=== PATIENT | male | born 1945 | race Caucasian/White ===

== ENCOUNTER → 2019-02-04 09:03 | Outpatient (CLI) | payer MEDICARE, OTHER, SELFPAY ==
[2019-02-04 11:27] LABS: Alanine Aminotransferase 15 IU/L (21-72); Albumin 4.5 g/dL (3.5-5.0); Albumin Globulin Ratio 1.8 (1.0-2.8); Alkaline Phosphatase 71 U/L (38-126); Aspartate Aminotransferase 21 IU/L (17-59); BUN Creatinine Ratio 21.1 (6-22); Bilirubin Total 0.5 mg/dL (0.2-1.3); Blood Urea Nitrogen 19 mg/dL (9-20); Calcium 9.4 mg/dL (8.4-10.2); Carbon Dioxide 32 mmol/L (22-32); Chloride 100 mmol/L (98-107); Cholesterol 129 mg/dL (140-199); Estimated Glomerular Filt Rate > 60.0 mL/min (>60); Globulin 2.5 g/dL (1.7-4.1); Glucose 116 mg/dL (80-110); HDL Cholesterol 42 mg/dL (40-60); HEMOLYSIS 16 (0-50); LDL Cholesterol Calculated 64 mg/dL (<100); Potassium 4.4 mmol/L (3.4-5.1); Sodium 143 mmol/L (137-145); Triglycerides 113 mg/dL (35-150)
[2019-02-04 11:35] LABS: Hemoglobin A1C% w Est Avg Glu 6.6 % (4.0-6.0)
== END ==
PROVIDERS: PCP Internal Medicine; Visit Provider Internal Medicine
DX: E11.9 Type 2 diabetes mellitus without complications (principal); E78.5 Hyperlipidemia, unspecified; G35 Multiple sclerosis; I10 Essential (primary) hypertension; I25.10 Atherosclerotic heart disease of native coronary artery without angina pectoris
CPT/HCPCS: 36415; 80053; 80061; 83036

== ENCOUNTER → 2019-09-02 09:09 | Outpatient (CLI) | payer MEDICARE, OTHER, SELFPAY ==
[2019-09-02 10:39] LABS: Hemoglobin A1C% w Est Avg Glu 6.3 % (4.0-6.0)
[2019-09-02 11:07] LABS: Creatinine Urine Random 200.5 mg/dL
[2019-09-02 11:09] LABS: Blood Urea Nitrogen 18 mg/dL (9-20); Calcium 9.6 mg/dL (8.4-10.2); Carbon Dioxide 30 mmol/L (22-32); Chloride 102 mmol/L (98-107); Estimated Glomerular Filt Rate > 60.0 mL/min (>60); Glucose 116 mg/dL (80-110); HEMOLYSIS < 15 (0-50); Potassium 4.4 mmol/L (3.4-5.1); Sodium 142 mmol/L (137-145)
[2019-09-02 11:13] LABS: Microalbumi Creatinin Ratio Ur 33.4 ug/mg CR (<30); Microalbumin Urine Random 6.7 mg/dL (0-1.6)
[2019-09-02 11:39] LABS: Prostate Specific Antigen Scrn 2.25 ng/mL (0.1-4.0)
== END ==
PROVIDERS: PCP Internal Medicine; Visit Provider Internal Medicine
DX: E11.9 Type 2 diabetes mellitus without complications (principal); E78.5 Hyperlipidemia, unspecified; I10 Essential (primary) hypertension; I25.10 Atherosclerotic heart disease of native coronary artery without angina pectoris; Z12.5 Encounter for screening for malignant neoplasm of prostate
CPT/HCPCS: 36415; 80048; 82043; 82570; 83036; G0103

== ENCOUNTER → 2020-03-03 09:07 | Outpatient (CLI) | payer MEDICARE, OTHER, SELFPAY ==
[2020-03-03 11:02] LABS: Hemoglobin A1C% w Est Avg Glu 6.6 % (4.0-6.0)
[2020-03-03 11:05] LABS: Alanine Aminotransferase 12 IU/L (<50); Albumin 4.5 g/dL (3.5-5.0); Albumin Globulin Ratio 1.7 (1.0-2.8); Alkaline Phosphatase 78 U/L (38-126); Aspartate Aminotransferase 24 IU/L (17-59); BUN Creatinine Ratio 19.1 (6-22); Bilirubin Total 0.5 mg/dL (0.2-1.3); Blood Urea Nitrogen 17 mg/dL (9-20); Calcium 9.5 mg/dL (8.4-10.2); Carbon Dioxide 29 mmol/L (22-32); Chloride 103 mmol/L (98-107); Cholesterol 125 mg/dL (140-199); Estimated Glomerular Filt Rate > 60.0 mL/min (>60); Globulin 2.6 g/dL (1.7-4.1); Glucose 119 mg/dL (80-110); HDL Cholesterol 43 mg/dL (40-60); HEMOLYSIS < 15 (0-50); LDL Cholesterol Calculated 63 mg/dL (<100); Potassium 4.3 mmol/L (3.4-5.1); Sodium 141 mmol/L (137-145); Total Protein 7.1 g/dL (6.3-8.2); Triglycerides 93 mg/dL (35-150)
== END ==
PROVIDERS: PCP Internal Medicine; Referring Provider Internal Medicine; Visit Provider Internal Medicine
DX: E11.9 Type 2 diabetes mellitus without complications (principal); E78.5 Hyperlipidemia, unspecified; G62.9 Polyneuropathy, unspecified; I25.10 Atherosclerotic heart disease of native coronary artery without angina pectoris
CPT/HCPCS: 36415; 80053; 80061; 83036

== ENCOUNTER → 2020-03-22 09:31 | Outpatient (CLI) | payer MEDICARE, OTHER, SELFPAY ==
[2020-03-22 10:01] LABS: Bacteria Urine None Seen
[2020-03-22 12:08] LABS: Appearance Urine UA CLEAR; Bilirubin Urine UA NEGATIVE (NEGATIVE); Color Urine UA YELLOW; Glucose Urine UA NEGATIVE (Negative); Ketones Urine UA TRACE (NEGATIVE); Leukocyte Esterase Urine UA TRACE (NEGATIVE); Nitrite Urine UA NEGATIVE (Negative); Occult Blood Urine UA 2+ (Negative); Protein Urine UA NEGATIVE (Negative); Urobilinogen Urine UA 0.2 E.U./dL (0.2); pH Urine UA 5.5 (4.5-8.0)
[2020-03-22 12:17] LABS: Hemoglobin A1C% w Est Avg Glu 6.5 % (4.0-6.0)
[2020-03-22 12:18] LABS: Culture Indicated Urine Cult Not Indicated; RBC Urine 1-5/HPF (0-5/HPF); Squamous Epithelial Cell Urine 1-5 /HPF (0-5/HPF); WBC Urine 0-1/HPF (0-5/HPF)
[2020-03-22 12:44] LABS: BUN Creatinine Ratio 19.1 (6-22); Blood Urea Nitrogen 17 mg/dL (9-20); Calcium 9.9 mg/dL (8.4-10.2); Carbon Dioxide 28 mmol/L (22-32); Chloride 101 mmol/L (98-107); Estimated Glomerular Filt Rate > 60.0 mL/min (>60); Glucose 109 mg/dL (80-110); HEMOLYSIS < 15 (0-50); Potassium 4.5 mmol/L (3.4-5.1); Sodium 140 mmol/L (137-145)
== END ==
PROVIDERS: PCP Internal Medicine; Referring Provider Internal Medicine; Visit Provider Internal Medicine
DX: E11.9 Type 2 diabetes mellitus without complications (principal); R35.0 Frequency of micturition
CPT/HCPCS: 36415; 80048; 81001; 83036

== ENCOUNTER → 2020-05-25 09:05 | Outpatient (CLI) | payer MEDICARE, OTHER, SELFPAY ==
[2020-05-25 12:43] LABS: Prostate Specific Antigen 2.26 ng/mL (0.10-4.00)
== END ==
PROVIDERS: PCP Internal Medicine; Referring Provider Specialist; Visit Provider Specialist
DX: N39.41 Urge incontinence (principal); N40.1 Benign prostatic hyperplasia with lower urinary tract symptoms
CPT/HCPCS: 36415; 84153

== ENCOUNTER → 2020-09-28 09:39 | Outpatient (CLI) | payer MEDICARE, OTHER, SELFPAY ==
[2020-09-28 11:13] LABS: Hemoglobin A1C% w Est Avg Glu 6.3 % (4.0-6.0)
[2020-09-28 11:14] LABS: Alanine Aminotransferase 12 IU/L (<50); Albumin 4.4 g/dL (3.5-5.0); Albumin Globulin Ratio 1.8 (1.0-2.8); Alkaline Phosphatase 80 U/L (38-126); Aspartate Aminotransferase 20 IU/L (17-59); BUN Creatinine Ratio 20.9 (6-22); Bilirubin Total 0.5 mg/dL (0.2-1.3); Blood Urea Nitrogen 18 mg/dL (9-20); Calcium 9.2 mg/dL (8.4-10.2); Carbon Dioxide 30 mmol/L (22-32); Chloride 103 mmol/L (98-107); Cholesterol 124 mg/dL (140-199); Estimated Glomerular Filt Rate > 60.0 mL/min (>60); Globulin 2.5 g/dL (1.7-4.1); Glucose 109 mg/dL (80-110); HDL Cholesterol 49 mg/dL (40-60); HEMOLYSIS < 15 (0-50); LDL Cholesterol Calculated 56 mg/dL (<100); Sodium 141 mmol/L (137-145); Total Protein 6.9 g/dL (6.3-8.2); Triglycerides 95 mg/dL (35-150)
[2020-09-28 12:00] LABS: Vitamin B12 > 1000 pg/mL (239-931)
== END ==
PROVIDERS: PCP Internal Medicine; Referring Provider Internal Medicine; Visit Provider Internal Medicine
DX: E11.21 Type 2 diabetes mellitus with diabetic nephropathy (principal); E78.5 Hyperlipidemia, unspecified; E53.8 Deficiency of other specified B group vitamins; G62.9 Polyneuropathy, unspecified; I10 Essential (primary) hypertension; I25.10 Atherosclerotic heart disease of native coronary artery without angina pectoris
CPT/HCPCS: 36415; 80053; 80061; 82607; 83036

== ENCOUNTER → 2021-01-18 09:05 | Outpatient (CLI) | payer MEDICARE, OTHER, SELFPAY ==
[2021-01-18 11:10] LABS: Hemoglobin A1C% w Est Avg Glu 6.1 % (4.0-6.0)
[2021-01-18 11:54] LABS: HEMOLYSIS < 15 (0-50)
[2021-01-18 11:55] LABS: Alanine Aminotransferase 16 IU/L (<50); Albumin 4.3 g/dL (3.5-5.0); Alkaline Phosphatase 66 U/L (38-126); Aspartate Aminotransferase 25 IU/L (17-59); BUN Creatinine Ratio 23.5 (6-22); Bilirubin Total 0.5 mg/dL (0.2-1.3); Blood Urea Nitrogen 20 mg/dL (9-20); Calcium 9.8 mg/dL (8.4-10.2); Carbon Dioxide 28 mmol/L (22-32); Chloride 102 mmol/L (98-107); Cholesterol 124 mg/dL (140-199); Estimated Glomerular Filt Rate > 60.0 mL/min (>60); Globulin 2.2 g/dL (1.7-4.1); Glucose 93 mg/dL (80-110); HDL Cholesterol 51 mg/dL (40-60); LDL Cholesterol Calculated 57 mg/dL (<100); Sodium 141 mmol/L (137-145); Total Protein 6.5 g/dL (6.3-8.2); Triglycerides 79 mg/dL (35-150)
[2021-01-18 12:27] LABS: Potassium 4.5 mmol/L (3.4-5.1)
== END ==
PROVIDERS: PCP Internal Medicine; Referring Provider Internal Medicine; Visit Provider Internal Medicine
DX: E11.9 Type 2 diabetes mellitus without complications (principal); E78.5 Hyperlipidemia, unspecified; I10 Essential (primary) hypertension
CPT/HCPCS: 36415; 80053; 80061; 83036

== ENCOUNTER 2021-02-06 03:27 | Emergency (ER) | payer MEDICARE, OTHER, SELFPAY ==
[2021-02-06 03:37] VITALS: BP 136/76; PULSE 58; RESP 15; TEMP 36.1; O2SAT 98; BMI 20.5
--- NOTE | 2021-02-06 04:07 | ED.FALL ---
HPI - Fall General Chief Complaint: Fall Stated Complaint: Has MS, fell and hit head Time Seen by Provider: 02/06/21 03:54 Source: patient and family Mode of arrival: Ambulatory History of Present Illness HPI Narrative: Patient is a 75-year-old male with history of MS on Plavix who rolled out of bed cutting his left ear on the his bedside table corner. No loss of consciousness no other injury. No nausea vomiting or weakness. MD complaint: fall Onset (ago): unknown Fall from: out of bed Fall witnessed: yes, by family Place fall occurred: home Loss of consciousness: none Related Data Home Medications Medication Instructions Recorded Confirmed aspirin 325 mg PO QDAY #0 04/28/16 01/25/21 Previous Rx's Medication Instructions Recorded clopidogrel 75 mg tablet 75 mg PO QDAY #90 tab 03/08/20 sertraline 100 mg tablet 100 mg PO DAILY #90 tab 05/06/20 lisinopril 5 mg tablet 5 mg PO DAILY #90 tab 09/08/20 metformin 500 mg tablet 500 mg PO BIDCC #180 tab 09/08/20 atorvastatin 10 mg tablet 5 mg PO EVERY OTHER DAY #45 tab 12/03/20 gabapentin 300 mg capsule 300 mg PO BID #120 cap 12/23/20 Allergies Allergy/AdvReac Type Severity Reaction Status Date / Time adhesive [ADHESIVE] AdvReac Mild RASH Verified 01/25/21 11:31 Review of Systems Review of Systems Narrative: GENERAL: Denies chills, fatigue, malaise, fever, sweats, travel HEENT: Denies sinus pain, ear pain, sore throat, difficulty swallowing, neck pain RESPIRATORY: Denies dyspnea, cough, wheezing, hemoptysis, sputum. CARDIOVASCULAR: Denies chest pain, palpitations, orthopnea, edema GASTROINTESTINAL: Denies nausea, vomiting, abdominal pain, diarrhea, constipation, melena. : Denies dysuria, frequency, incontinence, hematuria, urinary retention, flank pain. MUSCULOSKELETAL: Denies weakness, joint pain, or bony pain SKIN: Laceration left ear NEUROLOGIC: Denies weakness, dizziness, headache, numbness, change in speech, confusion PSYCHIATRIC: No concerning psychosocial issues. 12 point review of systems is negative except for those stated above and HPI Patient History Medical History Alcohol abuse Balance problems (07/06/16) Benign prostatic hyperplasia (BPH) with urinary urge incontinence BPH w urinary obs/LUTS Cataracts, bilateral (2010) Coronary artery disease involving [place] coronary artery of [place] heart without angina pectoris (04/28/16) Depression (2011) Diabetes Essential hypertension (04/28/16) Foot pain (2005) Hammertoes of both feet Hyperlipemia (Unknown) Kidney stones (2010) Knee pain (2005) Multiple sclerosis (~2014) Parkinson's disease (2014) Peripheral neuropathy (2005) Peripheral vascular disease (09/27/17) Recurrent falls (07/06/16) Sciatica (2005) Type 2 diabetes mellitus without complication, without long-term current use of insulin (04/28/16) Type 2 diabetes with nephropathy Urge incontinence Venous insufficiency Surgical History History of coronary artery stent placement Hx of knee surgery (Unknown) Hx of lithotripsy (11/2015) S/P coronary artery stent placement (Unknown) S/P knee surgery S/P tonsillectomy and adenoidectomy Family History Father Diabetes mellitus Mother No problems noted. Brother Diabetes mellitus Social History Smoking Status: Never smoker alcohol intake: former Smoking Status: Never smoker Substance Use Type: does not use Exam Initial Vital Signs Initial Vital Signs: Vital Signs Temperature 97 F L 02/06/21 03:37 Pulse Rate 58 L 02/06/21 03:37 Respiratory Rate 15 02/06/21 03:37 Blood Pressure 136/76 02/06/21 03:37 Pulse Oximetry 98 02/06/21 03:37 GENERAL: Alert well-appearing 75-year-old male and in no acute distress. HEENT: Head atraumatic,EOMI, pupils reactive, face symmetric, moist mucous membranes NECK: No vertebral tenderness or step-off full flexion extension and rotation EARS:laceration see diagram tympanic membrane intact blood in can now but no injury to can now noted CARDIOVASCULAR: Regular rate and rhythm without murmurs, rubs or gallops. RESPIRATORY: Breath sounds equal bilaterally, no wheezes rales or rhonchi. ABDOMEN: Soft, nontender. Normoactive bowel sounds all 4 quadrants. No guarding or rebound. BACK: No vertebral tenderness no step-off EXTREMITIES: Normal range of motion, no clubbing or edema. Neurovascularly intact NEUROLOGICAL: Alert and oriented x4.Normal gait and speech. [employer] strength equal bilaterally SKIN: 8 cm laceration in left ear see diagram HENMT Ear Left: 1. 4 cm laceration no cartilage involvement Procedures Laceration Repair Laceration 1: Site: other (Year) Side (If applicable): left Size (cm): 4 Description: linear Depth: simple, single layer Local Anesthetic: lidocaine 1% Amount of anesthesia used (mL): 15 Pre-repair: irrigated extensively and deep structures intact Skin layer closed with: nylon Size (cm): 6-0 Number of sutures: 8 Technique: simple, interrupted Nerve Block Nerve Block 1: Time out performed: Yes Local Anesthetic: lidocaine 1% Amount of anesthesia used (mL): 15 Side: left Nerve Blocks: other (Auricular block) Procedure Successful: Yes Patient Tolerated Procedure: Well Complications: none Course Orders Ordered: Discontinued Medications Lidocaine HCl (Lidocaine 2% Inj Mdv) 1 ml SUBCUT NOW ONE Stop: 02/06/21 04:17 Last Admin: 02/06/21 04:28 Dose: 1 ml Documented by: SOLITARIO Tranexamic Acid (Tranexamic Acid 1,000 Mg Vial) 1,000 mg TOP NOW ONE Stop: 02/06/21 05:19 Last Admin: 02/06/21 05:26 Dose: 1,000 mg Documented by: LESA Vital Signs Vital signs: Vital Signs - 8 hr 02/06/21 03:37 02/06/21 05:40 Temperature 97 F L Pulse Rate 58 L 63 Respiratory Rate 15 18 Blood Pressure 136/76 158/78 H Pulse Oximetry 98 100 MDM - Fall MDM Narrative Medical decision making narrative: Patient had some oozing still despite suture repair. TXA cotton ball and pressure were applied. Discharge Plan Departure Patient Disposition: Home Clinical Impression: Laceration of antihelix of left ear Qualifiers: Encounter type: initial encounter Qualified Code(s): S01.312A - Laceration without foreign body of left ear, initial encounter Instructions: DI for Laceration Repair Activity Restrictions/Additional Instructions: 1. Have your suture removed in 5-7 days, you may go to walk-in clinic, return to the ER or call your primary care physician. 2. No soaking in water including dishes, bathtubs, Lakes, swimming pools etc 3. Signs of infection include, but not limited to, increased redness, increased swelling, increased pain, fever and purulent drainage, if the symptoms should arise, you may need an antibiotic and you should have a reevaluation either by your primary care provider or by the emergency department. Prescriptions: No Action aspirin 325 MG tablet 325 mg PO QDAY Qty: 0 RF: 0 clopidogrel 75 mg tablet 75 mg PO QDAY Qty: 90 RF: 3 sertraline 100 mg tablet 100 mg PO DAILY Qty: 90 RF: 3 metformin [Glucophage] 500 mg tablet 500 mg PO BIDCC Qty: 180 RF: 3 lisinopril 5 mg tablet 5 mg PO DAILY Qty: 90 RF: 3 atorvastatin [Lipitor] 10 mg tablet 5 mg PO EVERY OTHER DAY Qty: 45 RF: 1 gabapentin 300 mg capsule 300 mg PO BID Qty: 120 RF: 0 Referrals: Mitch Maldonado MD [Primary Care Provider] -
[2021-02-06] MEDS: LIDOCAINE 2% INJ MDV 1 ML SUBCUT (04:28)
[2021-02-06] MEDS: TRANEXAMIC ACID 1,000 MG VIAL 1000 MG TOP (05:26)
[2021-02-06 05:40] VITALS: BP 158/78; PULSE 63; RESP 18; O2SAT 100
== END 2021-02-06 05:40 | disposition home or self-care (01) ==
PROVIDERS: Emergency Provider Emergency Medicine; PCP Internal Medicine
DX: S01.312A Laceration without foreign body of left ear, initial encounter (principal); W06.XXXA Fall from bed, initial encounter
CPT/HCPCS: 12013; 99282; 99283

== ENCOUNTER 2021-02-23 12:02 | Emergency (ER) | payer MEDICARE, OTHER, SELFPAY ==
[2021-02-23] VITALS (8 sets, daily range): BP systolic 114–138; BP diastolic 61–74; PULSE 53–67; RESP 12–24; TEMP 36.3; O2SAT 98–100; BMI 22.4
[2021-02-23 12:36] LABS: INR 1.1 (0.9-1.3)
[2021-02-23 12:38] LABS: Add Manual Diff / Slide Review NO; Basophils Absolute Auto 0 /uL (0-100); Basophils Percent Auto 0.4 % (0-2); Eosinophils Absolute Auto 700 /uL (0-450); Eosinophils Percent Auto 7.9 % (2-4); Hematocrit 43.1 % (41-53); Hemoglobin 14.2 g/dL (13.5-17.5); Lymphocytes Absolute Auto 1200 /uL (1100-4500); Lymphocytes Percent Auto 13.1 % (25-40); Mean Corpuscular HGB Conc 32.9 % (30-36); Mean Corpuscular Hemoglobin 32.7 PG (26-34); Mean Corpuscular Volume 99.2 fL (80-100); Monocytes Absolute Auto 700 /uL (0-900); Monocytes Percent Auto 7.5 % (3-14); Neutrophils Absolute Auto 6600 /uL (1500-7000); Neutrophils Percent Auto 71.1 % (50-75); Platelet Count 215 X10^3/uL (150-400); Red Blood Cell Count 4.35 X10^6/uL (4.5-5.9); Red Cell Distribution Width 13.2 % (11.6-14.8); White Blood Cell Count 9.3 X10^3/uL (4.5-11.0)
[2021-02-23 12:41] LABS: Alanine Aminotransferase 17 IU/L (<50); Albumin 4.2 g/dL (3.5-5.0); Albumin Globulin Ratio 1.8 (1.0-2.8); Alkaline Phosphatase 76 U/L (38-126); Aspartate Aminotransferase 29 IU/L (17-59); BUN Creatinine Ratio 22.6 (6-22); Bilirubin Total 0.6 mg/dL (0.2-1.3); Blood Urea Nitrogen 19 mg/dL (9-20); Calcium 9.3 mg/dL (8.4-10.2); Carbon Dioxide 27 mmol/L (22-32); Chloride 102 mmol/L (98-107); Estimated Glomerular Filt Rate > 60.0 mL/min (>60); Globulin 2.3 g/dL (1.7-4.1); Glucose 97 mg/dL (80-110); HEMOLYSIS 30 (0-50); Potassium 4.4 mmol/L (3.4-5.1); Sodium 138 mmol/L (137-145); Total Protein 6.5 g/dL (6.3-8.2)
--- NOTE | 2021-02-23 13:15 | ED.SKABFB ---
HPI - Skin/Abscess/Foreign Bdy General Chief complaint: Skin/Abscess/Foreign Body Stated complaint: lower right leg swollen, leaking fluids, rashes Time Seen by Provider: 02/23/21 13:15 Source: patient and family Mode of arrival: Ambulatory Limitations: no limitations History of Present Illness HPI narrative: This is a 75-year-old male comes emergency department with complaint of swelling of his right lower extremity, erythema and rash that has begun to week but. Patient states he has had rashes intermittently on his lower extremities particular that leg. They have not found a source. They are putting lotion on the area over the past week and then they noted it started to become increasing lead with redness spreading from the rash up the leg and up into his thigh. This is an several patches. They also noticed this been some fluid draining from the rash area. Patient has had increasing pain when he ambulates. He has got chronic swelling in his lower extremity but has had worsening particularly in foot. He has not appreciated worsening swelling in his left lower extremity. Patient denies any fevers or chills. He denies any chest pain or shortness of breath, no nausea or vomiting. No other new GI or urinary symptoms. He does have a history significant for MS, he takes Plavix, aspirin daily as well as atorvastatin, lisinopril and metformin has a history of 4 cardiac stents and does take gabapentin daily. Patient denies any other immune suppressive medications. He denies any allergies to antibiotics. He follows with Dr. Maldonado for his primary care and is accompanied by his . Related Data Home Medications Medication Instructions Recorded Confirmed aspirin 325 mg PO QDAY #0 04/28/16 02/14/21 Previous Rx's Medication Instructions Recorded clopidogrel 75 mg tablet 75 mg PO QDAY #90 tab 03/08/20 sertraline 100 mg tablet 100 mg PO DAILY #90 tab 05/06/20 lisinopril 5 mg tablet 5 mg PO DAILY #90 tab 09/08/20 metformin 500 mg tablet 500 mg PO BIDCC #180 tab 09/08/20 atorvastatin 10 mg tablet 5 mg PO EVERY OTHER DAY #45 tab 12/03/20 gabapentin 300 mg capsule 300 mg PO BID #120 cap 12/23/20 clindamycin HCl 300 mg PO Q6H #40 cap 02/23/21 Allergies Allergy/AdvReac Type Severity Reaction Status Date / Time adhesive [ADHESIVE] AdvReac Mild RASH Verified 02/23/21 12:12 Review of Systems Review of Systems ROS Unobtainable: All systems reviewed & are unremarkable except as noted in HPI and below Patient History Medical History Alcohol abuse Balance problems (07/06/16) Benign prostatic hyperplasia (BPH) with urinary urge incontinence BPH w urinary obs/LUTS Cataracts, bilateral (2010) Coronary artery disease involving [place] coronary artery of [place] heart without angina pectoris (04/28/16) Depression (2011) Diabetes Essential hypertension (04/28/16) Foot pain (2005) Hammertoes of both feet Hyperlipemia (Unknown) Kidney stones (2010) Knee pain (2005) Multiple sclerosis (~2014) Parkinson's disease (2014) Peripheral neuropathy (2005) Peripheral vascular disease (09/27/17) Recurrent falls (07/06/16) Sciatica (2005) Type 2 diabetes mellitus without complication, without long-term current use of insulin (04/28/16) Type 2 diabetes with nephropathy Urge incontinence Venous insufficiency Surgical History History of coronary artery stent placement Hx of knee surgery (Unknown) Hx of lithotripsy (11/2015) S/P coronary artery stent placement (Unknown) S/P knee surgery S/P tonsillectomy and adenoidectomy Family History Father Diabetes mellitus Mother No problems noted. Brother Diabetes mellitus Social History Smoking Status: Never smoker alcohol intake: former Smoking Status: Never smoker alcohol intake frequency: other Substance Use Type: does not use Exam Narrative Exam Narrative: GENERAL: Alert and oriented x three, well-nourished male in mild distress. HEENT: Head normocephalic, atraumatic, EOMI, pupils reactive, face symmetric, moist mucous membranes NECK: Supple, full range of motion CARDIOVASCULAR: Regular rate and rhythm without murmurs, rubs or gallops. RESPIRATORY: Breath sounds equal bilaterally, no wheezes rales or rhonchi. ABDOMEN: Soft, nontender. Normoactive bowel sounds all 4 quadrants. No guarding or rebound, rigidity, no mass : No CVA tenderness EXTREMITIES: Patient's right lower extremity is swollen compared to the left. He has several erythema medic irregular patches that are weeping serosanguineous fluid the largest is 3.5 cm in circumference. Patient also has some mild erythema with small papules tracking up the anterior chance although this does not have the significantly erythematous changes comparison to the patches. Patient also has secondary area on his right lower thigh posteriorly that is about 3 cm also irregular Um patches 3 total with some serosanguineous drainage and very mild surrounding erythema about a cm. There is no obvious fluid collection or fluctuance. There is some mild warmth. Patient does have swelling of the right pedal area significantly compared to the left. He has cap refill about 3-4 seconds which she states is normal. Normal range of motion, no clubbing. Neurovascularly intact NEUROLOGICAL: Cranial nerves II through XII grossly intact. Moving all extremities SKIN: Warm, dry, no petechiae, no rashes or lesions noted elsewhere on the body. Initial Vital Signs Initial Vital Signs: Vital Signs Pulse Rate 64 02/23/21 12:09 Blood Pressure 122/71 02/23/21 12:09 Pulse Oximetry 98 02/23/21 12:09 Course Orders Ordered: ED Orders 02/23/21 12:25 Complete Blood Count AUTO DIFF Stat Comprehensive Metabolic Panel Stat Procalcitonin Stat Prothrombin Time INR Stat 02/23/21 13:50 US periph venous low extrem rt Stat 02/23/21 14:19 Wound Culture and Gram Stain Stat Discontinued Medications Clindamycin Phosphate (Cleocin) 600 mg in 50 mls @ 50 mls/hr IV NOW ONE Stop: 02/23/21 14:50 Last Infusion: 02/23/21 15:08 Dose: 0 mls/hr Documented by: Admin: 02/23/21 14:08 Dose: 50 mls/hr Documented by: ASTER Vital Signs Vital signs: Vital Signs - 8 hr 02/23/21 12:09 02/23/21 12:12 02/23/21 12:30 Temperature 97.3 F L Pulse Rate 64 67 57 L Respiratory Rate 16 12 Blood Pressure 122/71 122/71 114/61 Pulse Oximetry 98 98 98 02/23/21 13:00 02/23/21 13:30 02/23/21 14:00 Temperature Pulse Rate 53 L 54 L 55 L Respiratory Rate 13 24 14 Blood Pressure 138/71 136/71 Pulse Oximetry 98 02/23/21 14:30 02/23/21 15:00 Temperature Pulse Rate 55 L 54 L Respiratory Rate 15 19 Blood Pressure 125/66 130/74 Pulse Oximetry 100 99 MDM - Skin/Abscess/Foreign Bdy Lab Data Attestation: I reviewed the patient's lab results. Result diagrams: 02/23/21 12:25 02/23/21 12:25 Labs: Lab Results 02/23/21 02/23/21 02/23/21 Range/Units 12:25 12:25 12:25 WBC 9.3 (4.5-11.0) X10^3/uL RBC 4.35 L (4.5-5.9) X10^6/uL Hgb 14.2 (13.5-17.5) g/dL Hct 43.1 (41-53) % MCV 99.2 (80-100) fL MCH 32.7 (26-34) PG MCHC 32.9 (30-36) % RDW 13.2 (11.6-14.8) % Plt Count 215 (150-400) X10^3/uL Neut % (Auto) 71.1 (50-75) % Lymph % (Auto) 13.1 L (25-40) % [place] % (Auto) 7.5 (3-14) % Eos % (Auto) 7.9 H (2-4) % Baso % (Auto) 0.4 (0-2) % Neut # (Auto) 6600 (8690-4785) /uL Lymph # (Auto) 1200 (2078-4349) /uL [place] # (Auto) 700 (0-900) /uL Eos # (Auto) 700 H (0-450) /uL Baso # (Auto) 0 (0-100) /uL PT 12.0 (10.1-12.7) SECONDS INR 1.1 (0.9-1.3) Sodium 138 (137-145) mmol/L Potassium 4.4 (3.4-5.1) mmol/L Chloride 102 (98-107) mmol/L Carbon Dioxide 27 (22-32) mmol/L BUN 19 (9-20) mg/dL Creatinine 0.84 (0.66-1.25) mg/dL Estimated GFR > 60.0 (>60) mL/min BUN/Creatinine Ratio 22.6 H (6-22) Glucose 97 (80-110) mg/dL Calcium 9.3 (8.4-10.2) mg/dL Total Bilirubin 0.6 (0.2-1.3) mg/dL AST 29 (17-59) IU/L ALT 17 (<50) IU/L Alkaline Phosphatase 76 (38-126) U/L Total Protein 6.5 (6.3-8.2) g/dL Albumin 4.2 (3.5-5.0) g/dL Globulin 2.3 (1.7-4.1) g/dL Albumin/Globulin Ratio 1.8 (1.0-2.8) Procalcitonin (<0.5) ng/mL 02/23/21 Range/Units 12:25 WBC (4.5-11.0) X10^3/uL RBC (4.5-5.9) X10^6/uL Hgb (13.5-17.5) g/dL Hct (41-53) % MCV (80-100) fL MCH (26-34) PG MCHC (30-36) % RDW (11.6-14.8) % Plt Count (150-400) X10^3/uL Neut % (Auto) (50-75) % Lymph % (Auto) (25-40) % [place] % (Auto) (3-14) % Eos % (Auto) (2-4) % Baso % (Auto) (0-2) % Neut # (Auto) (5692-8756) /uL Lymph # (Auto) (7470-3577) /uL [place] # (Auto) (0-900) /uL Eos # (Auto) (0-450) /uL Baso # (Auto) (0-100) /uL PT (10.1-12.7) SECONDS INR (0.9-1.3) Sodium (137-145) mmol/L Potassium (3.4-5.1) mmol/L Chloride (98-107) mmol/L Carbon Dioxide (22-32) mmol/L BUN (9-20) mg/dL Creatinine (0.66-1.25) mg/dL Estimated GFR (>60) mL/min BUN/Creatinine Ratio (6-22) Glucose (80-110) mg/dL Calcium (8.4-10.2) mg/dL Total Bilirubin (0.2-1.3) mg/dL AST (17-59) IU/L ALT (<50) IU/L Alkaline Phosphatase (38-126) U/L Total Protein (6.3-8.2) g/dL Albumin (3.5-5.0) g/dL Globulin (1.7-4.1) g/dL Albumin/Globulin Ratio (1.0-2.8) Procalcitonin 0.05 (<0.5) ng/mL Imaging Data US - DVT: Radiologist's Impression: [address] [id number] ReportSigned Patient: German Collazo JMR#: [id number]: 6Acct:[id number]/Sex: 75 / MDate of Service: 02/23/21Loc: EDAccession Number: [id number] Procedure: US periph venous low extrem rt Ordering Provider: Brenda Casarez D.O. PROCEDURE: US PERIPH VENOUS LOW EXTREM RT INDICATIONS: Swelling, redness, skin breakdown leg TECHNIQUE: Real-time imaging, as well as color and pulse Doppler interrogation, were performed of the lower extremity deep veins from the inguinal ligament to the popliteal fossa. COMPARISON: None. FINDINGS: The common femoral, femoral and popliteal veins are normally compressible, and free of intraluminal thrombus. Color and pulse Doppler demonstrate normal phasic intraluminal flow. There is normal augmentation response to distal compression maneuver. IMPRESSION: No DVT. Dictated by: Joni Lafleur M.D. on 02/23/2021 at 14:35 Approved by: Joni Lafleur M.D. on 02/23/2021 at 14:35 [facility] Narrative Medical decision making narrative: This is a 75 old male who comes in with complaint of rash that has developed stressing with a sweeping and increasing redness extending up his leg. I suspect patient has rash is not typically infectious but has developed an overlying bacterial infection. Patient has been afebrile, his labs showed elevation is eosinophils and we discussed that long-term he would probably benefit for some further dermatologic evaluation. Patient's procalcitonin is in normal range and he does not meet any other septic criteria. He has patches of rash with surrounding erythema no purulent drainage. Culture was sent the patient was started on oral medication after single dose of IV antibiotics. Patient discussed strict return precautions. DVT ultrasound was ordered as he has had swelling of that singular lower extremity particularly in the foot and does have some mobility issues Discharge Plan Departure Patient Disposition: Home Clinical Impression: Cellulitis of right lower extremity Instructions: DI for Cellulitis -- Adult Activity Restrictions/Additional Instructions: Follow up with your physician this week for recheck. Call for an appointment today or in the morning. I would discuss for the long-term with your recurrent rashes on her lower extremities may be worthwhile to have a biopsy or follow-up with Dermatology if Dr. Maldonado feels this is appropriate. Take antibiotics until completely gone. Prescription to [facility] Change bandages to the areas with weeping drainage 2-3 times daily or if they become completely soaked through. Please return if you are having fevers greater 100.4 F, increasing redness, swelling, purulent drainage, rapidly worsening swelling of your extremity, new chest pain, shortness of breath, persistent vomiting or feeling significantly worse or other new or concerning symptoms. Prescriptions: New clindamycin HCl 300 mg capsule 300 mg PO Q6H Qty: 40 RF: 0 No Action aspirin 325 MG tablet 325 mg PO QDAY Qty: 0 RF: 0 clopidogrel 75 mg tablet 75 mg PO QDAY Qty: 90 RF: 3 sertraline 100 mg tablet 100 mg PO DAILY Qty: 90 RF: 3 metformin [Glucophage] 500 mg tablet 500 mg PO BIDCC Qty: 180 RF: 3 lisinopril 5 mg tablet 5 mg PO DAILY Qty: 90 RF: 3 atorvastatin [Lipitor] 10 mg tablet 5 mg PO EVERY OTHER DAY Qty: 45 RF: 1 gabapentin 300 mg capsule 300 mg PO BID Qty: 120 RF: 0 Referrals: Mtich Maldonado MD [Primary Care Provider] -
--- NOTE | 2021-02-23 13:50 | DI.US.S_ITS ---
PROCEDURE: US PERIPH VENOUS LOW EXTREM RT INDICATIONS: Swelling, redness, skin breakdown leg TECHNIQUE: Real-time imaging, as well as color and pulse Doppler interrogation, were performed of the lower extremity deep veins from the inguinal ligament to the popliteal fossa. COMPARISON: None. FINDINGS: The common femoral, femoral and popliteal veins are normally compressible, and free of intraluminal thrombus. Color and pulse Doppler demonstrate normal phasic intraluminal flow. There is normal augmentation response to distal compression maneuver. IMPRESSION: No DVT. Dictated by: Joni Lafleur M.D. on 02/23/2021 at 14:35 Approved by: Joni Lafleur M.D. on 02/23/2021 at 14:35
[2021-02-23] MEDS: CLINDAMYCIN 600 MG/50 ML PIGGYBACK 50 MG IV (14:08)
[2021-02-23 14:35] LABS: Procalcitonin 0.05 ng/mL (<0.5)
== END 2021-02-23 15:41 | disposition home or self-care (01) ==
PROVIDERS: Emergency Provider Emergency Medicine; PCP Internal Medicine
DX: L03.115 Cellulitis of right lower limb (principal)
CPT/HCPCS: 80053; 84145; 85025; 85610; 87070; 87075; 87077; 87205; 93971; 96360; 99284

== ENCOUNTER 2021-03-21 11:27 | Emergency (ER) | payer MEDICARE, OTHER, SELFPAY ==
[2021-03-21 12:01] VITALS: BP 135/75; PULSE 63; RESP 20; TEMP 36.5; O2SAT 97; BMI 21.8
--- NOTE | 2021-03-21 16:08 | ED_ITS ---
HPI - Skin/Abscess/Foreign Bdy General Chief complaint: Skin/Abscess/Foreign Body Stated complaint: cellulitis hasn't improved with antibiotics Time Seen by Provider: 03/21/21 16:07 Source: patient Mode of arrival: Family Vehicle Limitations: no limitations History of Present Illness HPI narrative: 75M nonsmoker with history of hyperlipidemia, CAD, HTN, NIDDM presents with ongoing problems with the skin of his bilateral lower extremities. He has been seen a few times due to a red, rather atypical appearing rash on his lower extremity that has resulted in swelling and some weeping. He has been on 2 rounds of antibiotics and states that there had been a subtle improvement in symptoms but he is developing some dry and scaling lesions on his right lateral leg and also left lower extremity. He feels well and denies any fever, chills nor nausea or vomiting. He is not dizzy nor weak or lightheaded. MD complaint: rash Onset (ago): week(s) Tetanus up to date: no Location: LUE Severity: moderate Relieving factors: none Exacerbating factors: none Treatments prior to arrival: antibiotic Related Data Home Medications Medication Instructions Recorded Confirmed aspirin 325 mg PO QDAY #0 04/28/16 03/02/21 Previous Rx's Medication Instructions Recorded clopidogrel 75 mg tablet 75 mg PO QDAY #90 tab 03/08/20 sertraline 100 mg tablet 100 mg PO DAILY #90 tab 05/06/20 lisinopril 5 mg tablet 5 mg PO DAILY #90 tab 09/08/20 metformin 500 mg tablet 500 mg PO BIDCC #180 tab 09/08/20 atorvastatin 10 mg tablet 5 mg PO EVERY OTHER DAY #45 tab 12/03/20 gabapentin 300 mg capsule 300 mg PO BID #120 cap 12/23/20 clindamycin HCl 300 mg PO Q6H #40 cap 02/23/21 doxycycline monohydrate 100 mg 100 mg PO BID #20 cap 03/02/21 capsule doxycycline hyclate 100 mg PO BID #20 tab 03/21/21 ketoconazole 1 applic TOPICAL BID 7 Days #30 g 03/21/21 Allergies Allergy/AdvReac Type Severity Reaction Status Date / Time adhesive [ADHESIVE] AdvReac Mild RASH Verified 03/21/21 12:06 Review of Systems Constitutional Constitutional: Denies chills, Denies fatigue, Denies fever(s), Denies frequent falls, Denies lethargy and Denies weakness Eyes Eyes: Denies change in vision, Denies eye discharge, Denies irritation and Denies loss of vision ENT Ears, Nose, Mouth, and Throat: Denies change in voice, Denies dizziness, Denies neck pain, Denies sore throat and Denies throat swelling Cardiovascular Cardiovascular: Denies chest pain, Denies irregular heart rhythm, Denies lightheadedness, Denies palpitations, Denies dyspnea, Denies dyspnea on exertion and Denies orthopnea Respiratory Respiratory: Denies cough, Denies dyspnea, Denies dyspnea on exertion and Denies wheezing Gastrointestinal Gastrointestinal: Denies abdominal pain, Denies change in bowel habits, Denies diarrhea, Denies nausea and Denies vomiting Musculoskeletal Musculoskeletal: Denies neck pain and Denies numbness Integumentary/Breasts Skin/Breast: Denies pruritus, Reports erythema, Denies rash and Denies wounds Neurologic Neurologic: Denies behavioral changes, Denies confusion, Denies dizziness, Denies frequent falls, Denies loss of vision, Denies numbness and Denies weakness Psychiatric Psychiatric: Denies anxiety, Denies behavioral changes, Denies confusion, Denies depression, Denies homicidal ideation and Denies suicidal ideation Endocrine Endocrine: Denies fatigue, Denies flushing and Denies palpitations Hematologic/Lymphatic Hematologic/Lymphatic: Denies easy bruising Allergic/Immunologic Allergic/Immunologic: Denies urticaria, Denies throat swelling and Denies wheezing Patient History Medical History Alcohol abuse Balance problems (07/06/16) Benign prostatic hyperplasia (BPH) with urinary urge incontinence BPH w urinary obs/LUTS Cataracts, bilateral (2010) Coronary artery disease involving [place] coronary artery of [place] heart without angina pectoris (04/28/16) Depression (2011) Diabetes Essential hypertension (04/28/16) Foot pain (2005) Hammertoes of both feet Hyperlipemia (Unknown) Kidney stones (2010) Knee pain (2005) Multiple sclerosis (~2014) Parkinson's disease (2014) Peripheral neuropathy (2005) Peripheral vascular disease (09/27/17) Recurrent falls (07/06/16) Sciatica (2005) Type 2 diabetes mellitus without complication, without long-term current use of insulin (04/28/16) Type 2 diabetes with nephropathy Urge incontinence Venous insufficiency Surgical History History of coronary artery stent placement Hx of knee surgery (Unknown) Hx of lithotripsy (11/2015) S/P coronary artery stent placement (Unknown) S/P knee surgery S/P tonsillectomy and adenoidectomy Family History Father Diabetes mellitus Mother No problems noted. Brother Diabetes mellitus Social History Smoking Status: Never smoker alcohol intake: former Smoking Status: Never smoker alcohol intake frequency: other Substance Use Type: does not use Exam Narrative Exam Narrative: GENERAL: 75 [] year old patient appears stated age. Well- developed patient, in mild distress. HEAD: Atraumatic. Normocephalic. EYES: Pupils equal round and reactive. Extraocular motions intact. No scleral icterus. No injection or drainage. ENT: Nose without bleeding, purulent drainage. Throat without erythema, tonsillar hypertrophy or exudate. Airway patent. NECK: Trachea midline. Non tender CARDIOVASCULAR: Regular rate and rhythm without murmurs, gallops, or rubs. RESPIRATORY: Clear to auscultation. Breath sounds equal bilaterally. No wheezes, rales, or rhonchi. GASTROINTESTINAL: Abdomen soft, non-tender, nondistended. EXTREMITIES: No edema or joint tenderness. BACK: Nontender without deformity or crepitance. No flank tenderness. NEURO: AOx3. SKIN: Redness and swelling of right foot is relatively unchanged and there is a dry, scaling almost petechial and reticular appearance to the circumferential or rash of his right lower extremity and right lateral thigh notes a 4 x 7 cm area of erythema, dry and scaling skin with very well-demarcated borders. There is no drainage, weeping, induration or fluctuance Initial Vital Signs Initial Vital Signs: Vital Signs Temperature 97.7 F 03/21/21 12:01 Pulse Rate 63 03/21/21 12:01 Respiratory Rate 20 03/21/21 12:01 Blood Pressure 135/75 03/21/21 12:01 Pulse Oximetry 97 03/21/21 12:01 Course Course Course Narrative: The patient appears and feels quite well. I question whether not this is a combination of possible psoriasis or other with superimposed albeit mild cellulitis and possible fungal involvement. Dr. Casarez is here today and had seen him on the last visit. She went in to see the patient with me to give some context. She agrees with patient that it is largely unchanged and certainly no worse. Orders Ordered: ED Orders 03/21/21 15:51 Blood Culture Stat Complete Blood Count AUTO DIFF Stat Comprehensive Metabolic Panel Stat Lactate (Lactic Acid) Stat Lipase Stat Procalcitonin Stat Vital Signs Vital signs: Vital Signs - 8 hr 03/21/21 12:01 Temperature 97.7 F Pulse Rate 63 Respiratory Rate 20 Blood Pressure 135/75 Pulse Oximetry 97 Discharge Plan Departure Patient Disposition: Home Clinical Impression: Fungal dermatitis Cellulitis Qualifiers: Site of cellulitis: extremity Site of cellulitis of extremity: lower extremity Laterality: unspecified laterality Qualified Code(s): L03.119 - Cellulitis of unspecified part of limb Instructions: DI for Cellulitis -- Adult Activity Restrictions/Additional Instructions: *You have been diagnosed with [bilateral lower extremity cellulitis with likely fungal component] *What to do: *Please continue to take your regular medications as directed. [ x] New medication prescriptions sent to your pharmacy: [[facility] ] [ ] New medication written as a paper prescription [ ] No new medications given *Please follow up with your primary care provider in 2-3 days, call for an appointment. Let them know you were seen in the Emergency Department and that we ask that you be seen in follow up. We will electronically transmit a record of today's note if your PCP is in our system *If you do not have a primary care provider please contact the [facility] Resource line at [phone]. They will ask some questions about your medical history and help get you set up with a doctor in the community. *Return to Emergency Department if you should have any new, worsening or co ncerning symptoms, such as [fever greater than 101 F, shaking chills, worsening pain, persistent vomiting or other bothersome symptoms] Prescriptions: New ketoconazole 2 % cream 1 applic topical BID 7 Days Qty: 30 RF: 0 doxycycline hyclate 100 mg tablet 100 mg PO BID Qty: 20 RF: 0 No Action aspirin 325 MG tablet 325 mg PO QDAY Qty: 0 RF: 0 clopidogrel 75 mg tablet 75 mg PO QDAY Qty: 90 RF: 3 sertraline 100 mg tablet 100 mg PO DAILY Qty: 90 RF: 3 metformin [Glucophage] 500 mg tablet 500 mg PO BIDCC Qty: 180 RF: 3 lisinopril 5 mg tablet 5 mg PO DAILY Qty: 90 RF: 3 atorvastatin [Lipitor] 10 mg tablet 5 mg PO EVERY OTHER DAY Qty: 45 RF: 1 gabapentin 300 mg capsule 300 mg PO BID Qty: 120 RF: 0 doxycycline monohydrate 100 mg capsule 100 mg PO BID Qty: 20 RF: 0 clindamycin HCl 300 mg capsule 300 mg PO Q6H Qty: 40 RF: 0 Referrals: Jagruti Garcia MD [Physician] - Mitch Maldonado MD [Primary Care Provider] -
--- NOTE | 2021-03-21 16:23 | PC.NURSE ---
scattered red rash and cracked skin areas on [place] lower legs. pt has taken 2 rounds of antibiotics.
[2021-03-21 16:54] VITALS: BP 122/76; PULSE 68; RESP 18; O2SAT 99
== END 2021-03-21 16:53 | disposition home or self-care (01) ==
PROVIDERS: Emergency Provider Emergency Medicine; PCP Internal Medicine
DX: B37.2 Candidiasis of skin and nail (principal); L03.116 Cellulitis of left lower limb; L03.115 Cellulitis of right lower limb
CPT/HCPCS: 99281

== ENCOUNTER → 2021-05-12 16:32 | Outpatient (CLI) | payer MEDICARE, OTHER, SELFPAY ==
[2021-05-12 18:06] LABS: Alanine Aminotransferase 17 IU/L (<50); Albumin 4.5 g/dL (3.5-5.0); Albumin Globulin Ratio 1.8 (1.0-2.8); Alkaline Phosphatase 63 U/L (38-126); Aspartate Aminotransferase 44 IU/L (17-59); Bilirubin Total 0.4 mg/dL (0.2-1.3); Blood Urea Nitrogen 22 mg/dL (9-20); C-Reactive Protein Quant < 0.5 mg/dL (<1.0); Calcium 9.9 mg/dL (8.4-10.2); Carbon Dioxide 29 mmol/L (22-32); Chloride 105 mmol/L (98-107); Estimated Glomerular Filt Rate > 60.0 mL/min (>60); Globulin 2.5 g/dL (1.7-4.1); Glucose 79 mg/dL (80-110); HEMOLYSIS < 15 (0-50); Potassium 4.8 mmol/L (3.4-5.1); Sodium 142 mmol/L (137-145); Uric Acid 4.3 mg/dL (3.5-8.5)
[2021-05-12 18:18] LABS: Erythrocyte Sedimentation Rate 3 MM/HR (0-15)
[2021-05-12 18:20] LABS: Free T4, Direct Thyroxine 0.61 ng/dL (0.78-2.19)
[2021-05-12 18:34] LABS: Thyroid Stimulating Hormone 1.06 uIU/mL (0.47-4.68)
== END ==
PROVIDERS: PCP Internal Medicine; Referring Provider Internal Medicine; Visit Provider Internal Medicine
DX: R60.9 Edema, unspecified (principal); L30.9 Dermatitis, unspecified; E78.5 Hyperlipidemia, unspecified; M79.604 Pain in right leg
CPT/HCPCS: 36415; 80053; 84439; 84443; 84550; 85651; 86140

== ENCOUNTER → 2021-07-19 09:13 | Outpatient (CLI) | payer MEDICARE, OTHER, SELFPAY ==
[2021-07-19 10:00] LABS: Hemoglobin A1C% w Est Avg Glu 5.9 % (4.0-6.0)
[2021-07-19 10:03] LABS: Alanine Aminotransferase 36 IU/L (<50); Albumin 4.4 g/dL (3.5-5.0); Albumin Globulin Ratio 2.1 (1.0-2.8); Alkaline Phosphatase 58 U/L (38-126); Aspartate Aminotransferase 41 IU/L (17-59); BUN Creatinine Ratio 23.3 (6-22); Bilirubin Total 0.7 mg/dL (0.2-1.3); Blood Urea Nitrogen 20 mg/dL (9-20); Calcium 9.7 mg/dL (8.4-10.2); Carbon Dioxide 32 mmol/L (22-32); Chloride 103 mmol/L (98-107); Cholesterol 133 mg/dL (140-199); Estimated Glomerular Filt Rate > 60.0 mL/min (>60); Globulin 2.1 g/dL (1.7-4.1); Glucose 107 mg/dL (80-110); HDL Cholesterol 55 mg/dL (40-60); HEMOLYSIS 15 (0-50); LDL Cholesterol Calculated 49 mg/dL (<100); Sodium 142 mmol/L (137-145); Total Protein 6.5 g/dL (6.3-8.2); Triglycerides 147 mg/dL (35-150)
[2021-07-19 10:06] LABS: Potassium 5.5 mmol/L (3.4-5.1)
== END ==
PROVIDERS: PCP Internal Medicine; Referring Provider Internal Medicine; Visit Provider Internal Medicine
DX: E11.9 Type 2 diabetes mellitus without complications (principal); E78.2 Mixed hyperlipidemia; I10 Essential (primary) hypertension
CPT/HCPCS: 36415; 80053; 80061; 83036

== ENCOUNTER → 2022-01-17 10:13 | Outpatient (CLI) | payer MEDICARE, OTHER, SELFPAY ==
[2022-01-17 11:10] LABS: Hemoglobin A1C% w Est Avg Glu 6.2 % (4.0-6.0)
[2022-01-17 12:05] LABS: Alanine Aminotransferase 22 IU/L (<50); Albumin 4.4 g/dL (3.5-5.0); Albumin Globulin Ratio 1.9 (1.0-2.8); Alkaline Phosphatase 63 U/L (38-126); Aspartate Aminotransferase 29 IU/L (17-59); BUN Creatinine Ratio 21.6 (6-22); Bilirubin Total 0.7 mg/dL (0.2-1.3); Blood Urea Nitrogen 21 mg/dL (9-20); Calcium 8.9 mg/dL (8.4-10.2); Carbon Dioxide 32 mmol/L (22-32); Chloride 102 mmol/L (98-107); Cholesterol 131 mg/dL (140-199); Estimated Glomerular Filt Rate > 60.0 mL/min (>60); Globulin 2.3 g/dL (1.7-4.1); Glucose 100 mg/dL (80-110); HDL Cholesterol 58 mg/dL (40-60); HEMOLYSIS < 15 (0-50); LDL Cholesterol Calculated 58 mg/dL (<100); Potassium 4.1 mmol/L (3.4-5.1); Sodium 142 mmol/L (137-145); Total Protein 6.7 g/dL (6.3-8.2); Triglycerides 74 mg/dL (35-150)
== END ==
PROVIDERS: PCP Internal Medicine; Referring Provider Internal Medicine; Visit Provider Internal Medicine
DX: E11.21 Type 2 diabetes mellitus with diabetic nephropathy (principal); I10 Essential (primary) hypertension; I25.10 Atherosclerotic heart disease of native coronary artery without angina pectoris
CPT/HCPCS: 36415; 80053; 80061; 83036

== ENCOUNTER → 2022-03-02 09:08 | Outpatient (CLI) | payer MEDICARE, OTHER, SELFPAY ==
--- NOTE | 2022-03-02 09:10 | DI.ECHO.S_ITS ---
[facility] +---------+ Hospital +---------+ : : [address] : : : : [id number] : : : : Phone: [phone]+ Echocardiogram Report + + :Name: RO TORRES Study Date: 03/02/2022 Height: 74 in : :[facility] ReadingLocation: Weight: 160 lb : : Gender: Male BSA: 2.0 m2 : :: 1945 Age: 76 yrs BP: 138/85 mmHg: :Reason For Study: EDEMA : :Ordering Physician: TUTU, : :KEITH Myles Performed By: Antoni Nunez : :Referring: KEITH CAM : + + Interpretation Summary 1) Normal left ventricular thickness, size, wall motion, and systolic function (EF 55-60%). 2) Normal right ventricular size and function. 3) No significant valvular abnormalities. 4) The right ventricular systolic pressure is estimated to be at least 23 mmHg based on an estimated right atrial pressure of 3 mm Hg. 5) No prior Echo available for comparison. Procedure: A two-dimensional transthoracic echocardiogram with color flow and Doppler was performed. The study quality was technically adequate. There is no prior echocardiogram noted for this patient. Left Ventricle: The left ventricle is normal in size and wall thickness. Left ventricular systolic function is normal. The ejection fraction is estimated to be 55-60%. There are no focal wall motion abnormalities. Diastolic parameters suggest probable normal left ventricular diastolic function and normal filling pressures. Right Ventricle: The right ventricle is normal in size and function. Atria: Both atria are normal in size. The interatrial septum grossly appears intact with no obvious evidence for an atrial septal defect. Mitral Valve: The mitral valve is normal in structure and function. There is trace mitral regurgitation. Aortic Valve: There is mild aortic valve sclerosis. There is no aortic valve stenosis. No aortic regurgitation is present. Tricuspid Valve: The tricuspid valve is normal in structure and function. There is mild tricuspid regurgitation. The right ventricular systolic pressure is estimated to be at least 23 mmHg based on an estimated right atrial pressure of 3 mm Hg. Pulmonic Valve: The pulmonic valve is normal in structure and function. There is mild pulmonic regurgitation. Great Vessels: The aortic root is normal size. The dimensions of the ascending aorta are normal. The IVC is of normal diameter and collapses greater than 50% with a sniff. This suggests a low right atrial pressure of 3 mm Hg. Pericardium/ Pleura There is no pericardial effusion. There is no pleural effusion. MMode/2D Measurements & Calculations LVIDd: 4.6 cm LVOT diam: 2.2 cm LVIDs: 3.0 cm Ao root diam: 3.7 cm FS: 34.8 % asc Aorta Diam: 3.5 cm IVSd: 0.80 cm LVPWd: 0.80 cm LV chambers. diameter/BSA (cm/m^2): 2.3 LV sys. diameter/BSA (cm/m^2): 1.5 LA dimension: 2.9 cm RA long axis: 4.9 cm LA A2 area: 20.0 cm2 LA A4 area: 17.3 cm2 LA length (vol): 6.3 cm LA vol: 46.8 ml LA vol index: 23.7 ml/m2 TAPSE_phl: 2.6 cm Doppler Measurements & Calculations Ao V2 max: 100.0 cm/sec LVOT Max Clem: 83.6 cm/sec Ao V2 mean: 74.9 cm/sec LV V1 max P.8 mmHg Ao max P.0 mmHg LV V1 VTI: 21.8 cm Ao mean P.0 mmHg KALEIGH(I,D): 3.2 cm2 Ao V2 VTI: 25.7 cm KALEIGH(V,D): 3.2 cm2 sev ratio: 0.85 K[place]IGH indexed to BSA (cm^2/m^2): 1.6 MV E max clem: 83.1 cm/sec TR max clem: 221.0 cm/sec MV A max clem: 69.4 cm/sec TR max P.5 mmHg MV E/A: 1.2 Med Peak E' Clem: 8.9 cm/sec E/E' med: 9.3 Lat Peak E' Clem: 9.0 cm/sec E/E' lat: 9.2 E/e' average: 9.3 MV dec time: 0.24 sec SV(LVOT): 82.9 ml AV VR_phl: 0.84 KALIEGH(VTI)/BSA_phl: 1.6 MV P1/2t-pr_phl: 70.0 msec Reading Physician:01:36 PM
== END ==
PROVIDERS: PCP Internal Medicine; Referring Provider Internal Medicine; Visit Provider Internal Medicine
DX: R60.9 Edema, unspecified (principal)
CPT/HCPCS: 93306

== ENCOUNTER → 2022-03-21 14:42 | Outpatient (CLI) | payer MEDICARE, OTHER, SELFPAY ==
[2022-03-21 17:26] LABS: Alanine Aminotransferase 12 IU/L (<50); Albumin 4.4 g/dL (3.5-5.0); Albumin Globulin Ratio 1.8 (1.0-2.8); Alkaline Phosphatase 87 U/L (38-126); Aspartate Aminotransferase 24 IU/L (17-59); BUN Creatinine Ratio 21.1 (6-22); Bilirubin Total 0.6 mg/dL (0.2-1.3); Blood Urea Nitrogen 20 mg/dL (9-20); Calcium 9.2 mg/dL (8.4-10.2); Carbon Dioxide 32 mmol/L (22-32); Chloride 101 mmol/L (98-107); Estimated Glomerular Filt Rate > 60 mL/min (>60); Globulin 2.5 g/dL (1.7-4.1); Glucose 156 mg/dL (80-110); HEMOLYSIS < 15 (0-50); Potassium 4.1 mmol/L (3.4-5.1); Sodium 139 mmol/L (137-145); Total Protein 6.9 g/dL (6.3-8.2)
[2022-03-21 17:38] LABS: Free T4, Direct Thyroxine 0.84 ng/dL (0.78-2.19)
[2022-03-21 17:52] LABS: Thyroid Stimulating Hormone 1.59 uIU/mL (0.47-4.68)
== END ==
PROVIDERS: PCP Internal Medicine; Referring Provider Internal Medicine; Visit Provider Internal Medicine
DX: R60.9 Edema, unspecified (principal)
CPT/HCPCS: 36415; 80053; 84439; 84443

== ENCOUNTER → 2022-04-25 10:50 | Outpatient (CLI) | payer MEDICARE, OTHER, SELFPAY ==
[2022-04-25 12:19] LABS: Hemoglobin A1C% w Est Avg Glu 6.1 % (4.0-6.0)
[2022-04-25 12:52] LABS: BUN Creatinine Ratio 25.8 (6-22); Blood Urea Nitrogen 25 mg/dL (9-20); Calcium 9.3 mg/dL (8.4-10.2); Carbon Dioxide 32 mmol/L (22-32); Chloride 101 mmol/L (98-107); Estimated Glomerular Filt Rate > 60 mL/min (>60); Glucose 100 mg/dL (80-110); HEMOLYSIS < 15 (0-50); Magnesium 2.1 mg/dL (1.6-2.3); Potassium 4.1 mmol/L (3.4-5.1); Sodium 143 mmol/L (137-145)
== END ==
PROVIDERS: PCP Internal Medicine; Referring Provider Internal Medicine; Visit Provider Internal Medicine
DX: E11.21 Type 2 diabetes mellitus with diabetic nephropathy (principal); E83.42 Hypomagnesemia; E87.6 Hypokalemia; N13.8 Other obstructive and reflux uropathy; N40.1 Benign prostatic hyperplasia with lower urinary tract symptoms
CPT/HCPCS: 36415; 80048; 83036; 83735

== ENCOUNTER 2022-05-08 19:59 | Emergency (ER) | payer MEDICARE, OTHER, SELFPAY ==
[2022-05-08 20:04] VITALS: BP 103/58; PULSE 61; RESP 14; TEMP 36.7; O2SAT 97; BMI 21.8
--- NOTE | 2022-05-08 21:46 | PC.NURSE ---
Pt reports accidentally scratching his left foot due to restless leg syndrome and stating wound won't stop bleeding. Pt reports being on blood thinners. Wound is covered by a bandage. Pt reports no sensation to his feet, which he reports is normal for himself. Pt reports pressure to both feet due to extremity swelling. Swelling and redness noted to both feet.
--- NOTE | 2022-05-08 22:14 | ED_ITS ---
HPI - Wound/Laceration General Chief Complaint: Wound/Laceration Stated Complaint: left foot injury Time Seen by Provider: 05/08/22 21:50 Source: patient and family Mode of arrival: Wheelchair History of Present Illness HPI narrative: 76M nonsmoker with history of chronic bilateral lower extremity fungal cellulitis, coronary artery disease, hypertension, hyperlipidemia and diabetes presents with his for evaluation of a persistently oozing laceration on the plantar surface of his left foot. He caught his foot on a sharp object earlier in the day and despite multiple dressing changes and persistent pressure at home his wound continues to ooze. He denies much in the way of pain. He has no fever or chills and is otherwise well and free of complaint. He has an existing relationship with wound care and intends to see them next week as it is Related Data Home Medications Medication Instructions Recorded Confirmed aspirin 325 mg tablet 325 mg PO QDAY ##0 04/28/16 04/25/22 donepezil 10 mg tablet 10 mg PO DAILY 01/23/22 04/25/22 Previous Rx's Medication Instructions Recorded clopidogrel 75 mg tablet 75 mg PO QDAY #90 tabs 04/15/21 sertraline 100 mg tablet 100 mg PO DAILY #90 tabs 06/22/21 metformin 500 mg tablet 500 mg PO BIDCC #180 tabs 11/14/21 atorvastatin 10 mg tablet (Lipitor) 5 mg PO EVERY OTHER DAY #45 tabs 01/10/22 Disabled Parking #1 ea 01/23/22 potassium chloride 8 mEq 8 meq PO DAILY #30 caps 03/21/22 capsule,extended release furosemide 20 mg tablet 20 - 60 mg PO DAILY #90 tabs 04/25/22 gabapentin 300 mg capsule 300 - 600 mg PO BID #540 caps 04/25/22 metolazone 2.5 mg tablet 2.5 mg PO DAILY #14 tabs 05/08/22 Allergies Allergy/AdvReac Type Severity Reaction Status Date / Time adhesive [ADHESIVE] AdvReac Mild RASH Verified 04/25/22 10:02 Review of Systems Review of Systems Narrative: GENERAL: Denies chills, fatigue, malaise, fever, sweats. HEENT: Denies sinus pain, ear pain, sore throat, difficulty swallowing, dizziness. RESPIRATORY: Denies dyspnea, cough, wheezing, hemoptysis, sputum. CARDIOVASCULAR: Denies chest pain, palpitations, orthopnea, edema, GASTROINTESTINAL: Denies nausea, vomiting, abdominal pain, diarrhea, constipation, melena. : Denies dysuria, frequency, incontinence, hematuria, urinary retention. MUSCULOSKELETAL: denies weakness, joint pain, or bony pain SKIN: See HPI NEUROLOGIC: Denies weakness, headache, numbness, change in speech, confusion, seizures, incoordination. PSYCHIATRIC: No concerning psychosocial issues. 12 point review of systems is negative except for those stated above Patient History Medical History Alcohol abuse Balance problems (07/06/16) Benign prostatic hyperplasia (BPH) with urinary urge incontinence BPH w urinary obs/LUTS Cataracts, bilateral (2010) Coronary artery disease involving [place] coronary artery of [place] heart without angina pectoris (04/28/16) Depression (2011) Dermatitis Diabetes Essential hypertension (04/28/16) Foot pain (2005) Hammertoes of both feet Hyperlipemia (Unknown) Incontinence without sensory awareness Kidney stones (2010) Knee pain (2005) Multiple sclerosis (~2014) Parkinson's disease (2014) Parkinsons disease Peripheral edema Peripheral neuropathy (2005) Peripheral vascular disease (09/27/17) Recurrent falls (07/06/16) Right leg pain Sciatica (2005) Type 2 diabetes mellitus without complication, without long-term current use of insulin (04/28/16) Type 2 diabetes with nephropathy Urge incontinence Urinary incontinence, mixed Venous insufficiency Surgical History History of coronary artery stent placement Hx of knee surgery (Unknown) Hx of lithotripsy (11/2015) S/P coronary artery stent placement (Unknown) S/P knee surgery S/P tonsillectomy and adenoidectomy Family History Father Diabetes mellitus Mother No problems noted. Brother Diabetes mellitus Social History Smoking Status: Never smoker alcohol intake: former Smoking Status: Never smoker alcohol intake frequency: other Substance Use Type: does not use Exam Narrative Exam Narrative: GEN: AOx3 and in mild distress EYES: Pupils are equal, round, and reactive to light and accommodation. Extraoccular muscles are intact bilaterally. There is no subconjunctival hemorrhage or exudate. CHEST: Lungs are clear to auscultation bilaterally and free of wheezes, rales, or rhonchi. Heart rate is regular rhythm, there are no murmurs, clicks, rubs, or gallops. There is no chest wall tenderness. ABD: Abdomen is soft and nontender. There is no guarding or rebound. Bowel sounds are normal in all 4 quadrants. There is no mass or organomegaly. EXT: Bilateral lower extremities edematous and erythematous with dry scaling skin, chronic per patient and . There is a small 1.5 cm superficial laceration on the arch of left foot without evidence of foreign body or contamination with minimal active bleeding Full painless ROM of all extremities with no loss of sensation or strength. SKIN: Warm, pink, and dry. No erythema or rash Initial Vital Signs Initial Vital Signs: Vital Signs Temperature 98.0 F 05/08/22 20:04 Pulse Rate 61 05/08/22 20:04 Respiratory Rate 14 05/08/22 20:04 Blood Pressure 103/58 L 05/08/22 20:04 Pulse Oximetry 97 05/08/22 20:04 Oxygen Delivery Method 05/08/22 20:04 Course Course Course Narrative: Wound is cleansed and bleeding stops easily with pressure. Minimal if any bleeding at time of evaluation. No indication for suture. Given the persistence of bleeding reported and his use of dual anti-platelet therapy a Surgicel hemostatic gauze with pressure dressing is placed. Patient given return precautions and questions have been answered to his and 's apparent satisfaction Vital Signs Vital signs: Vital Signs - 8 hr 05/08/22 20:04 Temperature 98.0 F Pulse Rate 61 Respiratory Rate 14 Blood Pressure 103/58 L Pulse Oximetry 97 Oxygen Delivery Method Room Air Discharge Plan Departure Patient Disposition: Home Clinical Impression: Wound of left foot Instructions: DI for Minor Laceration Activity Restrictions/Additional Instructions: *You have been diagnosed with [bleeding wound on plantar surface of left foot, thankfully no sutures or significant repair needed *What to do: *Please continue to take your regular medications as directed. [ ] New medication prescriptions sent to your pharmacy: [ ] [ ] New medication written as a paper prescription [x ] No new medications given *Please follow up with your primary care provider in 2-3 days, call for an appointment. Let them know you were seen in the Emergency Department and that we ask that you be seen in follow up. We will electronically transmit a record of today's note if your PCP is in our system *If you do not have a primary care provider please contact the [facility] Resource line at [phone]. They will ask some questions about your medical history and help get you set up with a doctor in the community. *Return to Emergency Department if you should have any new, worsening or concerning symptoms, such as [fever greater than 101 F, shaking chills, worsening pain, persistent vomiting or other bothersome symptoms] Prescriptions: No Action aspirin 325 MG tablet 325 mg PO QDAY Qty: 0 clopidogrel 75 mg tablet 75 mg PO QDAY Qty: 90 3RF sertraline 100 mg tablet 100 mg PO DAILY Qty: 90 3RF Hold Instructions: drug interaction metformin 500 mg tablet 500 mg PO BIDCC Qty: 180 3RF atorvastatin [Lipitor] 10 mg tablet 5 mg PO EVERY OTHER DAY Qty: 45 1RF metolazone 2.5 mg tablet 2.5 mg PO DAILY Qty: 14 1RF furosemide 20 mg tablet 20 - 60 mg PO DAILY Qty: 90 3RF gabapentin 300 mg capsule 300 - 600 mg PO BID Qty: 540 3RF Rx Instructions: 1 in am (300mg) 2 at bedtime (600mg) donepezil 10 mg tablet 10 mg PO DAILY (DME) Disabled Parking See Rx Instructions .ROUTE .MEDSUPPLY Qty: 1 0RF Rx Instructions: Patient qualifies for disabled parking as per the attached form. potassium chloride 8 mEq capsule, extended release 8 meq PO DAILY Qty: 30 3RF Referrals: Mitch Maldonado MD [Primary Care Provider] - Anand Savage MD [Physician] - Visit Report Forms: Patient Portal/API
[2022-05-08 23:35] VITALS: BP 135/65; PULSE 69; O2SAT 99
== END 2022-05-08 23:32 | disposition home or self-care (01) ==
PROVIDERS: Emergency Provider Emergency Medicine; PCP Internal Medicine
DX: S91.312A Laceration without foreign body, left foot, initial encounter (principal)
CPT/HCPCS: 99281

== ENCOUNTER → 2022-05-12 11:33 | Outpatient (CLI) | payer MEDICARE, OTHER, SELFPAY ==
[2022-05-12 13:18] LABS: BUN Creatinine Ratio 31.5 (6-22); Blood Urea Nitrogen 39 mg/dL (9-20); Calcium 9.5 mg/dL (8.4-10.2); Carbon Dioxide 35 mmol/L (22-32); Chloride 91 mmol/L (98-107); Estimated Glomerular Filt Rate > 60 mL/min (>60); Glucose 133 mg/dL (80-110); HEMOLYSIS < 15 (0-50); Potassium 3.6 mmol/L (3.4-5.1); Sodium 140 mmol/L (137-145)
== END ==
PROVIDERS: PCP Internal Medicine; Referring Provider Internal Medicine; Visit Provider Internal Medicine
DX: R60.9 Edema, unspecified (principal)
CPT/HCPCS: 36415; 80048

== ENCOUNTER → 2022-05-16 10:02 | Outpatient (CLI) | payer MEDICARE, OTHER, SELFPAY | PROVIDERS: PCP Internal Medicine; Referring Provider Internal Medicine; Visit Provider Family Medicine | DX: I89.0 Lymphedema, not elsewhere classified (principal); L97.812 Non-pressure chronic ulcer of other part of right lower leg with fat layer exposed; L97.512 Non-pressure chronic ulcer of other part of right foot with fat layer exposed; G20 Parkinson's disease; G35 Multiple sclerosis; E11.40 Type 2 diabetes mellitus with diabetic neuropathy, unspecified; I25.10 Atherosclerotic heart disease of native coronary artery without angina pectoris; M79.604 Pain in right leg | CPT/HCPCS: 87070; 87075; 87077; 87186; 87205; 97597; 99204; 99214 ==

== ENCOUNTER → 2022-05-18 16:06 | Outpatient (CLI) | payer MEDICARE, OTHER, SELFPAY | PROVIDERS: PCP Internal Medicine; Referring Provider Internal Medicine; Visit Provider Family Medicine | DX: I89.0 Lymphedema, not elsewhere classified (principal); L97.811 Non-pressure chronic ulcer of other part of right lower leg limited to breakdown of skin; L97.812 Non-pressure chronic ulcer of other part of right lower leg with fat layer exposed; L97.512 Non-pressure chronic ulcer of other part of right foot with fat layer exposed; R60.0 Localized edema | CPT/HCPCS: 29581 ==

== ENCOUNTER → 2022-05-24 13:08 | Outpatient (CLI) | payer MEDICARE, OTHER, SELFPAY | PROVIDERS: PCP Internal Medicine; Referring Provider Internal Medicine; Visit Provider Family Medicine | DX: E11.622 Type 2 diabetes mellitus with other skin ulcer (principal); I89.0 Lymphedema, not elsewhere classified; L97.812 Non-pressure chronic ulcer of other part of right lower leg with fat layer exposed; L97.512 Non-pressure chronic ulcer of other part of right foot with fat layer exposed; G20 Parkinson's disease; G35 Multiple sclerosis; E11.21 Type 2 diabetes mellitus with diabetic nephropathy; E11.40 Type 2 diabetes mellitus with diabetic neuropathy, unspecified | CPT/HCPCS: 97597 ==

== ENCOUNTER → 2022-05-31 15:31 | Outpatient (CLI) | payer MEDICARE, OTHER, SELFPAY | PROVIDERS: PCP Internal Medicine; Referring Provider Internal Medicine; Visit Provider Family Medicine | DX: I89.0 Lymphedema, not elsewhere classified (principal); L97.812 Non-pressure chronic ulcer of other part of right lower leg with fat layer exposed; L97.512 Non-pressure chronic ulcer of other part of right foot with fat layer exposed; G20 Parkinson's disease; G35 Multiple sclerosis; R60.0 Localized edema | CPT/HCPCS: 29581; 99212 ==

== ENCOUNTER → 2022-06-07 14:34 | Outpatient (CLI) | payer MEDICARE, OTHER, SELFPAY | PROVIDERS: PCP Internal Medicine; Referring Provider Internal Medicine; Visit Provider Family Medicine | DX: I87.2 Venous insufficiency (chronic) (peripheral) (principal) | CPT/HCPCS: 29581 ==

== ENCOUNTER → 2022-06-14 15:12 | Outpatient (CLI) | payer MEDICARE, OTHER, SELFPAY | PROVIDERS: PCP Internal Medicine; Referring Provider Internal Medicine; Visit Provider Family Medicine | DX: R60.0 Localized edema (principal) | CPT/HCPCS: 29581 ==

== ENCOUNTER → 2022-06-21 14:30 | Outpatient (CLI) | payer MEDICARE, OTHER, SELFPAY | PROVIDERS: PCP Internal Medicine; Referring Provider Internal Medicine; Visit Provider Family Medicine | DX: R60.0 Localized edema (principal) | CPT/HCPCS: 29581 ==

== ENCOUNTER → 2022-06-28 14:52 | Outpatient (CLI) | payer MEDICARE, OTHER, SELFPAY | PROVIDERS: Family Provider Internal Medicine; PCP Internal Medicine; Referring Provider Internal Medicine; Visit Provider Family Medicine | DX: I89.0 Lymphedema, not elsewhere classified (principal) | CPT/HCPCS: 29581 ==

== ENCOUNTER → 2022-07-05 11:10 | Outpatient (CLI) | payer MEDICARE, OTHER, SELFPAY | PROVIDERS: Family Provider Internal Medicine; PCP Internal Medicine; Referring Provider Internal Medicine; Visit Provider Family Medicine | DX: I89.0 Lymphedema, not elsewhere classified (principal); L97.511 Non-pressure chronic ulcer of other part of right foot limited to breakdown of skin; L97.521 Non-pressure chronic ulcer of other part of left foot limited to breakdown of skin; E11.622 Type 2 diabetes mellitus with other skin ulcer; G20 Parkinson's disease; G35 Multiple sclerosis; E11.21 Type 2 diabetes mellitus with diabetic nephropathy; L08.9 Local infection of the skin and subcutaneous tissue, unspecified | CPT/HCPCS: 87070; 87075; 87077; 87147; 87186; 87205; 97597; 97598; 99213; 99214 ==

== ENCOUNTER → 2022-07-12 09:19 | Outpatient (CLI) | payer MEDICARE, OTHER, SELFPAY | PROVIDERS: Family Provider Internal Medicine; PCP Internal Medicine; Referring Provider Internal Medicine; Visit Provider Family Medicine | DX: G20 Parkinson's disease (principal); G35 Multiple sclerosis; E11.21 Type 2 diabetes mellitus with diabetic nephropathy; L08.9 Local infection of the skin and subcutaneous tissue, unspecified; B95.7 Other staphylococcus as the cause of diseases classified elsewhere; I89.0 Lymphedema, not elsewhere classified; L97.511 Non-pressure chronic ulcer of other part of right foot limited to breakdown of skin; L97.521 Non-pressure chronic ulcer of other part of left foot limited to breakdown of skin | CPT/HCPCS: 97597; 99212; 99214 ==

== ENCOUNTER → 2022-07-19 09:49 | Outpatient (CLI) | payer MEDICARE, OTHER, SELFPAY | PROVIDERS: Family Provider Internal Medicine; PCP Internal Medicine; Referring Provider Internal Medicine; Visit Provider Family Medicine | DX: L08.9 Local infection of the skin and subcutaneous tissue, unspecified (principal); I89.0 Lymphedema, not elsewhere classified; L97.511 Non-pressure chronic ulcer of other part of right foot limited to breakdown of skin; L97.521 Non-pressure chronic ulcer of other part of left foot limited to breakdown of skin; L97.811 Non-pressure chronic ulcer of other part of right lower leg limited to breakdown of skin; G20 Parkinson's disease; G35 Multiple sclerosis | CPT/HCPCS: 11042; 87070; 87077; 87147; 87186; 87205; 97597; 97598; 99214 ==

== ENCOUNTER 2022-07-19 10:30 | Outpatient (RCR) | payer MEDICARE, OTHER, SELFPAY ==
--- NOTE | 2022-07-12 18:04 | PT.OIE ---
Current Diagnoses Lymphedema, not elsewhere classified (07/12/22) Difficulty in walking, not elsewhere classified (07/12/22) Past Medical History (Last Reviewed 05/10/22 @ 01:41 by Nathan Dixon DO) Alcohol abuse Balance problems (07/06/16) Benign prostatic hyperplasia (BPH) with urinary urge incontinence BPH w urinary obs/LUTS Cataracts, bilateral (2010) Coronary artery disease involving buckland coronary artery of buckland heart without angina pectoris (04/28/16) Depression (2011) Dermatitis Diabetes Essential hypertension (04/28/16) Foot pain (2005) Hammertoes of both feet Hyperlipemia (Unknown) Incontinence without sensory awareness Kidney stones (2010) Knee pain (2005) Multiple sclerosis (~2014) Parkinson's disease (2014) Parkinsons disease Peripheral edema Peripheral neuropathy (2005) Peripheral vascular disease (09/27/17) Recurrent falls (07/06/16) Right leg pain Sciatica (2005) Type 2 diabetes mellitus without complication, without long-term current use of insulin (04/28/16) Type 2 diabetes with nephropathy Urge incontinence Urinary incontinence, mixed Venous insufficiency Past Surgical History (Last Reviewed 05/10/22 @ 01:41 by Nathan Dixon DO) History of coronary artery stent placement Hx of knee surgery (Unknown) Hx of lithotripsy (11/2015) S/P coronary artery stent placement (Unknown) S/P knee surgery S/P tonsillectomy and adenoidectomy Visit Care Team Role Provider Type Mitch Maldonado MD Family Provider Physician Primary Care Provider Specialty: Internal Medicine Address: [address] [place] [address], [address] [place] [address], [id number] Email: [email or web address] Anand Savage MD Attending Provider Physician Referring Provider Specialty: Wound Care Address: [address] [place] [address], [id number] Email: [email or web address] Physical Therapy Initial Evaluation PT-OP-A Visit Information Start: 07/11/22 13:06 Freq: Status: Active Protocol: Document 07/12/22 12:00 AW (Rec: 07/11/22 14:16 AW [id number]) Out-Patient Physical Therapy Visit Information Visit Information Visit Type Initial Evaluation Visit Note Pt's , Liza, attends with pt and contributes to history Visit Start Time 10:30 Visit Stop Time 12:00 Total Visit Minutes 90 Visit Number 1 Evaluation Information Evaluation Date 07/12/22 PT-OP-B Current Condition Start: 07/11/22 13:06 Freq: Status: Active Protocol: Document 07/12/22 12:00 AW (Rec: 07/11/22 14:16 AW [id number]) Current Condition History of Current Condition Onset Date ~6 months Current Complaints swelling both legs (right worse than left), parkinsonism , impaired mobility History of Current Condition Taran is a who served in [employer] late 1959's and was possibly exposed to agent orange. He was diagnosed with primary progressive MS ~20 years ago but there has been much confusion over his diagnosis. 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 MSA is in the differential but much less likely. Taran trialed sinemet which was helpful initially but was no longer effective after a few weeks. He no longer takes sinemet. He has had some memory loss and cognitive changes for which he is taking donepezil. He and his notice no difference while taking this medication. In fact, they wonder if cognition is worse. Taran has had lower extremity swelling for ~6 months. He has been treated for multiple wounds and currently most are healing but he does still have open wounds on his dorsal feet at the met heads. Wounds were debrided and dressed today. Taran took diuretics for swelling but that was ineffective. Diuretics were discontinued. Taran has been able to tolerate some wrapping with coban at wound care. His legs feel heavy. He has no sensation in his feet up to mid calf. He sleeps in a recliner at home. He lives with his supportive, spouse, Liza who provides all care. Prior Treatments and Tests Some wrapping at wound care. Taran is followed by a neurologist in [place]. Developmental History Developmental History Pt had distal tib-fib fracture RLE in high school soccer. Pt feels he has always walked with excessive plantar flexion and inversion on the right side since that time. Treatment Goals Patient/Caregiver Goals Reduce swelling so legs don't feel so heavy. Be able to walk better. Prior Functional Status Baseline Function- ADL's Needs Assist Baseline Function- Mobility Modified Independent Baseline Function- Gait Walks with 4WW Baseline Function- Other Getting up from chairs is a challenge Current Functional Impairments (Reported) Functional Limitations- Mobility/Gait Limited to ~150 feet max with 4WW Personal Factors Other Personal Factors That May Effect Coronary artery disease, Therapy/Recovery hypertension, hyperlipidemia, and diabetes. Memory and cognitive changes. PT-OP-C Subjective Start: 07/11/22 13:06 Freq: Status: Active Protocol: Document 07/12/22 12:00 AW (Rec: 07/12/22 17:08 AW [id number]) Patient Questionnaires Lymphedema Life Impact Score Lymphedema Score 39 Lymphedema Impairment 20 to 39% Impaired (Score 33- 46) Other Questionnaire Name and Score FACIT Fatigue Scale: 12 OP-PT Pain Assessment Pain Assessment Grid Paper Pain Assessment Grid Completed Yes: Taran rates lower leg pain/ heaviness 01/15 PT-OP-D Balance Start: 07/11/22 13:06 Freq: Status: Active Protocol: Document 07/12/22 12:00 AW (Rec: 07/12/22 17:08 AW [id number]) Tinetti Balance Assessment Sitting Balance Sitting Balance Leans or slides in chair Arising from Chair Ability to Arise Able, uses arms to help Attempts to Arise Able, requires >1 attempt Standing Balance Immediate Standing Balance Unsteady Standing Balance Unsteady Nudged Response Begins to fall Standing with Eyes Closed Unsteady Turning Step Pattern Turning 360 Degrees Discontinuous steps Stability Turning 360 Degrees Unsteady, grabs/staggers Sitting Down Sitting Down Uses arms or unsteady Gait and Step Initiation of Gait Hesitancy, mult. attempts Right Foot Step Length Does not pass stance ft. Right Foot Step Height Does not clear floor Left Foot Step Length Does not pass stance foot Left Foot Step Height Does not clear floor Step Description Step Symmetry Step length not equal Step Continuity Steps appear continuous Gait Description Path Description Mild/moderate deviation Trunk Description Marked sway or uses aide Walking Stance Heels apart Scoring and Interpretation Tinetti Composite Score (points) 5 Interpretation of Scores High risk for falls(< 19) Tinetti Impairment Rating from Composite 80 to <100% Impaired (Score 1- Score 5) PT-OP-G Mobility & Gait Start: 07/11/22 13:06 Freq: Status: Active Protocol: Document 07/12/22 12:00 AW (Rec: 07/12/22 17:20 AW [id number]) OP Mobility Evaluation Bed Mobility Rolling Min assist Supine to and from Sit Min assist Transfers Sit to Stand Pt able with multiple attempts and heavy use of UE's OP Gait Assessment Comments Gait Comments Pt walks a maximum of 150 feet with 4WW. Gait is characterized by excessive neck flexion and rotation, narrow base of support, and inversion/plantar flexion at the ankle (right more affected ). Pt leans toward the left in all phases of gait. PT-OP-J Posture/Palpation/Skin Start: 07/11/22 13:06 Freq: Status: Active Protocol: Document 07/12/22 12:00 AW (Rec: 07/12/22 17:15 AW [id number]) Posture Evaluation Position Standing Evaluation View Lateral Head/C-Spine Posture Rotated Left,Side Bent Right, Forward Head Ankle/Foot Posture (L) Plantarflexed,(R) Plantarflexed,(L) Forefoot Inversion,(R) Forefoot Inversion Comments Posture Comments Taran stands with severely forward head which is affected by dystonian pulling him into left rotation and right side bend. Tragus is 10 cm from AC joint in standing. Overall, his posture is severely flexed . Skin Assessment Edema Assessment BLE Edema Type Pitting Edema Appearance Discolored,Open Sores,Shiny, Taut Subjective Edema Description Tightness Comments Pt has discoloration consistent with venous stasis in gaiter distribution BLE. Skin in this area is dry, scaly, taut. Temperature is normal both sides. Feet and ankles are most affected by swelling and pt does have fibrotic changes around ankles and posterior shanks. PT-OP-K Range of Motion Start: 07/11/22 13:06 Freq: Status: Active Protocol: Document 07/12/22 12:00 AW (Rec: 07/12/22 17:15 AW [id number]) Hip Goniometric Range of Motion Hip ROM Limitations Comments PROM WFL except hip extension Knee Goniometric Range of Motion Knee ROM Limitations Comments Both knees lack TKE with right more affected than left Ankle and Foot Goniometric Range of Motion Ankle and Foot ROM Limitations Comments Lacking dorsiflexion to neutral bilaterally PT-OP-M Strength Start: 07/11/22 13:06 Freq: Status: Active Protocol: Document 07/12/22 12:00 AW (Rec: 07/12/22 17:15 AW [id number]) Hip Strength Hip Manual Muscle Testing Right Flexion (L2) 3- Fair- Extension (S1) 3 Fair Abduction 3- Fair- Left Flexion (L2) 4 Good Extension (S1) 4- Good- Abduction 4- Good- Knee Strength Knee Manual Muscle Testing Right Flexion (S2) 3+ Fair+ Extension (L3) 3+ Fair+ Left Extension (L3) 4 Good PT-OP-N Lymphedema Start: 07/11/22 13:06 Freq: Status: Active Protocol: Document 07/12/22 12:00 AW (Rec: 07/12/22 12:30 AW [id number]) Lymphedema Measurements Lower Extremity Circumference Measurements Left Affected MT Heads 25.6 cm Mid-foot 27.5 cm Medial Malleolus 32.5 cm 10 cm From Medial Malleolus 26.1 cm 20 cm From Medial Malleolus 29.1 cm 30 cm From Medial Malleolus 33.6 cm 40 cm From Medial Malleolus 36 cm 50 cm From Medial Malleolus 42 cm 60 cm From Medial Malleolus 40.8 cm 70 cm From Medial Malleolus 44.5 cm Knee Joint 38.8 cm Right Affected MT Heads 28.7 cm Mid-foot 29.4 cm Medial Malleolus 34 cm 10 cm From Medial Malleolus 28.3 cm 20 cm From Medial Malleolus 30.9 cm 30 cm From Medial Malleolus 32.8 cm 40 cm From Medial Malleolus 34.2 cm 50 cm From Medial Malleolus 41 cm 60 cm From Medial Malleolus 39.2 cm 70 cm From Medial Malleolus 43.2 cm Knee Joint 37.9 cm PT-OP-Q Treatments Start: 07/11/22 13:06 Freq: Status: Active Protocol: Document 07/12/22 12:00 AW (Rec: 07/12/22 17:27 AW [id number]) Lymphedema Treatment Manual Lymphatic Drainage Location BLE Duration 30 minutes Comments Focused on AIA pathways. Educated pt's spouse on rationale and spent some time on technique. Referred spouse to internet videos for education on home performance. Lymphedema Wrapping Body Location BLE Materials Tubigrip re-applied after MLD. Plan to bandage at follow up visits Sequential Lymphedema Exercises Comments Discussed and provided handout but did not perform Compression Garment Assessment Compression Garment Assessment Details Educated pt and spouse on need for compression garments or compression alternatives in maintenance phase Patient Education Self Manual Lymphatic Drainage Referred to videos available on the internet Sequential Lymphedema Exercises Discussed exercise as a vital component of complete decongestive therapy. PT-OP-T Assessment and Plan Start: 07/11/22 13:06 Freq: Status: Active Protocol: Document 07/12/22 12:00 AW (Rec: 07/12/22 18:03 AW [id number]) Physical Therapy Assessment Rehab Potential Rehabilitation Potential Good Evaluation Complexity Number of Personal Factors/Comorbidities 3 or More Number of Body Systems Impaired 4 or More Clinical Presentation at Evaluation Unstable Impairments Impairments Balance,Edema,Gait,Pain, Posture,Sensation,Strength, Transfers Other Concerns Fall Risk high per Tinetti score of 5. Goals Three Impairment function limited by lymphedema Retail Clerk Goal (LTG) Pt will score 20 or less on Lymphedema Life Impact Scale. LTG Duration 12 weeks - 10/04/22 Two Impairment impaired gait Short Term Goal (STG) Pt will walk 200 feet or more during 2 Minute Walk Test using 4WW. STG Duration 6 weeks - 08/23/22 Retail Clerk Goal (LTG) Pt will complete 6 Minute Walk Test with average gait speed at least 0.5 m/s as a measure of improved endurance and reduced impact of edema. LTG Duration 12 weeks - 10/04/22 One Impairment lymphedema bilateral lower extremities Short Term Goal (STG) Pt and his spouse will be instructed in all aspects of lymphedema care including skin care, manual lymphatic drainage, lymphedema exercises , and compression garments or alternative. STG Duration 6 weeks - 08/23/22 Retirement Goal (LTG) Pt will demonstrate reduction and stabilization of lymphedema (no change greater than 1 cm over the course of 1 week) and be independent with all aspects of lymphedema self-care including compression garment or alternative. LTG Duration 12 weeks - 10/04/22 Assessment Summary Assessment Taran is a 76 yo man with a complicated medical history including Parkinsonism and chronic venous stasis. He attends outpatient physical therapy with complaints of bilateral lower extremity swelling which is limiting his function and contributing to poor wound healing. Circumferential measurements and skin changes indicate lymphedema. Taran has open wounds on dorsal surfaces of both feet and he is actively treated for those by wound care clinic. Pt does not tolerate elevation but has been wrapped by wound care clinic several times which he tolerated well. Taran attends with his today and she does provide significant care at home. Pt presents with bilateral lower extremity weakness which is more significant on the right side. Lower extremity dystonia affects gait stability but swelling is also contributing to gait dysfunction. Taran is expected to benefit from physical therapy to decrease lymphedema, improve functional mobility, and educate him and his spouse on lymphedema care for long-term management. Physical Therapy Plan Frequency and Duration Frequency of Treatment 3x/Week Duration of treatment (weeks) 12 Plan of Care Start Date 07/12/22 Plan of Care End Date 10/04/22 Therapeutic Interventions Therapeutic Interventions Gait Training,Home Exercise Program,Lymphedema Management, Manual Therapy,Patient/ Caregiver Education,Self-Care/ Home Management,Soft Tissue Mobilization,Therapeutic Activities,Therapeutic Exercises Modalities Vasopneumatic Devices Next Visit Focus/Plan Next Note Type Treatment Note Next Visit Plan Review MLD with pt and spouse. Attempt compression bandaging BLE. Lymphedema exercises.
--- NOTE | 2022-07-12 18:04 | PT.OPPOC ---
Physical, Occupational & Speech Therapy At [facility] Current Diagnoses Lymphedema, not elsewhere classified (07/12/22) Difficulty in walking, not elsewhere classified (07/12/22) Visit Care Team Role Provider Type Mitch Maldonado MD Family Provider Physician Primary Care Provider Specialty: Internal Medicine Address: [address] [place] [address], [address], [place], [address] Email: [email or web address] Anand Savage MD Attending Provider Physician Referring Provider Specialty: Wound Care Address: [address] [place] [address], [phone] Email: [email or web address] Plan Of Care PT-OP-T Assessment and Plan Start: 07/11/22 13:06 Freq: Status: Active Protocol: Document 07/12/22 12:00 AW (Rec: 07/12/22 18:03 AW [id number]) Physical Therapy Assessment Rehab Potential Rehabilitation Potential Good Evaluation Complexity Number of Personal Factors/Comorbidities 3 or More Number of Body Systems Impaired 4 or More Clinical Presentation at Evaluation Unstable Impairments Impairments Balance,Edema,Gait,Pain, Posture,Sensation,Strength, Transfers Other Concerns Fall Risk high per Tinetti score of 5. Goals Three Impairment function limited by lymphedema Videotape Recording Engineer Goal (LTG) Pt will score 20 or less on Lymphedema Life Impact Scale. LTG Duration 12 weeks - 10/04/22 Two Impairment impaired gait Short Term Goal (STG) Pt will walk 200 feet or more during 2 Minute Walk Test using 4WW. STG Duration 6 weeks - 08/23/22 Videotape Recording Engineer Goal (LTG) Pt will complete 6 Minute Walk Test with average gait speed at least 0.5 m/s as a measure of improved endurance and reduced impact of edema. LTG Duration 12 weeks - 10/04/22 One Impairment lymphedema bilateral lower extremities Short Term Goal (STG) Pt and his spouse will be instructed in all aspects of lymphedema care including skin care, manual lymphatic drainage, lymphedema exercises , and compression garments or alternative. STG Duration 6 weeks - 08/23/22 Videotape Recording Engineer Goal (LTG) Pt will demonstrate reduction and stabilization of lymphedema (no change greater than 1 cm over the course of 1 week) and be independent with all aspects of lymphedema self-care including compression garment or alternative. LTG Duration 12 weeks - 10/04/22 Assessment Summary Assessment Taran is a 76 yo man with a complicated medical history including Parkinsonism and chronic venous stasis. He attends outpatient physical therapy with complaints of bilateral lower extremity swelling which is limiting his function and contributing to poor wound healing. Circumferential measurements and skin changes indicate lymphedema. Taran has open wounds on dorsal surfaces of both feet and he is actively treated for those by wound care clinic. Pt does not tolerate elevation but has been wrapped by wound care clinic several times which he tolerated well. Taran attends with his today and she does provide significant care at home. Pt presents with bilateral lower extremity weakness which is more significant on the right side. Lower extremity dystonia affects gait stability but swelling is also contributing to gait dysfunction. Taran is expected to benefit from physical therapy to decrease lymphedema, improve functional mobility, and educate him and his spouse on lymphedema care for long-term management. Physical Therapy Plan Frequency and Duration Frequency of Treatment 3x/Week Duration of treatment (weeks) 12 Plan of Care Start Date 07/12/22 Plan of Care End Date 10/04/22 Therapeutic Interventions Therapeutic Interventions Gait Training,Home Exercise Program,Lymphedema Management, Manual Therapy,Patient/ Caregiver Education,Self-Care/ Home Management,Soft Tissue Mobilization,Therapeutic Activities,Therapeutic Exercises Modalities Vasopneumatic Devices Next Visit Focus/Plan Next Note Type Treatment Note Next Visit Plan Review MLD with pt and spouse. Attempt compression bandaging BLE. Lymphedema exercises. Plan of Care Dates Plan of Care Start Date 07/12/22 Plan of Care End Date 10/04/22 Electronically Signed by: Monica Hayward, PT 07/12/22 2667 If you are in agreement with this Plan of Care, please return a signed and dated copy. I have reviewed this Plan of Care and certify that the skilled therapy services above are required to meet the patient?s needs. Physician Signature Date Printed Name and Credentials Clinical Instructor Signature Printed Name and Credentials
--- NOTE | 2022-07-18 17:07 | PT.OTN ---
Current Diagnoses Lymphedema, not elsewhere classified (07/18/22) Difficulty in walking, not elsewhere classified (07/18/22) Physical Therapy Treatment Note PT-OP-A Visit Information Start: 07/11/22 13:06 Freq: Status: Active Protocol: Document 07/18/22 16:47 SAK (Rec: 07/18/22 17:07 SAK [id number]) Out-Patient Physical Therapy Visit Information Visit Information Visit Type Treatment Note Visit Note Patient Liza present for treatment, helps with answering questions. Visit Start Time 14:30 Visit Stop Time 15:55 Total Visit Minutes 85 Visit Number 2 Evaluation Information Evaluation Date 07/12/22 Precautions Precautions Parkinson's, uses 4WW PT-OP-B Current Condition Start: 07/11/22 13:06 Freq: Status: Active Protocol: Document 07/18/22 16:47 SAK (Rec: 07/18/22 17:07 SAK [id number]) Current Condition Treatment Goals Patient/Caregiver Goals Reduce swelling so legs don't feel so heavy. Be able to walk better. PT-OP-C Subjective Start: 07/11/22 13:06 Freq: Status: Active Protocol: Document 07/18/22 16:47 SAK (Rec: 07/18/22 17:07 SAK [id number]) OP-PT Subjective Patient Comments Patient Comments Patient reports he sleeps in recliner, it hurts left hip to elevate his legs above his heart, does a littleexercise in his chair. PT-OP-D Balance Start: 07/11/22 13:06 Freq: Status: Active Protocol: Document 07/12/22 12:00 AW (Rec: 07/12/22 17:08 AW [id number]) Tinetti Balance Assessment Sitting Balance Sitting Balance Leans or slides in chair Arising from Chair Ability to Arise Able, uses arms to help Attempts to Arise Able, requires >1 attempt Standing Balance Immediate Standing Balance Unsteady Standing Balance Unsteady Nudged Response Begins to fall Standing with Eyes Closed Unsteady Turning Step Pattern Turning 360 Degrees Discontinuous steps Stability Turning 360 Degrees Unsteady, grabs/staggers Sitting Down Sitting Down Uses arms or unsteady Gait and Step Initiation of Gait Hesitancy, mult. attempts Right Foot Step Length Does not pass stance ft. Right Foot Step Height Does not clear floor Left Foot Step Length Does not pass stance foot Left Foot Step Height Does not clear floor Step Description Step Symmetry Step length not equal Step Continuity Steps appear continuous Gait Description Path Description Mild/moderate deviation Trunk Description Marked sway or uses aide Walking Stance Heels apart Scoring and Interpretation Tinetti Composite Score (points) 5 Interpretation of Scores High risk for falls(< 19) Tinetti Impairment Rating from Composite 80 to <100% Impaired (Score 1- Score 5) PT-OP-G Mobility & Gait Start: 07/11/22 13:06 Freq: Status: Active Protocol: Document 07/12/22 12:00 AW (Rec: 07/12/22 17:20 AW [id number]) OP Mobility Evaluation Bed Mobility Rolling Min assist Supine to and from Sit Min assist Transfers Sit to Stand Pt able with multiple attempts and heavy use of UE's OP Gait Assessment Comments Gait Comments Pt walks a maximum of 150 feet with 4WW. Gait is characterized by excessive neck flexion and rotation, narrow base of support, and inversion/plantar flexion at the ankle (right more affected ). Pt leans toward the left in all phases of gait. 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 Tragus is 10 cm from AC joint in standing. Overall, his posture is severely flexed . Skin Assessment Edema Assessment BLE Edema Type Pitting Edema Appearance Discolored,Open Sores,Shiny, Taut Subjective Edema Description Tightness Comments Pt has discoloration consistent with venous stasis in gaiter distribution BLE. Skin in this area is dry, scaly, taut. Temperature is normal both sides. Feet and ankles are most affected by swelling and pt does have fibrotic changes around ankles and posterior shanks. PT-OP-K Range of Motion Start: 07/11/22 13:06 Freq: Status: Active Protocol: Document 07/12/22 12:00 AW (Rec: 07/12/22 17:15 AW [id number]) Hip Goniometric Range of Motion Hip ROM Limitations Comments PROM WFL except hip extension Knee Goniometric Range of Motion Knee ROM Limitations Comments Both knees lack TKE with right more affected than left Ankle and Foot Goniometric Range of Motion Ankle and Foot ROM Limitations Comments Lacking dorsiflexion to neutral bilaterally PT-OP-M Strength Start: 07/11/22 13:06 Freq: Status: Active Protocol: Document 07/12/22 12:00 AW (Rec: 07/12/22 17:15 AW [id number]) Hip Strength Hip Manual Muscle Testing Right Flexion (L2) 3- Fair- Extension (S1) 3 Fair Abduction 3- Fair- Left Flexion (L2) 4 Good Extension (S1) 4- Good- Abduction 4- Good- Knee Strength Knee Manual Muscle Testing Right Flexion (S2) 3+ Fair+ Extension (L3) 3+ Fair+ Left Extension (L3) 4 Good PT-OP-N Lymphedema Start: 07/11/22 13:06 Freq: Status: Active Protocol: Document 07/12/22 12:00 AW (Rec: 07/12/22 12:30 AW [id number]) Lymphedema Measurements Lower Extremity Circumference Measurements Left Affected MT Heads 25.6 cm Mid-foot 27.5 cm Medial Malleolus 32.5 cm 10 cm From Medial Malleolus 26.1 cm 20 cm From Medial Malleolus 29.1 cm 30 cm From Medial Malleolus 33.6 cm 40 cm From Medial Malleolus 36 cm 50 cm From Medial Malleolus 42 cm 60 cm From Medial Malleolus 40.8 cm 70 cm From Medial Malleolus 44.5 cm Knee Joint 38.8 cm Right Affected MT Heads 28.7 cm Mid-foot 29.4 cm Medial Malleolus 34 cm 10 cm From Medial Malleolus 28.3 cm 20 cm From Medial Malleolus 30.9 cm 30 cm From Medial Malleolus 32.8 cm 40 cm From Medial Malleolus 34.2 cm 50 cm From Medial Malleolus 41 cm 60 cm From Medial Malleolus 39.2 cm 70 cm From Medial Malleolus 43.2 cm Knee Joint 37.9 cm PT-OP-Q Treatments Start: 07/11/22 13:06 Freq: Status: Active Protocol: Document 07/18/22 16:47 SAK (Rec: 07/18/22 17:07 [facility] [id number]) Therapeutic Exercises Supine Exercises ankle pumps Reps/Minutes 10x quad sets Reps/Minutes 10x glut sets Reps/Minutes 10x Therapeutic Activity Therapeutic Activity 1 Name bed mobility Comments sit to supine and supine to sit with min assist on treatment table Gait Training Gait Activity 1 Description waiting room to treatment room Device Used 4WW Level of Assistance CGA, Min assist x 1 due to catching foot on floor Surface tile, low carpet Distance/Duration 108' Treatment Focus safety, increased activity level Comments returned to waiting room in w/ c due to bandaging on left foot, difficulty fitting foot in shoe. Lymphedema Treatment Manual Lymphatic Drainage Location BLE Duration 35 minutes Comments Focused on AIA pathways. Continued education of patient spouse regarding technique and again recommended videos online. Lymphedema Wrapping Body Location BLE Materials Tubigrip re-applied right LEafter MLD. Tricofix size F, Artiflex, and Comprilan (6,8,10) applied MTP to knee left LE. Other Cetaphil lotion applied to bilateral LE's, importance of skin care component of CDT stressed to patient and . Sequential Lymphedema Exercises Location HEP Comments Today performed isometrics and ankle pumps as above, deep breathing, encouraged HEP Compression Garment Assessment Compression Garment Assessment Details Reviewed need for compression garments or compression alternatives in maintenance phase Patient Education Lymphedema Pathology educated using posters Self Manual Lymphatic Drainage discussed and referred to videos Sequential Lymphedema Exercises Reviewed importance of exercise component of CDT. Other Discussed lymphedema as lifetime with need for ongoing management and monitoring. Goal of decreased edema through all components of CDL and fit with compression for long-term management PT-OP-T Assessment and Plan Start: 07/11/22 13:06 Freq: Status: Active Protocol: Document 07/18/22 16:47 [facility] (Rec: 07/18/22 17:07 [facility] [id number]) Physical Therapy Assessment Impairments Impairments Balance,Edema,Gait,Pain, Posture,Sensation,Strength, Transfers Goals Three Impairment function limited by lymphedema Snf Goal (LTG) Pt will score 20 or less on Lymphedema Life Impact Scale. LTG Duration 12 weeks - 10/04/22 Two Impairment impaired gait Short Term Goal (STG) Pt will walk 200 feet or more during 2 Minute Walk Test using 4WW. STG Duration 6 weeks - 08/23/22 [employer] Goal (LTG) Pt will complete 6 Minute Walk Test with average gait speed at least 0.5 m/s as a measure of improved endurance and reduced impact of edema. LTG Duration 12 weeks - 10/04/22 One Impairment lymphedema bilateral lower extremities Short Term Goal (STG) Pt and his spouse will be instructed in all aspects of lymphedema care including skin care, manual lymphatic drainage, lymphedema exercises , and compression garments or alternative. STG Duration 6 weeks - 08/23/22 Snf Goal (LTG) Pt will demonstrate reduction and stabilization of lymphedema (no change greater than 1 cm over the course of 1 week) and be independent with all aspects of lymphedema self-care including compression garment or alternative. LTG Duration 12 weeks - 10/04/22 Assessment Summary Assessment Circumferential measurements increased without Coban, only 1 layer Tubigrip on bilateral LE's. Due to time constraints and uncertainty with tolerance for bandaging related to mobility and fit of shoes only left LE bandaged MTP to knee. If tolerated well will consider bandaging toes as well as right LE to knee. Progression of management will be to bandage to thigh depending on impact on mobility. Physical Therapy Plan Frequency and Duration Frequency of Treatment 3x/Week Duration of treatment (weeks) 12 Plan of Care Start Date 07/12/22 Plan of Care End Date 10/04/22 Therapeutic Interventions Therapeutic Interventions Gait Training,Home Exercise Program,Lymphedema Management, Manual Therapy,Patient/ Caregiver Education,Self-Care/ Home Management,Soft Tissue Mobilization,Therapeutic Activities,Therapeutic Exercises Modalities Vasopneumatic Devices Next Visit Focus/Plan Next Note Type Treatment Note Next Visit Plan Continue lymphedema management with MLD, bilateral LE bandaging including toes pending response to today's bandaging. Consider use of lymphedema pump. Instruct in bandaging. Lymphedema exercises. Ambulation to and from treatment room to waiting room, car.
--- NOTE | 2022-07-19 12:25 | PT.OTN ---
Current Diagnoses Lymphedema, not elsewhere classified (07/19/22) Difficulty in walking, not elsewhere classified (07/19/22) Physical Therapy Treatment Note PT-OP-A Visit Information Start: 07/11/22 13:06 Freq: Status: Active Protocol: Document 07/19/22 10:43 AW (Rec: 07/19/22 12:22 AW [id number]) Out-Patient Physical Therapy Visit Information Visit Information Visit Type Treatment Note Visit Start Time 10:45 Visit Stop Time 12:00 Total Visit Minutes 75 Visit Number 3 Evaluation Information Evaluation Date 07/12/22 Precautions Precautions Parkinson's, uses 4WW PT-OP-B Current Condition Start: 07/11/22 13:06 Freq: Status: Active Protocol: Document 07/18/22 16:47 SAK (Rec: 07/18/22 17:07 SAK [id number]) Current Condition Treatment Goals Patient/Caregiver Goals Reduce swelling so legs don't feel so heavy. Be able to walk better. PT-OP-C Subjective Start: 07/11/22 13:06 Freq: Status: Active Protocol: Document 07/19/22 10:43 AW (Rec: 07/19/22 12:22 AW [id number]) OP-PT Subjective Patient Comments Patient Comments Pt seen by wound care today. Lower leg skin is weepy but toe wounds are looking better. Pt tolerated single leg wrapping overnight. Bandages were removed at wound care this AM. PT-OP-D Balance Start: 07/11/22 13:06 Freq: Status: Active Protocol: Document 07/12/22 12:00 AW (Rec: 07/12/22 17:08 AW [id number]) Tinetti Balance Assessment Sitting Balance Sitting Balance Leans or slides in chair Arising from Chair Ability to Arise Able, uses arms to help Attempts to Arise Able, requires >1 attempt Standing Balance Immediate Standing Balance Unsteady Standing Balance Unsteady Nudged Response Begins to fall Standing with Eyes Closed Unsteady Turning Step Pattern Turning 360 Degrees Discontinuous steps Stability Turning 360 Degrees Unsteady, grabs/staggers Sitting Down Sitting Down Uses arms or unsteady Gait and Step Initiation of Gait Hesitancy, mult. attempts Right Foot Step Length Does not pass stance ft. Right Foot Step Height Does not clear floor Left Foot Step Length Does not pass stance foot Left Foot Step Height Does not clear floor Step Description Step Symmetry Step length not equal Step Continuity Steps appear continuous Gait Description Path Description Mild/moderate deviation Trunk Description Marked sway or uses aide Walking Stance Heels apart Scoring and Interpretation Tinetti Composite Score (points) 5 Interpretation of Scores High risk for falls(< 19) Tinetti Impairment Rating from Composite 80 to <100% Impaired (Score 1- Score 5) PT-OP-G Mobility & Gait Start: 07/11/22 13:06 Freq: Status: Active Protocol: Document 07/12/22 12:00 AW (Rec: 07/12/22 17:20 AW [id number]) OP Mobility Evaluation Bed Mobility Rolling Min assist Supine to and from Sit Min assist Transfers Sit to Stand Pt able with multiple attempts and heavy use of UE's OP Gait Assessment Comments Gait Comments Pt walks a maximum of 150 feet with 4WW. Gait is characterized by excessive neck flexion and rotation, narrow base of support, and inversion/plantar flexion at the ankle (right more affected ). Pt leans toward the left in all phases of gait. 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 Tragus is 10 cm from AC joint in standing. Overall, his posture is severely flexed . Skin Assessment Edema Assessment BLE Edema Type Pitting Edema Appearance Discolored,Open Sores,Shiny, Taut Subjective Edema Description Tightness Comments Pt has discoloration consistent with venous stasis in gaiter distribution BLE. Skin in this area is dry, scaly, taut. Temperature is normal both sides. Feet and ankles are most affected by swelling and pt does have fibrotic changes around ankles and posterior shanks. PT-OP-K Range of Motion Start: 07/11/22 13:06 Freq: Status: Active Protocol: Document 07/12/22 12:00 AW (Rec: 07/12/22 17:15 AW [id number]) Hip Goniometric Range of Motion Hip ROM Limitations Comments PROM WFL except hip extension Knee Goniometric Range of Motion Knee ROM Limitations Comments Both knees lack TKE with right more affected than left Ankle and Foot Goniometric Range of Motion Ankle and Foot ROM Limitations Comments Lacking dorsiflexion to neutral bilaterally PT-OP-M Strength Start: 07/11/22 13:06 Freq: Status: Active Protocol: Document 07/12/22 12:00 AW (Rec: 07/12/22 17:15 AW [id number]) Hip Strength Hip Manual Muscle Testing Right Flexion (L2) 3- Fair- Extension (S1) 3 Fair Abduction 3- Fair- Left Flexion (L2) 4 Good Extension (S1) 4- Good- Abduction 4- Good- Knee Strength Knee Manual Muscle Testing Right Flexion (S2) 3+ Fair+ Extension (L3) 3+ Fair+ Left Extension (L3) 4 Good PT-OP-N Lymphedema Start: 07/11/22 13:06 Freq: Status: Active Protocol: Document 07/19/22 10:43 AW (Rec: 07/19/22 12:22 AW [id number]) Lymphedema Measurements Lower Extremity Circumference Measurements Left Affected - not measured today due to new, non-adherent dressing anterior and lateral shins to address weepy skin Right Affected - not measured today due to new, non-adherent dressing anterior and lateral shins to address weepy skin PT-OP-Q Treatments Start: 07/11/22 13:06 Freq: Status: Active Protocol: Document 07/19/22 10:43 AW (Rec: 07/19/22 12:22 AW [id number]) Therapeutic Exercises Supine Exercises ankle pumps Reps/Minutes 10x quad sets Reps/Minutes 10x glut sets Reps/Minutes 10x Sitting Exercises LAQ Sitting Exercise Name LAQ Reps/Minutes x10 hip rotation Sitting Exercise Name hip rotation Reps/Minutes x10 marching Sitting Exercise Name marching Reps/Minutes x10 Comments poor elevation trunk rotation Sitting Exercise Name trunk rotation Reps/Minutes x10 Therapeutic Activity Therapeutic Activity 1 Name bed mobility Comments sit to supine min A. supine to sit with min assist to move legs toward edge of treatment table Gait Training Gait Activity 1 Description tx room to car Device Used 4WW Level of Assistance CGA Surface tile, low carpet Treatment Focus safety, increased activity level Comments Donned grippy socks for safety . Pt was motivated to walk out with 4WW Lymphedema Treatment Manual Lymphatic Drainage Location BLE Duration 35 minutes Comments Focused on AIA pathways. Continued education of patient spouse regarding technique and again recommended videos online. Lymphedema Wrapping Body Location BLE Materials Tricofix size F, Artiflex, and Comprilan (6,8,10) applied MTP to knee BLE. No toe wrapping due to wounds Other Cetaphil lotion applied to bilateral LE's, importance of skin care component of CDT stressed to patient and . Sequential Lymphedema Exercises Comments Performed sequential exercises as described above (mostly in sitting). Compression Garment Assessment Compression Garment Assessment Details Continued education on garments or compression alternatives for maintenance phase. Spouse indicates interest in velcro wraps for ease of use. Patient Education Other Pt and spouse appear to have good understanding of need for lifelong management. PT was able to give pt's spouse an overview of wrapping technique and encouraged her to try at home using available resources (handouts and videos). PT-OP-T Assessment and Plan Start: 07/11/22 13:06 Freq: Status: Active Protocol: Document 07/19/22 10:43 AW (Rec: 07/19/22 12:22 AW [id number]) Physical Therapy Assessment Impairments Impairments Balance,Edema,Gait,Pain, Posture,Sensation,Strength, Transfers Other Concerns Fall Risk high per Tinetti score of 5. Goals Three Impairment function limited by lymphedema [facility] Goal (LTG) Pt will score 20 or less on Lymphedema Life Impact Scale. LTG Duration 12 weeks - 10/04/22 Two Impairment impaired gait Short Term Goal (STG) Pt will walk 200 feet or more during 2 Minute Walk Test using 4WW. STG Duration 6 weeks - 08/23/22 [facility] Goal (LTG) Pt will complete 6 Minute Walk Test with average gait speed at least 0.5 m/s as a measure of improved endurance and reduced impact of edema. LTG Duration 12 weeks - 10/04/22 One Impairment lymphedema bilateral lower extremities Short Term Goal (STG) Pt and his spouse will be instructed in all aspects of lymphedema care including skin care, manual lymphatic drainage, lymphedema exercises , and compression garments or alternative. STG Duration 6 weeks - 08/23/22 [facility] Goal (LTG) Pt will demonstrate reduction and stabilization of lymphedema (no change greater than 1 cm over the course of 1 week) and be independent with all aspects of lymphedema self-care including compression garment or alternative. LTG Duration 12 weeks - 10/04/22 Assessment Summary Assessment Taran tolerated RLE compression well yesterday and was willing to be wrapped bilaterally today. Wrapped up to knees but did not wrap toes due to wounds. Advised pt's spouse to monitor toes and remove bandaging if toes cold or swelling increasing below wraps. Pt was able to complete a set of sequential lymphedema exercises today and then walked with 4WW from treatment room to car with 4WW . Will assess tolerance to BLE wrapping and consider wrapping to thigh at next treatment depending on response. Physical Therapy Plan Frequency and Duration Frequency of Treatment 3x/Week Duration of treatment (weeks) 12 Plan of Care Start Date 07/12/22 Plan of Care End Date 10/04/22 Therapeutic Interventions Therapeutic Interventions Gait Training,Home Exercise Program,Lymphedema Management, Manual Therapy,Patient/ Caregiver Education,Self-Care/ Home Management,Soft Tissue Mobilization,Therapeutic Activities,Therapeutic Exercises Modalities Vasopneumatic Devices Next Visit Focus/Plan Next Note Type Treatment Note Next Visit Plan Continue lymphedema management with MLD, bilateral LE bandaging including toes (?) pending response to today's bandaging. Consider use of lymphedema pump. Follow up on bandaging? Lymphedema exercises. Ambulation to and from treatment room to waiting room, car.
--- NOTE | 2022-07-24 08:14 | PT.OPDS ---
Current Diagnoses Lymphedema, not elsewhere classified (07/19/22) Difficulty in walking, not elsewhere classified (07/19/22) Visit Care Team Role Provider Type Mitch Maldonado MD Family Provider Physician Primary Care Provider Specialty: Internal Medicine Address: [address] [place] [address], [address], [place], [address] Email: [email or web address] Anand Savage MD Attending Provider Physician Referring Provider Specialty: Wound Care Address: [address] [place] [address], [id number] Email: [email or web address] Visit Number Visit Number 3 Discharge Summary PT-OP-B Current Condition Start: 07/11/22 13:06 Freq: Status: Active Protocol: Document 07/18/22 16:47 SAK (Rec: 07/18/22 17:07 SAK [id number]) Current Condition Treatment Goals Patient/Caregiver Goals Reduce swelling so legs don't feel so heavy. Be able to walk better. PT-OP-C Subjective Start: 07/11/22 13:06 Freq: Status: Active Protocol: Document 07/19/22 10:43 AW (Rec: 07/19/22 12:22 AW [id number]) OP-PT Subjective Patient Comments Patient Comments Pt seen by wound care today. Lower leg skin is weepy but toe wounds are looking better. Pt tolerated single leg wrapping overnight. Bandages were removed at wound care this AM. PT-OP-D Balance Start: 07/11/22 13:06 Freq: Status: Active Protocol: Document 07/12/22 12:00 AW (Rec: 07/12/22 17:08 AW [id number]) Tinetti Balance Assessment Sitting Balance Sitting Balance Leans or slides in chair Arising from Chair Ability to Arise Able, uses arms to help Attempts to Arise Able, requires >1 attempt Standing Balance Immediate Standing Balance Unsteady Standing Balance Unsteady Nudged Response Begins to fall Standing with Eyes Closed Unsteady Turning Step Pattern Turning 360 Degrees Discontinuous steps Stability Turning 360 Degrees Unsteady, grabs/staggers Sitting Down Sitting Down Uses arms or unsteady Gait and Step Initiation of Gait Hesitancy, mult. attempts Right Foot Step Length Does not pass stance ft. Right Foot Step Height Does not clear floor Left Foot Step Length Does not pass stance foot Left Foot Step Height Does not clear floor Step Description Step Symmetry Step length not equal Step Continuity Steps appear continuous Gait Description Path Description Mild/moderate deviation Trunk Description Marked sway or uses aide Walking Stance Heels apart Scoring and Interpretation Tinetti Composite Score (points) 5 Interpretation of Scores High risk for falls(< 19) Tinetti Impairment Rating from Composite 80 to <100% Impaired (Score 1- Score 5) PT-OP-G Mobility & Gait Start: 07/11/22 13:06 Freq: Status: Active Protocol: Document 07/12/22 12:00 AW (Rec: 07/12/22 17:20 AW [id number]) OP Mobility Evaluation Bed Mobility Rolling Min assist Supine to and from Sit Min assist Transfers Sit to Stand Pt able with multiple attempts and heavy use of UE's OP Gait Assessment Comments Gait Comments Pt walks a maximum of 150 feet with 4WW. Gait is characterized by excessive neck flexion and rotation, narrow base of support, and inversion/plantar flexion at the ankle (right more affected ). Pt leans toward the left in all phases of gait. 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 Tragus is 10 cm from AC joint in standing. Overall, his posture is severely flexed . Skin Assessment Edema Assessment BLE Edema Type Pitting Edema Appearance Discolored,Open Sores,Shiny, Taut Subjective Edema Description Tightness Comments Pt has discoloration consistent with venous stasis in gaiter distribution BLE. Skin in this area is dry, scaly, taut. Temperature is normal both sides. Feet and ankles are most affected by swelling and pt does have fibrotic changes around ankles and posterior shanks. PT-OP-K Range of Motion Start: 10/04/22 13:06 Freq: Status: Active Protocol: Document 07/12/22 12:00 AW (Rec: 07/12/22 17:15 AW [id number]) Hip Goniometric Range of Motion Hip ROM Limitations Comments PROM WFL except hip extension Knee Goniometric Range of Motion Knee ROM Limitations Comments Both knees lack TKE with right more affected than left Ankle and Foot Goniometric Range of Motion Ankle and Foot ROM Limitations Comments Lacking dorsiflexion to neutral bilaterally PT-OP-M Strength Start: 07/11/22 13:06 Freq: Status: Active Protocol: Document 07/12/22 12:00 AW (Rec: 07/12/22 17:15 AW [id number]) Hip Strength Hip Manual Muscle Testing Right Flexion (L2) 3- Fair- Extension (S1) 3 Fair Abduction 3- Fair- Left Flexion (L2) 4 Good Extension (S1) 4- Good- Abduction 4- Good- Knee Strength Knee Manual Muscle Testing Right Flexion (S2) 3+ Fair+ Extension (L3) 3+ Fair+ Left Extension (L3) 4 Good PT-OP-N Lymphedema Start: 07/11/22 13:06 Freq: Status: Active Protocol: Document 07/19/22 10:43 AW (Rec: 07/19/22 12:22 AW [id number]) Lymphedema Measurements Lower Extremity Circumference Measurements Left Affected - not measured today due to new, non-adherent dressing anterior and lateral shins to address weepy skin Right Affected - not measured today due to new, non-adherent dressing anterior and lateral shins to address weepy skin PT-OP-T Assessment and Plan Start: 07/11/22 13:06 Freq: Status: Active Protocol: Document 07/24/22 08:13 SAK (Rec: 07/24/22 08:14 SAK [id number]) Physical Therapy Plan Discharge Physical Therapy Discharge Reasons Change in Medical Status Discharge Comments per above. Patient to be discharged due to hospital admission and discharge to care facility.
== END 2023-04-17 10:14 | disposition home or self-care (01) ==
LOC: PHYS 10:30
PROVIDERS: Family Provider Internal Medicine; PCP Internal Medicine; Referring Provider Family Medicine; Visit Provider Family Medicine
DX: I89.0 Lymphedema, not elsewhere classified (principal); R26.2 Difficulty in walking, not elsewhere classified
CPT/HCPCS: 97116; 97140; 97163; 97530; 97535

== ENCOUNTER → 2022-07-21 10:15 | Outpatient (CLI) | payer MEDICARE, OTHER, SELFPAY ==
[2022-07-21 10:51] LABS: Hemoglobin A1C% w Est Avg Glu 5.8 % (4.0-6.0)
[2022-07-21 10:54] LABS: BUN Creatinine Ratio 20.9 (6-22); Blood Urea Nitrogen 18 mg/dL (9-20); Carbon Dioxide 26 mmol/L (22-32); Chloride 101 mmol/L (98-107); Estimated Glomerular Filt Rate > 60 mL/min (>60); Glucose 89 mg/dL (80-110); HEMOLYSIS < 15 (0-50); Magnesium 1.6 mg/dL (1.6-2.3); Potassium 4.3 mmol/L (3.4-5.1); Sodium 138 mmol/L (137-145)
== END ==
PROVIDERS: Family Provider Internal Medicine; PCP Internal Medicine; Referring Provider Internal Medicine; Visit Provider Internal Medicine
DX: E11.9 Type 2 diabetes mellitus without complications (principal); G35 Multiple sclerosis; R50.9 Fever, unspecified
CPT/HCPCS: 36415; 80048; 83036; 83735

== ENCOUNTER 2022-07-22 02:30 | Inpatient (IN) | payer MEDICARE, OTHER, SELFPAY ==
[2022-07-22] VITALS (22 sets, daily range): BP systolic 114–154; BP diastolic 60–80; PULSE 61–86; RESP 16–31; TEMP 35.8–37.6; O2SAT 82–98; BMI 22.3
--- NOTE | 2022-07-22 03:00 | DI.RAD.S_ITS ---
PROCEDURE: XR CHEST 1V INDICATIONS: suspected sepsis TECHNIQUE: One view of the chest was acquired. COMPARISON: [facility], CT, CT CHEST ABD PEL W CON, 07/22/2022, 4:48. [facility], US, US ABDOMEN LIMITED, 07/22/2022, 3:56. [facility], CR, CHEST 1 VIEW, 01/30/2017, 15:54. FINDINGS: Surgical changes and devices: None. Lungs and pleura: An incomplete inspiratory result is noted, causing a crowded appearance to the lung markings. No focal infiltrates are seen. No pneumothorax or significant pleural effusions are seen. Mediastinum: Mediastinal contours appear normal. Heart size is normal. Bones and chest wall: No suspicious bony lesions. Overlying soft tissues appear unremarkable. IMPRESSION: Low lung volumes, without focal infiltrates. Note: No significant discrepancy from the preliminary report. Dictated by: Hernesto Malone M.D. on 07/22/2022 at 7:23 Approved by: Hernesto Malone M.D. on 07/22/2022 at 7:23
--- NOTE | 2022-07-22 03:01 | ED_ITS ---
HPI - Weakness General Chief complaint: Weakness Stated complaint: weakness Time Seen by Provider: 07/22/22 03:00 Source: patient and EMS Mode of arrival: EMS History of Present Illness HPI Narrative: 76-year-old male nonsmoker with history of hypertension, hyperlipidemia and Parkinson's presents by EMS for evaluation of fever, chills and generalized weakness over the past day or 2. He is had nausea but denies any vomiting. He is had some nasal congestion but denies any sneezing, sore throat. He has had the occasional cough but denies any chest pain or significant shortness of breath. He denies abdominal pain but has poor appetite. He denies any constipation or diarrhea. He has a condom catheter which he changes daily. He denies any medication change or dietary change. He has had an overall decline in health for the past few months and has very little energy or strength on a good day. He does not walk, but for the past 2 days he has taken a precipitous decline. Related Data Home Medications Medication Instructions Recorded Confirmed aspirin 325 mg tablet 325 mg PO QDAY ##0 04/28/16 07/21/22 donepezil 10 mg tablet 10 mg PO DAILY 01/23/22 07/21/22 Previous Rx's Medication Instructions Recorded sertraline 100 mg tablet 100 mg PO DAILY #90 tabs 06/22/21 metformin 500 mg tablet 500 mg PO BIDCC #180 tabs 11/14/21 atorvastatin 10 mg tablet (Lipitor) 5 mg PO EVERY OTHER DAY #45 tabs 01/10/22 Disabled Parking #1 ea 01/23/22 gabapentin 300 mg capsule 300 - 600 mg PO BID #540 caps 04/25/22 clopidogrel 75 mg tablet 75 mg PO QDAY #90 tabs 06/26/22 Allergies Allergy/AdvReac Type Severity Reaction Status Date / Time adhesive [ADHESIVE] AdvReac Mild RASH Verified 07/22/22 02:39 Review of Systems Review of Systems Narrative: GENERAL: See HPI HEENT: See HPI RESPIRATORY: Denies dyspnea, cough, wheezing, hemoptysis, sputum. CARDIOVASCULAR: Denies chest pain, palpitations, orthopnea, edema, GASTROINTESTINAL: See HPI : Denies dysuria, frequency, incontinence, hematuria, urinary retention. MUSCULOSKELETAL: See HPI SKIN: Denies rash, skin lesions, or other NEUROLOGIC: Denies weakness, headache, numbness, change in speech, confusion, seizures, incoordination. PSYCHIATRIC: No concerning psychosocial issues. 12 point review of systems is negative except for those stated above Patient History Medical History Alcohol abuse Balance problems (07/06/16) Benign prostatic hyperplasia (BPH) with urinary urge incontinence BPH w urinary obs/LUTS Cataracts, bilateral (2010) Coronary artery disease involving [place] coronary artery of [place] heart without angina pectoris (04/28/16) Depression (2011) Dermatitis Diabetes Essential hypertension (04/28/16) Foot pain (2005) Hammertoes of both feet Hyperlipemia (Unknown) Incontinence without sensory awareness Kidney stones (2010) Knee pain (2005) Multiple sclerosis () Parkinson's disease (2014) Parkinsons disease Peripheral edema Peripheral neuropathy (2005) Peripheral vascular disease (09/27/17) Recurrent falls (07/06/16) Right leg pain Sciatica (2005) Type 2 diabetes mellitus without complication, without long-term current use of insulin (04/28/16) Type 2 diabetes with nephropathy Urge incontinence Urinary incontinence, mixed Venous insufficiency Surgical History History of coronary artery stent placement Hx of knee surgery (Unknown) Hx of lithotripsy (11/2015) S/P coronary artery stent placement (Unknown) S/P knee surgery S/P tonsillectomy and adenoidectomy Family History Father Diabetes mellitus Mother No problems noted. Brother Diabetes mellitus Social History Smoking Status: Never smoker alcohol intake: former Smoking Status: Never smoker alcohol intake frequency: other Substance Use Type: does not use Exam Narrative Exam Narrative: GENERAL: [76] year old patient appears stated age. Well-developed patient, in moderate distress, obviously feeling unwell with shaking chills HEAD: Atraumatic. Normocephalic. EYES: Pupils equal round and reactive. Extraocular motions intact. No scleral icterus. No injection or drainage. ENT: Nose without bleeding, purulent drainage. Throat without erythema, tonsillar hypertrophy or exudate. Airway patent. NECK: Trachea midline. Non tender CARDIOVASCULAR: Regular rate and rhythm without murmurs, gallops, or rubs. RESPIRATORY: Clear to auscultation. Breath sounds equal bilaterally. No wheezes, rales, or rhonchi. GASTROINTESTINAL: Abdomen soft, non-tender, nondistended. EXTREMITIES: No edema or joint tenderness. BACK: Nontender without deformity or crepitance. No flank tenderness. NEURO: AOx3. SKIN: No rash or erythema of visible areas Initial Vital Signs Initial Vital Signs: Vital Signs Temperature 99.7 F H 07/22/22 02:39 Pulse Rate 78 07/22/22 02:39 Respiratory Rate 18 07/22/22 02:39 Blood Pressure 154/80 H 07/22/22 02:39 Pulse Oximetry 93 07/22/22 02:39 Oxygen Delivery Method 07/22/22 02:39 Course Orders Ordered: ED Orders 07/22/22 02:44 Urine Culture Stat Urine Microscopic Stat 07/22/22 02:49 Acetaminophen Stat Complete Blood Count AUTO DIFF Stat Comprehensive Metabolic Panel Stat Ethanol (ETOH) Stat Lipase Stat Procalcitonin Stat 07/22/22 02:54 EKG-12 Lead Routine 07/22/22 03:00 XR chest 1V Stat RT Consult Eval and Treat NOW 07/22/22 03:20 Blood Culture Stat Hepatitis Acute Panel Stat Lactate (Lactic Acid) Stat 07/22/22 03:26 US abdomen limited Stat 07/22/22 04:25 CT chest abd pel w con Stat Discontinued Medications Fentanyl (Fentanyl 100 Mcg/2 Ml Inj) 25 mcg IV NOW ONE Stop: 07/22/22 03:37 Last Admin: 07/22/22 04:16 Dose: 25 mcg Documented By: PRIMO Sodium Chloride (Normal Saline 0.9%) 1,000 mls @ 1,000 mls/hr IV BOLUS ONE Stop: 07/22/22 03:59 Last Infusion: 07/22/22 04:23 Dose: 0 mls/hr Documented By: Admin: 07/22/22 03:04 Dose: 1,000 mls/hr Documented By: MARKUS Ceftriaxone Sodium 2,000 mg/ (Sodium Chloride) 100 mls @ 200 mls/hr IV NOW ONE Stop: 07/22/22 03:38 Last Infusion: 07/22/22 06:05 Dose: 0 mls/hr Documented By: Admin: 07/22/22 04:16 Dose: 200 mls/hr Documented By: PRIMO Azithromycin 500 mg/ Dextrose 250 mls @ 250 mls/hr IV NOW ONE Stop: 07/22/22 06:12 Last Admin: 07/22/22 06:40 Dose: 250 mls/hr Documented By: PRIMO Vital Signs Vital signs: Vital Signs - 8 hr 07/22/22 02:39 07/22/22 02:45 07/22/22 03:00 Temperature 99.7 F H Pulse Rate 78 81 78 Respiratory Rate 18 31 H 28 H Blood Pressure 154/80 H Pulse Oximetry 93 94 93 Oxygen Delivery Method Room Air 07/22/22 03:30 07/22/22 04:00 07/22/22 04:30 Temperature Pulse Rate 80 76 74 Respiratory Rate 28 H 25 H 26 H Blood Pressure Pulse Oximetry 91 82 L 88 L Oxygen Delivery Method 07/22/22 04:33 07/22/22 04:33 Temperature Pulse Rate 72 Respiratory Rate 26 H Blood Pressure 130/60 Pulse Oximetry 95 Oxygen Delivery Method MDM - Weakness Lab Data Result diagrams: 07/22/22 02:49 07/22/22 02:49 Labs: Lab Results 07/22/22 07/22/22 07/22/22 Range/Units 02:44 02:49 02:49 WBC 10.3 (4.5-11.0) X10^3/uL RBC 4.43 L (4.5-5.9) X10^6/uL Hgb 14.4 (13.5-17.5) g/dL Hct 42.0 (41-53) % MCV 94.8 (80-100) fL MCH 32.5 (26-34) PG MCHC 34.3 (30-36) % RDW 12.9 (11.6-14.8) % Plt Count 203 (150-400) X10^3/uL Neut % (Auto) 86.3 H (50-75) % Lymph % (Auto) 3.3 L (25-40) % [place] % (Auto) 6.2 (3-14) % Eos % (Auto) 4.0 (2-4) % Baso % (Auto) 0.2 (0-2) % Neut # (Auto) 8900 H (8391-3675) /uL Lymph # (Auto) 300 L (9395-8251) /uL [place] # (Auto) 600 (0-900) /uL Eos # (Auto) 400 (0-450) /uL Baso # (Auto) 0 (0-100) /uL Sodium 139 (137-145) mmol/L Potassium 4.0 (3.4-5.1) mmol/L Chloride 97 L (98-107) mmol/L Carbon Dioxide 31 (22-32) mmol/L BUN 17 (9-20) mg/dL Creatinine 1.03 (0.66-1.25) mg/dL Estimated GFR > 60 (>60) mL/min BUN/Creatinine Ratio 16.5 (6-22) Glucose 112 H (80-110) mg/dL Lactate (0.7-2.1) mmol/L Calcium 9.4 (8.4-10.2) mg/dL Total Bilirubin 1.2 (0.2-1.3) mg/dL AST 379 H (17-59) IU/L ALT 324 H (<50) IU/L Alkaline Phosphatase 453 H (38-126) U/L Total Protein 7.1 (6.3-8.2) g/dL Albumin 4.2 (3.5-5.0) g/dL Globulin 2.9 (1.7-4.1) g/dL Albumin/Globulin Ratio 1.4 (1.0-2.8) Lipase 140 (23-300) U/L Procalcitonin 0.17 (<0.5) ng/mL Urine RBC 30-100/hpf H (0-5/HPF) Urine WBC 0-1/hpf (0-5/HPF) Ur Squamous Epith Cells 0-1 /hpf (0-5/HPF) Urine Bacteria Occasional (0-1) (None) Urine Yeast 1-5/hpf H (None) Ur Culture Indicated? Specimen cultured Acetaminophen (10-30) ug/mL Ethyl Alcohol ( - 10) mg/dL 07/22/22 07/22/22 Range/Units 02:49 03:20 WBC (4.5-11.0) X10^3/uL RBC (4.5-5.9) X10^6/uL Hgb (13.5-17.5) g/dL Hct (41-53) % MCV (80-100) fL MCH (26-34) PG MCHC (30-36) % RDW (11.6-14.8) % Plt Count (150-400) X10^3/uL Neut % (Auto) (50-75) % Lymph % (Auto) (25-40) % [place] % (Auto) (3-14) % Eos % (Auto) (2-4) % Baso % (Auto) (0-2) % Neut # (Auto) (2466-7847) /uL Lymph # (Auto) (6274-0047) /uL [place] # (Auto) (0-900) /uL Eos # (Auto) (0-450) /uL Baso # (Auto) (0-100) /uL Sodium (137-145) mmol/L Potassium (3.4-5.1) mmol/L Chloride (98-107) mmol/L Carbon Dioxide (22-32) mmol/L BUN (9-20) mg/dL Creatinine (0.66-1.25) mg/dL Estimated GFR (>60) mL/min BUN/Creatinine Ratio (6-22) Glucose (80-110) mg/dL Lactate 1.3 (0.7-2.1) mmol/L Calcium (8.4-10.2) mg/dL Total Bilirubin (0.2-1.3) mg/dL AST (17-59) IU/L ALT (<50) IU/L Alkaline Phosphatase (38-126) U/L Total Protein (6.3-8.2) g/dL Albumin (3.5-5.0) g/dL Globulin (1.7-4.1) g/dL Albumin/Globulin Ratio (1.0-2.8) Lipase (23-300) U/L Procalcitonin (<0.5) ng/mL Urine RBC (0-5/HPF) Urine WBC (0-5/HPF) Ur Squamous Epith Cells (0-5/HPF) Urine Bacteria (None) Urine Yeast (None) Ur Culture Indicated? Acetaminophen < 10 (10-30) ug/mL Ethyl Alcohol < 10 ( - 10) mg/dL Urine Dip Bedside Urine Glucose Negative Bedside Urine Bilirubin - Negative Bedside Urine Ketone - Negative Urine Specific [place] 1.01 Bedside Urine Occult Blood +++ Bedside Urine pH 6.0 Bedside Urine Protein - Negative Bedside Urine Urobilinogen - Negative Bedside Urine Nitrite - Negative Bedside Urine Leukocytes + [address] scan - chest: Radiologist Impression: Bilateral interstitial and septal prominence of both lungs has an appearance more suggestive of edema than infectious process. Dependent atelectatic changes, underlying infiltrate can not be ruled out. Large fecal burden. Right renal stones in moderate right hydronephrosis, no obstructing stone appr eciated. Cholelithiasis. Discharge Plan Departure Patient Disposition: Admitted As Inpatient Clinical Impression: Pneumonia Admit Date/Time: 07/22/22 06:24 Admit Provider: [facility]
[2022-07-22] MEDS: SODIUM CHLORIDE 0.9% 1,000 ML 1000 ML IV (03:04)
[2022-07-22 03:05] LABS: RBC Urine 30-100/HPF (0-5/HPF)
[2022-07-22 03:06] LABS: Bacteria Urine Occasional (0-1); Culture Indicated Urine Specimen Cultured; Squamous Epithelial Cell Urine 0-1 /HPF (0-5/HPF); WBC Urine 0-1/HPF (0-5/HPF)
[2022-07-22 03:10] LABS: Add Manual Diff / Slide Review NO; Basophils Absolute Auto 0 /uL (0-100); Basophils Percent Auto 0.2 % (0-2); Eosinophils Absolute Auto 400 /uL (0-450); Hemoglobin 14.4 g/dL (13.5-17.5); Lymphocytes Absolute Auto 300 /uL (1100-4500); Lymphocytes Percent Auto 3.3 % (25-40); Mean Corpuscular HGB Conc 34.3 % (30-36); Mean Corpuscular Hemoglobin 32.5 PG (26-34); Mean Corpuscular Volume 94.8 fL (80-100); Monocytes Absolute Auto 600 /uL (0-900); Monocytes Percent Auto 6.2 % (3-14); Neutrophils Absolute Auto 8900 /uL (1500-7000); Neutrophils Percent Auto 86.3 % (50-75); Platelet Count 203 X10^3/uL (150-400); Red Blood Cell Count 4.43 X10^6/uL (4.5-5.9); Red Cell Distribution Width 12.9 % (11.6-14.8); White Blood Cell Count 10.3 X10^3/uL (4.5-11.0)
[2022-07-22 03:16] LABS: Alanine Aminotransferase 324 IU/L (<50); Albumin 4.2 g/dL (3.5-5.0); Albumin Globulin Ratio 1.4 (1.0-2.8); Alkaline Phosphatase 453 U/L (38-126); Aspartate Aminotransferase 379 IU/L (17-59); BUN Creatinine Ratio 16.5 (6-22); Bilirubin Total 1.2 mg/dL (0.2-1.3); Blood Urea Nitrogen 17 mg/dL (9-20); Calcium 9.4 mg/dL (8.4-10.2); Carbon Dioxide 31 mmol/L (22-32); Chloride 97 mmol/L (98-107); Estimated Glomerular Filt Rate > 60 mL/min (>60); Globulin 2.9 g/dL (1.7-4.1); Glucose 112 mg/dL (80-110); HEMOLYSIS < 15 (0-50); Lipase 140 U/L (23-300); Sodium 139 mmol/L (137-145); Total Protein 7.1 g/dL (6.3-8.2)
--- NOTE | 2022-07-22 03:26 | DI.US.S_ITS ---
PROCEDURE: US ABDOMEN LIMITED INDICATIONS: septic, weak, elevated LFTs TECHNIQUE: Real-time focused scanning was performed of the abdomen, with image documentation. COMPARISON: [facility], CT, CT CHEST ABD PEL W CON, 07/22/2022, 4:48. [facility], CR, XR CHEST 1V, 07/22/2022, 3:01. FINDINGS: The liver is overall not well seen. The liver demonstrates normal size and no suspicious lesions. The gallbladder is overall not well seen. Potential sludge is seen. The gallbladder wall is not thickened, measuring 3 mm or less. There is potential adenomyomatosis of the gallbladder wall. No specific pericholecystic fluid is seen. The sonographic Vivar sign is negative. There is no biliary dilatation, the common bile duct measures 5-6 mm. No significant pancreatic abnormality is seen on these images. Scan quality is limited by overlying bowel gas. IMPRESSION: Technically limited study, without a significant abnormality seen by ultrasound. Potential sludge can be seen. Note: No significant discrepancy from the preliminary report. Dictated by: Hernesto Malone M.D. on 07/22/2022 at 7:23 Approved by: Hernesto Malone M.D. on 07/22/2022 at 7:26
[2022-07-22 03:32] LABS: Procalcitonin 0.17 ng/mL (<0.5)
[2022-07-22 03:45] LABS: Acetaminophen < 10 ug/mL (10-30); Ethanol (ETOH) < 10 mg/dL
[2022-07-22 03:46] LABS: Lactate (Lactic Acid) 1.3 mmol/L (0.7-2.1)
[2022-07-22] MEDS: fentaNYL 100 MCG/2 ML INJ 25 MCG IV (04:16)
[2022-07-22] MEDS: cefTRIAXone 2,000 MG in SODIUM CHLORIDE 0.9% 100 ML 200 MG IV (04:16)
--- NOTE | 2022-07-22 04:25 | DI.CT.S_ITS ---
PROCEDURE: CT CHEST ABD PEL W CON INDICATIONS: sepsis, cough, fever, LFTs, hematuria TECHNIQUE: After the administration of oral and intravenous contrast, axial sections acquired from the supraclavicular neck to the pubic symphysis. Coronal and sagittal reformats were performed. For radiation dose reduction, the following was used: automated exposure control, adjustment of mA and/or kV according to patient size. COMPARISON: [facility], MR, MR PELVIS WITHOUT CONTRAST, 04/19/2018, 15:18. [facility], US, US ABDOMEN LIMITED, 07/22/2022, 3:56. [facility], CR, XR CHEST 1V, 07/22/2022, 3:01. FINDINGS: Image quality: Excellent. CHEST: Lower Neck: No enlarged lymph nodes. Thyroid: Within normal limits. Axillae: No enlarged lymph nodes. Chest Wall: Unremarkable. Lungs and Airways: Mild dependent consolidation can be seen on both sides. Mild generalized interstitial prominence can be seen, with septal thickening. No frankly suspicious pulmonary nodules are seen. Pleura: No pneumothorax or pleural effusions. Heart: Heart size is normal. No pericardial effusion. There is prominent coronary artery calcification seen. Thoracic Vessels: The aorta and pulmonary arteries demonstrate normal size. Mediastinum and [place]: No enlarged lymph nodes. Esophagus: No wall thickening. No hiatal hernia. ABDOMEN: Liver: Unremarkable. Gallbladder: There is a tiny stone seen within the dependent gallbladder measuring 2 mm, as on series 2, image 63. Biliary ducts: Unremarkable. Pancreas: Unremarkable. Spleen: Unremarkable. Incidental note is made of an accessory splenule along the hilum of the primary spleen. Adrenal Glands: Unremarkable. Kidneys and Ureters: Several calculi can be seen within the right renal pelvis. The largest 3 stones measure 16 mm, 11 mm, and 10 mm. These stones demonstrated density of 750 Hounsfield units, although 1 stone has a density of greater than 1000 Hounsfield units. There is moderate dilatation of the right renal pelvis. Mild right-sided hydroureter is seen. No left-sided renal stones are seen. There is a simple cyst along the anterior aspect of the left kidney that measures water density and 2.5 cm. Stomach and Bowel: Stomach, small bowel loops, and colon are unremarkable. A moderate amount of stool is seen within the colon. Peritoneum: No abnormal intraperitoneal fluid. No free air. Ventral Wall: No hernia. Abdominal Nodes: No retroperitoneal or mesenteric adenopathy by size criteria. Vessels: Aorta and inferior vena cava are normal in size. PELVIS: Pelvic Organs: Unremarkable. Bladder: Unremarkable. Pelvic Nodes: No enlarged lymph nodes. Miscellaneous: No inguinal hernias are seen. Bones: Focal lower lumbar spine degenerative changes are seen. Milder degenerative changes are seen elsewhere. S shaped scoliosis is seen, with a primary dextroconvex thoracic component. Minimal sclerosis is seen within the T12 vertebral body. IMPRESSION: Mild dependent consolidation can be seen on both sides. The appearance is most compatible with atelectasis. Mild generalized interstitial prominence can be seen with septal thickening, which is most likely related to pulmonary edema. Several right renal stones are seen within the renal pelvis that measure up to 16 mm. There is prominence of the right renal pelvis. The stones may be intermittently obstructing. Mild right-sided hydroureter is seen, without findings of obstruction distally. There is a moderate amount of stool seen within the colon. Please correlate with an underlying history of constipation. Incidental note is made of: Prominent coronary artery calcification [place] Accessory splenule Simple left renal cyst Minimal sclerosis is seen within T12, likely benign, potentially a hemangioma Lower lumbar spine degenerative change Note: No significant discrepancy from the preliminary report. Dictated by: Hernesto Malone M.D. on 07/22/2022 at 7:12 Approved by: Hernesto Malone M.D. on 07/22/2022 at 7:22
[2022-07-22] MEDS: AZITHROMYCIN 500 MG in DEXTROSE 5% IN WATER 250 ML 250 MG IV (06:40)
[2022-07-22 09:14] LABS: COVID19 -Nasal RAPID Negative (Negative)
[2022-07-22] MEDS: ACETAMINOPHEN 325 MG TABLET 650 MG PO (10:48)
--- NOTE | 2022-07-22 11:52 | PM.HP.1 ---
History of Present Illness History of Present Illness Date Patient Seen: 07/22/22 Time Patient Seen: 11:53 Date of Onset of Symptoms: 07/19/22 Chief complaint: weakness Narrative: Patient is a 76-year-old male with history of progressive neurologic condition which apparently has been set up mostly with Parkinson's diagnosis but had some question of MS. Patient has been progressively over the last 2 months getting slightly more weak. But recently saw his primary care doctor for acute onset over 2-3 days of progressive weakness. He describes it as whole-body. He had no headaches visual symptoms or other change. Just progressively getting weaker. Patient has incontinence issues has been using a condom cath. In those been no change. Recently saw urologist who is going to do a scope of his bladder and then consider indwelling Flores. Which is patient's request. No other changes. Patient has had no burning with urination or other complaint. No diarrhea no change in bowel movements he is had some slight mid abdominal discomfort but his main issue is he is had a progressive cough. Apparently it has been going on for maybe a month. But over the last 2-3 days has become increasingly worse with some production. He is had no chest pain does not feel short of breath although he just is very weak. He is had no other significant change or problem. Otherwise review of systems negative. Patient History Medical History Alcohol abuse Balance problems (07/06/16) Benign prostatic hyperplasia (BPH) with urinary urge incontinence BPH w urinary obs/LUTS Cataracts, bilateral (2010) Coronary artery disease involving [place] coronary artery of [place] heart without angina pectoris (04/28/16) Depression (2011) Dermatitis Diabetes Essential hypertension (04/28/16) Foot pain (2005) Hammertoes of both feet Hyperlipemia (Unknown) Incontinence without sensory awareness Kidney stones (2010) Knee pain (2005) Multiple sclerosis (~2014) Parkinson's disease (2014) Parkinsons disease Peripheral edema Peripheral neuropathy (2005) Peripheral vascular disease (09/27/17) Recurrent falls (07/06/16) Right leg pain Sciatica (2005) Type 2 diabetes mellitus without complication, without long-term current use of insulin (04/28/16) Type 2 diabetes with nephropathy Urge incontinence Urinary incontinence, mixed Venous insufficiency Surgical History History of coronary artery stent placement Hx of knee surgery (Unknown) Hx of lithotripsy (11/2015) S/P coronary artery stent placement (Unknown) S/P knee surgery S/P tonsillectomy and adenoidectomy Family & Social History Family History Father Diabetes mellitus Mother No problems noted. Brother Diabetes mellitus Social History: household members spouse Prior Living Arrangements House Safety & Behavioral: Feels Safe in Current Yes Environment Been Physically Hurt or No Threatened By a Person Tobacco & Substance use: Smoking Status Never smoker alcohol intake former alcohol intake frequency other Substance Use Type does not use Meds Home Medications and Allergies Home Medications Medication Instructions Recorded Confirmed Type aspirin 325 mg tablet 325 mg PO QDAY ##0 04/28/16 07/21/22 History sertraline 100 mg tablet 100 mg PO DAILY #90 tabs 06/22/21 07/21/22 Rx metformin 500 mg tablet 500 mg PO BIDCC #180 tabs 11/14/21 07/21/22 Rx atorvastatin 10 mg tablet (Lipitor) 5 mg PO EVERY OTHER DAY #45 tabs 01/10/22 07/21/22 Rx Disabled Parking #1 ea 01/23/22 07/21/22 Rx donepezil 10 mg tablet 10 mg PO DAILY 01/23/22 07/21/22 History gabapentin 300 mg capsule 300 - 600 mg PO BID #540 caps 04/25/22 07/21/22 Rx clopidogrel 75 mg tablet 75 mg PO QDAY #90 tabs 06/26/22 07/21/22 Rx Allergies Allergy/AdvReac Type Severity Reaction Status Date / Time adhesive [ADHESIVE] AdvReac Mild RASH Verified 07/22/22 02:39 Review of Systems Review of Systems Narrative: Patient has a negative review of systems except above. Exam Vital Signs (past 8 hours): - 07/22/22 04:00 07/22/22 04:30 07/22/22 04:33 Temperature Pulse Rate 76 74 72 Respiratory Rate 25 H 26 H 26 H Blood Pressure Pulse Oximetry 82 L 88 L 95 Oxygen Delivery Method Oxygen Flow Rate 07/22/22 04:33 07/22/22 05:00 07/22/22 05:30 Temperature Pulse Rate 76 86 Respiratory Rate 26 H 28 H Blood Pressure 130/60 Pulse Oximetry 97 94 Oxygen Delivery Method Oxygen Flow Rate 07/22/22 06:00 07/22/22 06:30 07/22/22 07:00 Temperature Pulse Rate 79 74 84 Respiratory Rate 26 H 26 H 27 H Blood Pressure Pulse Oximetry 94 94 93 Oxygen Delivery Method Oxygen Flow Rate 07/22/22 07:30 07/22/22 08:00 07/22/22 08:30 Temperature Pulse Rate 82 76 79 Respiratory Rate 24 24 23 Blood Pressure Pulse Oximetry 93 92 90 L Oxygen Delivery Method Oxygen Flow Rate 07/22/22 10:52 07/22/22 08:45 07/22/22 10:00 Temperature 97.4 F L Pulse Rate 72 Respiratory Rate 16 Blood Pressure 141/71 H Pulse Oximetry 97 90 L Oxygen Delivery Method Room Air Nasal Cannula Oxygen Flow Rate 3 0 Oxygen Delivery Method Room Air,Nasal Cannula Oxygen Flow Rate 0 Narrative Exam Narrative: Alert fatigued weak appearing male lying in bed no acute distress. HEENT exam shows no traumatic issues. Conjunctivae are clear posterior pharynx unremarkable neck supple without adenopathy JVD or bruits lungs appear mostly clear maybe some basilar crackles heart regular rate and rhythm abdomen is soft positive bowel sounds nontender extremities without significant edema they are wrapped in his lower extremities neurologic exam patient is weak diffusely but moving all extremities. Did not ambulate Objective Labs Result Diagrams: 07/22/22 02:49 07/22/22 02:49 Labs: Laboratory Results - last 24 hr 07/22/22 07/22/22 07/22/22 02:44 02:49 02:49 WBC 10.3 RBC 4.43 L Hgb 14.4 Hct 42.0 MCV 94.8 MCH 32.5 MCHC 34.3 RDW 12.9 Plt Count 203 Neut % (Auto) 86.3 H Lymph % (Auto) 3.3 L [place] % (Auto) 6.2 Eos % (Auto) 4.0 Baso % (Auto) 0.2 Neut # (Auto) 8900 H Lymph # (Auto) 300 L [place] # (Auto) 600 Eos # (Auto) 400 Baso # (Auto) 0 Sodium 139 Potassium 4.0 Chloride 97 L Carbon Dioxide 31 BUN 17 Creatinine 1.03 Estimated GFR > 60 BUN/Creatinine Ratio 16.5 Glucose 112 H Lactate Calcium 9.4 Total Bilirubin 1.2 AST 379 H ALT 324 H Alkaline Phosphatase 453 H Total Protein 7.1 Albumin 4.2 Globulin 2.9 Albumin/Globulin Ratio 1.4 Lipase 140 Procalcitonin 0.17 Urine RBC 30-100/hpf H Urine WBC 0-1/hpf Ur Squamous Epith Cells 0-1 /hpf Urine Bacteria Occasional (0-1) Urine Yeast 1-5/hpf H Ur Culture Indicated? Specimen cultured Acetaminophen Ethyl Alcohol SARS-CoV-2 (PCR) 07/22/22 07/22/22 07/22/22 02:49 03:20 08:40 WBC RBC Hgb Hct MCV MCH MCHC RDW Plt Count Neut % (Auto) Lymph % (Auto) [place] % (Auto) Eos % (Auto) Baso % (Auto) Neut # (Auto) Lymph # (Auto) [place] # (Auto) Eos # (Auto) Baso # (Auto) Sodium Potassium Chloride Carbon Dioxide BUN Creatinine Estimated GFR BUN/Creatinine Ratio Glucose Lactate 1.3 Calcium Total Bilirubin AST ALT Alkaline Phosphatase Total Protein Albumin Globulin Albumin/Globulin Ratio Lipase Procalcitonin Urine RBC Urine WBC Ur Squamous Epith Cells Urine Bacteria Urine Yeast Ur Culture Indicated? Acetaminophen < 10 Ethyl Alcohol < 10 SARS-CoV-2 (PCR) Negative Assessment & Plan Assessment & Plan narrative: Pneumonia. Patient is mildly hypoxic with x-ray showing either congestive heart failure or infection difficult to tell. CT scan similar. But given the fact that he has a mild elevation in his white count and a left shift fevers and acute onset of symptoms and cough pneumonia would be more likely diagnosis. Discussed with patient he is had no evidence of aspiration. Although he does have some risk. Unlikely aspiration pneumonia at this point. Will cover for community-acquired. Due to the fact that a Zithromax is interactive with donepezil will hold benazepril for now. Can restart in a few days when back off of his Zithromax. No other changes. Seems to be stable. Will follow. Acute respiratory failure. Probably secondary to pneumonia. Will place on O2 as needed and follow. Dehydration mild. Will gently hydrate over the next 24 hours and then re-evaluate. Patient does have a history of fluid overload will so know what to watch closely. He does not appear to be volume overloaded at this time. Hematuria. Patient has kidney stones present on CT scan does have some mild hydronephrosis I do not think that is from kidney stones actively. But at this point will follow. Urine has been cultured. Doubt infection. Constipation. Will see how he does but milk of magnesia ordered. May need to be more aggressive depending on how he does. I do not think this is a significant cause of his fever and infections but will need to follow. Maybe has mild abdominal pain. Certainly nothing impressive on exam. Urinary incontinence. Does not appear to be obstructed. Will continue condom cath but may need indwelling depending on how it goes. Parkinson's disease. Patient is not on any Parkinson's medication but apparently this is his diagnosis can not find neurology notes no change needed at this time. History of diabetes. Will continue metformin. History of foot ulcers. Consult Wound Care on Sunday for dressing change was scheduled there any way. Code status no code. Patient comfortable with that decision. DVT prophylaxis will place on Lovenox. Disposition. At this point patient needs to be admitted and treated will just have to see how he responds. Certainly could require some type of post admit long-term care to get strength back all depend on how quickly he responds. Will start physical therapy tomorrow. Time Spent With Patient Critical Care time: I spent a total of [] minutes of critical care time on this patient's care today; this time is exclusive of procedural time. Quality VTE Deep Vein Thrombosis/Pulmonary Embolism Present on Admission: No
[2022-07-22] MEDS: MAGNESIUM HYDROXIDE 30 ML UDC PO (14:45)
[2022-07-22] MEDS: SODIUM CHLORIDE 0.9% 1,000 ML 100 ML IV (14:45)
--- NOTE | 2022-07-22 15:56 | PT-IP ANOTE ---
PT eval dated for tomorrow and note stated to start PT tomorrow.
[2022-07-22] MEDS: METFORMIN HCL 500 MG TABLET PO (16:16)
[2022-07-22] MEDS: GABAPENTIN 600 MG TABLET PO (20:13)
--- NOTE | 2022-07-22 22:11 | PC.NURSE ---
Patient is alert and oriented but can be slow with responses. Breath sounds CTA; on oxygen at 2L/min per NC with sat of 98% and placed on continuous oximetry per MD order. Denies SOB at rest but reports he has been SOB with exertion. HRR. Denies nausea. BT present and abdomen is soft; has not had BM since 07/19 and was given MOM earlier today. Incontinent of urine but denies dysuria. Is being repositioned q2h but refuses to allow staff to use pillows or float heels so Evelin tilt function is being utilized to alter pressure. Complains of 6/10 left ischial tuberosity pain due to inflammation but declines pain meds except for scheduled Gabapentin. Dressings to bilateral LE chronic wounds are CDI; declines to use SCD's due to wounds. Chronic numbness in bilateral LE. Fall risk score is high and bed alarm is activated.
[2022-07-23] VITALS (7 sets, daily range): BP systolic 121–133; BP diastolic 65–80; PULSE 65–73; RESP 16–18; TEMP 36.8–37.9; O2SAT 94–98
[2022-07-23] MEDS: SODIUM CHLORIDE 0.9% 1,000 ML 100 ML IV
[2022-07-23] MEDS: cefTRIAXone 1,000 MG in SODIUM CHLORIDE 0.9% 100 ML 200 MG IV (05:33)
[2022-07-23] MEDS: AZITHROMYCIN 500 MG in DEXTROSE 5% IN WATER 250 ML 250 MG IV (06:30)
[2022-07-23] MEDS: SERTRALINE 50 MG TABLET 100 MG PO (08:46)
[2022-07-23] MEDS: GABAPENTIN 600 MG TABLET PO ×2 (08:46→20:46)
[2022-07-23] MEDS: CLOPIDOGREL 75 MG TABLET PO (08:46)
[2022-07-23] MEDS: ENOXAPARIN 40 MG/0.4 ML SYRINGE SUBCUT (08:46)
[2022-07-23] MEDS: METFORMIN HCL 500 MG TABLET PO ×2 (08:46→16:28)
[2022-07-23] MEDS: MAGNESIUM HYDROXIDE 30 ML UDC PO (10:25)
--- NOTE | 2022-07-23 10:40 | P.PN_ITS ---
Subjective Subjective Date Patient Seen: 07/23/22 Time Patient Seen: 10:41 Interval history: Patient seen in follow-up pneumonia. Respiratory failure. Weakness. Patient feeling somewhat depressed today. Was hoping to feel better but does not feel a lot better. Still weak. No pain. No shortness of breath no chest pain. No real change in symptoms. Exam Vital Signs (past 8 hours): - 07/23/22 07:33 Pulse Rate 69 Respiratory Rate 18 Blood Pressure 126/80 Pulse Oximetry 96 Oxygen Flow Rate 2 Oxygen Delivery Method Nasal Cannula Oxygen Flow Rate 2 Narrative Exam Narrative: Alert elderly male lying in bed in no acute distress Lungs are clear heart regular rate and rhythm extremities without significant edema Objective Labs Result Diagrams: 07/22/22 02:49 07/22/22 02:49 [facility] Medical History Alcohol abuse Balance problems (07/06/16) Benign prostatic hyperplasia (BPH) with urinary urge incontinence BPH w urinary obs/LUTS Cataracts, bilateral (2010) Coronary artery disease involving [place] coronary artery of [place] heart without angina pectoris (04/28/16) Depression (2011) Dermatitis Diabetes Essential hypertension (04/28/16) Foot pain (2005) Hammertoes of both feet Hyperlipemia (Unknown) Incontinence without sensory awareness Kidney stones (2010) Knee pain (2005) Multiple sclerosis (~2014) Parkinson's disease (2014) Parkinsons disease Peripheral edema Peripheral neuropathy (2005) Peripheral vascular disease (09/27/17) Recurrent falls (07/06/16) Right leg pain Sciatica (2005) Type 2 diabetes mellitus without complication, without long-term current use of insulin (04/28/16) Type 2 diabetes with nephropathy Urge incontinence Urinary incontinence, mixed Venous insufficiency Surgical History History of coronary artery stent placement Hx of knee surgery (Unknown) Hx of lithotripsy (11/2015) S/P coronary artery stent placement (Unknown) S/P knee surgery S/P tonsillectomy and adenoidectomy Family History Father Diabetes mellitus Mother No problems noted. Brother Diabetes mellitus Social History household members: spouse Smoking Status: Never smoker alcohol intake: former Assessment & Plan Assessment & Plan narrative: Respiratory failure acute. Appears to be secondary to pneumonia. Still on 2 L to keep around 93%. Will continue O2 antibiotics and re-evaluate. Chest x-ray tomorrow and BNP. Pneumonia. Patient on good coverage. Question whether this could be pot entially aspiration. Seems unlikely but possible. Would need better coverage for anaerobes if that is the fact. At this point will continue current medicine and re-evaluate in a.m.. White count is pending. Generalized weakness. Not improved. How much of this is secondary to infection and how much of this is just progressive of his disease is unclear. Does have some swallowing issues will have speech therapy tomorrow. Certainly appears to be speaking well. No other significant evidence of stroke or other changes. Will have to follow. Hopefully will improve with treatment. PT evaluation today show significant weakness. Dehydration. Was mild. Will discontinue IV therapy. I suspect review bili make now. Do not want to push fluid to hard with this elderly male. See how he does over the next 24 hours. With intake. Constipation. Milk of magnesia. Will see how he does. Certainly does need some more aggressive therapy if this does not work. Urinary incontinence stable. Will waiting future Urology evaluation. Indwelling Flores might be something to consider. Parkinson's disease or/syndrome. Stable. Apparently did not do well with medication and will see how things go. History of diabetes. Continue metformin. History of foot ulcers. Consult Wound Care tomorrow. Code status no code. DVT prophylaxis on Lovenox. Disposition. Complicated case. Suspect is going to need some type of placement. Unlikely to go home with the degree of weakness he has now at least for the time being. Really will depend on whether he responds to treatment or not. And how much he improves. But unlikely it would seem in the next 48 hours to obtain that kind of strength. Otherwise will continue current therapy expect inpatient for the next 2-3 days. Time Spent With Patient Critical Care time: I spent a total of [] minutes of critical care time on this patient's care today; this time is exclusive of procedural time. Quality VTE Deep Vein Thrombosis/Pulmonary Embolism Present on Admission: No
--- NOTE | 2022-07-23 10:42 | PT.IIE ---
Current Diagnoses Pneumonia, unspecified organism (07/22/22) Surgical History (Last Reviewed 07/22/22 @ 03:24 by Nathan Dixon DO) History of coronary artery stent placement Hx of knee surgery (Unknown) Hx of lithotripsy (11/2015) S/P coronary artery stent placement (Unknown) S/P knee surgery S/P tonsillectomy and adenoidectomy Medical History (Last Reviewed 07/22/22 @ 03:24 by Nathan Dixon DO) Alcohol abuse Balance problems (07/06/16) Benign prostatic hyperplasia (BPH) with urinary urge incontinence BPH w urinary obs/LUTS Cataracts, bilateral (2010) Coronary artery disease involving [place] coronary artery of [place] heart without angina pectoris (04/28/16) Depression (2011) Dermatitis Diabetes Essential hypertension (04/28/16) Foot pain (2005) Hammertoes of both feet Hyperlipemia (Unknown) Incontinence without sensory awareness Kidney stones (2010) Knee pain (2005) Multiple sclerosis (~2014) Parkinson's disease (2014) Parkinsons disease Peripheral edema Peripheral neuropathy (2005) Peripheral vascular disease (09/27/17) Recurrent falls (07/06/16) Right leg pain Sciatica (2005) Type 2 diabetes mellitus without complication, without long-term current use of insulin (04/28/16) Type 2 diabetes with nephropathy Urge incontinence Urinary incontinence, mixed Venous insufficiency Physical Therapy Inpatient Evaluation/Re-Eval M1 PT/OT-IP Prior Functional Status Start: 07/23/22 10:26 Freq: Status: Active Protocol: Document 07/23/22 10:27 (Rec: 07/23/22 10:42 [id number]) Medical Review Prior Functional Status Medical History Reviewed Yes Mobility and Gait Ambulates with 4WW, assists with sit<>Stand transfer from recliner. Standard recliner for day time and sleeping. Multiple falls Activities of Daily Living and IADL's assists Social History Household Members spouse Living Arrangements House Number of Floors (Floors) One Floor Number of Stairs To Enter/Railing? 5-6 steps to enter home with railing Home Environment Walk in Shower,Built-In Shower Seat Home Equipment Four Wheel Walker,Grab Bars Near Toilet,Grab Bars In Shower M2 PT-IP Current Condition Start: 10/16/22 10:26 Freq: Status: Active Protocol: Document 07/23/22 10:27 BC (Rec: 07/23/22 10:42 [id number]) Physical Therapy Current Condition Current Condition Evaluation Date 07/23/22 Treatment Diagnosis difficulty with ambulation Onset Date 07/22/22 M3 PT-IP Subjective Start: 07/23/22 10:26 Freq: Status: Active Protocol: Document 07/23/22 10:27 BC (Rec: 07/23/22 10:42 [id number]) Subjective Physical Therapy Visit Type Type Initial Evaluation Visit Start Time 09:40 Visit Stop Time 10:10 Total Visit Minutes 29 Physical Therapy Visit Comments Patient Comments Pt states he recently had a skin test from neurology regarding PD vs Parkinsonism/ movement disorder Patient Goals None stated specifically Therapy Pain Assessment Pain When Pain Assessed At Rest Pain Present Pain Present Pain Reported Location left buttock Intensity 4 Scale Used Numeric (0 - 10) Description Chronic Pain Management Techniques Re-positioning M4 PT-IP Mobility and Gait Start: 07/23/22 10:26 Freq: Status: Active Protocol: Document 07/23/22 10:27 BC (Rec: 07/23/22 10:42 [id number]) PT-Bed Mobility Assessment Rolling Type of Rolling Roll to Right,Roll to Left Level of Assist Maximal Assistance Supine to Sit Supine to Sit Maximum Assistance,1 Person Assistance,Head of Bed Elevated,Bedrails Sit to Supine Sit to Supine Total Assistance,2 Person Assistance,Bedrails Scooting Scooting to Edge of Bed Maximum Assistance Scooting Up and Down in Bed Dependent PT-Transfer Assessment Sit to and From Stand Sit to and from Stand Maximum Assistance,1 Person Assistance Equipment Transfer Assistive Device Gait Belt,Front Wheeled Walker Comments Mobility Comments Pt requiring max to total assist x1 to attempt standing. Severe rigidity and balance righting reactions impairing ability to safely transfer. Used seated forward bends reaching towards feet to reduce extension rigidity in trunk in between sit<>stand attempts. Able to stand 1 time on 3 trials with significant bracing on bed with LE's due to retropulsion. Unable to maintain standing balance without max A. Gait Assessment Comments Gait Comments Non ambulatory at this time Stair Climbing Assessment Comments Stair Climbing Comments Not approrpriate PT-Balance Assessment Sitting Balance and Reactions Static Sitting Balance Ability Poor Dynamic Sitting Balance Ability Poor Standing Balance and Reactions Static Standing Balance Ability Poor Dynamic Standing Balance Ability Poor Comments Other Balance Tests/Deviations/Treatment Seated static, retropulsive : needing cues and assist to regain seated balance. Similar posterior LOB in standing related to postural instability and balance righting deficits. M5 PT-IP Objective Assessments Start: 07/23/22 10:26 Freq: Status: Active Protocol: Document 07/23/22 10:27 BC (Rec: 07/23/22 10:42 [id number]) Orientation Orientation/Cognition Level of Alertness Alert Orientation Name,Date,Place,Situation Comments hypophonia Gross Range of Motion Upper Extremity ROM Assessment Bilaterally Impaired Impairments increased elbow and shoulder rigidity with general ROM deficits of ~25% of normal ROM Lower Extremity ROM Assessment Bilaterally Impaired Impairments Increased hip and knee rigidity with general ROM deficits of ~25-50% of normal ROM Strength Upper Extremity Strength Assessment Bilaterally Impaired Shoulder 2 Elbow 2 Wrist 2 Lower Extremity Strength Assessment Bilaterally Impaired Hip 2 RLE; 3 LLE Knee 3 BLE Ankle 2 BLE Comments Strength Comments Strength inhibited by muscle rigidity, bradykinesia and hypokinesia. Sensation Assessment Sensation Light Touch Intact Muscle Tone Muscle Tone WNL No Comments Muscle Tone Comments Significant spinal and extremity rigidity. 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 M6 PT-IP Treatment Start: 07/23/22 10:26 Freq: Status: Active Protocol: Document 07/23/22 10:27 BC (Rec: 07/23/22 10:42 [id number]) Physical Therapy Treatment Education Education Provided Safety Other Treatments Other Treatment Performed Education on reason for forward reaches prior to sit to stand attempts to reduce rigidity and extension moment and allow for more forward progression of COG over ISAAK. M7 PT-IP Assessment and Plan Start: 07/23/22 10:26 Freq: Status: Active Protocol: Document 07/23/22 10:27 BC (Rec: 07/23/22 10:42 [id number]) PT Summary Assessment and Plan Potential Rehabilitation Potential Fair Status of Condition at Evaluation Evolving Summary Impairments ROM,Strength,Balance, Coordination,Tone,Bed Mobility ,Transfers,Gait,Activity Tolerance Progress Towards Goals Slow Progress due to Medical Issues Assessment Summary Pt admitted from home due to progressing weakness. Pt sees a neurologis in [place] and confirmed to this PT that he does not take carbidopa- levadopa as it does not improve his symptoms. He recently had a skin test. There is a skin biopsy test that identifies protein markers to assist in diagnosis PD vs Parkinsonism/movement disorders. Pt states to therapist it was identified that he does not have PD but another type of movement disorder that he could not recall name of. This is understandable given the more rapid and pronounced muscle rigidity, postural control deficits and weakness after dx of just a few years. Pt states ~1 week ago he was ambulatory with his 4WW and had to occasionally assist him out of his chair to stand. CLOF: He is requiring max to total assist for all bed mobility and attempts at standing. He is not able to safely transfer or ambulate currently. Recommend d/c to SNF for daily rehab to progress mobility and achieve maximum independence with mobility. Goals Bed Mobility Goal Minimal Assistance Transfer Goal Minimal Assistance Gait Goal Minimal Assistance Gait Distance 25 Other Goals ascend/descend 5-6 steps with railing to enter home. Days to Meet Goals 10 Frequency of Treatment Frequency Of Treatment Once a Day Treatment Plan Physical Therapy Treatment Plan Bed Mobility Training,Transfer Training,Gait Training, Therapeutic Exercise,Balance Retraining,Discharge Planning, Neuromuscular Re-ed, Coordination Retraining Recommendations To Nursing Amount of Assist Needed Mechanical Lift Discharge Recommendations PT Discharge Recommendations SNF Rehab Transportation Needs at Discharge Wheelchair/Cabulance,Stretcher /Ambulance
[2022-07-23 10:44] LABS: Add Manual Diff / Slide Review NO; Basophils Absolute Auto 0 /uL (0-100); Basophils Percent Auto 0.4 % (0-2); Eosinophils Absolute Auto 200 /uL (0-450); Eosinophils Percent Auto 1.8 % (2-4); Hematocrit 36.1 % (41-53); Hemoglobin 12.4 g/dL (13.5-17.5); Lymphocytes Absolute Auto 500 /uL (1100-4500); Lymphocytes Percent Auto 5.4 % (25-40); Mean Corpuscular HGB Conc 34.4 % (30-36); Mean Corpuscular Hemoglobin 32.5 PG (26-34); Mean Corpuscular Volume 94.7 fL (80-100); Monocytes Absolute Auto 700 /uL (0-900); Monocytes Percent Auto 6.9 % (3-14); Neutrophils Absolute Auto 8500 /uL (1500-7000); Neutrophils Percent Auto 85.5 % (50-75); Platelet Count 213 X10^3/uL (150-400); Red Blood Cell Count 3.81 X10^6/uL (4.5-5.9); Red Cell Distribution Width 13.1 % (11.6-14.8); White Blood Cell Count 9.9 X10^3/uL (4.5-11.0)
[2022-07-23 10:58] LABS: Alanine Aminotransferase 160 IU/L (<50); Albumin 3.3 g/dL (3.5-5.0); Albumin Globulin Ratio 1.2 (1.0-2.8); Alkaline Phosphatase 361 U/L (38-126); Aspartate Aminotransferase 92 IU/L (17-59); BUN Creatinine Ratio 13.4 (6-22); Bilirubin Total 0.8 mg/dL (0.2-1.3); Blood Urea Nitrogen 11 mg/dL (9-20); Calcium 8.5 mg/dL (8.4-10.2); Carbon Dioxide 31 mmol/L (22-32); Chloride 99 mmol/L (98-107); Estimated Glomerular Filt Rate > 60 mL/min (>60); Globulin 2.7 g/dL (1.7-4.1); Glucose 150 mg/dL (80-110); HEMOLYSIS < 15 (0-50); Potassium 3.7 mmol/L (3.4-5.1); Sodium 139 mmol/L (137-145)
--- NOTE | 2022-07-23 11:48 | CM.DANOTE ---
Addendum entered by Christine Naylor R.N. 07/23/22 13:41: Met with patient's spouse, Liza, and step son. Spouse is spending time with patient, asked to talk later. She has this DC [facility]rel Cooper's phone number. Original Note: DCP: Case received, EMR reviewed. Patient sleeping, but was able to contact patient's spouse, Liza. Introduced self and role over the phone. Was able to obtain information regarding patient's baseline activity status at home prior to hospitalization. DCP assessment completed with information currently available. Patient is a 76 year old male who admitted yesterday morning to the care of the hospitalist. PCP: Dr. Maldonado. Payer: confirmed: Medicare/[employer]. Patient came to the hospital via ambulance secondary to having increased weakness over the past days. Patient has history of HTN, hyperlipidemia, and Parkinsons. Notes also indicate that patient uses condom catheter secondary to immobility. Notes indicate that patient has had an overall decline in the past few months. Patient holds current diagnosis of acute respiratory failure secondary to pneumonia. Attempted to meet with patient, but had nursing starting IV in the room, and was sleeping. Was able to speak to patient's spouse, Liza, to obtain further information. Confirmed that patient resides with spouse, he is alert and oriented. 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 He is mostly in his electric recliner at home, has a walker, but limited mobility. Asked spouse if she assists him with showers, stated, she has been, he has a shower bench, but has been getting more difficult. Asked her if patient has ever had home health, and stated, he has not, did have outpatient therapy. Discussed patient's weakness, and mentioned skilled rehab. Spouse indicated, she thinks it's a good idea as long as insurance covers it. Let her know that patient is covered, he is inpatient, and under Medicare, would need to be here 3 midnights, as long as patient is willing to go. Let her know that this DC Barrel Cooper can meet with her later today or tomorrow to go over some rehab facilities. P: DCP to continue to follow. Patient most likely will need custodial. Will review with spouse, and will complete a PASSR. Christine Naylor RN/State Highway Police Officer Discharge Planning/Care Management CM Discharge Assessment Start: 07/23/22 11:23 Freq: Status: Active Protocol: Document 07/23/22 11:35 (Rec: 07/23/22 11:45 [id number]) Discharge Planning Assessment Assigned Supplemental Manager Christine Naylor RN/State Highway Police Officer Advance Directives? Yes Advance Directives on File Yes History Provided By Patient,Medical Record Prior Living Arrangements House Household Members spouse Type of transporation used prior to Relies on Others admit Independent with ADL's Yes Is patient alert and oriented? Yes Caregiver for Another No DME Already Rented / Owned Wheelchair,FWW / Walker Patient/Family Preference Long Term Facility Barriers to Discharge No Transportation Arrangement Facility Referrals Initiated Other Additional Comment Will discuss with spouse today Whiteboard Updated in Patient Room with Yes name and ext. # of Supplemental Manager Review Status In Process Next Review Type Continued Stay Review
--- NOTE | 2022-07-23 14:29 | CM.DPC ---
Addendum entered by Christine Naylor R.N. 07/23/22 15:03: [facility] and stated that [facility] can accept patient on Sunday if he is medically stable. Original Note: DCP Cont: Met with patient's spouse, Liza. Discussed fdc facilities, as well as assistant terminal manager care needs. Brought in I-pad, and went over the Medicare.gov reviews for fdc facilities. Spouse indicated, [facility] , [facility], [facility] as last choice. Discussed senior care care. Spouse indicated that they don't qualify for state assistance, due to income, and assets. Brought her in a Senior Resource Book with some caregiving agencies. She is aware that it does cost, but at least for a few hours if needed. Can do home health after fdc and include a social work manager to discuss resources as well. Spouse indicated, he may eventually be bed bound. Mentioned getting a hospital bed, can be rented through [employer], which spouse indicated, should not be a problem. She also has a son in [place], stated, just found out that he has teminal cancer. Sent referrals to [facility] and [facility] to start. Maren at [facility] stated that she has beds, and [facility] as well. Patient would be eligible by Medicare standards for fdc by Sunday, if he is deemed medically stable. P:DCP to continue to follow. [facility] should be able to accept patient on Sunday if he is medically stable, as well as [facility]. Have given patient's spouse some resources as well. Christine Naylor RN/Restaurant Crew Member
[2022-07-23] MEDS: ACETAMINOPHEN 325 MG TABLET 650 MG PO (16:28)
--- NOTE | 2022-07-23 18:49 | P.PN_ITS ---
Subjective Subjective Date Patient Seen: 07/23/22 Time Patient Seen: 18:50 Interval history: Patient seen in follow-up of multiple issues. Still having neck pain. Had a fever of 100.5. Relieves not having any abdominal pain or other changes Exam Vital Signs (past 8 hours): - 07/23/22 15:15 07/23/22 16:28 07/23/22 17:51 Temperature 100.2 F H 100.2 F H 99.3 F Pulse Rate 73 Respiratory Rate 18 Blood Pressure 133/69 Pulse Oximetry 98 Oxygen Flow Rate 0 Oxygen Delivery Method Nasal Cannula Oxygen Flow Rate 0 Narrative Exam Narrative: Alert male in no acute distress Objective Labs Result Diagrams: 07/23/22 10:33 07/23/22 10:33 Labs: Laboratory Results - last 24 hr 07/23/22 07/23/22 10:33 10:33 WBC 9.9 RBC 3.81 L Hgb 12.4 L Hct 36.1 L MCV 94.7 MCH 32.5 MCHC 34.4 RDW 13.1 Plt Count 213 Neut % (Auto) 85.5 H Lymph % (Auto) 5.4 L [place] % (Auto) 6.9 Eos % (Auto) 1.8 L Baso % (Auto) 0.4 Neut # (Auto) 8500 H Lymph # (Auto) 500 L [place] # (Auto) 700 Eos # (Auto) 200 Baso # (Auto) 0 Sodium 139 Potassium 3.7 Chloride 99 Carbon Dioxide 31 BUN 11 Creatinine 0.82 Estimated GFR > 60 BUN/Creatinine Ratio 13.4 Glucose 150 H Calcium 8.5 Total Bilirubin 0.8 AST 92 H ALT 160 H Alkaline Phosphatase 361 H Total Protein 6.0 L Albumin 3.3 L Globulin 2.7 Albumin/Globulin Ratio 1.2 [facility] Medical History Alcohol abuse Balance problems (07/06/16) Benign prostatic hyperplasia (BPH) with urinary urge incontinence BPH w urinary obs/LUTS Cataracts, bilateral (2010) Coronary artery disease involving [place] coronary artery of [place] heart without angina pectoris (04/28/16) Depression (2011) Dermatitis Diabetes Essential hypertension (04/28/16) Foot pain (2005) Hammertoes of both feet Hyperlipemia (Unknown) Incontinence without sensory awareness Kidney stones (2010) Knee pain (2006) Multiple sclerosis (~2015) Parkinson's disease (2015) Parkinsons disease Peripheral edema Peripheral neuropathy (2006) Peripheral vascular disease (09/27/17) Recurrent falls (07/06/16) Right leg pain Sciatica (2005) Type 2 diabetes mellitus without complication, without long-term current use of insulin (04/28/16) Type 2 diabetes with nephropathy Urge incontinence Urinary incontinence, mixed Venous insufficiency Surgical History History of coronary artery stent placement Hx of knee surgery (Unknown) Hx of lithotripsy (11/2015) S/P coronary artery stent placement (Unknown) S/P knee surgery S/P tonsillectomy and adenoidectomy Family History Father Diabetes mellitus Mother No problems noted. Brother Diabetes mellitus Social History household members: spouse Smoking Status: Never smoker alcohol intake: former Assessment & Plan Assessment & Plan narrative: Fever. Suspect pulmonary. Unlikely hepatitis. Numbers are looking better. Could be potentially secondary to aspiration with an issue with anaerobes which is what the coverage we are missing primarily. Will stop Rocephin add Unasyn. Culture. Persistent neck pain. Will try hydrocodone CP get some sleep tonight and follow as outpatient discussed risk he understands is somewhat reluctant but I think it would be helpful. Hepatitis. Improving. Etiology somewhat unclear. Normal exam. May need ultrasound or evaluation if increasing. But if continues to decrease will follow. Time Spent With Patient Critical Care time: I spent a total of [] minutes of critical care time on this patient's care today; this time is exclusive of procedural time. Quality VTE Deep Vein Thrombosis/Pulmonary Embolism Present on Admission: No
[2022-07-23] MEDS: HYDROCODONE/ACET 5/325 TABLET 2 TAB PO (20:45)
[2022-07-23] MEDS: AMPICILLIN/SULBACTAM 1.5 GM 1.5 GM in SODIUM CHLORIDE 0.9% 100 ML IV (20:45)
[2022-07-24 00:06] LABS: HBsAg Screen Negative (Negative); Hepatitis A Antibody IgM Negative (Negative); Hepatitis B Core Antibody IgM Negative (Negative); Hepatitis C Antibody <0.1 s/co ratio (0.0-0.9)
[2022-07-24] MEDS: AMPICILLIN/SULBACTAM 1.5 GM 1.5 GM in SODIUM CHLORIDE 0.9% 100 ML IV ×4 (00:52→20:44)
[2022-07-24] MEDS: HYDROCODONE/ACET 5/325 TABLET 2 TAB PO ×2 (02:26→13:22)
[2022-07-24] MEDS: ATORVASTATIN 20 MG TABLET 5 MG PO (02:27)
[2022-07-24 04:20] VITALS: BP 123/64; PULSE 68; RESP 14; TEMP 37.2; O2SAT 95
[2022-07-24 05:34] LABS: Add Manual Diff / Slide Review NO; Basophils Absolute Auto 0 /uL (0-100); Basophils Percent Auto 0.4 % (0-2); Eosinophils Absolute Auto 600 /uL (0-450); Eosinophils Percent Auto 6.7 % (2-4); Hemoglobin 11.6 g/dL (13.5-17.5); Lymphocytes Absolute Auto 1100 /uL (1100-4500); Lymphocytes Percent Auto 12.8 % (25-40); Mean Corpuscular HGB Conc 34.2 % (30-36); Mean Corpuscular Hemoglobin 32.1 PG (26-34); Monocytes Absolute Auto 800 /uL (0-900); Monocytes Percent Auto 8.7 % (3-14); Neutrophils Absolute Auto 6200 /uL (1500-7000); Neutrophils Percent Auto 71.4 % (50-75); Platelet Count 203 X10^3/uL (150-400); Red Blood Cell Count 3.62 X10^6/uL (4.5-5.9); White Blood Cell Count 8.6 X10^3/uL (4.5-11.0)
[2022-07-24 05:50] LABS: Alanine Aminotransferase 127 IU/L (<50); Albumin Globulin Ratio 1.3 (1.0-2.8); Alkaline Phosphatase 319 U/L (38-126); Aspartate Aminotransferase 59 IU/L (17-59); BUN Creatinine Ratio 16.9 (6-22); Bilirubin Total 0.5 mg/dL (0.2-1.3); Blood Urea Nitrogen 13 mg/dL (9-20); Calcium 8.2 mg/dL (8.4-10.2); Carbon Dioxide 31 mmol/L (22-32); Chloride 101 mmol/L (98-107); Estimated Glomerular Filt Rate > 60 mL/min (>60); Globulin 2.4 g/dL (1.7-4.1); Glucose 102 mg/dL (80-110); HEMOLYSIS < 15 (0-50); Potassium 3.8 mmol/L (3.4-5.1); Sodium 139 mmol/L (137-145); Total Protein 5.4 g/dL (6.3-8.2)
[2022-07-24 05:59] LABS: NT-proBNP (BNP-Adult 18+) 2070 pg/mL (<450)
--- NOTE | 2022-07-24 06:51 | DI.RAD.S_ITS ---
PROCEDURE: XR CHEST 1V INDICATIONS: hypoxia TECHNIQUE: One view of the chest was acquired. COMPARISON: [facility], CT, CT CHEST ABD PEL W CON, 07/22/2022, 4:48. [facility], CR, XR CHEST 1V, 07/22/2022, 3:01. [facility], CR, CHEST 1 VIEW, 01/30/2017, 15:54. FINDINGS: Surgical changes and devices: None. Lungs and pleura: No large pleural effusion or pneumothorax. There is prominence of the pulmonary interstitium. Pulmonary vasculature appears congested. Mild patchy opacity right mid lung. Mediastinum: Cardiac silhouette is at the upper limit of normal in size. Bones and chest wall: No suspicious bony lesions. Overlying soft tissues appear unremarkable. IMPRESSION: 1. Findings consistent with fluid overload/CHF. 2. Nonspecific right mid lung opacity could represent edema or pneumonia in the appropriate clinical setting. Bibasilar opacities are also present, probably a combination of atelectasis and edema but aspiration or pneumonia can appear similarly. Dictated by: Jose Enrique Pride M.D. on 07/24/2022 at 8:26 Approved by: Jose Enrique Pride M.D. on 07/24/2022 at 8:28
[2022-07-24] MEDS: AZITHROMYCIN 500 MG in DEXTROSE 5% IN WATER 250 ML 250 MG IV (06:59)
--- NOTE | 2022-07-24 07:43 | PM.PN.1 ---
Subjective Subjective Date Patient Seen: 07/24/22 Time Patient Seen: 07:43 Interval history: Patient discussed with Dr. High who admitted him over the weekend. I did see patient day prior to his admission and he was complaining of increased weakness wondered about some sort of infection although had no active symptoms. Patient persisted with really minimal symptoms other than the generalized severe weakness. Patient remains quite weak over the last 24 hours. been improvement in his LFTs. His white count has remained normal and his left shift seems to have improved. He was started on Unasyn last evening over concerns over possible aspiration as a source of symptoms Patient's blood sugars have been well controlled with metformin and diet alone. Renal function and blood pressures have remained stable. Patient still has a small oxygen requirement and BNP was somewhat elevated at just over 2000 Patient maybe slept a little better with the hydrocodone. Still having significant pain particularly in the neck. Also reporting some difficulty swallowing which is longstanding but worse right now verses previous. Exam Vital Signs (past 8 hours): - 07/24/22 04:20 Temperature 98.9 F Pulse Rate 68 Respiratory Rate 14 Blood Pressure 123/64 Pulse Oximetry 95 Oxygen Flow Rate 2 Oxygen Delivery Method Nasal Cannula Oxygen Flow Rate 2 Objective Labs Result Diagrams: 07/24/22 05:25 07/25/22 04:57 Labs: Laboratory Results - last 24 hr 07/22/22 07/23/22 07/23/22 03:20 10:33 10:33 WBC 9.9 RBC 3.81 L Hgb 12.4 L Hct 36.1 L MCV 94.7 MCH 32.5 MCHC 34.4 RDW 13.1 Plt Count 213 Neut % (Auto) 85.5 H Lymph % (Auto) 5.4 L [place] % (Auto) 6.9 Eos % (Auto) 1.8 L Baso % (Auto) 0.4 Neut # (Auto) 8500 H Lymph # (Auto) 500 L [place] # (Auto) 700 Eos # (Auto) 200 Baso # (Auto) 0 Sodium 139 Potassium 3.7 Chloride 99 Carbon Dioxide 31 BUN 11 Creatinine 0.82 Estimated GFR > 60 BUN/Creatinine Ratio 13.4 Glucose 150 H Calcium 8.5 Total Bilirubin 0.8 AST 92 H ALT 160 H Alkaline Phosphatase 361 H NT-Pro-B Natriuret Pep Total Protein 6.0 L Albumin 3.3 L Globulin 2.7 Albumin/Globulin Ratio 1.2 Hepatitis A IgM Ab Negative Hep Bs Antigen Negative Hep B Core IgM Ab Negative Hepatitis C Antibody <0.1 Hep C Ab Signal/Cutoff Comment 07/24/22 07/24/22 07/24/22 05:25 05:25 05:25 WBC 8.6 RBC 3.62 L Hgb 11.6 L Hct 34.0 L MCV 94.0 MCH 32.1 MCHC 34.2 RDW 13.0 Plt Count 203 Neut % (Auto) 71.4 Lymph % (Auto) 12.8 L [place] % (Auto) 8.7 Eos % (Auto) 6.7 H Baso % (Auto) 0.4 Neut # (Auto) 6200 Lymph # (Auto) 1100 [place] # (Auto) 800 Eos # (Auto) 600 H Baso # (Auto) 0 Sodium 139 Potassium 3.8 Chloride 101 Carbon Dioxide 31 BUN 13 Creatinine 0.77 Estimated GFR > 60 BUN/Creatinine Ratio 16.9 Glucose 102 Calcium 8.2 L Total Bilirubin 0.5 AST 59 ALT 127 H Alkaline Phosphatase 319 H NT-Pro-B Natriuret Pep 2070 H Total Protein 5.4 L Albumin 3.0 L Globulin 2.4 Albumin/Globulin Ratio 1.3 Hepatitis A IgM Ab Hep Bs Antigen Hep B Core IgM Ab Hepatitis C Antibody Hep C Ab Signal/Cutoff [facility] Medical History Alcohol abuse Balance problems (07/06/16) Benign prostatic hyperplasia (BPH) with urinary urge incontinence BPH w urinary obs/LUTS Cataracts, bilateral (2010) Coronary artery disease involving [place] coronary artery of [place] heart without angina pectoris (04/28/16) Depression (2011) Dermatitis Diabetes Essential hypertension (04/28/16) Foot pain (2005) Hammertoes of both feet Hyperlipemia (Unknown) Incontinence without sensory awareness Kidney stones (2010) Knee pain (2005) Multiple sclerosis (~2014) Parkinson's disease (2014) Parkinsons disease Peripheral edema Peripheral neuropathy (2005) Peripheral vascular disease (09/27/17) Recurrent falls (07/06/16) Right leg pain Sciatica (2005) Type 2 diabetes mellitus without complication, without long-term current use of insulin (04/28/16) Type 2 diabetes with nephropathy Urge incontinence Urinary incontinence, mixed Venous insufficiency Surgical History History of coronary artery stent placement Hx of knee surgery (Unknown) Hx of lithotripsy (11/2015) S/P coronary artery stent placement (Unknown) S/P knee surgery S/P tonsillectomy and adenoidectomy Family History Father Diabetes mellitus Mother No problems noted. Brother Diabetes mellitus Social History household members: spouse Smoking Status: Never smoker alcohol intake: former Assessment & Plan Assessment & Plan narrative: 1. Infectious disease-patient with probable infection of a source of his weakness. Had fever within the last 24 hours. Antibiotic therapy was broadened with Unasyn plus Zithromax. No clear source of infection although suspect pneumonia given his hypoxia but really lack of other findings. LFT elevation likely secondary to infection which in my mind would suggest more viral infection than bacterial infection. At this point continue with current antibiotic therapy and continued monitoring. 2. Neck pain-patient with severe neck pain. Hopefully hydrocodone will be somewhat helpful for this. Eventually will get Physical therapy involved with this as well as his generalized weakness 3. Elevated BNP with hypoxia-findings on imaging possibly consistent with pulmonary edema. Will give a dose of IV Lasix and see if there is clinical improvement. Patient does have severe lower extremity edema that is failed to respond to diuretic therapy previously and been no clear etiology for this. It is essentially unchanged today over when I saw him in the clinic late last week 4. GI-patient with elevated LFTs as above I think secondary to probable viral infection that is not COVID. Numbers have improved over admission although somewhat plateaued in the last 24 hours. Continue to monitor. Patient does not show evidence of any more significant disease. Imaging fails to demonstrate any significant biliary tract disease so I believe this is secondary to his infectious etiology. I suppose it could be secondary to a poor perfusion status due to cardiac issues. Patient had normal ejection fraction on echocardiography performed in February of this year. With this finding an elevation of his BNP I am going to repeat ECHO as well 5. Cardiac-patient with elevated BNP as above, essentially normal echo in February of this year but patient with known coronary disease and elevated LFTs as above could be secondary to impaired perfusion. Will go ahead and repeat echocardiogram at this time 6. Neuro-patient with poorly defined movement disorder not felt to be Parkinson's but similar sort of presentation. Not improved with therapies that have been administered thus far. I believe his generalized weakness secondary to this and exacerbated by an infectious etiology. Hopefully with improvement of infection patient will begin to return to baseline. 7. Weakness-patient's weakness as above secondary to his neurologic disease and exacerbated by underlying infection. At this point patient requires significant assistance for any sort of transfers or more. Unless he improves dramatically will likely need alf placement when ready for discharge. At this point he is also demonstrating or least expressing some difficulty swallowing and I think having his speech therapy evaluation would be appropriate. Note: Greater than 30 minutes total time was spent on day of service, evaluating the patient on the floor, including examining the patient, discussing clinical course with clinical and nursing staff, reviewing clinical course in the computer, preparing documentation and writing orders for continued management of care, discussing status with family as appropriate, reviewing plans for the next 24 hours with both patient/family and nursing staff as appropriate. COVID-19 COVID-19 status: Negative Result date/Date tested (Pos, Neg/Pending): 07/22/22 Time Spent With Patient Critical Care time: I spent a total of [] minutes of critical care time on this patient's care today; this time is exclusive of procedural time. Quality VTE Deep Vein Thrombosis/Pulmonary Embolism Present on Admission: No
--- NOTE | 2022-07-24 07:48 | DI.ECHO.S_ITS ---
[facility] +---------+ [facility] +---------+ : : [address] [place] : : : : [id number] : : : : Phone: [phone] Echocardiogram Report + + :Name: RO TORRES Study Date: 07/24/2022 Height: 74 in : :[facility] ReadingLocation: Weight: 174 lb : : Gender: Male BSA: 2.0 m2 : :: 1945 Age: 76 yrs BP: 129/72 mmHg: :Reason For Study: CONGESTIVE HEART FAILURE : :Ordering Physician: TUTU, : :KEITH Myles Performed By: Krista Nathan : :Referring: KEITH CAM : + + Interpretation Summary Normal left ventricle size with ejection fraction 55-60%. Mildly dilated left atrium. Mild aortic valve sclerosis. Mild mitral regurgitation. Comparison is made with the echocardiogram of 03/02/2022, there has been no significant change. Procedure: A two-dimensional transthoracic echocardiogram with color flow and Doppler was performed in limited views only. The study quality was technically adequate. Comparison is made with the echocardiogram of 03/02/2022. The patient was in sinus rhythm with heart rates between 60-73 bpm during the exam. Left Ventricle: The left ventricle is normal in size and wall thickness. The ejection fraction is estimated to be 55-60%. There are no focal wall motion abnormalities. Right Ventricle: The right ventricle is normal in size and function. Atria: The left atrium is mildly dilated. Right atrial size is normal. There is no Doppler evidence for an interatrial shunt. Mitral Valve: The mitral valve leaflets appear mildly thickened, but open well. There is mild mitral regurgitation. Aortic Valve: The aortic valve is trileaflet. The aortic valve is mildly calcified. There is mild aortic valve sclerosis. There is no aortic valve stenosis. No aortic regurgitation is present. Tricuspid Valve: The tricuspid valve is normal in structure and function. There is trace tricuspid regurgitation. Pulmonic Valve: The pulmonic valve is not well seen, but is grossly normal. There is mild pulmonic regurgitation. Great Vessels: The aortic root is borderline dilated. The dimensions of the ascending aorta are normal. The IVC is of normal diameter and collapses greater than 50% with a sniff. This suggests a low right atrial pressure of 3 mm Hg. Pericardium/ Pleura There is a trace pericardial effusion that is circumferential. There is no pleural effusion. MMode/2D Measurements & Calculations LVIDd: 5.0 cm LVOT diam: 2.4 cm LVIDs: 3.2 cm Ao root diam: 4.0 cm FS: 36.8 % asc Aorta Diam: 3.7 cm IVSd: 0.72 cm LVPWd: 0.96 cm LV chambers. diameter/BSA (cm/m^2): 2.4 LV sys. diameter/BSA (cm/m^2): 1.5 LA A2 area: 26.1 cm2 RA long axis: 5.2 cm LA A4 area: 20.5 cm2 RA area: 15.1 cm2 LA length (vol): 5.3 cm RA vol: 37.3 ml LA vol: 86.2 ml RA : 18.2 ml/m2 LA vol index: 42.1 ml/m2 IVC diam: 1.2 cm RVD1 (basal): 3.4 cm RVD2 (mid): 3.0 cm TAPSE: 2.3 cm Doppler Measurements & Calculations Ao V2 max: 130.4 cm/sec LVOT Max Clem: 102.6 cm/sec Ao V2 mean: 89.0 cm/sec LV V1 max P.2 mmHg Ao max P.8 mmHg LV V1 VTI: 23.3 cm Ao mean P.6 mmHg KALEIGH(I,D): 3.3 cm2 Ao V2 VTI: 31.1 cm KALEIGH(V,D): 3.4 cm2 sev ratio: 0.75 [place] indexed to BSA (cm^2/m^2): 1.6 MV E max clem: 90.4 cm/sec TR max clme: 248.4 cm/sec MV A max clem: 79.2 cm/sec TR max P.7 mmHg MV E/A: 1.1 PA V2 max: 79.5 cm/sec Med Peak E' Clem: 6.8 cm/sec PA V2 mean: 58.2 cm/sec E/E' med: 13.2 PA mean P.5 mmHg Lat Peak E' Clem: 8.8 cm/sec PA pr(Accel): 27.6 mmHg E/E' lat: 10.2 E/e' average: 11.7 MV dec time: 0.21 sec SV(LVOT): 101.9 ml Electronically signed by: Sofie Kahn on Reading Physician:07/24/2022 12:04 PM
[2022-07-24] MEDS: SERTRALINE 50 MG TABLET 100 MG PO (08:46)
[2022-07-24] MEDS: GABAPENTIN 600 MG TABLET PO ×2 (08:46→20:45)
[2022-07-24] MEDS: CLOPIDOGREL 75 MG TABLET PO (08:46)
[2022-07-24] MEDS: METFORMIN HCL 500 MG TABLET PO ×2 (08:46→18:01)
[2022-07-24] MEDS: FUROSEMIDE 20 MG/2 ML VIAL IV (08:46)
[2022-07-24] MEDS: ENOXAPARIN 40 MG/0.4 ML SYRINGE SUBCUT (08:48)
[2022-07-24 09:03] VITALS: BP 123/77; PULSE 69; RESP 16; TEMP 36.2; O2SAT 96
[2022-07-24] MEDS: HYDROCODONE/ACET 10/325 TABLET 2 TAB PO (09:12)
[2022-07-24 09:25] VITALS: PULSE 75; RESP 18; O2SAT 95
--- NOTE | 2022-07-24 10:53 | PT-IP ANOTE ---
Pt declined therapy this am, stating has been busy with alot of medical testing, overwhelmed and tired. Pt requested GRINDER SET UP OPERATOR INTERNAL calling his for feedback on attending therapy. GRINDER SET UP OPERATOR INTERNAL provided importance and benefits of mobility for circulation and strength for increased independence progression in getting back to PLOF. Pt verbalized understanding but wants to take off this am, he stated after GRINDER SET UP OPERATOR INTERNAL talks to his that helps make his decisions will see if is up to working with GRINDER SET UP OPERATOR INTERNAL in afternoon. Pt was not seen for PT, will assess mobility progress in afternoon and will call to provided feedback of conversation had with pt before arrival.
--- NOTE | 2022-07-24 12:01 | ST.IPCSEOM ---
Visit Care Team Role Provider Type Radha Vu DPM Other Providers Non-Staff Specialty: Podiatry Address: [address] [place] [address], [address] Email: DARLING Rob Other Providers Advanced Electric Meter Installer Specialty: Medical Address: [address] [place] [address], [id number] Email: [email or web address] Anand Savage MD Other Providers Physician Specialty: Wound Care Address: [address] [place] [address], [address] Email: [email or web address] Nathan Dixon DO Emergency Provider Physician Referring Provider Specialty: Emergency Medicine Address: [address] [place] [address], [address] Email: [email or web address] Mitch Maldonado MD Attending Provider Physician Family Provider Primary Care Provider Specialty: Internal Medicine Address: [address] [place] [address], [address] Email: [email or web address] German High MD Admit Provider Physician Other Providers Specialty: Family Practice Address: [address] [place] [address], [place], [address] Email: [email or web address] Current Diagnoses Pneumonia, unspecified organism (07/22/22) Past Medical History (Last Reviewed 07/22/22 @ 03:24 by Nathan Dixon DO) Alcohol abuse (Social Hx) Balance problems (Medical 07/06/16) Benign prostatic hyperplasia (BPH) with urinary urge incontinence (Medical) BPH w urinary obs/LUTS (Medical) Cataracts, bilateral (Medical 2010) 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 (Medical 04/28/16) Depression (Medical 2011) Dermatitis (Medical) Diabetes (Medical) Essential hypertension (Medical 04/28/16) Foot pain (Medical 2005) Hammertoes of both feet (Medical) Hyperlipemia (Medical Unknown) Incontinence without sensory awareness (Medical) Kidney stones (Medical 2010) Knee pain (Medical 2005) Multiple sclerosis (Medical ~2014) PPMS per neuro Parkinson's disease (Medical 2014) not, per neuro Parkinsons disease (Medical) Peripheral edema (Medical) Peripheral neuropathy (Medical 2005) Peripheral vascular disease (Medical 09/27/17) Recurrent falls (Medical 07/06/16) Right leg pain (Medical) Sciatica (Medical 2005) sciatica/piriformis Type 2 diabetes mellitus without complication, without long-term current use of insulin (Medical 04/28/16) Type 2 diabetes with nephropathy (Medical) Urge incontinence (Medical) Urinary incontinence, mixed (Medical) Venous insufficiency (Medical) Speech-Language Pathology Swallow Evaluation FORESTRY TREE PRUNER Clinical Swallow Evaluation Start: 07/24/22 11:33 Freq: Status: Active Protocol: Document 07/24/22 11:34 MISAEL (Rec: 07/24/22 12:01 KRYSTLEK [id number]) Clinical Swallow Evaluation Session Time Visit Start Time 09:30 Visit Stop Time 10:15 Total Visit Minutes [address] Maldonado Setting Assessment Location Acute Care Visit Type Note Type Initial evaluation Patient Information Identification Type Name,ID Card History PER H&P: Patient is a 76- year-old male with history of progressive neurologic condition which apparently has been set up mostly with Parkinson's diagnosis but had some question of MS. Patient has been progressively over the last 2 months getting slightly more weak. But recently saw his primary care doctor for acute onset over 2- 3 days of progressive weakness . He describes it as whole- body. Chest Xray indicated nonspecific right mid lung opacity could represent edema or pneumonia in the appropriate clinical setting. Bibasilar opacities are also present, probably a combination of atelectasis and edema but aspiration or pneumonia can appear similarly . Swallow eval was ordered Subjective Observations Pt had just finished breakfast and was happy to have had a cup of coffee. Pt reported feeling much better today. Discussed pt's swallowing with him. He stated his main problem with swallowing was he drools and pills are difficult at times. Nursing has given him pills in applesauce, which the pt noted was helpful. Reported by Patient Other Symptoms Difficulty swallowing pills, Drooling Comment pt was not observed to drool during assessment Current Diet Regular,Thin liquids Objective Assessment Mental Status Alert,Responsive,Cooperative Oral Integrity WFL Dentition Within normal limits Comment Informal OME observation noted form and function to WFL. Slowed movement transitions, DKS was slow, but accurate Food and Liquid Trials Position During Assessment Slightly reclined Liquids Trialed Thin Solids Trialed Regular Administration Type Self-feeding Oral Impairment Within functional limits Oral Phase Comments Mastication was slowed, but demonstrated a good rotary chew. No oral residue observed Pharyngeal Impairment Within functional limits Pharyngeal Phase Comments Ptr demonstrated a prompt swallow following a swish and spit. Hyolaryngeal elevation was adequate. No wet voicing, no no observed cough choke noted. A clinical evaluation cannot rule out the possibility of silent aspiration. An instrumentation evaluation would be necessary to better determine the pt's risk for aspiration. When a MBSS was discussed with the pt, he declined the option and wanted to discuss it with his . Fatigue/Endurance Mild fatigue Findings Swallowing Function Within functional limits Severity of Swallow Impairment Within functional limits Prognosis Good Based on Family support,Comorbidities, Duration of symptoms/severity Comments Secondary to the pt's neurological status, the pt is at risk for aspiration Recommendations Instrumental Assessment Yes Swallowing Treatment Yes Frequency daily while inpatient Recommended Solids Regular Recommended Liquids Thin Safety Precautions/Swallowing 1 to 1 distant supervision, Recommendations Remain upright (90 degrees) during all oral intake,Upright position at least 30 minutes after meals Education Patient/Caregiver Education Described results of evaluation,Patient expressed understanding of evaluation Goals Short-term Goals pt will safely tolerate the least restrictive diet without s/sx aspiration to meet nutritional and hydration needs.
--- NOTE | 2022-07-24 13:42 | PT.IPTN ---
Current Diagnoses Pneumonia, unspecified organism (07/22/22) Physical Therapy Treatment Note M2 PT-IP Current Condition Start: 07/23/22 10:26 Freq: Status: Active Protocol: Document 07/24/22 12:55 SP (Rec: 07/24/22 14:26 SP [id number]) Physical Therapy Current Condition Current Condition Evaluation Date 07/23/22 Treatment Diagnosis difficulty with ambulation Onset Date 07/22/22 M3 PT-IP Subjective Start: 07/23/22 10:26 Freq: Status: Active Protocol: Document 07/24/22 12:55 SP (Rec: 07/24/22 14:26 SP [id number]) Subjective Physical Therapy Visit Type Type Treatment Note Visit Start Time 12:55 Visit Stop Time 13:42 Total Visit Minutes 47 Notes in room observed tx. Number of EARTH SCIENCES PROFESSOR Visits 1 Physical Therapy Visit Comments Patient Comments Pt willing to participate 2nd attempt after asked EARTH SCIENCES PROFESSOR to speak with nursing regarding incontinence use indewelling catheter and when wound care consult coming stated discussed with physician. Patient Goals Pt concerned wants to participate with therapy but having pain and decreased activity tolerance with incontinence use brief with nursing and bed changes tires him. Pt states wants to get moving around more as best can . Therapy Pain Assessment Pain When Pain Assessed During Mobility Pain Present Pain Present Pain Reported Location left buttock Intensity 8 Scale Used Numeric (0 - 10) Description With Movement Pain Behaviors Facial Grimacing Pain Management Techniques Distraction,Modification of Treatment,Re-positioning M4 PT-IP Mobility and Gait Start: 07/23/22 10:26 Freq: Status: Active Protocol: Document 07/24/22 12:55 SP (Rec: 07/24/22 14:26 SP [id number]) PT-Bed Mobility Assessment Supine to Sit Supine to Sit Maximum Assistance,1 Person Assistance,Head of Bed Elevated,Bedrails Sit to Supine Sit to Supine Maximum Assistance,1 Person Assistance,Head of Bed Elevated,Bedrails Scooting Scooting to Edge of Bed Maximum Assistance PT-Transfer Assessment Sit to and From Stand Sit to and from Stand Maximum Assistance,2 Person Assistance,Use of Upper Extremities Equipment Transfer Assistive Device Gait Belt,Front Wheeled Walker Transfers Transfer Destination Bed Transfer Technique STS and lateral scoot up EOB Transfer Ability Level of Assist Maximum Assistance,2 Person Assistance,Use of Upper Extremities Comments Mobility Comments EARTH SCIENCES PROFESSOR instructed BLE exercises: QS, GS, AP, HS and hip abd Min A initially with RLE then education use strap for self assist needed assisted donnin, 5 reps each. Required elevated supine>sit RLE support to EOB with self use strap, Heavy Mod-Max A x1 for trunk righting complete to sit and scoot to EOB. Seated at EOB Mod>CGA> close SBA while assisting donning nonskid socks, pt held bed handle and mod cues for forward trunk flexion to midline. Sit>stand Max A x2 completed on 2nd attempt, support at front feet prevent sliding, cues for feet apart and parallel/ upright posture/pelvis tucked underneath him, tends to retro lean, use back legs on bed for support, stood up to 30 sec. Pt challenged initially to unlock B knees to return to sit Max A x2, tapping HS and support, cued reach back stand >sit on bed. Max A lateral scoot up EOB, cues and assist reposition BLEs and trunk. sit >supine Max A x1 for trunk and each R>L LE assist into bed. Max A for trunk centering, able self BLEs and little bridge pelvis repositioning through bent BLEs on bed. Pt had call light, bed alarmed and all needs in reach. Positioned Pillow under BLEs for assist circulation return and L side head to help center and R lean alignment. in room when left. EARTH SCIENCES PROFESSOR suggested to pt and nurse said will provide waffle cushion under pt pelvis at next brief assist change to support skin integrity at bottom. Will continue to assess progress. Gait Assessment Comments Gait Comments Non ambulatory at this time Stair Climbing Assessment Comments Stair Climbing Comments Not approrpriate PT-Balance Assessment Sitting Balance and Reactions Static Sitting Balance Ability Fair Dynamic Sitting Balance Ability Poor Standing Balance and Reactions Static Standing Balance Ability Poor Dynamic Standing Balance Ability Poor Device Used FWW Comments Other Balance Tests/Deviations/Treatment Seated static retropulsive : initally then improved with support trunk flexion stretch then self corrections wtih cues. Static retropulsive standing, support anterior feet and support FWW stabilit static standing up to 30 sec at 2nd attempt. Pt attempts to reposition feet but challenged, while heavy BUE WB on FWW. M5 PT-IP Objective Assessments Start: 07/23/22 10:26 Freq: Status: Active Protocol: Document 07/23/22 10:27 BC (Rec: 07/23/22 10:42 BC [id number]) Orientation Orientation/Cognition Level of Alertness Alert Orientation Name,Date,Place,Situation Comments hypophonia Gross Range of Motion Upper Extremity ROM Assessment Bilaterally Impaired Impairments increased elbow and shoulder rigidity with general ROM deficits of ~25% of normal ROM Lower Extremity ROM Assessment Bilaterally Impaired Impairments Increased hip and knee rigidity with general ROM deficits of ~25-50% of normal ROM Strength Upper Extremity Strength Assessment Bilaterally Impaired Shoulder 2 Elbow 2 Wrist 2 Lower Extremity Strength Assessment Bilaterally Impaired Hip 2 RLE; 3 LLE Knee 3 BLE Ankle 2 BLE Comments Strength Comments Strength inhibited by muscle rigidity, bradykinesia and hypokinesia. Sensation Assessment Sensation Light Touch Intact Muscle Tone Muscle Tone WNL No Comments Muscle Tone Comments Significant spinal and extremity rigidity. 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 M6 PT-IP Treatment Start: 07/23/22 10:26 Freq: Status: Active Protocol: Document 07/24/22 12:55 SP (Rec: 07/24/22 14:26 SP [id number]) Physical Therapy Treatment Exercises Exercises Ankle Pumps,Gluteal Sets,Quad Sets,Heel Slides,Supine Hip Abduction Education Education Provided Safety Other Treatments Other Treatment Performed Reviewed reason for forward reaches prior to sit to stand attempts to reduce rigidity and extension moment and allow for more forward progression of COG over ISAAK. M7 PT-IP Assessment and Plan Start: 07/23/22 10:26 Freq: Status: Active Protocol: Document 07/24/22 12:55 SP (Rec: 07/24/22 14:26 SP [id number]) PT Summary Assessment and Plan Potential Rehabilitation Potential Fair Status of Condition at Evaluation Evolving Summary Impairments ROM,Strength,Balance, Coordination,Tone,Bed Mobility ,Transfers,Gait,Activity Tolerance Progress Towards Goals Slow Progress due to Pain,Slow Progress due to Medical Issues,Slow Progress due to Activity Tolerance Assessment Summary Pt concerned incontinuence and mobility needed hygiene tires him out for participation with PT. Heavy Max A x1 for bed mobility but recommend 2 persons next tx, heavy Max A x2 STS w/ FWW EOB up to 30 sec . Pt would benefit from continued skilled therapy and recommending SNF for progression in strength and functional mobility. Will continue to assess progress. Goals Bed Mobility Goal Minimal Assistance Transfer Goal Minimal Assistance Gait Goal Minimal Assistance Gait Distance 25 Other Goals ascend/descend 5-6 steps with railing to enter home. Days to Meet Goals 10 Frequency of Treatment Frequency Of Treatment Once a Day Treatment Plan Physical Therapy Treatment Plan Bed Mobility Training,Transfer Training,Gait Training, Therapeutic Exercise,Balance Retraining,Discharge Planning, Neuromuscular Re-ed, Coordination Retraining Other Recommendations and Next Treatment LEs ROM ex pre mobility, bed Focus mob, transfers if able: SPT, squat pivot transfer, slide board transfer. Recommendations To Nursing Amount of Assist Needed Mechanical Lift Discharge Recommendations PT Discharge Recommendations SNF Rehab Transportation Needs at Discharge Wheelchair/Cabulance,Stretcher /Ambulance
[2022-07-24 17:00] VITALS: BP 126/69; PULSE 66; RESP 18; TEMP 36.3; O2SAT 97
[2022-07-24] MEDS: HYDROCODONE/ACET 10/325 TABLET 1 TAB PO ×2 (17:54→21:46)
[2022-07-24 21:36] VITALS: BP 108/69; PULSE 64; RESP 18; TEMP 37.1; O2SAT 94
[2022-07-25] MEDS: AMPICILLIN/SULBACTAM 1.5 GM 1.5 GM in SODIUM CHLORIDE 0.9% 100 ML IV ×4 (01:39→18:14)
[2022-07-25] MEDS: HYDROCODONE/ACET 10/325 TABLET 1 TAB PO ×4 (02:26→20:26)
[2022-07-25 05:10] VITALS: BP 105/59; PULSE 66; RESP 18; TEMP 36.7; O2SAT 94
[2022-07-25 05:43] LABS: Alanine Aminotransferase 99 IU/L (<50); Albumin 3.1 g/dL (3.5-5.0); Albumin Globulin Ratio 1.2 (1.0-2.8); Alkaline Phosphatase 297 U/L (38-126); Aspartate Aminotransferase 45 IU/L (17-59); BUN Creatinine Ratio 20.5 (6-22); Bilirubin Total 0.6 mg/dL (0.2-1.3); Blood Urea Nitrogen 18 mg/dL (9-20); Calcium 8.3 mg/dL (8.4-10.2); Carbon Dioxide 34 mmol/L (22-32); Chloride 97 mmol/L (98-107); Estimated Glomerular Filt Rate > 60 mL/min (>60); Globulin 2.5 g/dL (1.7-4.1); Glucose 95 mg/dL (80-110); HEMOLYSIS < 15 (0-50); Magnesium 1.9 mg/dL (1.6-2.3); Potassium 3.9 mmol/L (3.4-5.1); Sodium 138 mmol/L (137-145); Total Protein 5.6 g/dL (6.3-8.2)
[2022-07-25 05:51] LABS: NT-proBNP (BNP-Adult 18+) 1130 pg/mL (<450)
[2022-07-25 07:47] VITALS: BP 132/64; PULSE 62; RESP 18; TEMP 36.7; O2SAT 93
[2022-07-25] MEDS: SERTRALINE 50 MG TABLET 100 MG PO (08:21)
[2022-07-25] MEDS: ENOXAPARIN 40 MG/0.4 ML SYRINGE SUBCUT (08:21)
[2022-07-25] MEDS: CLOPIDOGREL 75 MG TABLET PO (08:21)
[2022-07-25] MEDS: GABAPENTIN 600 MG TABLET PO ×2 (08:21→20:26)
[2022-07-25] MEDS: METFORMIN HCL 500 MG TABLET PO ×2 (08:21→16:08)
--- NOTE | 2022-07-25 08:32 | PM.PN.1 ---
Subjective Subjective Date Patient Seen: 07/25/22 Time Patient Seen: 08:32 Interval history: Patient had a pretty much uneventful day yesterday. Was up with physical therapy demonstrating a bit more strength than he had had previously although still quite weak and really unable to do much in the way of assistance for transferring certainly not able to ambulate at this point Echo was performed which showed no change Lab work done this morning shows stability and or improvement in all aspects Blood cultures and urine culture remained negative Exam Vital Signs (past 8 hours): - 07/25/22 05:10 07/25/22 07:47 Temperature 98.1 F 98.0 F Pulse Rate 66 62 Respiratory Rate 18 18 Blood Pressure 105/59 L 132/64 Pulse Oximetry 94 93 Oxygen Flow Rate 1 1 Fraction of Inspired Oxygen 24 SaO2/FiO2 Ratio 395 Oxygen Delivery Method Nasal Cannula Oxygen Flow Rate 1 Objective Labs Result Diagrams: 07/24/22 05:25 07/25/22 04:57 Labs: Laboratory Results - last 24 hr 07/25/22 04:57 Sodium 138 Potassium 3.9 Chloride 97 L Carbon Dioxide 34 H BUN 18 Creatinine 0.88 Estimated GFR > 60 BUN/Creatinine Ratio 20.5 Glucose 95 Calcium 8.3 L Magnesium 1.9 Total Bilirubin 0.6 AST 45 ALT 99 H Alkaline Phosphatase 297 H NT-Pro-B Natriuret Pep 1130 H Total Protein 5.6 L Albumin 3.1 L Globulin 2.5 Albumin/Globulin Ratio 1.2 PFSH Medical History Alcohol abuse Balance problems (07/06/16) Benign prostatic hyperplasia (BPH) with urinary urge incontinence BPH w urinary obs/LUTS Cataracts, bilateral (2010) Coronary artery disease involving [place] coronary artery of [place] heart without angina pectoris (04/28/16) Depression (2011) Dermatitis Diabetes Essential hypertension (04/28/16) Foot pain (2005) Hammertoes of both feet Hyperlipemia (Unknown) Incontinence without sensory awareness Kidney stones (2010) Knee pain (2005) Multiple sclerosis (~2014) Parkinson's disease (2014) Parkinsons disease Peripheral edema Peripheral neuropathy (2005) Peripheral vascular disease (09/27/17) Recurrent falls (07/06/16) Right leg pain Sciatica (2005) Type 2 diabetes mellitus without complication, without long-term current use of insulin (04/28/16) Type 2 diabetes with nephropathy Urge incontinence Urinary incontinence, mixed Venous insufficiency Surgical History History of coronary artery stent placement Hx of knee surgery (Unknown) Hx of lithotripsy (11/2015) S/P coronary artery stent placement (Unknown) S/P knee surgery S/P tonsillectomy and adenoidectomy Family History Father Diabetes mellitus Mother No problems noted. Brother Diabetes mellitus Social History household members: spouse Smoking Status: Never smoker alcohol intake: former Assessment & Plan Assessment & Plan narrative: 1. ID-negative cultures thus far normal white blood cell count and left shift that was present initially has resolved. Still believe this is an infectious etiology causing his weakness although unclear. Patient with hypoxia so probably more of a pneumonia than anything else. Continue with current antibiotic therapy. Patient has remained afebrile 2. Neck pain-somewhat improved per patient. Continue with hydrocodone 3. Cardiac-as above echocardiogram shows no change since February. No clear diastolic dysfunction. I do not believe his edema or his hypoxia is related to cardiac source of symptoms. 4. Acute respiratory failure with hypoxia-continue try and wean oxygen as able. I believe an infectious etiology is the most likely culprit here 5. GI-patient's LFTs are improving and near normal. I am assuming they will continue to normalize and I am not planning to recheck unless there some clinical decline overall 6. Neuro-patient with unclear movement disorder chronically with exacerbation I believe secondary to infectious etiology. Hopefully he is begins to return closer to baseline as his infection resolves. Overall patient is improved with evidence of slightly improved strength etcetera. Still not able to return home but I think we need an additional day or 2 to establish his clinical course. I believe he most likely has a viral infection of some sort and that will likely take another day or 2 really to begin to show evidence of improvement and then we can better determine whether he will be able to return home or will need placement in senior care for continued rehabilitation. Note: Greater than 30 minutes total time was spent on day of service, evaluating the patient on the floor, including examining the patient, discussing clinical course with clinical and nursing staff, reviewing clinical course in the computer, preparing documentation and writing orders for continued management of care, discussing status with family as appropriate, reviewing plans for the next 24 hours with both patient/family and nursing staff as appropriate. Time Spent With Patient Critical Care time: I spent a total of [] minutes of critical care time on this patient's care today; this time is exclusive of procedural time. Quality VTE Deep Vein Thrombosis/Pulmonary Embolism Present on Admission: No
--- NOTE | 2022-07-25 11:45 | PT.IPTN ---
Current Diagnoses Pneumonia, unspecified organism (07/22/22) Physical Therapy Treatment Note M2 PT-IP Current Condition Start: 07/23/22 10:26 Freq: Status: Active Protocol: Document 07/24/22 12:55 SP (Rec: 07/24/22 14:26 SP [id number]) Physical Therapy Current Condition Current Condition Evaluation Date 07/23/22 Treatment Diagnosis difficulty with ambulation Onset Date 07/22/22 M3 PT-IP Subjective Start: 07/23/22 10:26 Freq: Status: Active Protocol: Document 07/25/22 11:22 KS (Rec: 07/25/22 12:33 KS [id number]) Subjective Physical Therapy Visit Type Type Treatment Note Visit Start Time 11:22 Visit Stop Time 11:45 Total Visit Minutes 23 Number of TAR DISTRIBUTOR OPERATOR Visits 2 Physical Therapy Visit Comments Patient Comments Pt agreeable to exercises in bed. M4 PT-IP Mobility and Gait Start: 07/23/22 10:26 Freq: Status: Active Protocol: Document 07/25/22 11:22 KS (Rec: 07/25/22 12:33 KS [id number]) PT-Transfer Assessment Comments Mobility Comments Pt in bed upon arrival, reporting fatigue following recent sponge bath but agreeable to performing LE exercises in bed to promote blood flow and strengthening. Pt able to complete 1x10 biateral ankle pumps, quad sets, heel slides, glute sets, and SLR. LLE is weaker than RLE. Pt required verbal cues and became fatigued very quickly during exercises, needing cues to remain awake. Pt not wanting to attempt OOB mobility due to fatigue. Gait Assessment Comments Gait Comments Non ambulatory at this time Stair Climbing Assessment Comments Stair Climbing Comments Not approrpriate M5 PT-IP Objective Assessments Start: 07/23/22 10:26 Freq: Status: Active Protocol: Document 07/23/22 10:27 BC (Rec: 07/23/22 10:42 BC [id number]) Orientation Orientation/Cognition Level of Alertness Alert Orientation Name,Date,Place,Situation Comments hypophonia Gross Range of Motion Upper Extremity ROM Assessment Bilaterally Impaired Impairments increased elbow and shoulder rigidity with general ROM deficits of ~25% of normal ROM Lower Extremity ROM Assessment Bilaterally Impaired Impairments Increased hip and knee rigidity with general ROM deficits of ~25-50% of normal ROM Strength Upper Extremity Strength Assessment Bilaterally Impaired Shoulder 2 Elbow 2 Wrist 2 Lower Extremity Strength Assessment Bilaterally Impaired Hip 2 RLE; 3 LLE Knee 3 BLE Ankle 2 BLE Comments Strength Comments Strength inhibited by muscle rigidity, bradykinesia and hypokinesia. Sensation Assessment Sensation Light Touch Intact Muscle Tone Muscle Tone WNL No Comments Muscle Tone Comments Significant spinal and extremity rigidity. 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 M6 PT-IP Treatment Start: 07/23/22 10:26 Freq: Status: Active Protocol: Document 07/25/22 11:22 KS (Rec: 07/25/22 12:33 KS [id number]) Physical Therapy Treatment Exercises Exercises Ankle Pumps,Gluteal Sets,Quad Sets,Heel Slides,Straight Leg Raises Education Education Provided Safety Other Treatments Other Treatment Performed Discussed SNF M7 PT-IP Assessment and Plan Start: 07/23/22 10:26 Freq: Status: Active Protocol: Document 07/25/22 11:22 KS (Rec: 07/25/22 12:33 KS [id number]) PT Summary Assessment and Plan Potential Rehabilitation Potential Fair Summary Impairments ROM,Strength,Balance, Coordination,Tone,Bed Mobility ,Transfers,Gait,Activity Tolerance Progress Towards Goals Slow Progress due to Medical Issues,Slow Progress due to Activity Tolerance Assessment Summary Pt limited by high level of fatigue and weakness. Able to complete LE exercises w/ increased difficulty L>R. Too fatigued for OOB mobility this AM. Pt is not at baseline and will require SNF to improve strength and functional mobility. Goals Bed Mobility Goal Minimal Assistance Transfer Goal Minimal Assistance Gait Goal Minimal Assistance Gait Distance 25 Other Goals ascend/descend 5-6 steps with railing to enter home. Days to Meet Goals 10 Frequency of Treatment Frequency Of Treatment Once a Day Treatment Plan Physical Therapy Treatment Plan Bed Mobility Training,Transfer Training,Gait Training, Therapeutic Exercise,Balance Retraining,Discharge Planning, Neuromuscular Re-ed, Coordination Retraining Other Recommendations and Next Treatment LEs ROM ex pre mobility, bed Focus mob, transfers if able: SPT, squat pivot transfer, slide board transfer. Recommendations To Nursing Amount of Assist Needed Mechanical Lift Discharge Recommendations PT Discharge Recommendations SNF Rehab Transportation Needs at Discharge Wheelchair/Cabulance,Stretcher /Ambulance
[2022-07-25 14:48] VITALS: BP 119/58; PULSE 69; RESP 20; TEMP 36.6; O2SAT 90
--- NOTE | 2022-07-25 15:34 | CM.DPC ---
Per MD, pt not yet medically stable for discharge. Continue working with PT to determine home vs SNF. PT is still recommending SNF due to weakness and fatigue. Plan: Continue to monitor for dc readiness. Call [facility] tomorrow with clinical update. JAMIE Rodriguez
--- NOTE | 2022-07-25 16:02 | ST.IPDYTX ---
Visit Care Team Role Provider Type Radha Vu DPM Other Providers Non-Staff Specialty: Podiatry Address: [address] [place] [address], [id number] Email: DARLING Rob Other Providers Advanced Dispatch Supervisor Specialty: Medical Address: [address] [place] [address], [id number] Email: [email or web address] Anand Savage MD Other Providers Physician Specialty: Wound Care Address: [address] [place] [address], [id number] Email: [email or web address] Nathan Dixon DO Emergency Provider Physician Referring Provider Specialty: Emergency Medicine Address: [address] [place] [address], [address] Email: [email or web address] Mitch Maldonado MD Attending Provider Physician Family Provider Primary Care Provider Specialty: Internal Medicine Address: [address] [place] [address], [address] Email: [email or web address] German High MD Admit Provider Physician Other Providers Specialty: Family Practice Address: [address] [place] [address], [place], [address] Email: [email or web address] BODY MAKER MACHINE SETTER Dysphagia Treatment BODY MAKER MACHINE SETTER Dysphagia Treatment Start: 07/24/22 11:33 Freq: Status: Active Protocol: Document 07/25/22 15:58 ZS (Rec: 07/25/22 16:02 ZS [id number]) Dysphagia Treatment Session Time Visit Start Time 15:30 Visit Stop Time 15:45 Total Visit Minutes 15 Visit Information Visit Number 1 Setting Assessment Location Acute Care Visit Type Note Type Treatment Note Next Note Type Next Note Type Treatment Note Patient Information Identification Type Name,ID Wristband Subjective Observations Pt was laying in bed with neck pillow and head slumped to left. He opened his eyes when the BODY MAKER MACHINE SETTER entered the room and agreed to participate in PO trial with bryson cracker. Treatment Solids Trialed Regular Administration Type Self-Feeding Oral Strategies Upright at 90 degrees Pharyngeal Strategies Sitting Upright (90 deg) Treatment Activities PO trial with bryson cracker. Discussed progress with eating . Answered pt questions. Assessment Assessment of Improvement Pt demonstrated slow and thorough mastication of bryson cracker. He reported no difficulty chewing, stating it just takes a long time. Discussed softer diet given difficulty chewing to reduce energy needed to eat. Monitor and advance diet to regular textures as indicated with increased strength and energy. Diet Recommendations Liquids Order Thin Diet Order Mechanical Soft Medication Recommendations As Tolerated Aspiration Precautions Recommended Precautions Upright at 90 Degrees,Small Bites/Sips Treatment Plan Appropriate for Continued Therapy Yes Dysphagia Goals pt will safely tolerate the least restrictive diet without s/sx aspiration to meet nutritional and hydration needs.
[2022-07-25 18:00] VITALS: BP 141/73; PULSE 79; RESP 15; TEMP 36.6; O2SAT 93
[2022-07-25 20:00] VITALS: BP 125/74; PULSE 83; RESP 17; TEMP 37.4; O2SAT 95
[2022-07-25] MEDS: ATORVASTATIN 20 MG TABLET 5 MG PO (20:26)
[2022-07-26] MEDS: AMPICILLIN/SULBACTAM 1.5 GM 1.5 GM in SODIUM CHLORIDE 0.9% 100 ML IV ×2 (00:13→06:16)
[2022-07-26] MEDS: HYDROCODONE/ACET 10/325 TABLET 1 TAB PO ×4 (00:13→21:30)
--- NOTE | 2022-07-26 03:22 | PC.NURSE ---
Pt is AxOx4, needs 1 person assistance. VSS, pt c/o pain on bottom and recieved PO [place] x2 with good effect. Pt constantly declining turn or changing position. Pt kept saying I am comfortable, this is fine. Otherwise, pt slept well. No other changes.
[2022-07-26 04:00] VITALS: BP 126/71; PULSE 64; RESP 18; TEMP 36.8; O2SAT 98
--- NOTE | 2022-07-26 08:30 | P.PN_ITS ---
Subjective Subjective Date Patient Seen: 07/26/22 Time Patient Seen: 08:31 Interval history: Patient had an uneventful day yesterday. Is slowly getting stronger able to maneuver in bed a bit more effectively than he has been but still really unable to assist with transfers stand ambulate etcetera Patient has remained afebrile Neck pain is somewhat better Patient is now on room air with oxygen saturation of 98% Exam Vital Signs (past 8 hours): - 07/26/22 04:00 Temperature 98.3 F Pulse Rate 64 Respiratory Rate 18 Blood Pressure 126/71 Pulse Oximetry 98 Fraction of Inspired Oxygen 24 SaO2/FiO2 Ratio 395 Oxygen Delivery Method Room Air Oxygen Flow Rate 0 Objective Labs Result Diagrams: 07/24/22 05:25 07/25/22 04:57 PFS Medical History Alcohol abuse Balance problems (07/06/16) Benign prostatic hyperplasia (BPH) with urinary urge incontinence BPH w urinary obs/LUTS Cataracts, bilateral (2010) Coronary artery disease involving [place] coronary artery of [place] heart without angina pectoris (04/28/16) Depression (2011) Dermatitis Diabetes Essential hypertension (04/28/16) Foot pain (2005) Hammertoes of both feet Hyperlipemia (Unknown) Incontinence without sensory awareness Kidney stones (2010) Knee pain (2005) Multiple sclerosis (~2014) Parkinson's disease (2014) Parkinsons disease Peripheral edema Peripheral neuropathy (2005) Peripheral vascular disease (09/27/17) Recurrent falls (07/06/16) Right leg pain Sciatica (2005) Type 2 diabetes mellitus without complication, without long-term current use of insulin (04/28/16) Type 2 diabetes with nephropathy Urge incontinence Urinary incontinence, mixed Venous insufficiency Surgical History History of coronary artery stent placement Hx of knee surgery (Unknown) Hx of lithotripsy (11/2015) S/P coronary artery stent placement (Unknown) S/P knee surgery S/P tonsillectomy and adenoidectomy Family History Father Diabetes mellitus Mother No problems noted. Brother Diabetes mellitus Social History household members: spouse Smoking Status: Never smoker alcohol intake: former Assessment & Plan Assessment & Plan narrative: 1. ID-presumed pneumonia given patient's presentation etcetera. Now improved afebrile and not requiring oxygen supplementation. Continue with antibiotic therapy for community-acquired pneumonia, but can likely be switched to oral antibiotics. No evidence of any other source of infection at this time 2. Neck pain-continues to slowly improve. Continue with as needed hydrocodone 3. Cardiac-I guess at this point his hypoxia is more likely secondary to his infectious disease/pneumonia than any cardiac issue. No need for additional diuretic therapy despite his lower extremity edema (diuretics not really help with this previously anyway) 4. Acute respiratory failure with hypoxia-resolved as above 5. GI-LFTs were much improved and I chose not to repeat labs and do not think they are necessary at this time given his clinical improvement 6. Neuro-no change in overall status Overall patient appears to be much improved. I plan to switch him to oral antibiotic therapy today and plan for discharge to intermediate tomorrow depending on resources available for that sort of facility. Note: Greater than 30 minutes total time was spent on day of service, evaluating the patient on the floor, including examining the patient, discussing clinical course with clinical and nursing staff, reviewing clinical course in the computer, preparing documentation and writing orders for continued management of care, discussing status with family as appropriate, reviewing plans for the next 24 hours with both patient/family and nursing staff as appropriate. Quality VTE Deep Vein Thrombosis/Pulmonary Embolism Present on Admission: No
[2022-07-26] MEDS: METFORMIN HCL 500 MG TABLET PO ×2 (08:34→17:13)
[2022-07-26] MEDS: GABAPENTIN 600 MG TABLET PO ×2 (08:34→21:31)
[2022-07-26] MEDS: CLOPIDOGREL 75 MG TABLET PO (08:34)
[2022-07-26] MEDS: ENOXAPARIN 40 MG/0.4 ML SYRINGE SUBCUT (08:34)
[2022-07-26] MEDS: SERTRALINE 50 MG TABLET 100 MG PO (08:34)
[2022-07-26] MEDS: AZITHROMYCIN 250 MG TABLET PO (09:12)
[2022-07-26 09:34] VITALS: BP 126/62; PULSE 74; RESP 18; TEMP 37.3; O2SAT 95
--- NOTE | 2022-07-26 12:05 | PT.IPTN ---
Current Diagnoses Pneumonia, unspecified organism (07/22/22) Physical Therapy Treatment Note M2 PT-IP Current Condition Start: 07/23/22 10:26 Freq: Status: Active Protocol: Document 07/24/22 12:55 SP (Rec: 07/24/22 14:26 SP [id number]) Physical Therapy Current Condition Current Condition Evaluation Date 07/23/22 Treatment Diagnosis difficulty with ambulation Onset Date 07/22/22 M3 PT-IP Subjective Start: 07/23/22 10:26 Freq: Status: Active Protocol: Document 07/26/22 11:26 KS (Rec: 07/26/22 12:41 KS [id number]) Subjective Physical Therapy Visit Type Type Treatment Note Visit Start Time 11:26 Visit Stop Time 12:05 Total Visit Minutes 39 Notes PARTS PICKER present for second person assist. Number of TELEGRAPH PRINTER MECHANIC Visits 3 Physical Therapy Visit Comments Patient Comments Pt agreeable to mobilize w/ therapy. M4 PT-IP Mobility and Gait Start: 07/23/22 10:26 Freq: Status: Active Protocol: Document 07/26/22 11:26 KS (Rec: 07/26/22 12:41 KS [id number]) PT-Bed Mobility Assessment Supine to Sit Supine to Sit Maximum Assistance,1 Person Assistance,Head of Bed Elevated,Bedrails Sit to Supine Sit to Supine Maximum Assistance,2 Person Assistance Scooting Scooting to Edge of Bed Maximum Assistance PT-Transfer Assessment Sit to and From Stand Sit to and from Stand Maximum Assistance,2 Person Assistance,Use of Upper Extremities Equipment Transfer Assistive Device Gait Belt,Front Wheeled Walker Transfers Transfer Destination Bed Transfer Technique STS Comments Mobility Comments Pt in bed upon arrival, agreeable to try OOB mobility today. present during treatment. Pt required Max A for sup<>sit w/ HOB elevated, but was able to help minimally w/ LE and reach for grab bars w/ BUE. Max A for scooting EOB. PARTS PICKER arrived for second person assist. Pt attempted sit<>Stand w/ FWW Max A x2 w/ feet blocked to avoid sliding forward. Pt unable to fully stand, had heavy retrolean and braced BLE against bed frame for support. He was unable to step his feet backwards or bring hips forward to stand fully upright. When trying to stand he has knees locked in extension braced against bed frame and although he can shift his trunk forward somewhat, he is unable to extend his hips. Pt very much wants to do things his own way , which proved to be unsafe when he attempted to stand w/o his feet being blocked. He was unable to reposition his feet underneath his body/step feet backwards. He is very weak, but had good effort w/ therapy today and although unsuccessful in all attempts to complete full stand, did try 3 times. Max A x2 for sit<>sup and repositioning in bed. Pt left in bed w/ all needs in reach. Gait Assessment Comments Gait Comments Non ambulatory at this time Stair Climbing Assessment Comments Stair Climbing Comments Not approrpriate PT-Balance Assessment Sitting Balance and Reactions Static Sitting Balance Ability Fair Dynamic Sitting Balance Ability Fair Standing Balance and Reactions Static Standing Balance Ability Poor Dynamic Standing Balance Ability Poor Device Used FWW M5 PT-IP Objective Assessments Start: 07/23/22 10:26 Freq: Status: Active Protocol: Document 07/23/22 10:27 BC (Rec: 07/23/22 10:42 BC [id number]) Orientation Orientation/Cognition Level of Alertness Alert Orientation Name,Date,Place,Situation Comments hypophonia Gross Range of Motion Upper Extremity ROM Assessment Bilaterally Impaired Impairments increased elbow and shoulder rigidity with general ROM deficits of ~25% of normal ROM Lower Extremity ROM Assessment Bilaterally Impaired Impairments Increased hip and knee rigidity with general ROM deficits of ~25-50% of normal ROM Strength Upper Extremity Strength Assessment Bilaterally Impaired Shoulder 2 Elbow 2 Wrist 2 Lower Extremity Strength Assessment Bilaterally Impaired Hip 2 RLE; 3 LLE Knee 3 BLE Ankle 2 BLE Comments Strength Comments Strength inhibited by muscle rigidity, bradykinesia and hypokinesia. Sensation Assessment Sensation Light Touch Intact Muscle Tone Muscle Tone WNL No Comments Muscle Tone Comments Significant spinal and extremity rigidity. 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 M6 PT-IP Treatment Start: 07/23/22 10:26 Freq: Status: Active Protocol: Document 07/26/22 11:26 KS (Rec: 07/26/22 12:41 KS [id number]) Physical Therapy Treatment Education Education Provided Safety Other Treatments Other Treatment Performed Discussed SNF M7 PT-IP Assessment and Plan Start: 07/23/22 10:26 Freq: Status: Active Protocol: Document 07/26/22 11:26 KS (Rec: 07/26/22 12:41 KS [id number]) PT Summary Assessment and Plan Potential Rehabilitation Potential Fair Summary Impairments ROM,Strength,Balance, Coordination,Tone,Bed Mobility ,Transfers,Gait,Activity Tolerance Progress Towards Goals Slow Progress due to Medical Issues,Slow Progress due to Activity Tolerance Assessment Summary Pt continues to be limited by weakness and low activity tolerance. Attempted to stand 3x w/ max A x2 and max verbal and tactile cues w/ FWW but pt was not able to successfully complete and relied on bedframe for support against BLE when trying to stand. Pt is not safe to return home and will require SNF to improve strength and functional mobility. Goals Bed Mobility Goal Minimal Assistance Transfer Goal Minimal Assistance Gait Goal Minimal Assistance Gait Distance 25 Other Goals ascend/descend 5-6 steps with railing to enter home. Days to Meet Goals 10 Frequency of Treatment Frequency Of Treatment Once a Day Treatment Plan Physical Therapy Treatment Plan Bed Mobility Training,Transfer Training,Gait Training, Therapeutic Exercise,Balance Retraining,Discharge Planning, Neuromuscular Re-ed, Coordination Retraining Other Recommendations and Next Treatment LEs ROM ex pre mobility, bed Focus mob, transfers if able: SPT, squat pivot transfer, slide board transfer. Recommendations To Nursing Amount of Assist Needed Mechanical Lift Discharge Recommendations PT Discharge Recommendations SNF Rehab Transportation Needs at Discharge Wheelchair/Cabulance,Stretcher /Ambulance
--- NOTE | 2022-07-26 13:26 | ST.IPDYTX ---
Visit Care Team Role Provider Type Radha Vu DPM Other Providers Non-Staff Specialty: Podiatry Address: [address] [place] [address], [id number] Email: DARLING Rob Other Providers Advanced Keyboarding Clerk Specialty: Medical Address: [address] [place] [address], [id number] Email: [email or web address] Anand Savage MD Other Providers Physician Specialty: Wound Care Address: [address] [place] [address], [id number] Email: [email or web address] Nathan Dixon DO Emergency Provider Physician Referring Provider Specialty: Emergency Medicine Address: [address] [place] [address], [id number] Email: [email or web address] Mitch Maldonado MD Attending Provider Physician Family Provider Primary Care Provider Specialty: Internal Medicine Address: [address] [place] [address], [id number] Email: [email or web address] German High MD Admit Provider Physician Other Providers Specialty: Family Practice Address: [address] [place] [address], [place], [address] Email: [email or web address] RECORD PRESSMAN Dysphagia Treatment RECORD PRESSMAN Dysphagia Treatment Start: 07/24/22 11:33 Freq: Status: Active Protocol: Document 07/26/22 13:15 KRYSTLEK (Rec: 07/26/22 13:26 MISAEL [id number]) Dysphagia Treatment Session Time Visit Start Time 11:30 Visit Stop Time 12:00 Total Visit Minutes 30 Visit Information Visit Number 2 Setting Assessment Location Acute Care Visit Type Note Type Treatment Note Next Note Type Next Note Type Treatment Note Patient Information Identification Type Name,ID Wristband Subjective Observations pt was finished with PT RECORD PRESSMAN entered the room. Pt's was also present. Pt education re: modifications made in the patient's diet texture. Discussed the need to ease mastication effort and allow consumption of greater quantity during meals. Also discussed were the patient's increased aspiration risk when he is ill and as neurological disease process declines. According to nursing, pt has been eating nearly all of his meals after tray set up food cut into small pieces for pt. Treatment Liquids Trialed Thin Solids Trialed Regular Administration Type Self-Feeding Oral Strategies Upright at 90 degrees Pharyngeal Strategies Sitting Upright (90 deg) Treatment Activities PO trial with bryson echavarria. Discussed progress with eating . Answered pt questions. Assessment Assessment of Improvement Pt reported no difficulty chewing, stating it just takes a long time. Discussed softer diet given difficulty chewing to reduce energy needed to eat. Monitor and advance diet to regular textures as indicated with increased strength and energy. Diet Recommendations Liquids Order Thin Diet Order Mechanical Soft Medication Recommendations As Tolerated Aspiration Precautions Recommended Precautions Upright at 90 Degrees,Small Bites/Sips Treatment Plan Placement Recommendation after Discharge Assisted Facility,Home with Home Health Appropriate for Continued Therapy No Therapy Recommendations Discharge ST services at this time Dysphagia Goals pt will safely tolerate the least restrictive diet without s/sx aspiration to meet nutritional and hydration needs.
[2022-07-26 17:00] VITALS: BP 133/62; PULSE 63; RESP 18; TEMP 37.2; O2SAT 94
[2022-07-26 20:00] VITALS: BP 144/75; PULSE 70; RESP 17; TEMP 37.2; O2SAT 94
--- NOTE | 2022-07-26 23:24 | PC.RNWOUND ---
Buttocks and coccyx.
--- NOTE | 2022-07-26 23:25 | PC.RNWOUND ---
Right foot between first and 2nd toe and anterior dorsal foot.
--- NOTE | 2022-07-26 23:26 | PC.RNWOUND ---
Right dorsal foot.
--- NOTE | 2022-07-26 23:28 | PC.RNWOUND ---
Right lower leg.
--- NOTE | 2022-07-26 23:29 | PC.RNWOUND ---
Right lower leg.
--- NOTE | 2022-07-26 23:30 | PC.RNWOUND ---
Left lower leg and foot.
--- NOTE | 2022-07-26 23:31 | PC.RNWOUND ---
left lower leg and heal
[2022-07-27 04:00] VITALS: BP 142/78; PULSE 63; RESP 17; TEMP 36.8; O2SAT 95
--- NOTE | 2022-07-27 05:16 | PC.NURSE ---
End of shift note. Patient AAOX4, flat affect, does engage in conversation briefly when asked questions. When asked c/o 05/17 left buttocks pain, states I have bursitis, medicated with NORCO 10/325 X1 with good pain relief. Dressing change done for BLE. Foam dressing applied to coccyx. Patient is incontinent of urine, briefs changed through out the night. Plan is to transfer to a SNF.
[2022-07-27 08:00] VITALS: BP 139/80; PULSE 63; RESP 16; TEMP 36.9; O2SAT 96
[2022-07-27] MEDS: GABAPENTIN 600 MG TABLET PO (08:00)
[2022-07-27] MEDS: SERTRALINE 50 MG TABLET 100 MG PO (08:00)
[2022-07-27] MEDS: METFORMIN HCL 500 MG TABLET PO (08:00)
[2022-07-27] MEDS: HYDROCODONE/ACET 10/325 TABLET 1 TAB PO (08:00)
[2022-07-27] MEDS: AZITHROMYCIN 250 MG TABLET PO (08:00)
[2022-07-27] MEDS: CLOPIDOGREL 75 MG TABLET PO (08:01)
[2022-07-27] MEDS: ENOXAPARIN 40 MG/0.4 ML SYRINGE SUBCUT (08:01)
--- NOTE | 2022-07-27 08:11 | PM.DS.1 ---
History of Present Illness History of Present Illness Date Patient Seen: 07/27/22 Time Patient Seen: 08:11 Chief complaint: weakness Narrative: Patient is a 76-year-old male with history of progressive neurologic condition which apparently has been set up mostly with Parkinson's diagnosis but had some question of MS.? Patient has been progressively over the last 2 months getting slightly more weak.? But recently saw his primary care doctor for acute onset over 2-3 days of progressive weakness.? He describes it as whole-body.? He had no headaches visual symptoms or other change.? Just progressively getting weaker.? Patient has incontinence issues has been using a condom cath.? In those been no change.? Recently saw urologist who is going to do a scope of his bladder and then consider indwelling Flores.? Which is patient's request.? No other changes.? Patient has had no burning with urination or other complaint.? No diarrhea no change in bowel movements he is had some slight mid abdominal discomfort but his main issue is he is had a progressive cough.? Apparently it has been going on for maybe a month.? But over the last 2-3 days has become increasingly worse with some production.? He is had no chest pain does not feel short of breath although he just is very weak.? He is had no other significant change or problem.? Otherwise review of systems negative. {from Dr. High's H&P} Discharge Providers Provider Date of admission: 07/22/22 06:24 Discharge Date: 07/27/22 Primary care physician: Mitch Maldonado MD Consults: 07/22/22 09:36 Consult to Dietitian, Adult Routine Comment: Reason For Exam: Assessed as high risk 07/22/22 13:41 Consult to Respiratory Therapy Evaluate & Treat Comment: Physician Instructions: Evaluate and treat 07/22/22 19:43 Consult to Dietitian, Adult Routine Comment: Reason For Exam: Sp score = 14 07/23/22 10:49 Consult to Wound Care Urgent Comment: Consulting Provider: [facility] 07/23/22 11:48 Consult to Physical Therapy Evaluate & Treat Comment: Physician Instructions: Evaluate and Treat 07/24/22 08:33 Consult to Speech Therapy Evaluate & Treat Comment: Physician Instructions: Evaluate and treat 07/24/22 11:10 Consult to Wound Care Routine Comment: Pt goes to wound clinic twice a week.Due on Sunday Consulting Provider: [facility] Discharge provider: Mitch Maldonado MD Summary Hospital Course Discharge Diagnosis: 1. Community-acquired pneumonia 2. Acute respiratory failure with hypoxia, resolved 3. Generalized weakness secondary to issues 1. And 2 above 4. 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 Severe peripheral edema unresponsive to diuretic therapy 6. Type 2 diabetes 7. History of coronary artery disease, not active this hospitalization 8. BPH with LUTS 9. Depression 10. Urinary incontinence 11. Peripheral neuropathy Hospital Course: Patient was admitted as above with severe weakness and noted to have hypoxia during his ER evaluation. Findings were most suggestive of possible community-acquired pneumonia with left shift etcetera. No other source of infection was identified during his hospitalization. He was treated with appropriate antibiotic therapy and seem to improve from an infectious disease standpoint. His fever curve normalized he is oxygen requirement disappeared and he was improved in all aspects. He was still very globally weak and while this was somewhat improved at time of discharge still had a long way to go to be completely back to normal Patient was evaluated for possible cardiac source of his hypoxia etcetera specially given his peripheral edema etcetera. Repeat echocardiography was unremarkable compared to previous and was not felt to have acute heart failure as a cause of any of his presenting symptoms or issues Patient still globally weak and require long-term placement for continued rehabilitation as he was progressing back to normal dissipate he will require continued skilled therapies and long-term for an additional 7-21 days before being able to return to his previous living environment at home Patient was also noted to have an increase in his LFTs upon admission. No evidence of abnormality was noted on imaging. These rapidly returned to normal with treatment of his infectious etiology. In my opinion these represent evidence of a more likely viral infection than anything else causing his presentation as above and a mild degree hepatitis as well Exam Vital Signs (past 8 hours): - 07/27/22 04:00 07/27/22 08:00 Temperature 98.2 F 98.5 F Pulse Rate 63 63 Respiratory Rate 17 16 Blood Pressure 142/78 H 139/80 Pulse Oximetry 95 96 Oxygen Flow Rate 0 Fraction of Inspired Oxygen 24 SaO2/FiO2 Ratio 395 Oxygen Delivery Method Room Air Oxygen Flow Rate 0 Objective Labs Result Diagrams: 07/24/22 05:25 07/25/22 04:57 [facility] Medical History Alcohol abuse Balance problems (07/06/16) Benign prostatic hyperplasia (BPH) with urinary urge incontinence BPH w urinary obs/LUTS Cataracts, bilateral (2010) Coronary artery disease involving [place] coronary artery of [place] [place] heart without angina pectoris (04/28/16) Depression (2011) Dermatitis Diabetes Essential hypertension (04/28/16) Foot pain (2005) Hammertoes of both feet Hyperlipemia (Unknown) Incontinence without sensory awareness Kidney stones (2010) Knee pain (2005) Multiple sclerosis (~2014) Parkinson's disease (2014) Parkinsons disease Peripheral edema Peripheral neuropathy (2005) Peripheral vascular disease (09/27/17) Recurrent falls (07/06/16) Right leg pain Sciatica (2005) Type 2 diabetes mellitus without complication, without long-term current use of insulin (04/28/16) Type 2 diabetes with nephropathy Urge incontinence Urinary incontinence, mixed Venous insufficiency Surgical History History of coronary artery stent placement Hx of knee surgery (Unknown) Hx of lithotripsy (11/2015) S/P coronary artery stent placement (Unknown) S/P knee surgery S/P tonsillectomy and adenoidectomy Family History Father Diabetes mellitus Mother No problems noted. Brother Diabetes mellitus Social History household members: spouse Smoking Status: Never smoker alcohol intake: former Discharge Plan Discharge Plan Patient Disposition: SNF Consult as needed: Dental, Hearing, Mental health, Podiatry and Vision Discharge orders & Medications Prescriptions: New hydrocodone-acetaminophen 10-325 mg Tablet 1 tab PO Q4H PRN (Reason: Pain, Moderate (4-6)) Qty: 30 0RF Continued aspirin 325 MG tablet 325 mg PO QDAY Qty: 0 metformin 500 mg tablet 500 mg PO BIDCC Qty: 180 3RF atorvastatin [Lipitor] 10 mg tablet 5 mg PO EVERY OTHER DAY Qty: 45 1RF clopidogrel 75 mg tablet 75 mg PO QDAY Qty: 90 0RF gabapentin 300 mg capsule 300 - 600 mg PO BID Qty: 540 3RF Rx Instructions: 1 in am (300mg) 2 at bedtime (600mg) donepezil 10 mg tablet 10 mg PO DAILY (DME) Disabled Parking See Rx Instructions .ROUTE .MEDSUPPLY Qty: 1 0RF Rx Instructions: Patient qualifies for disabled parking as per the attached form. melatonin 5 mg Tablet 5 mg PO BEDTIME PRN (Reason: Sleep) Changed sertraline 100 mg tablet 150 mg PO DAILY Qty: 90 3RF Follow up/Referrals: Mitch Maldonado MD [Primary Care Provider] - Discharge Health Status Multidrug resistant organism: No MDRO Precautions: [place] Diet/Activity/Treatments Diet: Diet as Tolerated Liquid consistency: Normal/Thin Food texture: Regular Special Rehabilitation Services Reason for rehabilitation: Recovery r/t decondition Rehab type: Physical therapy and Occupational therapy Discharge Data Primary Care Provider: Mitch Maldonado Quality VTE Deep Vein Thrombosis/Pulmonary Embolism Present on Admission: No
--- NOTE | 2022-07-27 08:31 | CM.DPC ---
DCP Cont: P: Pt medically stable for discharge today. Maren @ [facility] confirms that they can accept pt today around 1230 via cabulance. COVID order placed and RN collected. PASRR, vaccine record, and clinicals to be faxed. RN aware of plan. Lina Sams RN/DCP
[2022-07-27 08:46] LABS: COVID19 -Nasal RAPID Negative (Negative)
[2022-07-27] MEDS: SERTRALINE 50 MG TABLET PO (09:28)
--- NOTE | 2022-07-27 12:37 | PC.NURSE ---
Pt is packed up and ready for discharge via w/c to [facility] for transfer to [facility]. Packet given to transport personnel, Spouse has Pt belongings. Report called to Freida ZACARIAS at [facility]. All questions answered. Pt out via w/c by [facility] with Spouse and all belongings.
== END 2022-07-27 12:41 | DRG 193 ==
LOC: ED 06:21 → AC 06:24
PROVIDERS: Admitting Provider Family Medicine; Emergency Provider Emergency Medicine; Family Provider Internal Medicine; PCP Internal Medicine; Referring Provider Emergency Medicine; Visit Provider Internal Medicine
DX: J18.9 Pneumonia, unspecified organism (principal); J96.01 Acute respiratory failure with hypoxia; G25.9 Extrapyramidal and movement disorder, unspecified; E86.0 Dehydration; K59.00 Constipation, unspecified; M54.2 Cervicalgia; E78.5 Hyperlipidemia, unspecified; E11.42 Type 2 diabetes mellitus with diabetic polyneuropathy; N40.1 Benign prostatic hyperplasia with lower urinary tract symptoms; N39.498 Other specified urinary incontinence; E11.621 Type 2 diabetes mellitus with foot ulcer; L97.529 Non-pressure chronic ulcer of other part of left foot with unspecified severity; Z79.84 Long term (current) use of oral hypoglycemic drugs; Z20.822 Contact with and (suspected) exposure to COVID-19; G35 Multiple sclerosis; R50.9 Fever, unspecified; L08.9 Local infection of the skin and subcutaneous tissue, unspecified
CPT/HCPCS: 36415; 71045; 71260; 74177; 76705; 80048; 80053; 80074; 80320; 80329; 81003; 81015; 82962; 83036; 83605; 83690; 83735; 83880; 84145; 85025; 87040; 87070; 87077; 87086; 87147; 87186; 87205; 87635; 92526; 92610; 93005; 93010; 93306; 94762; 96361; 96365; 96366; 96367; 96375; 97110; 97163; 97530; 99233; 99238; 99284; C9803; G0480; J0295; J0696; J1650; J1940; J3010; Q9967

== ENCOUNTER → 2022-10-03 11:46 | Outpatient (CLI) | payer OTHER, SELFPAY ==
[2022-07-22 09:25] VITALS: BMI 22.3
[2022-10-03 12:50] LABS: Appearance Urine UA CLEAR; Bilirubin Urine UA NEGATIVE (NEGATIVE); Color Urine UA YELLOW; Glucose Urine UA NEGATIVE (Negative); Ketones Urine UA NEGATIVE (NEGATIVE); Leukocyte Esterase Urine UA NEGATIVE (NEGATIVE); Nitrite Urine UA NEGATIVE (Negative); Occult Blood Urine UA 3+ (Negative); Protein Urine UA NEGATIVE (Negative); Specific Gravity Urine UA 1.015 (1.000-1.035); Urobilinogen Urine UA 0.2 E.U./dL (0.2)
[2022-10-03 13:13] LABS: Alanine Aminotransferase 27 IU/L (<50); Albumin Globulin Ratio 1.5 (1.0-2.8); Alkaline Phosphatase 90 U/L (38-126); Aspartate Aminotransferase 33 IU/L (17-59); BUN Creatinine Ratio 25.3 (6-22); Bilirubin Total 0.9 mg/dL (0.2-1.3); Blood Urea Nitrogen 19 mg/dL (9-20); Calcium 9.7 mg/dL (8.4-10.2); Carbon Dioxide 25 mmol/L (22-32); Chloride 100 mmol/L (98-107); Estimated Glomerular Filt Rate > 60 mL/min (>60); Globulin 3.3 g/dL (1.7-4.1); Glucose 85 mg/dL (80-110); Sodium 140 mmol/L (137-145); Total Protein 8.3 g/dL (6.3-8.2)
[2022-10-03 13:15] LABS: HEMOLYSIS 89 (0-50)
[2022-10-03 13:16] LABS: Potassium 5.3 mmol/L (3.4-5.1)
[2022-10-03 13:21] LABS: RBC Urine 10-30/HPF (0-5/HPF)
[2022-10-03 13:22] LABS: Bacteria Urine None Seen; Squamous Epithelial Cell Urine 1-5 /HPF (0-5/HPF); WBC Urine None Seen (0-5/HPF)
[2022-10-03 13:23] LABS: Culture Indicated Urine Cult Not Indicated
== END ==
PROVIDERS: Family Provider Internal Medicine; PCP Internal Medicine
DX: G20 Parkinson's disease (principal); G35 Multiple sclerosis; E11.42 Type 2 diabetes mellitus with diabetic polyneuropathy; I87.2 Venous insufficiency (chronic) (peripheral); E11.51 Type 2 diabetes mellitus with diabetic peripheral angiopathy without gangrene; I25.10 Atherosclerotic heart disease of native coronary artery without angina pectoris; M54.30 Sciatica, unspecified side; I10 Essential (primary) hypertension; N40.1 Benign prostatic hyperplasia with lower urinary tract symptoms; N39.46 Mixed incontinence; E11.21 Type 2 diabetes mellitus with diabetic nephropathy; F32.A Depression, unspecified; L30.9 Dermatitis, unspecified; R29.6 Repeated falls; Z91.81 History of falling
CPT/HCPCS: 36415; 80053; 81003; 81015

== ENCOUNTER 2022-12-08 17:20 | Inpatient (IN) | payer MEDICARE, OTHER, SELFPAY ==
[2022-07-22 09:25] VITALS: BMI 22.3
[2022-12-08] VITALS (9 sets, daily range): BP systolic 115–159; BP diastolic 66–82; PULSE 79–159; RESP 15–26; TEMP 37.2–38.6; O2SAT 94–97; BMI 21.8
--- NOTE | 2022-12-08 17:44 | DI.RAD.S_ITS ---
PROCEDURE: XR CHEST 1V INDICATIONS: suspected sepsis TECHNIQUE: One view of the chest was acquired. COMPARISON: [facility], CT, CT CHEST ABD PEL W CON, 07/22/2022, 4:48. [facility], CR, XR CHEST 1V, 07/24/2022, 8:04. [facility], CR, XR CHEST 1V, 07/22/2022, 3:01. FINDINGS: Surgical changes and devices: None. Lungs and pleura: Lungs are clear. No pleural effusions or pneumothorax. Mediastinum: Mediastinal contours appear normal. Heart size is normal. Bones and chest wall: No suspicious bony lesions. Overlying soft tissues appear unremarkable. IMPRESSION: No acute cardiopulmonary abnormality identified. Dictated by: Jerome Ricketts M.D. on 12/08/2022 at 19:59 Approved by: Jerome Ricketts M.D. on 12/08/2022 at 20:01
[2022-12-08 18:19] LABS: Add Manual Diff / Slide Review NO; Basophils Absolute Auto 100 /uL (0-100); Basophils Percent Auto 0.4 % (0-2); Eosinophils Absolute Auto 0 /uL (0-450); Eosinophils Percent Auto 0.1 % (2-4); Hematocrit 43.2 % (41-53); Hemoglobin 14.5 g/dL (13.5-17.5); Lymphocytes Absolute Auto 400 /uL (1100-4500); Lymphocytes Percent Auto 1.9 % (25-40); Mean Corpuscular HGB Conc 33.5 % (30-36); Mean Corpuscular Hemoglobin 32.3 PG (26-34); Mean Corpuscular Volume 96.4 fL (80-100); Monocytes Absolute Auto 1100 /uL (0-900); Monocytes Percent Auto 5.9 % (3-14); Neutrophils Absolute Auto 17800 /uL (1500-7000); Neutrophils Percent Auto 91.7 % (50-75); Platelet Count 196 X10^3/uL (150-400); Red Blood Cell Count 4.48 X10^6/uL (4.5-5.9); Red Cell Distribution Width 13.9 % (11.6-14.8); White Blood Cell Count 19.4 X10^3/uL (4.5-11.0)
[2022-12-08 18:27] LABS: INR 1.2 (0.9-1.3); Prothrombin Time 13.9 SECONDS (10.1-12.7)
[2022-12-08 18:29] LABS: PTT Partial Thromboplastin Tim 33 SECONDS (26-36)
[2022-12-08 18:31] LABS: Lactate (Lactic Acid) 1.5 mmol/L (0.7-2.1)
[2022-12-08 18:32] LABS: Alanine Aminotransferase 32 IU/L (<50); Albumin 4.5 g/dL (3.5-5.0); Albumin Globulin Ratio 1.5 (1.0-2.8); Alkaline Phosphatase 88 U/L (38-126); Aspartate Aminotransferase 30 IU/L (17-59); BUN Creatinine Ratio 22.2 (6-22); Bilirubin Total 1.3 mg/dL (0.2-1.3); Blood Urea Nitrogen 18 mg/dL (9-20); Carbon Dioxide 28 mmol/L (22-32); Chloride 96 mmol/L (98-107); Estimated Glomerular Filt Rate > 60 mL/min (>60); Glucose 147 mg/dL (80-110); HEMOLYSIS 25 (0-50); Lipase 28 U/L (23-300); Potassium 3.9 mmol/L (3.4-5.1); Sodium 136 mmol/L (137-145); Total Protein 7.5 g/dL (6.3-8.2)
--- NOTE | 2022-12-08 19:24 | ED.FEVER ---
HPI - Fever General Chief Complaint: Fever Stated Complaint: Fever Time Seen by Provider: 12/08/22 18:04 History of Present Illness HPI Narrative: 77-year-old male nonsmoker with history of Parkinson's, type 2 diabetes, hyperlipidemia, multiple sclerosis, coronary artery disease, urinary continence with plan for suprapubic catheter presents by EMS for evaluation of fever, shaking chills and rapidly worsening generalized weakness over the past 24 hours or so. He is had no runny nose, sore throat or cough. He denies chest pain or shortness of breath. He denies nausea, vomiting or diarrhea. He is had a chronic indwelling Flores catheter for quite some time. Related Data Home Medications Medication Instructions Recorded Confirmed aspirin 325 mg tablet 325 mg PO QDAY ##0 04/28/16 12/08/22 donepezil 10 mg tablet 10 mg PO DAILY 01/23/22 12/08/22 melatonin 5 mg tablet 5 mg PO BEDTIME PRN Sleep 07/22/22 12/08/22 Previous Rx's Medication Instructions Recorded metformin 500 mg tablet 500 mg PO BIDCC #180 tabs 11/14/21 atorvastatin 10 mg tablet (Lipitor) 5 mg PO EVERY OTHER DAY #45 tabs 01/10/22 Disabled Parking #1 ea 01/23/22 gabapentin 300 mg capsule 300 - 600 mg PO BID #540 caps 04/25/22 sertraline 100 mg tablet 150 mg PO DAILY #135 tabs 11/02/22 clopidogrel 75 mg tablet 75 mg PO QDAY #90 tabs 11/30/22 Allergies Allergy/AdvReac Type Severity Reaction Status Date / Time adhesive [ADHESIVE] AdvReac Mild RASH Verified 11/27/22 09:25 Review of Systems Review of Systems Narrative: GENERAL: See HPI HEENT: Denies sinus pain, ear pain, sore throat, difficulty swallowing, dizziness. RESPIRATORY: Denies dyspnea, cough, wheezing, hemoptysis, sputum. CARDIOVASCULAR: Denies chest pain, palpitations, orthopnea, edema, GASTROINTESTINAL: Denies nausea, vomiting, abdominal pain, diarrhea, constipation, melena. : Denies dysuria, frequency, incontinence, hematuria, urinary retention. MUSCULOSKELETAL: See HPI SKIN: Denies rash, skin lesions, or other NEUROLOGIC: Denies weakness, headache, numbness, change in speech, confusion, seizures, incoordination. PSYCHIATRIC: No concerning psychosocial issues. 12 point review of systems is negative except for those stated above Patient History Medical History Alcohol abuse Balance problems (07/06/16) Benign prostatic hyperplasia (BPH) with urinary urge incontinence BPH w urinary obs/LUTS Cataracts, bilateral (2010) Coronary artery disease involving [place] coronary artery of [place] heart without angina pectoris (04/28/16) COVID-19 (~08/2022) Depression (2011) Dermatitis Diabetes Essential hypertension (04/28/16) Foot pain (2005) Hammertoes of both feet Hyperlipemia (Unknown) Incontinence without sensory awareness Kidney stones (2010) Knee pain (2005) Multiple sclerosis (~2014) Parkinson's disease (2014) Parkinsons disease Peripheral edema Peripheral neuropathy (2005) Peripheral vascular disease (09/27/17) Recurrent falls (07/06/16) Right leg pain Sciatica (2005) Type 2 diabetes mellitus without complication, without long-term current use of insulin (04/28/16) Type 2 diabetes with nephropathy Urge incontinence Urinary incontinence, mixed Venous insufficiency Surgical History History of coronary artery stent placement Hx of knee surgery (Unknown) Hx of lithotripsy (11/2015) S/P coronary artery stent placement (Unknown) S/P knee surgery S/P tonsillectomy and adenoidectomy Family History Father Diabetes mellitus Mother No problems noted. Brother Diabetes mellitus Social History household members: spouse Smoking Status: Never smoker alcohol intake: former Smoking Status: Never smoker alcohol intake frequency: other Substance Use Type: does not use Exam Narrative Exam Narrative: GENERAL: [77] year old patient appears older than stated age. Well-developed patient, in obvious distress, weak, ill appearing HEAD: Atraumatic. Normocephalic. EYES: Pupils equal round and reactive. Extraocular motions intact. No scleral icterus. No injection or drainage. ENT: Dry mucous membranes Nose without bleeding, purulent drainage. Throat without erythema, tonsillar hypertrophy or exudate. Airway patent. NECK: Trachea midline. Non tender CARDIOVASCULAR: Regular rate and rhythm without murmurs, gallops, or rubs. RESPIRATORY: Clear to auscultation. Breath sounds equal bilaterally. No wheezes, rales, or rhonchi. GASTROINTESTINAL: Abdomen soft, non-tender, nondistended. EXTREMITIES: No edema or joint tenderness. BACK: Nontender without deformity or crepitance. No flank tenderness. NEURO: AOx3. SKIN: No rash or erythema of visible areas Initial Vital Signs Initial Vital Signs: Vital Signs Temperature 101.5 F H 12/08/22 17:42 Pulse Rate 90 12/08/22 17:42 Respiratory Rate 16 12/08/22 17:42 Blood Pressure 133/71 12/08/22 17:42 Pulse Oximetry 95 12/08/22 17:42 Oxygen Delivery Method Room Air 12/08/22 17:42 Course Orders Ordered: Acetaminophen (Acetaminophen 325 Mg Tablet) 650 mg PO Q4H PRN PRN Reason: Fever/Mild Pain (1-3) Dextrose (Dextrose 50 % In Water 25 Gm/50 Ml Syringe) 25 gm IV PRN PRN; Protocol PRN Reason: Hypoglycemia Donepezil HCl (Donepezil 5 Mg Tablet) 10 mg PO BEDTIME [facility] Last Admin: 12/08/22 22:55 Dose: 10 mg Documented By: CS Ceftriaxone Sodium 2,000 mg/ (Sodium Chloride) 100 mls @ 200 mls/hr IV Q24H SHARONA Sodium Chloride (Normal Saline 0.9%) 1,000 mls @ 125 mls/hr IV CONT [facility] Last Admin: 12/08/22 22:33 Dose: 125 mls/hr Documented By: CS Insulin Human Lispro (Insulin Lispro 100 Unit/Ml 3ml Vial) 0 unit SUBCUT ACHS SHARONA; Protocol Last Admin: 12/08/22 22:49 Dose: Not Given Documented By: CS Lorazepam (Lorazepam 2 Mg/Ml Inj) 0.5 mg IV Q6HR PRN PRN Reason: Anxiety Lorazepam (Lorazepam 0.5 Mg Tablet) 0.5 mg PO Q6HR PRN PRN Reason: Anxiety Morphine Sulfate (Morphine 2 Mg/Ml Inj) 1 mg IV Q4HR PRN PRN Reason: Pain, Moderate (4-6) Morphine Sulfate (Morphine 2 Mg/Ml Inj) 2 mg IV Q4HR PRN PRN Reason: Pain, Severe (7-10) Ondansetron HCl (Ondansetron 4 Mg/2 Ml Inj) 4 mg IV Q6HR PRN PRN Reason: Nausea And Vomiting Sertraline HCl (Sertraline 50 Mg Tablet) 150 mg PO BEDTIME SHARONA Last Admin: 12/08/22 22:55 Dose: 150 mg Documented By: CS Discontinued Medications Sodium Chloride (Normal Saline 0.9%) 1,000 mls @ 1,000 mls/hr IV BOLUS ONE Stop: 12/08/22 18:43 Last Admin: 12/08/22 19:36 Dose: Not Given Documented By: BS Sodium Chloride (Normal Saline 0.9%) 2,313.33 mls @ 771.11 mls/hr 30 ml/kg infuse over 3 hr (2313.33 ml) IV NOW ONE Stop: 12/08/22 22:25 Last Admin: 12/08/22 19:37 Dose: 771.11 mls/hr Documented By: MARIE Ceftriaxone Sodium 2,000 mg/ (Sodium Chloride) 100 mls @ 200 mls/hr IV NOW ONE Stop: 12/08/22 19:27 Last Infusion: 12/08/22 21:26 Dose: 0 mls/hr Documented By: Admin: 12/08/22 19:40 Dose: 200 mls/hr Documented By: MARIE Vital Signs Vital signs: Vital Signs - 8 hr 12/08/22 17:42 Temperature 101.5 F H Pulse Rate 90 Respiratory Rate 16 Blood Pressure 133/71 Pulse Oximetry 95 Oxygen Delivery Method Room Air MDM - Fever Lab Data 12/08/22 18:10 12/08/22 18:10 Labs: Lab Results 12/08/22 12/08/22 12/08/22 Range/Units 18:10 18:10 18:10 WBC 19.4 H (4.5-11.0) X10^3/uL RBC 4.48 L (4.5-5.9) X10^6/uL Hgb 14.5 (13.5-17.5) g/dL Hct 43.2 (41-53) % MCV 96.4 (80-100) fL MCH 32.3 (26-34) PG MCHC 33.5 (30-36) % RDW 13.9 (11.6-14.8) % Plt Count 196 (150-400) X10^3/uL Neut % (Auto) 91.7 H (50-75) % Lymph % (Auto) 1.9 L (25-40) % [place] % (Auto) 5.9 (3-14) % Eos % (Auto) 0.1 L (2-4) % Baso % (Auto) 0.4 (0-2) % Neut # (Auto) 78395 H (2587-1848) /uL Lymph # (Auto) 400 L (8628-9523) /uL [place] # (Auto) 1100 H (0-900) /uL Eos # (Auto) 0 (0-450) /uL Baso # (Auto) 100 (0-100) /uL PT 13.9 H (10.1-12.7) SECONDS INR 1.2 (0.9-1.3) APTT 33 (26-36) SECONDS Sodium 136 L (137-145) mmol/L Potassium 3.9 (3.4-5.1) mmol/L Chloride 96 L (98-107) mmol/L Carbon Dioxide 28 (22-32) mmol/L BUN 18 (9-20) mg/dL Creatinine 0.81 (0.66-1.25) mg/dL Estimated GFR > 60 (>60) mL/min BUN/Creatinine Ratio 22.2 H (6-22) Glucose 147 H (80-110) mg/dL Lactate (0.7-2.1) mmol/L Calcium 9.0 (8.4-10.2) mg/dL Total Bilirubin 1.3 (0.2-1.3) mg/dL AST 30 (17-59) IU/L ALT 32 (<50) IU/L Alkaline Phosphatase 88 (38-126) U/L Total Protein 7.5 (6.3-8.2) g/dL Albumin 4.5 (3.5-5.0) g/dL Globulin 3.0 (1.7-4.1) g/dL Albumin/Globulin Ratio 1.5 (1.0-2.8) Lipase 28 (23-300) U/L Procalcitonin 0.30 (<0.5) ng/mL Urine RBC (0-5/HPF) Urine WBC (0-5/HPF) Urine Bacteria (None) Ur Culture Indicated? SARS-CoV-2 (PCR) (Negative) Influenza A (RT-PCR) (NEGATIVE) Influenza B (RT-PCR) (NEGATIVE) RSV (PCR) (Negative) 12/08/22 12/08/22 12/08/22 Range/Units 18:10 18:10 19:45 WBC (4.5-11.0) X10^3/uL RBC (4.5-5.9) X10^6/uL Hgb (13.5-17.5) g/dL Hct (41-53) % MCV (80-100) fL MCH (26-34) PG MCHC (30-36) % RDW (11.6-14.8) % Plt Count (150-400) X10^3/uL Neut % (Auto) (50-75) % Lymph % (Auto) (25-40) % [place] % (Auto) (3-14) % Eos % (Auto) (2-4) % Baso % (Auto) (0-2) % Neut # (Auto) (0443-4426) /uL Lymph # (Auto) (1877-6725) /uL [place] # (Auto) (0-900) /uL Eos # (Auto) (0-450) /uL Baso # (Auto) (0-100) /uL PT (10.1-12.7) SECONDS INR (0.9-1.3) APTT (26-36) SECONDS Sodium (137-145) mmol/L Potassium (3.4-5.1) mmol/L Chloride (98-107) mmol/L Carbon Dioxide (22-32) mmol/L BUN (9-20) mg/dL Creatinine (0.66-1.25) mg/dL Estimated GFR (>60) mL/min BUN/Creatinine Ratio (6-22) Glucose (80-110) mg/dL Lactate 1.5 (0.7-2.1) mmol/L Calcium (8.4-10.2) mg/dL Total Bilirubin (0.2-1.3) mg/dL AST (17-59) IU/L ALT (<50) IU/L Alkaline Phosphatase (38-126) U/L Total Protein (6.3-8.2) g/dL Albumin (3.5-5.0) g/dL Globulin (1.7-4.1) g/dL Albumin/Globulin Ratio (1.0-2.8) Lipase (23-300) U/L Procalcitonin (<0.5) ng/mL Urine RBC (0-5/HPF) Urine WBC (0-5/HPF) Urine Bacteria (None) Ur Culture Indicated? SARS-CoV-2 (PCR) Negative Negative (Negative) Influenza A (RT-PCR) Flu a negative (NEGATIVE) Influenza B (RT-PCR) Flu b negative (NEGATIVE) RSV (PCR) Negative (Negative) 12/08/22 Range/Units 20:35 WBC (4.5-11.0) X10^3/uL RBC (4.5-5.9) X10^6/uL Hgb (13.5-17.5) g/dL Hct (41-53) % MCV (80-100) fL MCH (26-34) PG MCHC (30-36) % RDW (11.6-14.8) % Plt Count (150-400) X10^3/uL Neut % (Auto) (50-75) % Lymph % (Auto) (25-40) % [place] % (Auto) (3-14) % Eos % (Auto) (2-4) % Baso % (Auto) (0-2) % Neut # (Auto) (6998-6728) /uL Lymph # (Auto) (9688-0577) /uL [place] # (Auto) (0-900) /uL Eos # (Auto) (0-450) /uL Baso # (Auto) (0-100) /uL PT (10.1-12.7) SECONDS INR (0.9-1.3) APTT (26-36) SECONDS Sodium (137-145) mmol/L Potassium (3.4-5.1) mmol/L Chloride (98-107) mmol/L Carbon Dioxide (22-32) mmol/L BUN (9-20) mg/dL Creatinine (0.66-1.25) mg/dL Estimated GFR (>60) mL/min BUN/Creatinine Ratio (6-22) Glucose (80-110) mg/dL Lactate (0.7-2.1) mmol/L Calcium (8.4-10.2) mg/dL Total Bilirubin (0.2-1.3) mg/dL AST (17-59) IU/L ALT (<50) IU/L Alkaline Phosphatase (38-126) U/L Total Protein (6.3-8.2) g/dL Albumin (3.5-5.0) g/dL Globulin (1.7-4.1) g/dL Albumin/Globulin Ratio (1.0-2.8) Lipase (23-300) U/L Procalcitonin (<0.5) ng/mL Urine RBC 0-1/hpf D (0-5/HPF) Urine WBC 5-10/hpf H (0-5/HPF) Urine Bacteria Occasional (0-1) (None) Ur Culture Indicated? Specimen cultured SARS-CoV-2 (PCR) (Negative) Influenza A (RT-PCR) (NEGATIVE) Influenza B (RT-PCR) (NEGATIVE) RSV (PCR) (Negative) Urine Dip Bedside Urine Glucose Negative Bedside Urine Bilirubin + 1 Bedside Urine Ketone + 15 Urine Specific [place] 1.025 Bedside Urine Occult Blood +++ Bedside Urine pH 6.0 Bedside Urine Protein + 30 Bedside Urine Urobilinogen - Negative Bedside Urine Nitrite - Negative Bedside Urine Leukocytes - Negative Esterase MDM Narrative Medical decision making narrative: CC: 77-year-old male with fever, chills and weakness Complicating co-morbidities: Age, diabetes, Parkinson's, coronary artery disease Data collected from: Patient and are independent historians Medical records reviewed: Prior notes reviewed in our EMR Differential considered, but not limited to: Sepsis from UTI, pneumonia, COVID, flu versus other Exam documented above, pertinent findings include: Weak, dry mucous membranes, poor skin turgor Lab Test results independently reviewed as above. Pertinent findings: Leukocytosis with left shift, no anemia, electrolytes and renal function within normal limits, lactate and procalcitonin within normal limits , Independently reviewed EKG as above Imaging studies independently reviewed: Chest x-ray without infiltrative process Consultations: Dr. Sarabia happy to accept on her service Treatments: Fluids, antibiotics Re-evaluations: Slightly Improved symptoms Discussion: Frail and elderly gentleman with sepsis criteria and suspicion of urine as source requires hospitalization for ongoing treatment and stabilization of his condition Discharge Plan Departure Patient Disposition: Admitted As Inpatient Clinical Impression: Sepsis, Acute UTI Admit Date/Time: 12/08/22 21:08 Admit Provider: Jennifer Sarabia
[2022-12-08] MEDS: SODIUM CHLORIDE 0.9% 2,313.33 ML 771.11 ML IV (19:37)
[2022-12-08] MEDS: cefTRIAXone 2,000 MG in SODIUM CHLORIDE 0.9% 100 ML 200 MG IV (19:40)
[2022-12-08 19:43] LABS: COVID19 -Nasal RAPID Negative (Negative)
[2022-12-08 20:34] LABS: Influenza A - CEPHEID Flu A NEGATIVE (NEGATIVE); Influenza B - CEPHEID Flu B NEGATIVE (NEGATIVE); Respiratory Syncytial Virus Negative (Negative)
[2022-12-08 20:42] LABS: COVID-19 CEPHEID 4-PLEX PCR Negative (Negative)
--- NOTE | 2022-12-08 20:53 | DI.CT.S_ITS ---
PROCEDURE: CT CHEST ABD PEL W CON INDICATIONS: sepsis TECHNIQUE: After the administration of intravenous contrast, axial sections acquired from the supraclavicular neck to the pubic symphysis. Coronal and sagittal reformats were performed. For radiation dose reduction, the following was used: automated exposure control, adjustment of mA and/or kV according to patient size. COMPARISON: [facility], CT, CT CHEST ABD PEL W CON, 07/22/2022, 4:48. FINDINGS: Image quality: There is mild motion artifact limiting evaluation. CHEST: Lower Neck: No lymphadenopathy by size criteria. Thyroid: Visualized thyroid demonstrates no discrete nodules. Axillae: No lymphadenopathy by size criteria. Chest Wall: Unremarkable. Lungs and Airways: No acute consolidation. There is dependent atelectasis bilaterally. The trachea and central airways are patent. Pleura: No pneumothorax or pleural effusions. Heart: Heart size is at the upper limits of normal. No pericardial effusion. Thoracic Vessels: The aorta and pulmonary arteries are normal in size. Mediastinum and [place]: No lymphadenopathy by size criteria. Esophagus: No wall thickening. No hiatal hernia. ABDOMEN: Liver: No mass lesion. Gallbladder: Within normal limits without calcified gallstones. Biliary ducts: No biliary ductal dilatation. Pancreas: Unremarkable. Spleen: Normal in size. Adrenal Glands: No adrenal nodules. Kidneys and Ureters: There are multiple, approximately 10, right renal stones with the largest measuring up to 1.1 cm. These demonstrate attenuation values of approximately 4290-1844 Hounsfield units. The largest stones are clustered within the renal pelvis with associated mild distention. However, there is no hydronephrosis. The right ureter is nondistended without ureteral stones identified. The left kidney demonstrates a few, approximately 3, nonobstructing renal stones with the largest measuring up to 0.3 cm. No hydronephrosis or hydroureter. Stomach and Bowel: Stomach, small bowel loops, and colon are normal in caliber and wall thickness. No pericecal inflammatory changes to suggest appendicitis. Peritoneum: No abnormal intraperitoneal fluid. No free air. Ventral Wall: No hernia. Abdominal Nodes: No retroperitoneal or mesenteric adenopathy by size criteria. Vessels: Aorta and inferior vena cava are normal in size. PELVIS: Pelvic Organs: There is moderate enlargement of the prostate. Bladder: There is a Flores catheter within a nondistended urinary bladder. There is concentric bladder wall thickening. A dependent stone is demonstrated laterally within the bladder measuring up to 0.3 cm. Pelvic Nodes: No enlarged lymph nodes. Miscellaneous: No inguinal hernias are seen. Bones: Visualized osseous structures demonstrate no suspicious focal lesions. IMPRESSION: 1. Bilateral nephrolithiasis including multiple stones mildly distending the right renal pelvis without associated obstructive uropathy. 2. Mild bladder wall thickening suggestive of a cystitis. A small dependent stone is demonstrated within the bladder. Dictated by: Wally Casey M.D. on 12/08/2022 at 22:55 Approved by: Wally Casey M.D. on 12/08/2022 at 23:03
[2022-12-08 20:56] LABS: Bacteria Urine Occasional (0-1); Culture Indicated Urine Specimen Cultured; RBC Urine 0-1/HPF (0-5/HPF); WBC Urine 5-10/HPF (0-5/HPF)
[2022-12-08] MEDS: SODIUM CHLORIDE 0.9% 1,000 ML 125 ML IV (22:33)
[2022-12-08] MEDS: DONEPEZIL 5 MG TABLET 10 MG PO (22:55)
[2022-12-08] MEDS: SERTRALINE 50 MG TABLET 150 MG PO (22:55)
--- NOTE | 2022-12-08 23:23 | PC.NURSE ---
Pt arrived with all belongings, in room. Pt is A&O x3, uncertain of date, cooperative and pleasant. Vitals taken and are WNL.
[2022-12-09] VITALS (7 sets, daily range): BP systolic 113–156; BP diastolic 58–81; PULSE 65–77; RESP 14–20; TEMP 36.2–37; O2SAT 93–95
[2022-12-09] MEDS: MAGNESIUM HYDROXIDE 30 ML UDC PO (08:45)
[2022-12-09] MEDS: SODIUM CHLORIDE 0.9% 1,000 ML 125 ML IV (09:27)
[2022-12-09 09:52] LABS: Add Manual Diff / Slide Review NO; Basophils Absolute Auto 100 /uL (0-100); Basophils Percent Auto 0.5 % (0-2); Eosinophils Absolute Auto 0 /uL (0-450); Hematocrit 39.9 % (41-53); Hemoglobin 13.6 g/dL (13.5-17.5); Lymphocytes Absolute Auto 500 /uL (1100-4500); Lymphocytes Percent Auto 2.6 % (25-40); Mean Corpuscular Hemoglobin 32.8 PG (26-34); Mean Corpuscular Volume 96.3 fL (80-100); Monocytes Absolute Auto 1400 /uL (0-900); Monocytes Percent Auto 6.9 % (3-14); Neutrophils Absolute Auto 18000 /uL (1500-7000); Platelet Count 180 X10^3/uL (150-400); Red Blood Cell Count 4.15 X10^6/uL (4.5-5.9); Red Cell Distribution Width 13.7 % (11.6-14.8)
[2022-12-09 10:09] LABS: Alanine Aminotransferase 26 IU/L (<50); Albumin 3.5 g/dL (3.5-5.0); Albumin Globulin Ratio 1.5 (1.0-2.8); Alkaline Phosphatase 83 U/L (38-126); Aspartate Aminotransferase 26 IU/L (17-59); BUN Creatinine Ratio 22.2 (6-22); Bilirubin Total 1.4 mg/dL (0.2-1.3); Blood Urea Nitrogen 16 mg/dL (9-20); Calcium 8.2 mg/dL (8.4-10.2); Carbon Dioxide 24 mmol/L (22-32); Chloride 98 mmol/L (98-107); Estimated Glomerular Filt Rate > 60 mL/min (>60); Globulin 2.3 g/dL (1.7-4.1); Glucose 169 mg/dL (80-110); HEMOLYSIS < 15 (0-50); Potassium 3.7 mmol/L (3.4-5.1); Sodium 133 mmol/L (137-145); Total Protein 5.8 g/dL (6.3-8.2)
[2022-12-09] MEDS: DOCUSATE 100 MG CAPSULE PO ×2 (10:56→20:40)
[2022-12-09] MEDS: SENNOSIDES 8.6 MG TABLET PO (10:56)
--- NOTE | 2022-12-09 13:29 | P.HP_ITS ---
History of Present Illness History of Present Illness Date Patient Seen: 12/09/22 Time Patient Seen: 13:29 Date of Onset of Symptoms: 12/07/22 Chief complaint: Fever Narrative: This is a very pleasant 77-year-old male who is a patient of Dr. Maldonado. Patient with a long history of a movement disorder of really unclear etiology thought to be MS or Parkinson's disorder. He has a neurogenic bladder secondary to this and has a indwelling catheter. Apparently was seen by Urology at [facility] on 12/01/2022 and underwent a cystoscopy. Patient was to have an indwelling catheter but apparently this appointment was changed because he was not feeling well.. He had evidence of nephrolithiasis and did not want to undergo invasive treatment but perhaps treatment when he had his suprapubic catheter replaced. Patient started feeling incredibly weak over the last several days. The patient developed progressive weakness over last 24-48 hours with associated rigors and chills and fever and presented to the emergency department. He met criteria for sepsis based on a heart rate of 90. He was fluid resuscitated and was given 2 g of IV ceftriaxone and was admitted to the hospital for further treatment. He had an unremarkable night overnight. He denies chest pain or shortness of breath. He denies any worsening neurologic symptoms. He denies any abdominal pain. There has been no change in his bowel movements. He is had no lightheadedness or dizziness. No rashes. No cough. Past medical history: 1. MS/Parkinson's disorder, has failed medications and currently isn't on anything 2. Neurogenic bladder secondary to 1. 3. Nephrolithiasis 4. Type 2 diabetes not on insulin 5. Peripheral neuropathy 6. Coronary artery disease status post previous stent and CABG 7. Hyperlipidemia 8. Hypertension 9. Peripheral vascular disease 10. Depression 11. Distant history of alcohol disuse syndrome 12. Dementia Allergies: Adhesive Past surgical history 1. Coronary artery stent 2. CABG 3. TNA 4. Knee surgery Family history: Dad had diabetes, Unknown medical history for mom, Brother with diabetes Health related behavior: No tobacco history Previous alcohol use but this is distant Social history: Patient is and lives with his and Raegan Cruz. He is 3 step sons 2 who live locally. 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 Patient History Medical History Alcohol abuse Balance problems (07/06/16) Benign prostatic hyperplasia (BPH) with urinary urge incontinence BPH w urinary obs/LUTS Cataracts, bilateral (2010) Coronary artery disease involving [place] coronary artery of [place] heart without angina pectoris (04/28/16) COVID-19 (~08/2022) Depression (2011) Dermatitis Diabetes Essential hypertension (04/28/16) Foot pain (2005) Hammertoes of both feet Hyperlipemia (Unknown) Incontinence without sensory awareness Kidney stones (2010) Knee pain (2005) Multiple sclerosis (~2014) Parkinson's disease (2014) Parkinsons disease Peripheral edema Peripheral neuropathy (2005) Peripheral vascular disease (09/27/17) Recurrent falls (07/06/16) Right leg pain Sciatica (2005) Type 2 diabetes mellitus without complication, without long-term current use of insulin (04/28/16) Type 2 diabetes with nephropathy Urge incontinence Urinary incontinence, mixed Venous insufficiency Surgical History History of coronary artery stent placement Hx of knee surgery (Unknown) Hx of lithotripsy (11/2015) S/P coronary artery stent placement (Unknown) S/P knee surgery S/P tonsillectomy and adenoidectomy Family & Social History Family History Father Diabetes mellitus Mother No problems noted. Brother Diabetes mellitus Social History: household members spouse Prior Living Arrangements House Safety & Behavioral: Feels Safe in Current Yes Environment Been Physically Hurt or No Threatened By a Person Tobacco & Substance use: Smoking Status Never smoker alcohol intake former alcohol intake frequency other Substance Use Type does not use Meds Home Medications and Allergies Home Medications Medication Instructions Recorded Confirmed Type aspirin 325 mg tablet 325 mg PO QDAY ##0 04/28/16 12/08/22 History metformin 500 mg tablet 500 mg PO BIDCC #180 tabs 11/14/21 12/08/22 Rx atorvastatin 10 mg tablet (Lipitor) 5 mg PO EVERY OTHER DAY #45 tabs 01/10/22 12/08/22 Rx Disabled Parking #1 ea 01/23/22 12/08/22 Rx donepezil 10 mg tablet 10 mg PO DAILY 01/23/22 12/08/22 History gabapentin 300 mg capsule 300 - 600 mg PO BID #540 caps 04/25/22 12/08/22 Rx melatonin 5 mg tablet 5 mg PO BEDTIME PRN Sleep 07/22/22 12/08/22 History sertraline 100 mg tablet 150 mg PO DAILY #135 tabs 11/02/22 12/08/22 Rx clopidogrel 75 mg tablet 75 mg PO QDAY #90 tabs 11/30/22 12/08/22 Rx Allergies Allergy/AdvReac Type Severity Reaction Status Date / Time adhesive [ADHESIVE] AdvReac Mild RASH Verified 11/27/22 09:25 Review of Systems Review of Systems Narrative: 12 point review of systems negative He is had a slight cough but no shortness of breath. No chest pain. Had no blood in his stools. He did have a little bit of constipation but was given s tool softeners his and now is not having any problems. Exam Vital Signs (past 8 hours): - 12/09/22 05:51 12/09/22 08:55 12/09/22 13:25 Temperature 97.2 F L 98.6 F 98.5 F Pulse Rate 77 75 77 Respiratory Rate 15 14 14 Blood Pressure 133/73 156/81 H 113/65 Pulse Oximetry 93 95 94 Oxygen Flow Rate 0 0 0 Oxygen Delivery Method Room Air Oxygen Flow Rate 0 Narrative Exam Narrative: Patient is afebrile today. Temperature was 101? in ER yesterday. Vital signs are stable. Patient is alert and oriented x3. He is able to give most history. He is a left-sided head tilt. He is a resting tremor left greater than right. HEENT is otherwise unremarkable other than slight decrease in expression Neck: Supple without adenopathy, thyromegaly, jugular venous distention or bruits Chest: Clear to auscultation without wheezes rhonchi or crackles Cor: Regular rate and rhythm with distant S1-S2 Abdomen: Positive bowel sounds, soft, nontender, nondistended, no hepatosplenomegaly Extremities: No edema, pulses intact Neurologic exam as above. No focal findings other than tremor consistent with Parkinson's Objective Labs 12/09/22 09:40 12/09/22 09:40 Labs: Laboratory Results - last 24 hr 12/08/22 12/08/22 12/08/22 18:10 18:10 18:10 WBC 19.4 H RBC 4.48 L Hgb 14.5 Hct 43.2 MCV 96.4 MCH 32.3 MCHC 33.5 RDW 13.9 Plt Count 196 Neut % (Auto) 91.7 H Lymph % (Auto) 1.9 L [place] % (Auto) 5.9 Eos % (Auto) 0.1 L Baso % (Auto) 0.4 Neut # (Auto) 06467 H Lymph # (Auto) 400 L [place] # (Auto) 1100 H Eos # (Auto) 0 Baso # (Auto) 100 PT 13.9 H INR 1.2 APTT 33 Sodium 136 L Potassium 3.9 Chloride 96 L Carbon Dioxide 28 BUN 18 Creatinine 0.81 Estimated GFR > 60 BUN/Creatinine Ratio 22.2 H Glucose 147 H Lactate Calcium 9.0 Total Bilirubin 1.3 AST 30 ALT 32 Alkaline Phosphatase 88 Total Protein 7.5 Albumin 4.5 Globulin 3.0 Albumin/Globulin Ratio 1.5 Lipase 28 Procalcitonin 0.30 Urine RBC Urine WBC Urine Bacteria Ur Culture Indicated? SARS-CoV-2 (PCR) Influenza A (RT-PCR) Influenza B (RT-PCR) RSV (PCR) 12/08/22 12/08/22 12/08/22 18:10 18:10 19:45 WBC RBC Hgb Hct MCV MCH MCHC RDW Plt Count Neut % (Auto) Lymph % (Auto) [place] % (Auto) Eos % (Auto) Baso % (Auto) Neut # (Auto) Lymph # (Auto) [place] # (Auto) Eos # (Auto) Baso # (Auto) PT INR APTT Sodium Potassium Chloride Carbon Dioxide BUN Creatinine Estimated GFR BUN/Creatinine Ratio Glucose Lactate 1.5 Calcium Total Bilirubin AST ALT Alkaline Phosphatase Total Protein Albumin Globulin Albumin/Globulin Ratio Lipase Procalcitonin Urine RBC Urine WBC Urine Bacteria Ur Culture Indicated? SARS-CoV-2 (PCR) Negative Negative Influenza A (RT-PCR) Flu a negative Influenza B (RT-PCR) Flu b negative RSV (PCR) Negative 12/08/22 12/09/22 12/09/22 20:35 09:40 09:40 WBC 20.0 H RBC 4.15 L Hgb 13.6 Hct 39.9 L MCV 96.3 MCH 32.8 MCHC 34.0 RDW 13.7 Plt Count 180 Neut % (Auto) 90.0 H Lymph % (Auto) 2.6 L [place] % (Auto) 6.9 Eos % (Auto) 0.0 L Baso % (Auto) 0.5 Neut # (Auto) 19823 H Lymph # (Auto) 500 L [place] # (Auto) 1400 H Eos # (Auto) 0 Baso # (Auto) 100 PT INR APTT Sodium 133 L Potassium 3.7 Chloride 98 Carbon Dioxide 24 BUN 16 Creatinine 0.72 Estimated GFR > 60 BUN/Creatinine Ratio 22.2 H Glucose 169 H Lactate Calcium 8.2 L Total Bilirubin 1.4 H AST 26 ALT 26 Alkaline Phosphatase 83 Total Protein 5.8 L Albumin 3.5 Globulin 2.3 Albumin/Globulin Ratio 1.5 Lipase Procalcitonin Urine RBC 0-1/hpf D Urine WBC 5-10/hpf H Urine Bacteria Occasional (0-1) Ur Culture Indicated? Specimen cultured SARS-CoV-2 (PCR) Influenza A (RT-PCR) Influenza B (RT-PCR) RSV (PCR) Assessment & Plan Assessment & Plan narrative: 77-year-old male with Parkinson's disorder and neurogenic bladder with a recent cystoscopy who presents to emergency department with progressive weakness, fever and leukocyte cyst with a initial heart rate of 90 which met criteria for non severe sepsis due to suspected urologic origin. Assessment 1. Sepsis secondary to suspected urinary tract infection inpatient with neurogenic bladder and indwelling catheter Plan: He received fluid resuscitation initially in the ER and his blood pressure has been stable. Urine and blood cultures are pending at this time. CT of the chest abdomen and pelvis does not show origin of infection. We will continue with ceftriaxone. Patient appears stable. Assessment 2. Nephrolithiasis. Stable patient does not appear to be having symptoms with this regard Plan: Will continue to monitor and he will have this followed up as outpatient. Assessment 3. Type 2 diabetes on outpatient metformin currently with sliding scale insulin. Plan: Will continue with sliding scale insulin and pending his condition will restart his metformin tomorrow. Assessment 4. Peripheral neuropathy Plan: Will continue outpatient gabapentin Assessment 5. Parkinson's syndrome with possible associated dementia Plan: Patient is on donepezil. We will restart this. He is not on any medications for his Parkinson's because he states that these have not been effective. He is weaker and I suspect this is related to infection. We will treat his infection and will consult PT and OT. Billing And Insurance Coordinator involved for possible placement pending how he does physically. Assessment 6. Depression Plan: Continue sertraline Assessment 7. Hyperlipidemia Plan: Continue on outpatient statin Assessment 8. History of coronary artery disease without any current symptoms Plan: Will follow Assessment 9. Peripheral edema without current symptoms Plan: Will follow Assessment 10. History of peripheral vascular disease on Plavix. He stopped the Plavix for anticipation of getting the indwelling catheter. We will go ahead and restart this. His code status is DNR. His had left at the time that I evaluated him. I attempted to call their home phone number but there was no answer. 65 minutes was spent with patient in discussion with physicians and nursing and patient, review of the chart, formulation of plan and documentation. Time Spent With Patient Critical Care time: I spent a total of [] minutes of critical care time on this patient's care today; this time is exclusive of procedural time. Quality VTE Deep Vein Thrombosis/Pulmonary Embolism Present on Admission: No
[2022-12-09] MEDS: ATORVASTATIN 20 MG TABLET 5 MG PO (20:40)
[2022-12-09] MEDS: cefTRIAXone 2,000 MG in SODIUM CHLORIDE 0.9% 100 ML 200 MG IV (20:43)
[2022-12-09] MEDS: SERTRALINE 50 MG TABLET 150 MG PO (20:44)
[2022-12-09] MEDS: DONEPEZIL 5 MG TABLET 10 MG PO (20:44)
[2022-12-09] MEDS: MELATONIN 3 MG TABLET 6 MG PO (20:44)
[2022-12-09] MEDS: GABAPENTIN 300 MG CAPSULE PO (20:45)
[2022-12-10] MEDS: SODIUM CHLORIDE 0.9% 1,000 ML 125 ML IV (01:46)
[2022-12-10 04:00] VITALS: BP 132/65; PULSE 62; RESP 18; TEMP 36.6; O2SAT 94
[2022-12-10 07:54] LABS: Add Manual Diff / Slide Review NO; Basophils Absolute Auto 100 /uL (0-100); Basophils Percent Auto 0.4 % (0-2); Eosinophils Absolute Auto 100 /uL (0-450); Eosinophils Percent Auto 0.4 % (2-4); Hematocrit 37.3 % (41-53); Hemoglobin 12.5 g/dL (13.5-17.5); Lymphocytes Absolute Auto 800 /uL (1100-4500); Lymphocytes Percent Auto 5.8 % (25-40); Mean Corpuscular HGB Conc 33.5 % (30-36); Mean Corpuscular Hemoglobin 32.5 PG (26-34); Mean Corpuscular Volume 96.9 fL (80-100); Monocytes Absolute Auto 1200 /uL (0-900); Neutrophils Absolute Auto 12400 /uL (1500-7000); Neutrophils Percent Auto 85.4 % (50-75); Platelet Count 171 X10^3/uL (150-400); Red Blood Cell Count 3.85 X10^6/uL (4.5-5.9); White Blood Cell Count 14.5 X10^3/uL (4.5-11.0)
[2022-12-10 08:00] VITALS: BP 115/56; PULSE 60; RESP 16; TEMP 36.4; O2SAT 94
[2022-12-10 08:05] LABS: BUN Creatinine Ratio 21.4 (6-22); Blood Urea Nitrogen 15 mg/dL (9-20); Calcium 7.8 mg/dL (8.4-10.2); Carbon Dioxide 26 mmol/L (22-32); Chloride 102 mmol/L (98-107); Estimated Glomerular Filt Rate > 60 mL/min (>60); Glucose 107 mg/dL (80-110); HEMOLYSIS < 15 (0-50); Potassium 3.7 mmol/L (3.4-5.1); Sodium 135 mmol/L (137-145)
[2022-12-10] MEDS: METFORMIN HCL 500 MG TABLET PO ×2 (09:06→17:10)
[2022-12-10] MEDS: GABAPENTIN 300 MG CAPSULE PO ×2 (09:06→20:54)
[2022-12-10] MEDS: CLOPIDOGREL 75 MG TABLET PO (09:06)
[2022-12-10] MEDS: ASPIRIN 325 MG TABLET PO (09:06)
--- NOTE | 2022-12-10 10:37 | PT.IIE ---
Current Diagnoses Sepsis, unspecified organism (12/08/22) Surgical History (Last Reviewed 12/08/22 @ 19:37 by Nathan Dixon DO) History of coronary artery stent placement Hx of knee surgery (Unknown) Hx of lithotripsy (11/2015) S/P coronary artery stent placement (Unknown) S/P knee surgery S/P tonsillectomy and adenoidectomy Medical History (Last Reviewed 12/09/22 @ 13:29 by Jennifer Sarabia MD) Alcohol abuse Balance problems (07/06/16) Benign prostatic hyperplasia (BPH) with urinary urge incontinence BPH w urinary obs/LUTS Cataracts, bilateral (2010) Coronary artery disease involving [place] coronary artery of [place] heart without angina pectoris (04/28/16) COVID-19 (~08/2022) Depression (2011) Dermatitis Diabetes Essential hypertension (04/28/16) Foot pain (2005) Hammertoes of both feet Hyperlipemia (Unknown) Incontinence without sensory awareness Kidney stones (2010) Knee pain (2005) Multiple sclerosis (~2014) Parkinson's disease (2014) Parkinsons disease Peripheral edema Peripheral neuropathy (2005) Peripheral vascular disease (09/27/17) Recurrent falls (07/06/16) Right leg pain Sciatica (2005) Type 2 diabetes mellitus without complication, without long-term current use of insulin (04/28/16) Type 2 diabetes with nephropathy Urge incontinence Urinary incontinence, mixed Venous insufficiency Physical Therapy Inpatient Evaluation/Re-Eval M1 PT/OT-IP Prior Functional Status Start: 12/10/22 10:21 Freq: Status: Active Protocol: Document 12/10/22 10:21 (Rec: 12/10/22 10:37 [id number]) Medical Review Prior Functional Status Medical History Reviewed Yes Communication Independent Mobility and Gait Uses 4WW for household ambulation Has a manual w/c for community mobility Has transfer pole to assist with bed mobility/transfers Activities of Daily Living and IADL's assist from for all self care ADLs and transfers intermittently. Prior Functional Level (Other details) reports she was providing more and more assist. Increased difficulty with retropulsion. Social History Household Members spouse Living Arrangements House Number of Floors (Floors) Two Floors Number of Stairs To Enter/Railing? 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 Resides in [place] with spouse M2 PT-IP Current Condition Start: 12/10/22 10:21 Freq: Status: Active Protocol: Document 12/10/22 10:21 BC (Rec: 12/10/22 10:37 [id number]) Physical Therapy Current Condition Current Condition Evaluation Date 12/10/22 Treatment Diagnosis Sepsis, difficulty with ambulation/transfers Onset Date 12/08/22 M3 PT-IP Subjective Start: 12/10/22 10:21 Freq: Status: Active Protocol: Document 12/10/22 10:21 BC (Rec: 12/10/22 10:37 [id number]) Subjective Physical Therapy Visit Type Type Initial Evaluation Visit Start Time 09:00 Visit Stop Time 09:45 Total Visit Minutes 41 Physical Therapy Visit Comments Patient Comments Pt agreeable to OOB attempts Patient Goals To go home vs SNF Therapy Pain Assessment Pain When Pain Assessed At Rest Pain Present Pain Present Pain Reported M4 PT-IP Mobility and Gait Start: 12/10/22 10:21 Freq: Status: Active Protocol: Document 12/10/22 10:21 BC (Rec: 12/10/22 10:37 [id number]) PT-Bed Mobility Assessment Rolling Level of Assist Moderate Assistance Supine to Sit Supine to Sit Moderate Assistance Sit to Supine Sit to Supine Moderate Assistance Scooting Scooting to Edge of Bed Minimal Assistance PT-Transfer Assessment Sit to and From Stand Sit to and from Stand Maximum Assistance,1 Person Assistance,Use of Upper Extremities Equipment Transfer Assistive Device Gait Belt,Front Wheeled Walker Transfers Transfer Destination Bedside Commode Transfer Technique Stand Step Pivot Transfer Ability Level of Assist Maximum Assistance,1 Person Assistance,Use of Upper Extremities Comments Mobility Comments Retropulsive upon standing. Transfer to sitting he struggles to engage hip flexion resulting in uncontrolled rigid descent. LUE resting tremor with rapid amplitude. Cervical dystonia into L sidebending and R rotation. Freezing of LE's during bed mobility. LLE ankle dystonia into pronation with abberent forces in WB/standing posture. Gait Assessment Gait Gait Assistance Required: Moderate Assistance,1 Person Assist Distance (Feet) 4 Assistive Devices Assistive Device Gait Belt,Front Wheeled Walker Gait Deviations General Gait Pattern Antalgic,Decreased Stride Length,Decreased Feet Clearance,Festinating,Flexed Trunk,Narrow Based Gait Factors Limiting Gait Function Factors Limiting Gait Function Abnormal Tonal Influences, Decreased Strength, Incoordination,Pain,Poor Balance Comments Gait Comments Gait is dominated by festinating pattern and LLE severe pronation at ankle Stair Climbing Assessment Comments Stair Climbing Comments Not applicable PT-Balance Assessment Sitting Balance and Reactions Static Sitting Balance Ability Fair Dynamic Sitting Balance Ability Fair Standing Balance and Reactions Static Standing Balance Ability Poor Dynamic Standing Balance Ability Poor Device Used FWW and max assist; cues to weight shift hip anteriorly assist with posture Comments Other Balance Tests/Deviations/Treatment Pt has impaired postural : control reflexes. Lacking ankle stragey. Very retropusive. Cues and max assist to regain anterior weight shift assists but after standing ~15 seconds retropulsion begins to dominate again. M5 PT-IP Objective Assessments Start: 12/10/22 10:21 Freq: Status: Active Protocol: Document 12/10/22 10:21 BC (Rec: 12/10/22 10:37 [id number]) Orientation Orientation/Cognition Level of Alertness Alert Orientation Name,Date,Year,Situation Language Function Ability No Deficits Noted Safety Awareness Understands Safety Issues Memory Description No Deficits Noted Gross Range of Motion Upper Extremity ROM Assessment Bilaterally Impaired Impairments Rigid tone BUE Lower Extremity ROM Assessment Bilaterally Impaired Impairments Rigid done BLE; 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 Muscle Tone Muscle Tone WNL Yes Comments Muscle Tone Comments Rigidity throughout trunk and extremities M6 PT-IP Treatment Start: 12/10/22 10:21 Freq: Status: Active Protocol: Document 12/10/22 10:21 BC (Rec: 12/10/22 10:37 [id number]) Physical Therapy Treatment Education Education Provided Safety Equipment Issued Equipment Type and Company Educated Pt and spouse ( arrived last several minutes of eval) regarding PT findings and recommendations. M7 PT-IP Assessment and Plan Start: 12/10/22 10:21 Freq: Status: Active Protocol: Document 12/10/22 10:21 BC (Rec: 12/10/22 10:37 BC [id number]) PT Summary Assessment and Plan Potential Rehabilitation Potential Good Status of Condition at Evaluation Evolving Summary Impairments Pain,ROM,Strength,Balance, Coordination,Tone,Bed Mobility ,Transfers,Gait,Activity Tolerance Progress Towards Goals Progressing Toward Goals Assessment Summary Pt admitted from home due to sepsis. He has a dx of movement disorder (PD vs MS). He sees neurology in [place]. Medications for PD has not assisted in the past and no longer takes. His PLOF is CGA to min A for transfers, ambulation and self care ADLs per Pt and his spouse. His CLOF is requiring mod to max A for bed mobility, sit to stand trials x6 reps and transfer to BSC. He was able to take several small steps once upright in standing but was limited by balance and fatigue. Pt was assisted back to bed. ACCIDENT EXAMINER present and assisted with hygiene care during BSC transfer. All needs in reach. Discussed with RN his movement disorder and affect on postural control ( retropulsion). Recommend 2 person assist to BSC only. Goals Bed Mobility Goal Contact Guard Assistance Transfer Goal Minimal Assistance,Front Wheeled Walker Gait Goal Minimal Assistance,Front Wheel Walker Gait Distance 50 Days to Meet Goals 5 Frequency of Treatment Frequency Of Treatment Once a Day Treatment Plan Physical Therapy Treatment Plan Bed Mobility Training,Transfer Training,Gait Training, Therapeutic Exercise,Balance Retraining,Discharge Planning, Neuromuscular Re-ed, Coordination Retraining Recommendations To Nursing Amount of Assist Needed 2 Person Assist Discharge Recommendations PT Discharge Recommendations SNF Rehab Transportation Needs at Discharge Wheelchair/Cabulance
--- NOTE | 2022-12-10 11:08 | PM.PN.1 ---
Subjective Subjective Interval history: Patient has had an unremarkable night. He is tolerating p.o. without difficulty and has had normal bowel movements. He is had no fever. His vital signs have been stable. is at bedside. They have questions about the Flores catheter at the suprapubic catheter and when that might happen. Patient is currently at least a 2 person assist. Needs to be up the stand and get a wheelchair for his to care for him. We discussed skilled care facility and he is agreeable. He is eating okay but has difficulty getting the food to his Mouth needs assistance with this. It is more difficult while He is in the hospital. He is not having any chest pain or shortness of breath. No longer having any fever or chills and overall is feeling better but still very weak. Metformin and Plavix have been started Otherwise 12 point review of systems is negative Exam Vital Signs (past 8 hours): - 12/10/22 04:00 12/10/22 08:00 Temperature 97.9 F 97.5 F L Pulse Rate 62 60 Respiratory Rate 18 16 Blood Pressure 132/65 115/56 L Pulse Oximetry 94 94 Oxygen Flow Rate 0 0 Oxygen Delivery Method Room Air Oxygen Flow Rate 0 Narrative Exam Narrative: Afebrile vital signs are stable Patient with leftward tilt of head otherwise HEENT unremarkable he is alert and oriented x3 Neck is supple without adenopathy Chest: Clear to auscultation without wheezes rhonchi or crackles Cor: Regular rate and rhythm without a murmur Abdomen positive bowel sounds, soft, nontender, nondistended Extremities no edema Neurologic exam Objective Labs 12/10/22 07:17 12/10/22 07:17 Labs: Laboratory Results - last 24 hr 12/10/22 12/10/22 07:17 07:17 WBC 14.5 H RBC 3.85 L Hgb 12.5 L Hct 37.3 L MCV 96.9 MCH 32.5 MCHC 33.5 RDW 14.0 Plt Count 171 Neut % (Auto) 85.4 H Lymph % (Auto) 5.8 L [place] % (Auto) 8.0 Eos % (Auto) 0.4 L Baso % (Auto) 0.4 Neut # (Auto) 26841 H Lymph # (Auto) 800 L [place] # (Auto) 1200 H Eos # (Auto) 100 Baso # (Auto) 100 Sodium 135 L Potassium 3.7 Chloride 102 Carbon Dioxide 26 BUN 15 Creatinine 0.70 Estimated GFR > 60 BUN/Creatinine Ratio 21.4 Glucose 107 Calcium 7.8 L [facility] History Alcohol abuse Balance problems (07/06/16) Benign prostatic hyperplasia (BPH) with urinary urge incontinence BPH w urinary obs/LUTS Cataracts, bilateral (2010) Coronary artery disease involving [place] coronary artery of [place] heart without angina pectoris (04/28/16) COVID-19 (~08/2022) Depression (2011) Dermatitis Diabetes Essential hypertension (04/28/16) Foot pain (2005) Hammertoes of both feet Hyperlipemia (Unknown) Incontinence without sensory awareness Kidney stones (2010) Knee pain (2005) Multiple sclerosis (~2014) Parkinson's disease (2014) Parkinsons disease Peripheral edema Peripheral neuropathy (2005) Peripheral vascular disease (09/27/17) Recurrent falls (07/06/16) Right leg pain Sciatica (2005) Type 2 diabetes mellitus without complication, without long-term current use of insulin (04/28/16) Type 2 diabetes with nephropathy Urge incontinence Urinary incontinence, mixed Venous insufficiency Surgical History History of coronary artery stent placement Hx of knee surgery (Unknown) Hx of lithotripsy (11/2015) S/P coronary artery stent placement (Unknown) S/P knee surgery S/P tonsillectomy and adenoidectomy Family History Father Diabetes mellitus Mother No problems noted. Brother Diabetes mellitus Social History household members: spouse Smoking Status: Never smoker alcohol intake: former Assessment & Plan Assessment & Plan narrative: Assessment & Plan narrative: 77-year-old male with Parkinson's disorder and neurogenic bladder with a recent cystoscopy who presents to emergency department with progressive weakness, fever and leukocyte cyst with a initial heart rate of 90 which met criteria for non severe sepsis due to suspected urologic origin. Assessment 1. Sepsis secondary to suspected urinary tract infection inpatient with neurogenic bladder and indwelling catheter Plan: He received fluid resuscitation initially in the ER and his blood pressure has been stable.? Urine and blood cultures are negative at this time.? CT of the chest abdomen and pelvis does not show origin of infection.? We will continue with ceftriaxone.? Patient is stable with normal blood pressures. His blood sugars have stabilized as well. His white blood cell count has decreased as well. Assessment 2. Nephrolithiasis.? Stable patient does not appear to be having symptoms with this regard Plan:? Will continue to monitor and he will have this followed up as outpatient. Assessment 3.? Type 2 diabetes on outpatient metformin currently with sliding scale insulin. Plan: Blood sugars have stabilized and kidney function is good and we will restart his metformin which was done this morning Assessment 4. Peripheral neuropathy Plan: Will continue outpatient gabapentin Assessment 5. 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 Patient is on donepezil.? We will restart this.? He is not on any medications for his Parkinson's because he states that these have not been effective.? He is weaker and I suspect this is related to infection.? We will treat his infection and will consult PT and OT.? Discussed with discharge planning and patient and his and they understand that he will need skilled care facility. He is reluctant but willing. Assessment 6. Depression Plan: Continue sertraline Assessment 7.? Hyperlipidemia Plan: Continue on outpatient statin Assessment 8. History of coronary artery disease without any current symptoms Plan: Will follow Assessment 9. Peripheral edema without current symptoms Plan: Will follow Assessment 10. History of peripheral vascular disease on Plavix.? He stopped the Plavix for anticipation of getting the indwelling catheter.? Plavix has been restarted. His code status is DNR. Time Spent With Patient Critical Care time: I spent a total of [] minutes of critical care time on this patient's care today; this time is exclusive of procedural time. Quality VTE Deep Vein Thrombosis/Pulmonary Embolism Present on Admission: No
--- NOTE | 2022-12-10 11:56 | CM.DANOTE ---
Patient is a 77 yo male who was admitted on 12/08/22 for Fever/Weakness. Pt has MCR for insurance and his PCP is Dr. Mitch Maldonado. EMR was reviewed. Per MD, pt with increased weakness over the past daysand history of HTN, hyperlipidemia, and Parkinsons. Per PT, recommending SNF as pt below baseline and currently 2PA. Met bedside with pt and spouse and explained role and confirmed that pt resides with spouse, he is alert and oriented. He is mostly in his electric recliner at home, has a walker, but limited mobility. Asked spouse if she assists him with showers, stated, she has been, he has a shower bench, but has been getting more difficult. Pt confirms he was able to ambulate with walker with PT and staff but that he is requiring more assist now. Spouse states the past couple weeks have been marginal with assisting him at home. They deny any current PP CG in the home or other supportive services in place. Spouse and pt state pt was just approved for [facility] with the [facility] and are established at the [facility] and have spoken with [place] SW in [place] and left her a msg on Sunday regarding pt's needs. SW encouraged spouse to call [facility] SW again tomorrow Sun to request assist with getting in-home caregivers/DME and spouse already planning to f/u with [facility] sunday. Pt was last admitted in Jul 2022 last year and discharged to [facility] and was there a couple months but state pt was a lot sicker at his last admission than now. Pt then discharged from SNF to home with spouse and they had HH and felt it was helpful. Both agree though that SNF likely needed. SW provided SNF Choice list via Ipad and paper and they would prefer to try another SNF as they felt the PT/OT was great at [facility] but seemed short staff with nursing staff. SNF preference currently is [facility] and [facility]. PASRR done in anticipation of SNF. Plan: SW to follow closely for [facility] and [facility] review to determine if either can accept and pt would meet Medicare criteria for SNF by tomorrow Mon 12/11 but unclear if pt will be medically stable yet by tomorrow. JAMIE Mcintosh Discharge Planning/Care Management CM Discharge Assessment Start: 12/10/22 11:53 Freq: Status: Active Protocol: Document 12/10/22 11:53 BF (Rec: 12/10/22 11:56 BF [id number]) Discharge Planning Assessment Assigned Commercial Sales Specialist JAMIE Smalls DPGRAZYNA/Assigned Designee Name spouse Liza Reyes Contact Information [phone] Advance Directives? Yes Advance Directives on File Yes History Provided By Patient,Significant Other, Medical Record Has Patient been admitted in last 30 No days? Comment last admission in Jul 2022 last year and went to [facility] Prior Living Arrangements House Household Members spouse Type of transporation used prior to Relies on Others admit Independent with ADL's No: spouse assists Is patient alert and oriented? Yes Needs Assistance With Bathing,Meal Prep,Managing Medications,Home Chores / Shopping Caregiver for Another No DME Already Rented / Owned Bath Bench,FWW / Walker Patient/Family Preference Shelter Facility Barriers to Discharge No Discharge Plan Shelter Facility Transportation Arrangement Facility van Referrals Initiated Shelter Additional Comment [facility] and [facility] referrals made If patient plan is SNF: Has PASSR been Yes completed? Medicare Choice List Provided Yes Medicare choice list reviewed on patient,family electronic tablet with SNF/HH Preference [facility] and [facility] Has Agency SNF been contacted Yes Whiteboard Updated in Patient Room with Yes name and ext. # of Commercial Sales Specialist Review Status In Process Please Provide Date Initial DC 12/10/22 Assessment Was Performed Next Review Type Continued Stay Review
[2022-12-10 12:00] VITALS: BP 104/54; PULSE 62; RESP 16; TEMP 36.4; O2SAT 95
[2022-12-10 20:00] VITALS: BP 122/68; PULSE 60; RESP 15; TEMP 36.6; O2SAT 96
[2022-12-10] MEDS: SERTRALINE 50 MG TABLET 150 MG PO (20:54)
[2022-12-10] MEDS: MELATONIN 3 MG TABLET 6 MG PO (20:54)
[2022-12-10] MEDS: cefTRIAXone 2,000 MG in SODIUM CHLORIDE 0.9% 100 ML 200 MG IV (20:56)
[2022-12-10] MEDS: DONEPEZIL 5 MG TABLET 10 MG PO (20:56)
[2022-12-11] VITALS (7 sets, daily range): BP systolic 116–145; BP diastolic 62–82; PULSE 56–63; RESP 15–19; TEMP 36.1–36.3; O2SAT 94–98
[2022-12-11 06:53] LABS: Add Manual Diff / Slide Review NO; Basophils Absolute Auto 0 /uL (0-100); Basophils Percent Auto 0.4 % (0-2); Eosinophils Absolute Auto 300 /uL (0-450); Eosinophils Percent Auto 2.9 % (2-4); Hematocrit 38.2 % (41-53); Hemoglobin 12.6 g/dL (13.5-17.5); Lymphocytes Absolute Auto 900 /uL (1100-4500); Mean Corpuscular HGB Conc 32.9 % (30-36); Mean Corpuscular Hemoglobin 31.9 PG (26-34); Monocytes Absolute Auto 700 /uL (0-900); Monocytes Percent Auto 7.3 % (3-14); Neutrophils Absolute Auto 7900 /uL (1500-7000); Neutrophils Percent Auto 80.4 % (50-75); Platelet Count 197 X10^3/uL (150-400); Red Blood Cell Count 3.94 X10^6/uL (4.5-5.9); Red Cell Distribution Width 13.9 % (11.6-14.8); White Blood Cell Count 9.9 X10^3/uL (4.5-11.0)
[2022-12-11 07:01] LABS: BUN Creatinine Ratio 23.7 (6-22); Blood Urea Nitrogen 18 mg/dL (9-20); Calcium 8.2 mg/dL (8.4-10.2); Carbon Dioxide 28 mmol/L (22-32); Chloride 102 mmol/L (98-107); Estimated Glomerular Filt Rate > 60 mL/min (>60); Glucose 110 mg/dL (80-110); HEMOLYSIS < 15 (0-50); Potassium 3.7 mmol/L (3.4-5.1); Sodium 136 mmol/L (137-145)
--- NOTE | 2022-12-11 07:39 | P.PN_ITS ---
Subjective Subjective Date Patient Seen: 12/11/22 Time Patient Seen: 07:40 Interval history: Discussed patient's presentation and hospital course with Dr. Sarabia who admitted him on Sunday night Patient basically with sepsis from a urinary tract source. Thus far cultures are unfortunately not growing anything either blood cultures or urine culture. Patient has been afebrile and as of this morning his leukocytosis has resolved Patient has been afebrile since night of admission. Vital signs are stable Continues to be quite weak felt to need fdc placement by Physical therapy when seen yesterday Plan had been to have a suprapubic catheter placed for his neurogenic bladder which was placed on hold because of infection that occurred after his cystoscopy. Apparently culture was quite positive at [facility] although we do not have those results at the moment. He did have a catheter changed on the urology office just prior to his becoming ill, as well. Exam Vital Signs (past 8 hours): - 12/11/22 00:00 12/11/22 03:53 Temperature 97.4 F L 97.4 F L Pulse Rate 61 60 Respiratory Rate 15 Blood Pressure 116/62 121/75 Pulse Oximetry 94 98 Oxygen Flow Rate 0 0 Oxygen Delivery Method Room Air Oxygen Flow Rate 0 Objective Labs 12/11/22 06:32 12/11/22 06:32 Labs: Laboratory Results - last 24 hr 12/10/22 12/10/22 12/11/22 07:17 07:17 06:32 WBC 14.5 H 9.9 RBC 3.85 L 3.94 L Hgb 12.5 L 12.6 L Hct 37.3 L 38.2 L MCV 96.9 97.0 MCH 32.5 31.9 MCHC 33.5 32.9 RDW 14.0 13.9 Plt Count 171 197 Neut % (Auto) 85.4 H 80.4 H Lymph % (Auto) 5.8 L 9.0 L [place] % (Auto) 8.0 7.3 Eos % (Auto) 0.4 L 2.9 Baso % (Auto) 0.4 0.4 Neut # (Auto) 16653 H 7900 H Lymph # (Auto) 800 L 900 L [place] # (Auto) 1200 H 700 Eos # (Auto) 100 300 Baso # (Auto) 100 0 Sodium 135 L Potassium 3.7 Chloride 102 Carbon Dioxide 26 BUN 15 Creatinine 0.70 Estimated GFR > 60 BUN/Creatinine Ratio 21.4 Glucose 107 Calcium 7.8 L 12/11/22 06:32 WBC RBC Hgb Hct MCV MCH MCHC RDW Plt Count Neut % (Auto) Lymph % (Auto) [place] % (Auto) Eos % (Auto) Baso % (Auto) Neut # (Auto) Lymph # (Auto) [place] # (Auto) Eos # (Auto) Baso # (Auto) Sodium 136 L Potassium 3.7 Chloride 102 Carbon Dioxide 28 BUN 18 Creatinine 0.76 Estimated GFR > 60 BUN/Creatinine Ratio 23.7 H Glucose 110 Calcium 8.2 L [facility] Medical History Alcohol abuse Balance problems (07/06/16) Benign prostatic hyperplasia (BPH) with urinary urge incontinence BPH w urinary obs/LUTS Cataracts, bilateral (2010) Coronary artery disease involving [place] coronary artery of [place] heart without angina pectoris (04/28/16) COVID-19 (~08/2022) Depression (2011) Dermatitis Diabetes Essential hypertension (04/28/16) Foot pain (2005) Hammertoes of both feet Hyperlipemia (Unknown) Incontinence without sensory awareness Kidney stones (2010) Knee pain (2005) Multiple sclerosis (~2014) Parkinson's disease (2014) Parkinsons disease Peripheral edema Peripheral neuropathy (2005) Peripheral vascular disease (09/27/17) Recurrent falls (07/06/16) Right leg pain Sciatica (2005) Type 2 diabetes mellitus without complication, without long-term current use of insulin (04/28/16) Type 2 diabetes with nephropathy Urge incontinence Urinary incontinence, mixed Venous insufficiency Surgical History History of coronary artery stent placement Hx of knee surgery (Unknown) Hx of lithotripsy (11/2015) S/P coronary artery stent placement (Unknown) S/P knee surgery S/P tonsillectomy and adenoidectomy Family History Father Diabetes mellitus Mother No problems noted. Brother Diabetes mellitus Social History household members: spouse Smoking Status: Never smoker alcohol intake: former Assessment & Plan Assessment & Plan narrative: 1. Sepsis from urinary tract source-patient appears to have cleared his sepsis. He is hemodynamically stable afebrile etcetera. Unfortunately cultures not going to be helpful as they are all negative thus far. Patient has grown some resistant species over the last several months. He is currently on ceftriaxone. When felt to be medically stable can probably try switching him to an oral fluoroquinolone which would match some of the sensitivities and resistance seen on previous organisms (Enterobacter specifically). Will also obtain culture results from [facility] see if that can be helpful or not. 2. Type 2 diabetes-blood sugars very well controlled not an active issue at this time. Continue usual medications and carb consistent diet etcetera 3. Neuro-Parkinson's disease plus-minus multiple sclerosis or whatever chronic neurologic process that is ill-defined is ongoing. Probably more like Parkinson's anything else. Continue usual medications. Obviously is going to need skilled therapies here. Last time any sort of illness he was quite weak and require fdc placement for quite some time. Hopefully we can get him improved faster than that this time but we will see. 4. Depression-continue sertraline 5. Hypertension and coronary disease-continue patient's usual medications Quality VTE Deep Vein Thrombosis/Pulmonary Embolism Present on Admission: No
[2022-12-11] MEDS: CLOPIDOGREL 75 MG TABLET PO (08:56)
[2022-12-11] MEDS: METFORMIN HCL 500 MG TABLET PO (08:56)
[2022-12-11] MEDS: ASPIRIN 325 MG TABLET PO (08:56)
[2022-12-11] MEDS: GABAPENTIN 300 MG CAPSULE PO ×2 (08:56→20:33)
--- NOTE | 2022-12-11 12:49 | OT.IP.EVAL ---
Current Diagnoses Sepsis, unspecified organism (12/08/22) Past Medical History (Last Reviewed 12/09/22 @ 13:29 by Jennifer Sarabia MD) Alcohol abuse Balance problems (07/06/16) Benign prostatic hyperplasia (BPH) with urinary urge incontinence BPH w urinary obs/LUTS Cataracts, bilateral (2010) Coronary artery disease involving [place] coronary artery of [place] heart without angina pectoris (04/28/16) COVID-19 (~08/2022) Depression (2011) Dermatitis Diabetes Essential hypertension (04/28/16) Foot pain (2005) Hammertoes of both feet Hyperlipemia (Unknown) Incontinence without sensory awareness Kidney stones (2010) Knee pain (2005) Multiple sclerosis (~2014) Parkinson's disease (2014) Parkinsons disease Peripheral edema Peripheral neuropathy (2005) Peripheral vascular disease (09/27/17) Recurrent falls (07/06/16) Right leg pain Sciatica (2005) Type 2 diabetes mellitus without complication, without long-term current use of insulin (04/28/16) Type 2 diabetes with nephropathy Urge incontinence Urinary incontinence, mixed Venous insufficiency Surgical History (Last Reviewed 12/08/22 @ 19:37 by Nathan Dixon DO) History of coronary artery stent placement Hx of knee surgery (Unknown) Hx of lithotripsy (11/2015) S/P coronary artery stent placement (Unknown) S/P knee surgery S/P tonsillectomy and adenoidectomy Occupational Therapy Inpatient Evaluation/Re-Eval M1 PT/OT-IP Prior Functional Status Start: 12/10/22 10:21 Freq: Status: Active Protocol: Document 12/10/22 10:21 (Rec: 12/10/22 10:37 [id number]) Medical Review Prior Functional Status Medical History Reviewed Yes Communication Independent Mobility and Gait Uses 4WW for household ambulation Has a manual w/c for community mobility Has transfer pole to assist with bed mobility/transfers Activities of Daily Living and IADL's assist from for all self care ADLs and transfers intermittently. Prior Functional Level (Other details) reports she was providing more and more assist. Increased difficulty with retropulsion. Social History Household Members spouse Living Arrangements House Number of Floors (Floors) Two Floors Number of Stairs To Enter/Railing? 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 Resides in [place] with spouse M1 PT/OT-IP Prior Functional Status Start: 12/11/22 14:05 Freq: NEEDED Status: Active Protocol: Document 12/11/22 12:49 [facility] (Rec: 12/11/22 15:12 [facility] [id number]) Medical Review Prior Functional Status Medical History Reviewed Yes Communication Independent Mobility and Gait Uses 4WW for household ambulation Has a manual w/c for community mobility Has transfer pole to assist with bed mobility/transfers Activities of Daily Living and IADL's assist from for all self care ADLs and transfers intermittently. Prior Functional Level (Other details) reports she was providing more and more assist. Increased difficulty with retropulsion. Social History Household Members spouse Living Arrangements House M2 OT-IP Current Condition Start: 12/11/22 14:05 Freq: Status: Active Protocol: Document 12/11/22 12:49 [facility] (Rec: 12/11/22 15:12 [facility] [id number]) Occupational Therapy Current Condition Current Condition Evaluation Date 12/11/22 Treatment Diagnosis weakness/sepsis M3 OT- IP Subjective and Pain Start: 12/11/22 14:05 Freq: Status: Active Protocol: Document 12/11/22 12:49 [facility] (Rec: 12/11/22 15:12 [facility] [id number]) OT- Subjective Occupational Therapy Visit Type Type Initial Evaluation Visit Start Time 12:49 Visit Stop Time 13:28 Total Visit Minutes 39 Occupational Therapy Visit Comments Patient Comments Pt agreed to use the BSC. Patient/Caregiver Goals TO get better. OT Pain Assessment Pain When Pain Assessed At Rest Pain Present Pain Present Pain Reported M4 OT- IP ADL's Start: 12/11/22 14:05 Freq: Status: Active Protocol: Document 12/11/22 12:49 [facility] (Rec: 12/11/22 15:12 [facility] [id number]) OT [id number] Comments OT Self-Feeding Comments NOt at meal time. OT ADL-Grooming General Evaluation Grooming Ability Independent Areas Needing Assistance Retrieving/Set-up of Grooming Items Comments OT Grooming Comments while seated OT ADL-Oral Care General Eval Oral Care Ability Independent Areas of Assistance Retrieving/Set-Up of Items Comments Oral Care Comments while seated OT ADL-Dressing General Eval Lower Body Dressing Ability Maximum Assistance Areas Needing Assistance Underpants/Brief,Socks Comments OT Dressing Comments Assist for socks and brief OT ADL-Toileting General Evaluation Toileting Ability Maximum Assistance Areas Needing Assistance Manage Clothing,Perform Perineal Hygiene Comments OT Toileting Comments Assist for brief and hygiene needs by nursing while therapist able to stand pt with FWW and MAX AX 1. OT ADL-Bathing Comments OT Bathing Comments Sponge bath more appropriate at this time M5 OT- IP IADL's Start: 12/11/22 14:05 Freq: Status: Active Protocol: Document 12/11/22 12:49 [facility] (Rec: 12/11/22 15:12 [facility] [id number]) OT-Instrumental Activities of Daily Living Deficits IADL Deficits Identified Deficits Medication Management Medication Management Caregiver Administers Money Management Money Management Caregiver Provides Assistance Meal Preparation Meal Preparation Caregiver Provides Assist Media Assistant Media Assistant Caregiver Provides Assist Driving Driving Caregiver Provides Assist M6 OT- IP Functional Cognition Start: 12/11/22 14:05 Freq: Status: Active Protocol: Document 12/11/22 12:49 [facility] (Rec: 12/11/22 15:12 [facility] [id number]) Cognitive Factors Limiting Selfcare Function Cognitive Ability Level of Alertness Alert Patient Orientation Name,Place,Situation Attention Span Ability Capable of Focused Attention, Capable of Sustained Attention Ability to Follow Commands Able to Follow One Step Commands Cognitive Comments Cognitive Assessment Comments Pt able to follow commands for ADl and mobility needs. M7 OT- IP Mobility and Balance Start: 12/11/22 14:05 Freq: Status: Active Protocol: Document 12/11/22 12:49 [facility] (Rec: 12/11/22 15:12 [facility] [id number]) OT- Bed Mobility Assessment Supine to Sit Supine to Sit Assist Maximum Assistance,1 Person Assistance OT-Transfer Assessment Sit to and From Stand Sit to and from Stand Maximum Assistance,1 Person Assistance Transfers Transfer Ability Moderate Assistance,2 Person Assistance Technique Transfer Destination Bed,Bedside Commode,Chair Transfer Technique Stand Step Pivot Devices Transfer Assistive Devices Gait Belt,Front Wheeled Walker Comments Mobility Comments Pt MAX AX to get his trunk upright. MAX AX 1 to stand to FWW and MODA X 2 to transfer to the recliner. Pt tends to walk in his toes. OT- Balance Assessment Sitting Balance and Reactions Static Sitting Balance Ability Fair Dynamic Sitting Balance Ability Poor Standing Balance and Reactions Static Standing Balance Ability Poor Dynamic Standing Balance Ability Poor Comments Other Balance Tests/Deviations/Treatment Pt tends to lean left with : right rotation of his trunk. M8 OT- IP Objective Assessments Start: 12/11/22 14:05 Freq: Status: Active Protocol: Document 12/11/22 12:49 [facility] (Rec: 12/11/22 15:12 [facility] [id number]) OT Gross Range of Motion Upper Extremity Range of Motion ROM Impairments Limited due to flexed trunk at end ROM OT Strength Comments Strength Comments 4/5 throughout M9 OT- IP Assessment and Plan Start: 12/11/22 14:05 Freq: Status: Active Protocol: Document 12/11/22 12:49 [facility] (Rec: 12/11/22 15:12 [facility] [id number]) OT Summary Assessment and Plan Potential Rehabilitation Potential Good Analytic Complexity at Evaluation Moderate Summary OT Impairments Pain,Range of Motion,Strength, Balance,Functional Mobility, Dressing,Toileting,Bathing, Toilet Transfers,Shower Transfers,Activity Tolerance Progress Towards Goals Slow Progress due to Pain,Slow Progress due to Medical Issues,Slow Progress due to Activity Tolerance Assessment Summary Pt MOD complexity and main barriers are pain,decreased balance and activity tolerance and now needing 1-2 person assist for transfer and ADl needs. Prior pt's able to assist with MODA for ADL's and CGA /[place] for transfers- pt will greatly benefit from skilled rehab prior to going home. Goals Dressing Goal Moderate Assistance Toileting Goal Moderate Assistance Bathing Goal Moderate Assistance Toilet Transfer Goal Contact Guard Assistance Shower Transfer Goal Minimal Assistance Days to Meet Goals 20 Frequency of Treatment Frequency Of Treatment Once a Day Treatment Plan OT Treatment Plan ADL Training,Functional Mobility,Patient/Family Education,Discharge Planning Other Treatment Recommendations and Next Transfer to [facility] with MOD/MAXAX Treatment Focus 1 with fww. Discharge Recommendations OT Discharge Recommendations SNF Rehab Transportation Needs at Discharge Wheelchair/Cabulance
[2022-12-11] MEDS: ACETAMINOPHEN 325 MG TABLET 650 MG PO (13:37)
[2022-12-11] MEDS: MELATONIN 3 MG TABLET 6 MG PO (20:33)
[2022-12-11] MEDS: DOCUSATE 100 MG CAPSULE PO (20:33)
[2022-12-11] MEDS: cefTRIAXone 2,000 MG in SODIUM CHLORIDE 0.9% 100 ML 200 MG IV (20:33)
[2022-12-11] MEDS: SERTRALINE 50 MG TABLET 150 MG PO (20:34)
[2022-12-11] MEDS: ATORVASTATIN 20 MG TABLET 5 MG PO (20:36)
[2022-12-11] MEDS: DONEPEZIL 5 MG TABLET 10 MG PO (20:37)
[2022-12-12 03:51] VITALS: BP 145/72; PULSE 59; RESP 17; TEMP 36.8; O2SAT 94
--- NOTE | 2022-12-12 07:34 | P.PN_ITS ---
Subjective Subjective Date Patient Seen: 12/12/22 Time Patient Seen: 07:35 Interval history: Patient remains hemodynamically stable. Pretty uneventful day yesterday. No growth on cultures. Culture obtained from [facility] also showed only mixed nacho with no specific organism No physical therapy notes are available from yesterday Exam Vital Signs (past 8 hours): - 12/11/22 23:57 12/12/22 03:51 Temperature 97.0 F L 98.3 F Pulse Rate 59 L 59 L Respiratory Rate 19 17 Blood Pressure 145/82 H 145/72 H Pulse Oximetry 96 94 Oxygen Flow Rate 0 0 Oxygen Delivery Method Room Air Oxygen Flow Rate 0 Objective Labs 12/11/22 06:32 12/11/22 06:32 [facility] Medical History Alcohol abuse Balance problems (07/06/16) Benign prostatic hyperplasia (BPH) with urinary urge incontinence BPH w urinary obs/LUTS Cataracts, bilateral (2010) Coronary artery disease involving [place] coronary artery of [place] heart without angina pectoris (04/28/16) COVID-19 (~08/2022) Depression (2011) Dermatitis Diabetes Essential hypertension (04/28/16) Foot pain (2005) Hammertoes of both feet Hyperlipemia (Unknown) Incontinence without sensory awareness Kidney stones (2010) Knee pain (2005) Multiple sclerosis (~2014) Parkinson's disease (2014) Parkinsons disease Peripheral edema Peripheral neuropathy (2005) Peripheral vascular disease (09/27/17) Recurrent falls (07/06/16) Right leg pain Sciatica (2005) Type 2 diabetes mellitus without complication, without long-term current use of insulin (04/28/16) Type 2 diabetes with nephropathy Urge incontinence Urinary incontinence, mixed Venous insufficiency Surgical History History of coronary artery stent placement Hx of knee surgery (Unknown) Hx of lithotripsy (11/2015) S/P coronary artery stent placement (Unknown) S/P knee surgery S/P tonsillectomy and adenoidectomy Family History Father Diabetes mellitus Mother No problems noted. Brother Diabetes mellitus Social History household members: spouse Smoking Status: Never smoker alcohol intake: former Assessment & Plan Assessment & Plan narrative: 1. Sepsis from urinary tract source-patient appears much improved. Unfortunately cultures are not going to be helpful in tailoring his antibiotic therapy. Continue with current parental antibiotics until just prior to discharge and then probably switch to an oral fluoroquinolone as discussed yesterday 2. Type 2 diabetes-blood sugars very well controlled not an active issue at this time. Continue usual medications and carb consistent diet etcetera. No changes for today 3. Neuro-Parkinson's disease plus-minus multiple sclerosis or whatever chronic neurologic process that is ill-defined is ongoing. Need to continue to have skilled therapies work with him. Probably going [facility] at [facility] 4. Depression-continue sertraline, no changes 5. Hypertension and coronary disease-continue patient's usual medications, no changes Quality VTE Deep Vein Thrombosis/Pulmonary Embolism Present on Admission: No
[2022-12-12] MEDS: CLOPIDOGREL 75 MG TABLET PO (08:20)
[2022-12-12] MEDS: ASPIRIN 325 MG TABLET PO (08:20)
[2022-12-12] MEDS: GABAPENTIN 300 MG CAPSULE PO ×2 (08:20→20:56)
[2022-12-12] MEDS: ACETAMINOPHEN 325 MG TABLET 650 MG PO ×3 (08:20→20:54)
[2022-12-12] MEDS: METFORMIN HCL 500 MG TABLET PO ×2 (08:20→16:59)
[2022-12-12 09:40] VITALS: BP 105/59; PULSE 61; RESP 18; TEMP 36.6; O2SAT 95
--- NOTE | 2022-12-12 11:37 | PT.IPTN ---
Current Diagnoses Sepsis, unspecified organism (12/08/22) Physical Therapy Treatment Note M2 PT-IP Current Condition Start: 12/10/22 10:21 Freq: Status: Active Protocol: Document 12/10/22 10:21 [facility] (Rec: 12/10/22 10:37 [facility] [id number]) Physical Therapy Current Condition Current Condition Evaluation Date 12/10/22 Treatment Diagnosis Sepsis, difficulty with ambulation/transfers Onset Date 12/08/22 M3 PT-IP Subjective Start: 12/10/22 10:21 Freq: Status: Active Protocol: Document 12/12/22 11:20 LJ (Rec: 12/12/22 11:37 LJ [id number]) Subjective Physical Therapy Visit Type Type Treatment Note Visit Start Time 10:20 Visit Stop Time 10:48 Total Visit Minutes 28 Number of ENTRY LEVEL MANUFACTURING ENGINEER Visits 1 Physical Therapy Visit Comments Patient Comments Pt agreeable to OOB attempts Patient Goals To go home vs SNF. in room with pt encouraging him to go to SNF M4 PT-IP Mobility and Gait Start: 12/10/22 10:21 Freq: Status: Active Protocol: Document 12/12/22 11:20 LJ (Rec: 12/12/22 11:37 LJ [id number]) PT-Bed Mobility Assessment Rolling Level of Assist Standby Assistance Supine to Sit Supine to Sit Standby Assistance,Head of Bed Elevated,Bedrails Sit to Supine Sit to Supine Contact Guard Assistance,Head of Bed Elevated,Bedrails Scooting Scooting to Edge of Bed Contact Guard Assistance Scooting Up and Down in Bed Standby Assistance PT-Transfer Assessment Sit to and From Stand Sit to and from Stand Contact Guard Assistance,1 Person Assistance,Use of Upper Extremities Transfers Transfer Destination Bed Transfer Technique ambulated Transfer Ability Level of Assist Contact Guard Assistance,1 Person Assistance,Use of Upper Extremities Comments Mobility Comments Pt requiring SBA-CGA bed mobility and sit<>stand. Able to lift LEs off and back onto bed SBA. Able to bridge to position in middle of bed. No retropulsion upon standing. Pt ambulated slowly around foot of bed x2 CGA. Gait Assessment Gait Gait Assistance Required: Contact Guard Assist,1 Person Assist Distance (Feet) 50 Assistive Devices Assistive Device Gait Belt,Front Wheeled Walker Gait Deviations General Gait Pattern Antalgic,Decreased Stride Length,Decreased Feet Clearance,Festinating,Flexed Trunk,Narrow Based Gait Factors Limiting Gait Function Factors Limiting Gait Function Abnormal Tonal Influences, Decreased Strength, Incoordination,Pain,Poor Balance Comments Gait Comments Gait improved and progressed. Required lower level of assist and increased distance. Festinating and LLE severe pronation at ankle. PT-Balance Assessment Sitting Balance and Reactions Static Sitting Balance Ability Fair Dynamic Sitting Balance Ability Poor Standing Balance and Reactions Static Standing Balance Ability Fair Dynamic Standing Balance Ability Fair Device Used FWW Comments Other Balance Tests/Deviations/Treatment Pt improved with core : stability. No retropulsion. 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 Muscle Tone Muscle Tone WNL Yes Comments Muscle Tone Comments Rigidity throughout trunk and extremities M6 PT-IP Treatment Start: 12/10/22 10:21 Freq: Status: Active Protocol: Document 12/12/22 11:20 LJ (Rec: 12/12/22 11:37 [id number]) Physical Therapy Treatment Education Education Provided Safety M7 PT-IP Assessment and Plan Start: 12/10/22 10:21 Freq: Status: Active Protocol: Document 12/12/22 11:20 LJ (Rec: 12/12/22 11:37 LJ [id number]) PT Summary Assessment and Plan Potential Rehabilitation Potential Good Status of Condition at Evaluation Evolving Summary Impairments Pain,ROM,Strength,Balance, Coordination,Tone,Bed Mobility ,Transfers,Gait,Activity Tolerance Progress Towards Goals Progressing Toward Goals Assessment Summary Pt improved wtih mobility and gait. Would benefit SNF stay and PT BID to improve strength , mobility, stability, and gait for safe return home. Goals Bed Mobility Goal Contact Guard Assistance Transfer Goal Minimal Assistance,Front Wheeled Walker Gait Goal Minimal Assistance,Front Wheel Walker Gait Distance 50 Days to Meet Goals 5 Frequency of Treatment Frequency Of Treatment Once a Day Recommendations To Nursing Amount of Assist Needed 1 Person Assist Discharge Recommendations PT Discharge Recommendations SNF Rehab Transportation Needs at Discharge Wheelchair/Cabulance
--- NOTE | 2022-12-12 12:04 | OT.IP.TRT ---
Current Diagnoses Sepsis, unspecified organism (12/08/22) Occupational Therapy Treatment Note M2 OT-IP Current Condition Start: 12/11/22 14:05 Freq: Status: Active Protocol: Document 12/11/22 12:49 [facility] (Rec: 12/11/22 15:12 [facility] [id number]) Occupational Therapy Current Condition Current Condition Evaluation Date 12/11/22 Treatment Diagnosis weakness/sepsis M3 OT- IP Subjective and Pain Start: 12/11/22 14:05 Freq: Status: Active Protocol: Document 12/12/22 11:33 [facility] (Rec: 12/12/22 12:21 [facility] [id number]) OT- Subjective Occupational Therapy Visit Type Type Treatment Note Visit Start Time 11:33 Visit Stop Time 12:04 Total Visit Minutes 31 Occupational Therapy Visit Comments Patient Comments Pt agreed to stand to do grooming/oral care needs. Patient/Caregiver Goals To get better. OT Pain Assessment Pain When Pain Assessed At Rest Pain Present Pain Present Pain Reported M4 OT- IP ADL's Start: 12/11/22 14:05 Freq: Status: Active Protocol: Document 12/12/22 11:33 [facility] (Rec: 12/12/22 12:21 [facility] [id number]) OT [id number] Comments OT Self-Feeding Comments Not at meal time. OT ADL-Grooming General Evaluation Grooming Ability Standby Assistance Areas Needing Assistance Retrieving/Set-up of Grooming Items Comments OT Grooming Comments Able to do while standing with FWW. OT ADL-Oral Care General Eval Oral Care Ability Standby Assistance Areas of Assistance Retrieving/Set-Up of Items Comments Oral Care Comments Able to do while standing with FWW infront of him. OT ADL-Dressing General Eval Lower Body Dressing Ability Maximum Assistance Areas Needing Assistance Underpants/Brief,Socks OT ADL-Toileting General Evaluation Toileting Ability Maximum Assistance Areas Needing Assistance Manage Clothing,Perform Perineal Hygiene OT ADL-Bathing Comments OT Bathing Comments Not performed M5 OT- IP IADL's Start: 12/11/22 14:05 Freq: Status: Active Protocol: Document 12/11/22 12:49 [facility] (Rec: 12/11/22 15:12 [facility] [id number]) OT-Instrumental Activities of Daily Living Deficits IADL Deficits Identified Deficits Medication Management Medication Management Caregiver Administers Money Management Money Management Caregiver Provides Assistance Meal Preparation Meal Preparation Caregiver Provides Assist Soda Worker Soda Worker Caregiver Provides Assist Driving Driving Caregiver Provides Assist M6 OT- IP Functional Cognition Start: 12/11/22 14:05 Freq: Status: Active Protocol: Document 12/12/22 11:33 [facility] (Rec: 12/12/22 12:21 [facility] [id number]) Cognitive Factors Limiting Selfcare Function Cognitive Ability Level of Alertness Alert Patient Orientation Name,Place,Situation Attention Span Ability Capable of Focused Attention, Capable of Sustained Attention Ability to Follow Commands Able to Follow One Step Commands Cognitive Comments Cognitive Assessment Comments Pt able to follow commands for ADl and mobility needs. M7 OT- IP Mobility and Balance Start: 12/11/22 14:05 Freq: Status: Active Protocol: Document 12/12/22 11:33 [facility] (Rec: 12/12/22 12:21 [facility] [id number]) OT- Bed Mobility Assessment Supine to Sit Supine to Sit Assist Standby Assistance Sit to Supine Sit to Supine Assist Minimal Assistance OT-Transfer Assessment Sit to and From Stand Sit to and from Stand Minimal Assistance,Moderate Assistance,1 Person Assistance Comments Mobility Comments Much improved today and able to sit up with SBA with grab bar and [place] to help get his legs back into bed. [place] to MODA to stand to FWW. OT- Balance Assessment Sitting Balance and Reactions Static Sitting Balance Ability Good Dynamic Sitting Balance Ability Fair Standing Balance and Reactions Static Standing Balance Ability Fair Dynamic Standing Balance Ability Poor Comments Other Balance Tests/Deviations/Treatment Pt able to sit upright more to : midline today . M8 OT- IP Objective Assessments Start: 12/11/22 14:05 Freq: Status: Active Protocol: Document 12/11/22 12:49 [facility] (Rec: 12/11/22 15:12 [facility] [id number]) OT Gross Range of Motion Upper Extremity Range of Motion ROM Impairments Limited due to flexed trunk at end ROM OT Strength Comments Strength Comments 4/5 throughout M9 OT- IP Assessment and Plan Start: 12/11/22 14:05 Freq: Status: Active Protocol: Document 12/12/22 11:33 [facility] (Rec: 12/12/22 12:21 [facility] [id number]) OT Summary Assessment and Plan Potential Rehabilitation Potential Good Analytic Complexity at Evaluation Moderate Summary OT Impairments Pain,Range of Motion,Strength, Balance,Functional Mobility, Dressing,Toileting,Bathing, Toilet Transfers,Shower Transfers,Activity Tolerance Progress Towards Goals Progressing Toward Goals Assessment Summary Pt doing well today and now one person assist for mobility needs and able to do grooming /oral care need while standing with CGA for balance. Pt will greatly benefit from skilled rehab prior to going home. Goals Self-Feeding Goal Independent Grooming Goal Independent Dressing Goal Moderate Assistance Toileting Goal Moderate Assistance Bathing Goal Moderate Assistance Toilet Transfer Goal Standby Assistance Shower Transfer Goal Contact Guard Assistance Days to Meet Goals 15 Frequency of Treatment Frequency Of Treatment Once a Day Treatment Plan OT Treatment Plan ADL Training,Functional Mobility,Patient/Family Education,Discharge Planning Other Treatment Recommendations and Next shower Treatment Focus Discharge Recommendations OT Discharge Recommendations SNF Rehab Transportation Needs at Discharge Wheelchair/Cabulance
[2022-12-12 14:03] VITALS: BP 104/58; PULSE 58; RESP 18; TEMP 36.1; O2SAT 96
--- NOTE | 2022-12-12 16:41 | CM.DPC ---
DCP/continued: Patient accepted at [facility]. utility mechanic supervisor scheduled for 12-12-22 at 11:00AM. CM team to finalize plan. LALY
[2022-12-12 18:00] VITALS: BP 134/70; PULSE 59; RESP 18; TEMP 36.6; O2SAT 95
[2022-12-12 20:00] VITALS: BP 142/74; PULSE 57; RESP 18; TEMP 36.4; O2SAT 96
[2022-12-12] MEDS: DONEPEZIL 5 MG TABLET 10 MG PO (20:55)
[2022-12-12] MEDS: SERTRALINE 50 MG TABLET 150 MG PO (20:55)
[2022-12-12] MEDS: cefTRIAXone 2,000 MG in SODIUM CHLORIDE 0.9% 100 ML 200 MG IV (20:56)
[2022-12-12] MEDS: MELATONIN 3 MG TABLET 6 MG PO (20:56)
[2022-12-12] MEDS: LORazepam 0.5 MG TABLET PO (23:14)
[2022-12-13 02:15] VITALS: BP 143/76; PULSE 58; RESP 18; TEMP 36.3; O2SAT 95
[2022-12-13 05:35] VITALS: BP 141/74; PULSE 56; RESP 18; TEMP 36.4; O2SAT 93
--- NOTE | 2022-12-13 07:21 | PM.DS.1 ---
History of Present Illness History of Present Illness Date Patient Seen: 12/13/22 Time Patient Seen: 07:31 Chief complaint: Fever Narrative: This is a very pleasant 77-year-old male who is a patient of Dr. Maldonado.? 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 He has a neurogenic bladder secondary to this and has a indwelling catheter.? Apparently was seen by Urology at [facility] on 12/01/2022 and underwent a cystoscopy.? Patient was to have an indwelling catheter but apparently this appointment was changed because he was not feeling well..? He had evidence of nephrolithiasis and did not want to undergo invasive treatment but perhaps treatment when he had his suprapubic catheter replaced.? Patient started feeling incredibly weak over the last several days.? The patient developed progressive weakness over last 24-48 hours with associated rigors and chills and fever and presented to the emergency department.? He met criteria for sepsis based on a heart rate of 90.? He was fluid resuscitated and was given 2 g of IV ceftriaxone and was admitted to the hospital for further treatment.? {from Dr. Sarabia's H&P 12/09/22} Discharge Providers Provider Date of admission: 12/08/22 21:08 Discharge Date: 12/13/22 Primary care physician: Mitch Maldonado MD Consults: 12/09/22 14:51 Consult to Occupational Therapy Evaluate & Treat Comment: Physician Instructions: Evaluate and treat Consult to Physical Therapy Evaluate & Treat Comment: Physician Instructions: Evaluate and Treat Discharge provider: Mitch Maldonado MD Summary Hospital Course Discharge Diagnosis: 1. Complicated UTI with probable sepsis 2. Sepsis, resolved 3. Parkinson's disease 4. Multiple sclerosis or other chronic neurologic disease poorly characterized 5. Coronary artery disease, stable 6. Neurogenic bladder with chronic indwelling Flores catheter 7. Peripheral edema 8. Hyperlipidemia 9. Type 2 diabetes without long-term use of insulin Hospital Course: Patient was admitted via emergency department as above with some minimal evidence of sepsis. He responded nicely to appropriate interventions as noted. Unfortunately all urine and blood cultures were negative thus failing to provide guidance for specific antibiotic therapy. However patient previously had had resistant organisms in his urine. He has a chronic indwelling Flores catheter because of neurogenic bladder resulting in frequent infections. He was placed on broad-spectrum IV antibiotics with good improvement in overall clinical status. Upon discharge he will be switched to an oral fluoroquinolone which based on previously identified organisms would be inappropriate antibiotic that should cover organisms that have been identified in this individual previously. Patient with plans for suprapubic catheter placement by Urology when it more stable state Patient's other medical issues were really quite stable. He continued on his usual medications Patient was somewhat debilitated because of all of the above and was felt by skilled therapies to benefit from pen[facility]iary placement to rehabilitation prior to being able to return home. Patient was therefore discharged to [facility] rehab for continued therapies to regain his strength etcetera Status at Discharge Cognitive/behavioral status at discharge: at baseline, oriented Functional status at discharge: uses cane/walker Overall status at discharge: patient is progressing back to baseline Exam Vital Signs (past 8 hours): - 12/13/22 02:15 12/13/22 05:35 Temperature 97.3 F L 97.6 F Pulse Rate 58 L 56 L Respiratory Rate 18 18 Blood Pressure 143/76 H 141/74 H Pulse Oximetry 95 93 Oxygen Flow Rate 0 0 Oxygen Delivery Method Room Air Oxygen Flow Rate 0 Objective Labs 12/11/22 06:32 12/11/22 06:32 [facility] Medical History Alcohol abuse Balance problems (07/06/16) Benign prostatic hyperplasia (BPH) with urinary urge incontinence BPH w urinary obs/LUTS Cataracts, bilateral (2010) Coronary artery disease involving [place] coronary artery of [place] heart without angina pectoris (04/28/16) COVID-19 (~08/2022) Depression (2011) Dermatitis Diabetes Essential hypertension (04/28/16) Foot pain (2005) Hammertoes of both feet Hyperlipemia (Unknown) Incontinence without sensory awareness Kidney stones (2010) Knee pain (2005) Multiple sclerosis (~2014) Parkinson's disease (2014) Parkinsons disease Peripheral edema Peripheral neuropathy (2005) Peripheral vascular disease (09/27/17) Recurrent falls (07/06/16) Right leg pain Sciatica (2005) Type 2 diabetes mellitus without complication, without long-term current use of insulin (04/28/16) Type 2 diabetes with nephropathy Urge incontinence Urinary incontinence, mixed Venous insufficiency Surgical History History of coronary artery stent placement Hx of knee surgery (Unknown) Hx of lithotripsy (11/2015) S/P coronary artery stent placement (Unknown) S/P knee surgery S/P tonsillectomy and adenoidectomy Family History Father Diabetes mellitus Mother No problems noted. Brother Diabetes mellitus Social History household members: spouse Smoking Status: Never smoker alcohol intake: former Discharge Assessment & Plan Assessment and Plan Plan of Treatment: Patient to be discharged to [facility] for continued [facility]. Hopefully be able to return home within the next couple of weeks Patient will need 1 more week of oral antibiotic therapy to fully clear his UTI in my opinion Patient should continue all of his other usual medications Discharge Plan Discharge Plan Patient Disposition: SNF Transfer to: [facility] Consult as needed: Dental, Hearing, Mental health, Podiatry and Vision Discharge orders & Medications Prescriptions: New levofloxacin 750 mg tablet 750 mg PO DAILY Qty: 7 0RF Continued aspirin 325 MG tablet 325 mg PO QDAY Qty: 0 metformin 500 mg tablet 500 mg PO BIDCC Qty: 180 3RF atorvastatin [Lipitor] 10 mg tablet 5 mg PO EVERY OTHER DAY Qty: 45 1RF sertraline 100 mg tablet 150 mg PO DAILY Qty: 135 3RF clopidogrel 75 mg tablet 75 mg PO QDAY Qty: 90 3RF gabapentin 300 mg capsule 300 - 600 mg PO BID Qty: 540 3RF Rx Instructions: 1 in am (300mg) 2 at bedtime (600mg) donepezil 10 mg tablet 10 mg PO DAILY melatonin 5 mg Tablet 5 mg PO BEDTIME PRN (Reason: Sleep) No Action (DME) Disabled Parking See Rx Instructions .ROUTE .MEDSUPPLY Qty: 1 0RF Rx Instructions: Patient qualifies for disabled parking as per the attached form. Follow up/Referrals: Mitch Maldonado MD [Primary Care Provider] - Discharge Health Status Multidrug resistant organism: No MDRO Precautions: Calypso Diet/Activity/Treatments Diet: Diet as Tolerated Liquid consistency: Normal/Thin Food texture: Regular Catheter: 2-way Flores Skin/Wound/Dressing Care Report to your healthcare provider any signs of infection, such as:: chills, fever, night sweats and increased pain Special Rehabilitation Services Reason for rehabilitation: Recovery r/t decondition Rehab type: Physical therapy, Occupational therapy and Speech therapy Visit Report/Discharge Packet Stand Alone Forms: Patient Portal/API Discharge Data Primary Care Provider: Mitch Maldonado VTE Deep Vein Thrombosis/Pulmonary Embolism Present on Admission: No
[2022-12-13] MEDS: METFORMIN HCL 500 MG TABLET PO (08:10)
[2022-12-13] MEDS: GABAPENTIN 300 MG CAPSULE PO (08:10)
[2022-12-13] MEDS: CLOPIDOGREL 75 MG TABLET PO (08:10)
[2022-12-13] MEDS: ASPIRIN 325 MG TABLET PO (08:10)
[2022-12-13] MEDS: ACETAMINOPHEN 325 MG TABLET 650 MG PO (08:10)
[2022-12-13 09:43] LABS: COVID19 -Nasal RAPID Negative (Negative)
--- NOTE | 2022-12-13 10:52 | CM.DPC ---
DCP/continued: Reviewed chart. Patient medically stable for d/c today. [facility] has accepted. Patient scheduled to be picked up around noon. INFORMATION SYSTEMS PLANNER met with patient to confirm plan. Patient aware and agreeable and will notify his spouse. RN given number to call nursing report. No additional needs identified. EMPLOYMENT MANAGER/Laura to finalize d/c plan. P: [facility] today. LALY
--- NOTE | 2022-12-13 12:17 | PT.IPTN ---
Current Diagnoses Sepsis, unspecified organism (12/08/22) Physical Therapy Treatment Note M2 PT-IP Current Condition Start: 12/10/22 10:21 Freq: Status: Active Protocol: Document 12/10/22 10:21 BC (Rec: 12/10/22 10:37 BC [id number]) Physical Therapy Current Condition Current Condition Evaluation Date 12/10/22 Treatment Diagnosis Sepsis, difficulty with ambulation/transfers Onset Date 12/08/22 M3 PT-IP Subjective Start: 12/10/22 10:21 Freq: Status: Active Protocol: Document 12/13/22 11:59 LJ (Rec: 12/13/22 12:17 LJ [id number]) Subjective Physical Therapy Visit Type Type Treatment Note Visit Start Time 11:36 Visit Stop Time 11:55 Total Visit Minutes 21 Number of TRANSITION MANAGER Visits 2 Physical Therapy Visit Comments Patient Comments willing to work with PT prir to DC to SNF M4 PT-IP Mobility and Gait Start: 12/10/22 10:21 Freq: Status: Active Protocol: Document 12/13/22 11:59 LJ (Rec: 12/13/22 12:17 [id number]) PT-Bed Mobility Assessment Rolling Level of Assist Standby Assistance Supine to Sit Supine to Sit Contact Guard Assistance,Head of Bed Elevated,Bedrails Sit to Supine Sit to Supine Standby Assistance,1 Person Assistance,Head of Bed Elevated,Bedrails Scooting Scooting to Edge of Bed Standby Assistance Scooting Up and Down in Bed Standby Assistance PT-Transfer Assessment Sit to and From Stand Sit to and from Stand Contact Guard Assistance,1 Person Assistance,Use of Upper Extremities Transfers Transfer Destination Bed,Bedside Commode Transfer Technique ambulated Transfer Ability Level of Assist Contact Guard Assistance, Minimal Assistance,1 Person Assistance,Use of Upper Extremities Comments Mobility Comments Pt requiring additional assist today with sidelying to sitting on SOB. Slight posterior LOB x1 while sitting on side of bed. Pt transfered from bed to standing Maisha. Ambulated in room SBA ~15' then stated needed to use BSC Pt transfered to BSC SBA. Required MaxA for pericare. Transfered from BSC to bed ~2' SBA. Able to position self in bed SBA. Pt scheduled to be picked up by [facility] 1200 today. Gait Assessment Gait Gait Assistance Required: Standby Assistance Distance (Feet) 20 Assistive Devices Assistive Device Gait Belt,Front Wheeled Walker Gait Deviations General Gait Pattern Antalgic,Decreased Stride Length,Decreased Feet Clearance,Festinating,Flexed Trunk,Narrow Based Gait Factors Limiting Gait Function Factors Limiting Gait Function Abnormal Tonal Influences, Decreased Strength, Incoordination,Pain,Poor Balance Comments Gait Comments Pt requiring SBA-Maisha bed mobility and gait. Anticipat pt will progress gait and mobilty during stay in SNF rehab as he is very motivated to improve. PT-Balance Assessment Sitting Balance and Reactions Static Sitting Balance Ability Good Dynamic Sitting Balance Ability Fair Standing Balance and Reactions Static Standing Balance Ability Fair Dynamic Standing Balance Ability Fair Device Used FWW M5 PT-IP Objective Assessments Start: 12/10/22 10:21 Freq: Status: Active Protocol: Document 12/10/22 10:21 (Rec: 12/10/22 10:37 BC [id number]) Orientation Orientation/Cognition Level of Alertness Alert Orientation Name,Date,Year,Situation Language Function Ability No Deficits Noted Safety Awareness Understands Safety Issues Memory Description No Deficits Noted Gross Range of Motion Upper Extremity ROM Assessment Bilaterally Impaired Impairments Rigid tone BUE Lower Extremity ROM Assessment Bilaterally Impaired Impairments Rigid done BLE; 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 Muscle Tone Muscle Tone WNL Yes Comments Muscle Tone Comments Rigidity throughout trunk and extremities M6 PT-IP Treatment Start: 12/10/22 10:21 Freq: Status: Active Protocol: Document 12/13/22 11:59 LJ (Rec: 12/13/22 12:17 [id number]) Physical Therapy Treatment Education Education Provided Safety M7 PT-IP Assessment and Plan Start: 12/10/22 10:21 Freq: Status: Active Protocol: Document 12/13/22 11:59 LJ (Rec: 12/13/22 12:17 LJ [id number]) PT Summary Assessment and Plan Potential Rehabilitation Potential Good Status of Condition at Evaluation Evolving Summary Impairments Pain,ROM,Strength,Balance, Coordination,Tone,Bed Mobility ,Transfers,Gait,Activity Tolerance Progress Towards Goals Progressing Toward Goals Assessment Summary Pt having difficulty with transfers but when standing his mobility stabilizes. Safe to DC to [facility] this afternoon. Goals Bed Mobility Goal Contact Guard Assistance Transfer Goal Minimal Assistance,Front Wheeled Walker Gait Goal Minimal Assistance,Front Wheel Walker Gait Distance 50 Days to Meet Goals 5 Frequency of Treatment Frequency Of Treatment Once a Day Treatment Plan Physical Therapy Treatment Plan Bed Mobility Training,Transfer Training,Gait Training, Therapeutic Exercise,Balance Retraining,Discharge Planning, Neuromuscular Re-ed, Coordination Retraining Recommendations To Nursing Amount of Assist Needed 1 Person Assist Discharge Recommendations PT Discharge Recommendations SNF Rehab
--- NOTE | 2022-12-13 13:09 | PC.NURSE ---
Report called to Emily ZACARIAS at [facility] and full Pt status report given and no further questions. Pt out via w/c by [facility] personnel with all belongings at 1215.
== END 2022-12-13 12:15 | DRG 872 ==
LOC: ED 20:31 → AC 21:09
PROVIDERS: Emergency Medicine; Admitting Provider Family Medicine; Emergency Provider Emergency Medicine; Family Provider Internal Medicine; PCP Internal Medicine; Referring Provider Emergency Medicine; Visit Provider Internal Medicine
DX: A41.9 Sepsis, unspecified organism (principal); N39.0 Urinary tract infection, site not specified; E11.42 Type 2 diabetes mellitus with diabetic polyneuropathy; G20 Parkinson's disease; F02.80 Dementia in other diseases classified elsewhere, unspecified severity, without behavioral disturbance, psychotic disturbance, mood disturbance, and anxiety; F32.A Depression, unspecified; E78.5 Hyperlipidemia, unspecified; I73.9 Peripheral vascular disease, unspecified; I10 Essential (primary) hypertension; G35 Multiple sclerosis; I25.10 Atherosclerotic heart disease of native coronary artery without angina pectoris; N31.9 Neuromuscular dysfunction of bladder, unspecified; Z20.822 Contact with and (suspected) exposure to COVID-19; Z79.84 Long term (current) use of oral hypoglycemic drugs; Z66 Do not resuscitate
CPT/HCPCS: 0241U; 36415; 71045; 71260; 74177; 80048; 80053; 81003; 81015; 82962; 83605; 83690; 84145; 85025; 85610; 85730; 87040; 87086; 87635; 93005; 96365; 96366; 97116; 97163; 97166; 97530; 97535; 99233; 99238; 99284; 99285; C9803; J0696; Q9967

== ENCOUNTER → 2023-01-05 11:21 | Outpatient (CLI) | payer MEDICARE, OTHER, SELFPAY ==
[2022-12-08 22:00] VITALS: BMI 21.8
[2023-01-05 11:56] LABS: Add Manual Diff / Slide Review NO; Basophils Absolute Auto 100 /uL (0-100); Basophils Percent Auto 0.7 % (0-2); Eosinophils Absolute Auto 600 /uL (0-450); Eosinophils Percent Auto 4.9 % (2-4); Hematocrit 40.5 % (41-53); Hemoglobin 13.6 g/dL (13.5-17.5); Lymphocytes Absolute Auto 1400 /uL (1100-4500); Lymphocytes Percent Auto 11.1 % (25-40); Mean Corpuscular HGB Conc 33.5 % (30-36); Mean Corpuscular Hemoglobin 31.8 PG (26-34); Mean Corpuscular Volume 94.7 fL (80-100); Monocytes Absolute Auto 900 /uL (0-900); Monocytes Percent Auto 7.2 % (3-14); Neutrophils Absolute Auto 9500 /uL (1500-7000); Neutrophils Percent Auto 76.1 % (50-75); Platelet Count 271 X10^3/uL (150-400); Red Blood Cell Count 4.27 X10^6/uL (4.5-5.9); Red Cell Distribution Width 13.5 % (11.6-14.8); White Blood Cell Count 12.5 X10^3/uL (4.5-11.0)
[2023-01-05 12:27] LABS: Erythrocyte Sedimentation Rate 14 MM/HR (0-15)
[2023-01-05 12:45] LABS: Alanine Aminotransferase 24 IU/L (<50); Albumin 3.9 g/dL (3.5-5.0); Albumin Globulin Ratio 1.6 (1.0-2.8); Alkaline Phosphatase 126 U/L (38-126); Aspartate Aminotransferase 22 IU/L (17-59); BUN Creatinine Ratio 21.2 (6-22); Bilirubin Total 0.5 mg/dL (0.2-1.3); Blood Urea Nitrogen 18 mg/dL (9-20); Carbon Dioxide 25 mmol/L (22-32); Chloride 102 mmol/L (98-107); Estimated Glomerular Filt Rate > 60 mL/min (>60); Globulin 2.4 g/dL (1.7-4.1); Glucose 104 mg/dL (80-110); HEMOLYSIS < 15 (0-50); Potassium 4.8 mmol/L (3.4-5.1); Sodium 137 mmol/L (137-145); Total Protein 6.3 g/dL (6.3-8.2)
== END ==
PROVIDERS: Family Provider Internal Medicine; PCP Internal Medicine; Referring Provider Internal Medicine; Visit Provider Internal Medicine
DX: N39.0 Urinary tract infection, site not specified (principal); A41.9 Sepsis, unspecified organism
CPT/HCPCS: 36415; 80053; 85025; 85651

== ENCOUNTER 2023-04-21 19:21 | Inpatient (IN) | payer MEDICARE, OTHER, SELFPAY ==
[2022-12-08 22:00] VITALS: BMI 21.8
[2023-04-21] VITALS (21 sets, daily range): BP systolic 133–160; BP diastolic 66–90; PULSE 79–107; RESP 24–30; TEMP 37.8–38.4; O2SAT 92–96; BMI 21.2
--- NOTE | 2023-04-21 19:29 | DI.RAD.S_ITS ---
PROCEDURE: XR CHEST 1V INDICATIONS: suspected sepsis TECHNIQUE: One view of the chest was acquired. COMPARISON: [facility], CR, XR CHEST 1V, 12/08/2022, 18:19. [facility], CR, XR CHEST 1V, 07/24/2022, 8:04. FINDINGS: Surgical changes and devices: None. Lungs and pleura: Lungs are difficult to accurately assess due to prominently reduced inspiratory volume. There is no definite pneumonia.. No pleural effusions or pneumothorax. Mediastinum: Mediastinal contours appear normal. Heart size is normal. Bones and chest wall: No suspicious bony lesions. Overlying soft tissues appear unremarkable. IMPRESSION: Prominently reduced inspiratory volume. Mild lung base atelectasis, no definite pneumonia. Dictated by: Mohamud Bates M.D. on 04/21/2023 at 20:06 Approved by: Mohamud Bates M.D. on 04/21/2023 at 20:07
[2023-04-21] MEDS: SODIUM CHLORIDE 0.9% 1,000 ML 1000 ML IV (19:45)
[2023-04-21 19:48] LABS: Add Manual Diff / Slide Review NO; Basophils Absolute Auto 0 /uL (0-100); Basophils Percent Auto 0.3 % (0-2); Eosinophils Absolute Auto 0 /uL (0-450); Eosinophils Percent Auto 0.2 % (2-4); Hematocrit 41.6 % (41-53); Hemoglobin 14.2 g/dL (13.5-17.5); Lymphocytes Absolute Auto 600 /uL (1100-4500); Lymphocytes Percent Auto 4.5 % (25-40); Mean Corpuscular HGB Conc 34.2 % (30-36); Mean Corpuscular Hemoglobin 32.2 PG (26-34); Monocytes Absolute Auto 1000 /uL (0-900); Monocytes Percent Auto 6.8 % (3-14); Neutrophils Absolute Auto 12800 /uL (1500-7000); Neutrophils Percent Auto 88.2 % (50-75); Platelet Count 245 X10^3/uL (150-400); Red Blood Cell Count 4.43 X10^6/uL (4.5-5.9); Red Cell Distribution Width 13.7 % (11.6-14.8); White Blood Cell Count 14.5 X10^3/uL (4.5-11.0)
[2023-04-21 19:53] LABS: INR 1.2 (0.9-1.3); Prothrombin Time 13.7 SECONDS (10.1-12.7)
[2023-04-21 19:56] LABS: Creatine Kinase 22 U/L (55-170); PTT Partial Thromboplastin Tim 30 SECONDS (26-36)
[2023-04-21 19:58] LABS: Alanine Aminotransferase 47 IU/L (<50); Albumin 3.9 g/dL (3.5-5.0); Albumin Globulin Ratio 1.2 (1.0-2.8); Alkaline Phosphatase 114 U/L (38-126); Aspartate Aminotransferase 46 IU/L (17-59); BUN Creatinine Ratio 24.2 (6-22); Bilirubin Total 0.9 mg/dL (0.2-1.3); Blood Urea Nitrogen 22 mg/dL (9-20); Calcium 8.8 mg/dL (8.4-10.2); Carbon Dioxide 29 mmol/L (22-32); Chloride 95 mmol/L (98-107); Estimated Glomerular Filt Rate > 60 mL/min (>60); Globulin 3.3 g/dL (1.7-4.1); Glucose 225 mg/dL (80-110); HEMOLYSIS < 15 (0-50); Lipase 46 U/L (23-300); Sodium 132 mmol/L (137-145); Total Protein 7.2 g/dL (6.3-8.2)
[2023-04-21 20:09] LABS: NT-proBNP (BNP-Adult 18+) 717 pg/mL (<450); Troponin I 0.032 ng/mL (0.01-0.034)
[2023-04-21 20:15] LABS: Procalcitonin 0.33 ng/mL (<0.5)
[2023-04-21 20:22] LABS: Appearance Urine UA TURBID; Bilirubin Urine UA NEGATIVE (NEGATIVE); Color Urine UA YELLOW; Glucose Urine UA NEGATIVE (Negative); Ketones Urine UA NEGATIVE (NEGATIVE); Leukocyte Esterase Urine UA 2+ (NEGATIVE); Nitrite Urine UA POSITIVE (Negative); Occult Blood Urine UA 3+ (Negative); Protein Urine UA 2+ (Negative); Specific Gravity Urine UA 1.025 (1.000-1.035); pH Urine UA 5.5 (4.5-8.0)
[2023-04-21 20:24] LABS: Bacteria Urine Many (>30); RBC Urine 5-10/HPF (0-5/HPF); WBC Urine >100/HPF (0-5/HPF)
[2023-04-21 20:27] LABS: Culture Indicated Urine Specimen Cultured; Squamous Epithelial Cell Urine None Seen (0-5/HPF)
[2023-04-21 21:02] LABS: Adenovirus Not Detected (Not Detect); B. parapertussis Not Detected (Not Detecte); Bordetella pertussis Not Detected (Not Detecte); Chlamydophila pneumoniae Not Detected (Not Detect); Coronavirus 229E Not Detected (Not Detect); Coronavirus HKU1 Not Detected (Not Detect); Coronavirus NL 63 Not Detected (Not Detect); Coronavirus OC43 Not Detected (Not Detect); Human Metapneumovirus Not Detected (Not Detect); Human Rhinovirus/Enterovirus Not Detected (Not Detect); Influenza A Not Detected (Not Detect); Influenza B Not Detected (Not Detect); Mycoplasma pneumoniae Not Detected (Not Detect); Parainfluenza Virus 1 Not Detected (Not Detect); Parainfluenza Virus 2 Not Detected (Not Detect); Parainfluenza Virus 3 Not Detected (Not Detect); Parainfluenza Virus 4 Not Detected (Not Detect); Respiratory Syncytial Virus Not Detected (Not Detect); SARS- CoV-2 Not Detected (Not Detecte)
--- NOTE | 2023-04-21 21:37 | DI.CT.S_ITS ---
PROCEDURE: CT HEAD/BRAIN WO CON INDICATIONS: altered mental status TECHNIQUE: Noncontrast 4.5 mm thick angled axial sections acquired from the foramen magnum to the vertex, with coronal and sagittal reformats. For radiation dose reduction, the following was used: automated exposure control, adjustment of mA and/or kV according to patient size. COMPARISON: None. FINDINGS: Image quality: Somewhat limited by patient's inability to assume a normal positioning for CT scanning.. CSF spaces: Basal cisterns are patent. No extra-axial fluid collections. Ventricles are normal in size and shape. Brain: No midline shift. No intracranial masses or hemorrhage. Aj-white matter interface is normal. Skull and face: Calvarium and visualized facial bones are intact, without suspicious lesions. Sinuses: Visualized sinuses and mastoids are clear. IMPRESSION: Within the constraints of this study discussed above no acute disease is found. Dictated by: Mohamud Bates M.D. on 04/21/2023 at 22:17 Approved by: Mohamud Bates M.D. on 04/21/2023 at 22:17
[2023-04-21] MEDS: MEROPENEM 500 MG in SODIUM CHLORIDE 0.9% 100 ML 200 MG IV (22:22)
--- NOTE | 2023-04-21 23:59 | ED.GENADULT ---
HPI - General Adult General Chief complaint: Altered Mental Status Stated complaint: AMS Time Seen by Provider: 04/21/23 21:35 Source: EMS Mode of arrival: EMS History of Present Illness HPI narrative: 77-year-old gentleman with a history of diabetes, acute coronary syndrome post stenting, Parkinson's disease, suprapubic catheter due to chronic urinary retention was seen yesterday at [facility] because the suprapubic catheter was not functioning. Urology consultation was obtained in the emergency department, recommendation was to plug the suprapubic catheter, place a Flores catheter. Reportedly after that visit patient has had increased altered mental status, a fever respiratory rate greater than 30 and oxygen saturations at 93% and was brought in by medics for further evaluation . His notes that he has been getting progressively worse over last 48 hours and at this point is not able to even feed himself. She states that he is typically a very verbal man but he has not been speaking at all in the last 24 hours. Related Data Home Medications Medication Instructions Recorded Confirmed aspirin 325 mg tablet 325 mg PO QDAY ##0 04/28/16 04/22/23 donepezil 10 mg tablet 10 mg PO DAILY 01/23/22 04/22/23 melatonin 5 mg tablet 5 mg PO BEDTIME PRN Sleep 07/22/22 04/22/23 sertraline 100 mg tablet 100 mg PO DAILY 04/22/23 04/22/23 Previous Rx's Medication Instructions Recorded Disabled Parking #1 ea 01/23/22 clopidogrel 75 mg tablet 75 mg PO QDAY #90 tabs 11/30/22 gabapentin 300 mg capsule 600 mg PO TID #540 caps 01/15/23 atorvastatin 10 mg tablet (Lipitor) 5 mg PO EVERY OTHER DAY #45 tabs 03/20/23 metformin 500 mg tablet 500 mg PO BIDCC #180 tabs 03/20/23 carbidopa 25 mg-levodopa 100 mg 1 tab PO BID #60 tabs 04/12/23 tablet Allergies Allergy/AdvReac Type Severity Reaction Status Date / Time adhesive [ADHESIVE] AdvReac Mild RASH Verified 01/05/23 10:55 Review of Systems Review of Systems Narrative: Remainder of complete review of systems is otherwise unremarkable except for that included in the HPI. Patient History Medical History Alcohol abuse Balance problems (07/06/16) Benign prostatic hyperplasia (BPH) with urinary urge incontinence BPH w urinary obs/LUTS Cataracts, bilateral (2010) Coronary artery disease involving [place] coronary artery of [place] heart without angina pectoris (04/28/16) COVID-19 (~08/2022) Depression (2011) Dermatitis Diabetes Essential hypertension (04/28/16) Foot pain (2005) Hammertoes of both feet Hyperlipemia (Unknown) Incontinence without sensory awareness Kidney stones (2010) Knee pain (2005) Multiple sclerosis (~2014) Parkinson's disease (2014) Parkinsons disease Peripheral edema Peripheral neuropathy (2005) Peripheral vascular disease (09/27/17) Recurrent falls (07/06/16) Right leg pain Sciatica (2005) Sepsis Type 2 diabetes mellitus without complication, without long-term current use of insulin (04/28/16) Type 2 diabetes with nephropathy Urge incontinence Urinary incontinence, mixed Venous insufficiency Surgical History Chronic suprapubic catheter (~01/2023) History of coronary artery stent placement Hx of knee surgery (Unknown) Hx of lithotripsy (11/2015) S/P coronary artery stent placement (Unknown) S/P knee surgery S/P tonsillectomy and adenoidectomy Family History Father Diabetes mellitus Mother No problems noted. Brother Diabetes mellitus Social History household members: spouse Smoking Status: Never smoker alcohol intake: former Smoking Status: Never smoker alcohol intake frequency: other Substance Use Type: does not use Exam Initial Vital Signs Initial Vital Signs: Vital Signs Temperature 101.1 F H 04/21/23 19:20 Pulse Rate 104 H 04/21/23 19:20 Respiratory Rate 29 H 04/21/23 19:20 Blood Pressure 142/75 H 04/21/23 19:20 Pulse Oximetry 93 04/21/23 19:20 Oxygen Delivery Method Room Air 04/21/23 19:20 General: Chronically ill-appearing gentleman with surgical intervention to the neck and severe torticollis to the left at baseline. Minimally verbal. HEENT: dry mucous membranes, normal sclera with reactive pupils, Neck: Surgical changes on the right side chronically deviated to the left Respiratory: Lungs are clear to auscultation, not taking deep breaths but no obvious abnormalities are appreciated otherwise Cardiac: Regular rate and rhythm no murmurs no bruits Abdomen: Soft, question of pain behavior with deep palpation of the abdomen good bowel tones, Skin: Pale, mildly diaphoretic, no rashes Neurologic: Parkinsonian symptoms with rigidity and altered mental status with nonverbal presentation at this time Extremities: No trauma, poor overall tone, no lower extremity edema Psych: Minimally responsive yet still protecting his airway Course Orders Ordered: Sodium Chloride (Normal Saline 0.9%) 1,000 mls @ 84 mls/hr IV CONT SHARONA Last Admin: 04/22/23 03:40 Dose: 84 mls/hr Documented By: DULCE Melatonin (Melatonin 3 Mg Tablet) 5 mg PO BEDTIME PRN PRN Reason: Sleep Ondansetron HCl (Ondansetron 4 Mg/2 Ml Inj) 4 mg IV NOW PRN PRN Reason: Nausea And Vomiting Ondansetron HCl (Ondansetron 4 Mg Odt) 4 mg SL NOW PRN PRN Reason: Nausea And Vomiting Discontinued Medications Gabapentin (Gabapentin 600 Mg Tablet) 600 mg PO NOW ONE Stop: 04/22/23 03:43 Last Admin: 04/22/23 06:27 Dose: 600 mg Documented By: DULCE Sodium Chloride (Normal Saline 0.9%) 1,000 mls @ 1,000 mls/hr IV BOLUS ONE Stop: 04/21/23 20:28 Last Infusion: 04/21/23 21:53 Dose: 0 mls/hr Documented By: Admin: 04/21/23 19:45 Dose: 1,000 mls/hr Documented By: NATASHA Meropenem 500 mg/ Sodium (Chloride) 100 mls @ 200 mls/hr IV NOW ONE Stop: 04/21/23 21:37 Last Infusion: 04/21/23 23:24 Dose: 0 mls/hr Documented By: Admin: 04/21/23 22:22 Dose: 200 mls/hr Documented By: NATASHA Vital Signs Vital signs: Vital Signs - 8 hr 04/21/23 23:15 04/21/23 23:15 04/21/23 23:30 Pulse Rate 93 H Respiratory Rate 26 H Blood Pressure 136/75 148/76 H Pulse Oximetry 93 04/21/23 23:30 04/21/23 23:45 04/21/23 23:45 Pulse Rate 80 79 Respiratory Rate 24 24 Blood Pressure 133/66 Pulse Oximetry 94 93 04/22/23 00:00 04/22/23 00:00 04/22/23 00:15 Pulse Rate 99 H 79 Respiratory Rate 26 H 24 Blood Pressure 149/74 H Pulse Oximetry 94 93 04/22/23 00:15 Pulse Rate Respiratory Rate Blood Pressure 133/63 Pulse Oximetry Medical Decision Making Lab Data 04/21/23 19:35 04/21/23 19:35 Labs: Lab Results 04/21/23 04/21/23 04/21/23 Range/Units 19:35 19:35 19:35 WBC 14.5 H (4.5-11.0) X10^3/uL RBC 4.43 L (4.5-5.9) X10^6/uL Hgb 14.2 (13.5-17.5) g/dL Hct 41.6 (41-53) % MCV 94.0 (80-100) fL MCH 32.2 (26-34) PG MCHC 34.2 (30-36) % RDW 13.7 (11.6-14.8) % Plt Count 245 (150-400) X10^3/uL Neut % (Auto) 88.2 H (50-75) % Lymph % (Auto) 4.5 L (25-40) % Bartholomew % (Auto) 6.8 (3-14) % Eos % (Auto) 0.2 L (2-4) % Baso % (Auto) 0.3 (0-2) % Neut # (Auto) 39590 H (1584-9639) /uL Lymph # (Auto) 600 L (7163-5458) /uL Bartholomew # (Auto) 1000 H (0-900) /uL Eos # (Auto) 0 (0-450) /uL Baso # (Auto) 0 (0-100) /uL PT 13.7 H (10.1-12.7) SECONDS INR 1.2 (0.9-1.3) APTT 30 (26-36) SECONDS Sodium 132 L (137-145) mmol/L Potassium 4.0 (3.4-5.1) mmol/L Chloride 95 L (98-107) mmol/L Carbon Dioxide 29 (22-32) mmol/L BUN 22 H (9-20) mg/dL Creatinine 0.91 (0.66-1.25) mg/dL Estimated GFR > 60 (>60) mL/min BUN/Creatinine Ratio 24.2 H (6-22) Glucose 225 H (80-110) mg/dL Lactate (0.7-2.1) mmol/L Calcium 8.8 (8.4-10.2) mg/dL Total Bilirubin 0.9 (0.2-1.3) mg/dL AST 46 (17-59) IU/L ALT 47 (<50) IU/L Alkaline Phosphatase 114 (38-126) U/L Total Creatine Kinase (55-170) U/L Troponin I (0.01-0.034) ng/mL NT-Pro-B Natriuret Pep (<450) pg/mL Total Protein 7.2 (6.3-8.2) g/dL Albumin 3.9 (3.5-5.0) g/dL Globulin 3.3 (1.7-4.1) g/dL Albumin/Globulin Ratio 1.2 (1.0-2.8) Lipase 46 (23-300) U/L Procalcitonin 0.33 (<0.5) ng/mL Urine Color Urine Appearance Urine pH (4.5-8.0) Ur Specific [place] (1.000-1.035) Urine Protein (Negative) Urine Glucose (UA) (Negative) g/dL Urine Ketones (NEGATIVE) Urine Occult Blood (Negative) Urine Nitrate (Negative) Urine Bilirubin (NEGATIVE) Urine Urobilinogen (0.2) E.U./dL Ur Leukocyte Esterase (NEGATIVE) Urine RBC (0-5/HPF) Urine WBC (0-5/HPF) Ur Squamous Epith Cells (0-5/HPF) Urine Bacteria (None) Ur Culture Indicated? Chlamy pneumoniae PCR (Not Detect) Adenovirus (PCR) (Not Detect) B. pertussis DNA (PCR) (Not Detecte) B.parapertussis DNA PCR (Not Detecte) Coronavirus OC43 (PCR) (Not Detect) Coronavirus HKU1 (PCR) (Not Detect) Coronavirus 229E (PCR) (Not Detect) SARS-CoV-2 (PCR) (Not Detecte) Coronavirus NL63 (PCR) (Not Detect) Human Metapneumovir PCR (Not Detect) Influenza Type A (PCR) (Not Detect) Influenza Type B (PCR) (Not Detect) M. pneumoniae (PCR) (Not Detect) Parainfluenza 1 (PCR) (Not Detect) Parainfluenza 2 (PCR) (Not Detect) Parainfluenza 3 (PCR) (Not Detect) Parainfluenza 4 (PCR) (Not Detect) RSV (PCR) (Not Detect) Entero/Rhino (PCR) (Not Detect) 04/21/23 04/21/23 04/21/23 Range/Units 19:35 19:35 19:35 WBC (4.5-11.0) X10^3/uL RBC (4.5-5.9) X10^6/uL Hgb (13.5-17.5) g/dL Hct (41-53) % MCV (80-100) fL MCH (26-34) PG MCHC (30-36) % RDW (11.6-14.8) % Plt Count (150-400) X10^3/uL Neut % (Auto) (50-75) % Lymph % (Auto) (25-40) % Bartholomew % (Auto) (3-14) % Eos % (Auto) (2-4) % Baso % (Auto) (0-2) % Neut # (Auto) (6012-4451) /uL Lymph # (Auto) (5060-0251) /uL Bartholomew # (Auto) (0-900) /uL Eos # (Auto) (0-450) /uL Baso # (Auto) (0-100) /uL PT (10.1-12.7) SECONDS INR (0.9-1.3) APTT (26-36) SECONDS Sodium (137-145) mmol/L Potassium (3.4-5.1) mmol/L Chloride (98-107) mmol/L Carbon Dioxide (22-32) mmol/L BUN (9-20) mg/dL Creatinine (0.66-1.25) mg/dL Estimated GFR (>60) mL/min BUN/Creatinine Ratio (6-22) Glucose (80-110) mg/dL Lactate 2.0 (0.7-2.1) mmol/L Calcium (8.4-10.2) mg/dL Total Bilirubin (0.2-1.3) mg/dL AST (17-59) IU/L ALT (<50) IU/L Alkaline Phosphatase (38-126) U/L Total Creatine Kinase 22 L (55-170) U/L Troponin I 0.032 (0.01-0.034) ng/mL NT-Pro-B Natriuret Pep 717 H (<450) pg/mL Total Protein (6.3-8.2) g/dL Albumin (3.5-5.0) g/dL Globulin (1.7-4.1) g/dL Albumin/Globulin Ratio (1.0-2.8) Lipase (23-300) U/L Procalcitonin (<0.5) ng/mL Urine Color Yellow Urine Appearance Turbid Urine pH 5.5 (4.5-8.0) Ur Specific [place] 1.025 (1.000-1.035) Urine Protein 2+ H (Negative) Urine Glucose (UA) Negative (Negative) g/dL Urine Ketones Negative (NEGATIVE) Urine Occult Blood 3+ H (Negative) Urine Nitrate Positive H (Negative) Urine Bilirubin Negative (NEGATIVE) Urine Urobilinogen 1.0 (0.2) E.U./dL Ur Leukocyte Esterase 2+ H (NEGATIVE) Urine RBC 5-10/hpf H (0-5/HPF) Urine WBC >100/hpf H (0-5/HPF) Ur Squamous Epith Cells None seen (0-5/HPF) Urine Bacteria Many (>30) H (None) Ur Culture Indicated? Specimen cultured Chlamy pneumoniae PCR (Not Detect) Adenovirus (PCR) (Not Detect) B. pertussis DNA (PCR) (Not Detecte) B.parapertussis DNA PCR (Not Detecte) Coronavirus OC43 (PCR) (Not Detect) Coronavirus HKU1 (PCR) (Not Detect) Coronavirus 229E (PCR) (Not Detect) SARS-CoV-2 (PCR) (Not Detecte) Coronavirus NL63 (PCR) (Not Detect) Human Metapneumovir PCR (Not Detect) Influenza Type A (PCR) (Not Detect) Influenza Type B (PCR) (Not Detect) M. pneumoniae (PCR) (Not Detect) Parainfluenza 1 (PCR) (Not Detect) Parainfluenza 2 (PCR) (Not Detect) Parainfluenza 3 (PCR) (Not Detect) Parainfluenza 4 (PCR) (Not Detect) RSV (PCR) (Not Detect) Entero/Rhino (PCR) (Not Detect) 04/21/23 Range/Units 19:48 WBC (4.5-11.0) X10^3/uL RBC (4.5-5.9) X10^6/uL Hgb (13.5-17.5) g/dL Hct (41-53) % MCV (80-100) fL MCH (26-34) PG MCHC (30-36) % RDW (11.6-14.8) % Plt Count (150-400) X10^3/uL Neut % (Auto) (50-75) % Lymph % (Auto) (25-40) % Bartholomew % (Auto) (3-14) % Eos % (Auto) (2-4) % Baso % (Auto) (0-2) % Neut # (Auto) (4539-4467) /uL Lymph # (Auto) (3258-6931) /uL Bartholomew # (Auto) (0-900) /uL Eos # (Auto) (0-450) /uL Baso # (Auto) (0-100) /uL PT (10.1-12.7) SECONDS INR (0.9-1.3) APTT (26-36) SECONDS Sodium (137-145) mmol/L Potassium (3.4-5.1) mmol/L Chloride (98-107) mmol/L Carbon Dioxide (22-32) mmol/L BUN (9-20) mg/dL Creatinine (0.66-1.25) mg/dL Estimated GFR (>60) mL/min BUN/Creatinine Ratio (6-22) Glucose (80-110) mg/dL Lactate (0.7-2.1) mmol/L Calcium (8.4-10.2) mg/dL Total Bilirubin (0.2-1.3) mg/dL AST (17-59) IU/L ALT (<50) IU/L Alkaline Phosphatase (38-126) U/L Total Creatine Kinase (55-170) U/L Troponin I (0.01-0.034) ng/mL NT-Pro-B Natriuret Pep (<450) pg/mL Total Protein (6.3-8.2) g/dL Albumin (3.5-5.0) g/dL Globulin (1.7-4.1) g/dL Albumin/Globulin Ratio (1.0-2.8) Lipase (23-300) U/L Procalcitonin (<0.5) ng/mL Urine Color Urine Appearance Urine pH (4.5-8.0) Ur Specific [place] (1.000-1.035) Urine Protein (Negative) Urine Glucose (UA) (Negative) g/dL Urine Ketones (NEGATIVE) Urine Occult Blood (Negative) Urine Nitrate (Negative) Urine Bilirubin (NEGATIVE) Urine Urobilinogen (0.2) E.U./dL Ur Leukocyte Esterase (NEGATIVE) Urine RBC (0-5/HPF) Urine WBC (0-5/HPF) Ur Squamous Epith Cells (0-5/HPF) Urine Bacteria (None) Ur Culture Indicated? Chlamy pneumoniae PCR Not detected (Not Detect) Adenovirus (PCR) Not detected (Not Detect) B. pertussis DNA (PCR) Not detected (Not Detecte) B.parapertussis DNA PCR Not detected (Not Detecte) Coronavirus OC43 (PCR) Not detected (Not Detect) Coronavirus HKU1 (PCR) Not detected (Not Detect) Coronavirus 229E (PCR) Not detected (Not Detect) SARS-CoV-2 (PCR) Not detected (Not Detecte) Coronavirus NL63 (PCR) Not detected (Not Detect) Human Metapneumovir PCR Not detected (Not Detect) Influenza Type A (PCR) Not detected (Not Detect) Influenza Type B (PCR) Not detected (Not Detect) M. pneumoniae (PCR) Not detected (Not Detect) Parainfluenza 1 (PCR) Not detected (Not Detect) Parainfluenza 2 (PCR) Not detected (Not Detect) Parainfluenza 3 (PCR) Not detected (Not Detect) Parainfluenza 4 (PCR) Not detected (Not Detect) RSV (PCR) Not detected (Not Detect) Entero/Rhino (PCR) Not detected (Not Detect) MDM Narrative Medical decision making narrative: CC: Altered mental status, acute issue uncertain prognosis Complicating co-morbidities: Parkinson's disease, parkinsonian dementia, hypertension, hyperlipidemia Data collected from: patient, medics, prior records, Social determinants of health that may influence the patients condition: Cognitive dysfunction, progressive Parkinson's disease Medical records reviewed: ER note from [facility] from April 20 is reviewed. Urology consultation from April 20 is reviewed, Dr Thompson. Patient has neurogenic bladder with urinary incontinence without sensory awareness. He is had suprapubic catheter placed in January of 2023. There is continued issues with the bladder with urine leaking around the bladder. The the suprapubic catheter has been replaced a number of times irrigated a number of times and still is called the causing problems. 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 His conclusion was presumptive problematic anatomic position of the suprapubic catheter with chronic UTI with ESBL E coli. His recommendations were to leave the supra pubic catheter in-situ. Place a Flores camp catheter for temporary management. Patient is to have cystoscopy and possible imaging studies in follow-up. He was started on Macrodantin 100 mg twice daily for 7 days. His post to follow-up with the urology clinic or the [facility] at the patient's discretion. Urine culture from January 26, 2023 shows E coli ESBL producing greater than 100,000 colony-forming units. Susceptible to ertapenem, meropenem, nitrofurantoin. Resistant to ampicillin, Augmentin, Cipro, gentamicin, tobramycin, trimethoprim sulfamethoxazole Differential considered: Sepsis, electrolyte abnormality, acute coronary syndrome, parkinsonian exacerbation Exam documented above, pertinent findings include: Lab Test results independently reviewed as above. Pertinent findings: CBC shows Leukocytosis with white count at 14.5, no significant anemia Chemistries show a creatinine appropriate at 0.9, mild hyponatremia 132, ProBNP is minimally elevated at 717 Troponin is not significantly elevated Lipase is unremarkable Procalcitonin is normal Lactic acid is 2.0 Urine shows protein occult blood nitrites leukocyte esterase 5-10 red blood cells greater than 100 white blood cells many bacteria specimen has been cultured. Independently reviewed EKG as above Imaging studies independently reviewed: Chest x-ray does not show any acute infiltrates or significant cardiomyopathy or congestive heart failure CT scan of the head is limited due to his tremor from his Parkinson's disease but no active disease is appreciated Consultations: 12am discussed with Dr. Reyna, who will admit the patient. Patient primary care physician is Dr. Maldonado. Treatments: Meropenem to which his ESBL E coli culture from January was sensitive, fluids, Zofran. Re-evaluations: Transition orders are written Discussion: 77-year-old gentleman with altered mental status, fever, leukocytosis concern for infection secondary to his chronic urinary tract infection. He currently is on Macrobid. Possibility of alternate explanation for his fever is entertained and CT scan of the abdomen is currently pending. Patient is admitted to the [facility]. In discussion with his , they have filled out forms previously and clearly indicate that he is DNR with full interventions up to that. There is no evidence of stroke, acute coronary syndrome, or alternate explanations for his symptoms this time. Discharge Plan Departure Patient Disposition: Home Clinical Impression: Acute alteration in mental status, Chronic UTI, Acute UTI
[2023-04-22] VITALS (29 sets, daily range): BP systolic 115–149; BP diastolic 56–75; PULSE 64–99; RESP 19–32; TEMP 36.4–37; O2SAT 93–96; BMI 21.2
[2023-04-22] MEDS: SODIUM CHLORIDE 0.9% 1,000 ML 84 ML IV ×3 (03:40→21:58)
[2023-04-22 03:46] LABS: MRSA (Nasal) PCR Not Detected (Not Detect)
--- NOTE | 2023-04-22 06:12 | PC.NURSE ---
Pt arrived on unit at 0106. Pt oriented to A&OX2-3, on room air, calm and cooperative. Pt exhibits a flat affect and delayed response to questions. Per , pt has not been out of bed for approximately 2 weeks since PT/OT came last. Pt contracted in bilateral upper and lower extremities. Pt currently resting.
[2023-04-22] MEDS: GABAPENTIN 600 MG TABLET PO (06:27)
--- NOTE | 2023-04-22 09:53 | P.HP_ITS ---
History of Present Illness History of Present Illness Date Patient Seen: 04/22/23 Time Patient Seen: 09:30 Date of Onset of Symptoms: 04/21/23 Chief complaint: AMS Narrative: CC: I'm ok Pt with hx of stents, diabetes, Parkinson's, and chronic urinary obstruction developed issues with his suprapubic catheter yesterday and went to the [facility] ER where urological consult was obtained. His suprapubic catheter was clamped and a Flores was placed and he was able to go home with good urine output. However after returning home he developed altered mental status fever tachypnea and was brought in by EMS. Per ED note, noted he is usually very verbal but had been declining acutely in last 24-48 hours and lately is not able to feed himself. On exam today he is verbally responsive but not markedly interactive. Endorses hunger. reserved affect. Usually sees Dr. Maldonado. [facility] Medical History Alcohol abuse Balance problems (07/06/16) Benign prostatic hyperplasia (BPH) with urinary urge incontinence BPH w urinary obs/LUTS Cataracts, bilateral (2010) Coronary artery disease involving [place] coronary artery of [place] heart without angina pectoris (04/28/16) COVID-19 (~08/2022) Depression (2011) Dermatitis Diabetes Essential hypertension (04/28/16) Foot pain (2005) Hammertoes of both feet Hyperlipemia (Unknown) Incontinence without sensory awareness Kidney stones (2010) Knee pain (2005) Multiple sclerosis (~2014) Parkinson's disease (2014) Parkinsons disease Peripheral edema Peripheral neuropathy (2005) Peripheral vascular disease (09/27/17) Recurrent falls (07/06/16) Right leg pain Sciatica (2005) Sepsis Type 2 diabetes mellitus without complication, without long-term current use of insulin (04/28/16) Type 2 diabetes with nephropathy Urge incontinence Urinary incontinence, mixed Venous insufficiency Surgical History Chronic suprapubic catheter (~01/2023) History of coronary artery stent placement Hx of knee surgery (Unknown) Hx of lithotripsy (11/2015) S/P coronary artery stent placement (Unknown) S/P knee surgery S/P tonsillectomy and adenoidectomy Family History Father Diabetes mellitus Mother No problems noted. Brother Diabetes mellitus Social History household members: spouse Smoking Status: Never smoker alcohol intake: former Meds Home Medications and Allergies Home Medications Medication Instructions Recorded Confirmed Type aspirin 325 mg tablet 325 mg PO QDAY ##0 04/28/16 04/22/23 History Disabled Parking #1 ea 01/23/22 01/05/23 Rx donepezil 10 mg tablet 10 mg PO DAILY 01/23/22 04/22/23 History melatonin 5 mg tablet 5 mg PO BEDTIME PRN Sleep 07/22/22 04/22/23 History clopidogrel 75 mg tablet 75 mg PO QDAY #90 tabs 11/30/22 04/22/23 Rx gabapentin 300 mg capsule 600 mg PO TID #540 caps 01/15/23 04/22/23 Rx atorvastatin 10 mg tablet (Lipitor) 5 mg PO EVERY OTHER DAY #45 tabs 03/20/23 04/22/23 Rx metformin 500 mg tablet 500 mg PO BIDCC #180 tabs 03/20/23 04/22/23 Rx carbidopa 25 mg-levodopa 100 mg 1 tab PO BID #60 tabs 04/12/23 04/22/23 Rx tablet sertraline 100 mg tablet 100 mg PO DAILY 04/22/23 04/22/23 History Allergies Allergy/AdvReac Type Severity Reaction Status Date / Time adhesive [ADHESIVE] AdvReac Mild RASH Verified 01/05/23 10:55 Review of Systems Review of Systems Narrative: All systems reviewed and negative except as otherwise documented in HPI Exam Vital Signs (past 8 hours): - 04/22/23 02:10 04/22/23 04:00 04/22/23 07:23 Temperature 97.9 F Pulse Rate 81 75 Respiratory Rate 24 24 Blood Pressure 126/68 Pulse Oximetry 94 94 Oxygen Delivery Method Room Air 04/22/23 07:30 04/22/23 08:00 04/22/23 08:30 Temperature Pulse Rate 70 77 69 Respiratory Rate 20 21 20 Blood Pressure Pulse Oximetry 94 94 95 Oxygen Delivery Method 04/22/23 07:00 04/22/23 08:38 04/22/23 08:38 Temperature Pulse Rate 72 Respiratory Rate 24 Blood Pressure 125/62 Pulse Oximetry 95 Oxygen Delivery Method Room Air 04/22/23 09:00 Temperature 97.6 F Pulse Rate 66 Respiratory Rate 20 Blood Pressure Pulse Oximetry 95 Oxygen Delivery Method Oxygen Delivery Method Room Air Resp Other: Unlabored breathing clear to auscultation bilaterally Cardio Other: Elevated rate regular rhythm S1-S2 GI Other: Soft nontender active bowel sounds Other: Clamped suprapubic catheter Flores in place draining yellow urine Neuro Other: Asleep but easily arousable provides sensible 1-2 word answers and responds to questions Objective Labs 04/21/23 19:35 04/21/23 19:35 Labs: Laboratory Results - last 24 hr 04/21/23 04/21/23 04/21/23 19:35 19:35 19:35 WBC 14.5 H RBC 4.43 L Hgb 14.2 Hct 41.6 MCV 94.0 MCH 32.2 MCHC 34.2 RDW 13.7 Plt Count 245 Neut % (Auto) 88.2 H Lymph % (Auto) 4.5 L [place] % (Auto) 6.8 Eos % (Auto) 0.2 L Baso % (Auto) 0.3 Neut # (Auto) 16526 H Lymph # (Auto) 600 L [place] # (Auto) 1000 H Eos # (Auto) 0 Baso # (Auto) 0 PT 13.7 H INR 1.2 APTT 30 Sodium 132 L Potassium 4.0 Chloride 95 L Carbon Dioxide 29 BUN 22 H Creatinine 0.91 Estimated GFR > 60 BUN/Creatinine Ratio 24.2 H Glucose 225 H Lactate Calcium 8.8 Total Bilirubin 0.9 AST 46 ALT 47 Alkaline Phosphatase 114 Total Creatine Kinase Troponin I NT-Pro-B Natriuret Pep Total Protein 7.2 Albumin 3.9 Globulin 3.3 Albumin/Globulin Ratio 1.2 Lipase 46 Procalcitonin 0.33 Urine Color Urine Appearance Urine pH Ur Specific [place] Urine Protein Urine Glucose (UA) Urine Ketones Urine Occult Blood Urine Nitrate Urine Bilirubin Urine Urobilinogen Ur Leukocyte Esterase Urine RBC Urine WBC Ur Squamous Epith Cells Urine Bacteria Ur Culture Indicated? Nasal Screen MRSA (PCR) Chlamy pneumoniae PCR Adenovirus (PCR) B. pertussis DNA (PCR) B.parapertussis DNA PCR Coronavirus OC43 (PCR) Coronavirus HKU1 (PCR) Coronavirus 229E (PCR) SARS-CoV-2 (PCR) Coronavirus NL63 (PCR) Human Metapneumovir PCR Influenza Type A (PCR) Influenza Type B (PCR) M. pneumoniae (PCR) Parainfluenza 1 (PCR) Parainfluenza 2 (PCR) Parainfluenza 3 (PCR) Parainfluenza 4 (PCR) RSV (PCR) Entero/Rhino (PCR) 04/21/23 04/21/23 04/21/23 19:35 19:35 19:35 WBC RBC Hgb Hct MCV MCH MCHC RDW Plt Count Neut % (Auto) Lymph % (Auto) [place] % (Auto) Eos % (Auto) Baso % (Auto) Neut # (Auto) Lymph # (Auto) [place] # (Auto) Eos # (Auto) Baso # (Auto) PT INR APTT Sodium Potassium Chloride Carbon Dioxide BUN Creatinine Estimated GFR BUN/Creatinine Ratio Glucose Lactate 2.0 Calcium Total Bilirubin AST ALT Alkaline Phosphatase Total Creatine Kinase 22 L Troponin I 0.032 NT-Pro-B Natriuret Pep 717 H Total Protein Albumin Globulin Albumin/Globulin Ratio Lipase Procalcitonin Urine Color Yellow Urine Appearance Turbid Urine pH 5.5 Ur Specific [place] 1.025 Urine Protein 2+ H Urine Glucose (UA) Negative Urine Ketones Negative Urine Occult Blood 3+ H Urine Nitrate Positive H Urine Bilirubin Negative Urine Urobilinogen 1.0 Ur Leukocyte Esterase 2+ H Urine RBC 5-10/hpf H Urine WBC >100/hpf H Ur Squamous Epith Cells None seen Urine Bacteria Many (>30) H Ur Culture Indicated? Specimen cultured Nasal Screen MRSA (PCR) Chlamy pneumoniae PCR Adenovirus (PCR) B. pertussis DNA (PCR) B.parapertussis DNA PCR Coronavirus OC43 (PCR) Coronavirus HKU1 (PCR) Coronavirus 229E (PCR) SARS-CoV-2 (PCR) Coronavirus NL63 (PCR) Human Metapneumovir PCR Influenza Type A (PCR) Influenza Type B (PCR) M. pneumoniae (PCR) Parainfluenza 1 (PCR) Parainfluenza 2 (PCR) Parainfluenza 3 (PCR) Parainfluenza 4 (PCR) RSV (PCR) Entero/Rhino (PCR) 04/21/23 04/22/23 19:48 01:57 WBC RBC Hgb Hct MCV MCH MCHC RDW Plt Count Neut % (Auto) Lymph % (Auto) [place] % (Auto) Eos % (Auto) Baso % (Auto) Neut # (Auto) Lymph # (Auto) [place] # (Auto) Eos # (Auto) Baso # (Auto) PT INR APTT Sodium Potassium Chloride Carbon Dioxide BUN Creatinine Estimated GFR BUN/Creatinine Ratio Glucose Lactate Calcium Total Bilirubin AST ALT Alkaline Phosphatase Total Creatine Kinase Troponin I NT-Pro-B Natriuret Pep Total Protein Albumin Globulin Albumin/Globulin Ratio Lipase Procalcitonin Urine Color Urine Appearance Urine pH Ur Specific [place] Urine Protein Urine Glucose (UA) Urine Ketones Urine Occult Blood Urine Nitrate Urine Bilirubin Urine Urobilinogen Ur Leukocyte Esterase Urine RBC Urine WBC Ur Squamous Epith Cells Urine Bacteria Ur Culture Indicated? Nasal Screen MRSA (PCR) Not detected Chlamy pneumoniae PCR Not detected Adenovirus (PCR) Not detected B. pertussis DNA (PCR) Not detected B.parapertussis DNA PCR Not detected Coronavirus OC43 (PCR) Not detected Coronavirus HKU1 (PCR) Not detected Coronavirus 229E (PCR) Not detected SARS-CoV-2 (PCR) Not detected Coronavirus NL63 (PCR) Not detected Human Metapneumovir PCR Not detected Influenza Type A (PCR) Not detected Influenza Type B (PCR) Not detected M. pneumoniae (PCR) Not detected Parainfluenza 1 (PCR) Not detected Parainfluenza 2 (PCR) Not detected Parainfluenza 3 (PCR) Not detected Parainfluenza 4 (PCR) Not detected RSV (PCR) Not detected Entero/Rhino (PCR) Not detected Assessment & Plan Assessment & Plan narrative: 77-year-old male with Parkinson's disorder and neurogenic bladder with blocked suprapubic catheter and encephalopathy 2/2 UTI #encephalopathy 2/2 infection #UTI based on UA in setting of multiple catheters with decline in status Given meropenem in ED with some improvement noted today will continue with IVF GN organism growing in urine, C&S still pending #acute on chronic urinary obstruction #neurogenic bladder continue Flores to f/up with uro as outpt #NIDDM continue outpt metformin with SSI and fingersticks #peripheral neuropathy continue home gabapentin #parkinson's #depression continue home meds PT/OT consulted #CAD s/p stenting continue home statin / ASA #PVD continue plavix dispo: admit consider options for dc Code: DNR Diet: clears advance as tolerated MDM: - not at bedside today, no answer at phone number on file. please obtain contact info for her. PCP: Joel
[2023-04-22] MEDS: ENOXAPARIN 40 MG/0.4 ML SYRINGE SUBCUT (10:32)
[2023-04-22] MEDS: GABAPENTIN 300 MG CAPSULE 600 MG PO ×2 (10:33→20:11)
[2023-04-22] MEDS: CARBIDOPA-LEVODOPA 25/100 TABLET 1 EACH PO ×2 (10:33→20:11)
[2023-04-22] MEDS: CLOPIDOGREL 75 MG TABLET PO (10:33)
[2023-04-22] MEDS: SERTRALINE 50 MG TABLET 100 MG PO (10:33)
[2023-04-22] MEDS: DONEPEZIL 5 MG TABLET 10 MG PO (10:33)
[2023-04-22] MEDS: MEROPENEM 1 GM in SODIUM CHLORIDE 0.9% 100 ML IV ×2 (11:22→17:58)
--- NOTE | 2023-04-22 12:59 | CM.DANOTE ---
Reviewed chart with existing information, and patient discussed in multidisciplinary rounds this morning. Met with patient and introduced to care coordination and discharge planning. They agree to assessment. Pt is a 77 Y/O admitted for UTI, altered mental status. Patient not verbally responsive, call to Liza at [phone]. She states she is sole caregiver for who is now bedbound for the last month. Signature RN, PT and OT are on service but patient has not been able to progress. [facility] and learned that [facility] 100 % service connected and has a video meeting with [facility] team again on May 25. Her goal is to keep him at home and have supportive caregivers until his end of life. She is also working with an Elder Care break out worker for [place] Medicaid LTC navigation. She would like for him to return to [facility]. Plan: IV ABX, total nursing care DCP is for 1. SNF, first choice is [facility], second choice [facility]. PCP: Mitch Maldonado, seen 2 weeks ago via video assessment DME: 4WW, cane, WC, bed bound now Payer: [employer] and supplement Barriers: Progression of care to SNF Allyn Levy RN CM Discharge Planning/Care Management CM Discharge Assessment Start: 04/22/23 12:49 Freq: Status: Active Protocol: Document 04/22/23 12:50 BQ (Rec: 04/22/23 12:58 BQ [id number]) Discharge Planning Assessment Assigned Market Research Assistant Allyn Levy RN CM DPOA/Assigned Designee Name Advance Directives? Yes Advance Directives on File Yes History Provided By Significant Other,Medical Record Has Patient been admitted in last 30 No days? Prior Living Arrangements House Household Members spouse Type of transporation used prior to Relies on Others admit Independent with ADL's No Is patient alert and oriented? No Needs Assistance With Bathing,Eating,Grooming,Meal Prep,Toileting,Managing Medications,Home Chores / Shopping Caregiver for Another No DME Already Rented / Owned FWW / Walker Patient/Family Preference Group Home Facility Barriers to Discharge Yes Comment SNF days? Discharge Plan Group Home Facility Community Services Physical Therapy,Home Health Nurse Transportation Arrangement Facility van Referrals Initiated Group Home If patient plan is SNF: Has PASSR been No completed? Medicare Choice List Provided Yes Medicare choice list reviewed on patient,family electronic tablet with Has Agency SNF been contacted Yes Whiteboard Updated in Patient Room with Yes name and ext. # of Market Research Assistant Review Status In Process Next Review Type Continued Stay Review
[2023-04-22] MEDS: METFORMIN HCL 500 MG TABLET PO (17:14)
[2023-04-22] MEDS: MELATONIN 3 MG TABLET 5 MG PO (20:11)
[2023-04-23] VITALS (7 sets, daily range): BP systolic 113–162; BP diastolic 57–74; PULSE 60–67; RESP 22–26; TEMP 36.4–36.9; O2SAT 94–96
[2023-04-23] MEDS: MEROPENEM 1 GM in SODIUM CHLORIDE 0.9% 100 ML IV ×3 (02:06→18:24)
[2023-04-23] MEDS: SODIUM CHLORIDE 0.9% 1,000 ML 125 ML IV ×3 (06:13→22:22)
[2023-04-23 06:45] LABS: Add Manual Diff / Slide Review NO; Basophils Absolute Auto 0 /uL (0-100); Basophils Percent Auto 0.3 % (0-2); Eosinophils Absolute Auto 100 /uL (0-450); Eosinophils Percent Auto 1.5 % (2-4); Hematocrit 34.7 % (41-53); Hemoglobin 11.9 g/dL (13.5-17.5); Lymphocytes Absolute Auto 900 /uL (1100-4500); Lymphocytes Percent Auto 9.2 % (25-40); Mean Corpuscular HGB Conc 34.4 % (30-36); Mean Corpuscular Hemoglobin 32.3 PG (26-34); Mean Corpuscular Volume 93.9 fL (80-100); Monocytes Absolute Auto 900 /uL (0-900); Monocytes Percent Auto 9.1 % (3-14); Neutrophils Absolute Auto 8000 /uL (1500-7000); Neutrophils Percent Auto 79.9 % (50-75); Platelet Count 197 X10^3/uL (150-400); Red Blood Cell Count 3.69 X10^6/uL (4.5-5.9); Red Cell Distribution Width 13.7 % (11.6-14.8)
--- NOTE | 2023-04-23 06:54 | PC.NURSE ---
Broadband Installer Note-Patient is oriented to person, place, and situation, uses soft-touch call light appropriately. SR, VSS, denies pain.
[2023-04-23 06:59] LABS: Alanine Aminotransferase 30 IU/L (<50); Albumin 2.8 g/dL (3.5-5.0); Alkaline Phosphatase 83 U/L (38-126); Aspartate Aminotransferase 41 IU/L (17-59); BUN Creatinine Ratio 22.7 (6-22); Bilirubin Total 0.6 mg/dL (0.2-1.3); Blood Urea Nitrogen 17 mg/dL (9-20); Calcium 7.6 mg/dL (8.4-10.2); Carbon Dioxide 27 mmol/L (22-32); Chloride 100 mmol/L (98-107); Estimated Glomerular Filt Rate > 60 mL/min (>60); Globulin 2.7 g/dL (1.7-4.1); Glucose 126 mg/dL (80-110); HEMOLYSIS < 15 (0-50); Potassium 3.4 mmol/L (3.4-5.1); Sodium 133 mmol/L (137-145); Total Protein 5.5 g/dL (6.3-8.2)
--- NOTE | 2023-04-23 07:31 | P.PN_ITS ---
Subjective Subjective Date Patient Seen: 04/23/23 Time Patient Seen: 07:31 Interval history: Patient's?admission?and?hospital?course?reviewed?with??[place]? Patie nt?apparently?developed?probable?urosepsis?on?the?basis?of?abnormally?functionin g?suprapubic?cathete r.??Flores?catheter?was?placed?at?outside?hospital.??Not?clear?exactly?why?suprap ubic?catheter?was?not?exchanged? Patient?with?elevated?white?blood?cell?count,?and?growing?Gram-negative?rods?in? his?urine? On?IV?antibiotic?seems?to?be?improving, this morning can give me some of the story. He says he feels maybe a little better. Patient?at?baseline?has?significant?disability?secondary?to?his?prog ressive?neurologic?disorder, which is been worsened by this infection of course? Exam Vital Signs (past 8 hours): - 04/23/23 00:00 04/23/23 04:00 Temperature 98.4 F 98.0 F Pulse Rate 66 66 Respiratory Rate 25 H 22 Blood Pressure 114/57 L 113/58 L Pulse Oximetry 94 95 Oxygen Delivery Method Room Air Objective Labs 04/23/23 06:05 04/23/23 06:05 Labs: Laboratory Results - last 24 hr 04/23/23 04/23/23 06:05 06:05 WBC 10.0 RBC 3.69 L Hgb 11.9 L Hct 34.7 L MCV 93.9 MCH 32.3 MCHC 34.4 RDW 13.7 Plt Count 197 Neut % (Auto) 79.9 H Lymph % (Auto) 9.2 L [place] % (Auto) 9.1 Eos % (Auto) 1.5 L Baso % (Auto) 0.3 Neut # (Auto) 8000 H Lymph # (Auto) 900 L [place] # (Auto) 900 Eos # (Auto) 100 Baso # (Auto) 0 Sodium 133 L Potassium 3.4 Chloride 100 Carbon Dioxide 27 BUN 17 Creatinine 0.75 Estimated GFR > 60 BUN/Creatinine Ratio 22.7 H Glucose 126 H Calcium 7.6 L Total Bilirubin 0.6 AST 41 ALT 30 Alkaline Phosphatase 83 Total Protein 5.5 L Albumin 2.8 L Globulin 2.7 Albumin/Globulin Ratio 1.0 [facility] Medical History Alcohol abuse Balance problems (07/06/16) Benign prostatic hyperplasia (BPH) with urinary urge incontinence BPH w urinary obs/LUTS Cataracts, bilateral (2010) Coronary artery disease involving [place] coronary artery of [place] heart without angina pectoris (04/28/16) COVID-19 (~08/2022) Depression (2011) Dermatitis Diabetes Essential hypertension (04/28/16) Foot pain (2005) Hammertoes of both feet Hyperlipemia (Unknown) Incontinence without sensory awareness Kidney stones (2010) Knee pain (2005) Multiple sclerosis (~2014) Parkinson's disease (2014) Parkinsons disease Peripheral edema Peripheral neuropathy (2005) Peripheral vascular disease (09/27/17) Recurrent falls (07/06/16) Right leg pain Sciatica (2005) Sepsis Type 2 diabetes mellitus without complication, without long-term current use of insulin (04/28/16) Type 2 diabetes with nephropathy Urge incontinence Urinary incontinence, mixed Venous insufficiency Surgical History Chronic suprapubic catheter (~01/2023) History of coronary artery stent placement Hx of knee surgery (Unknown) Hx of lithotripsy (11/2015) S/P coronary artery stent placement (Unknown) S/P knee surgery S/P tonsillectomy and adenoidectomy Family History Father Diabetes mellitus Mother No problems noted. Brother Diabetes mellitus Social History household members: spouse Smoking Status: Never smoker alcohol intake: former Assessment & Plan Assessment & Plan narrative: 1. Complicated UTI-patient growing Gram-negative rods from urine. Continue current parental antibiotic therapy until we have obtained an organism was sensitivities. He does seem to be improving on current therapy. 2. Flores catheter verses suprapubic catheter-patient with Flores catheter placed by Urology in the [facility] ER. Will obtain notes to try and see if I can figure out why that was the answer. For now continue with Flores catheter and continue with the clamped suprapubic catheter 3. Metabolic encephalopathy-patient seems to be clearing as we treat his infection. Continue with aggressive treatment of infectious etiologies etcetera 4. Parkinson's/multiple sclerosis/progressive neurologic disorder-exact etiology of patient's progressive neurologic disorder is unclear certainly an element of both MS and parkinsonism based on evaluations via [facility] neurology. Patient has struggled at best at home recently. Likely will need placement in snf prior to returning home after this hospitalization. Discharge planning will be consulted Continue patient's usual medications in the interval however 5. Diabetes type 2-patient should have insulin coverage and continue his usual home medications. He should be on a carbohydrate consistent diet which is been ordered 6. Coronary disease-not an active issue at this time. Continue with patient's home medications
[2023-04-23] MEDS: ENOXAPARIN 40 MG/0.4 ML SYRINGE SUBCUT (09:00)
[2023-04-23] MEDS: METFORMIN HCL 500 MG TABLET PO ×2 (09:01→17:37)
[2023-04-23] MEDS: ASPIRIN EC 325 MG TABLET PO (09:01)
[2023-04-23] MEDS: DONEPEZIL 5 MG TABLET 10 MG PO (09:01)
[2023-04-23] MEDS: CARBIDOPA-LEVODOPA 25/100 TABLET 1 EACH PO ×2 (09:01→20:25)
[2023-04-23] MEDS: CLOPIDOGREL 75 MG TABLET PO (09:01)
[2023-04-23] MEDS: SERTRALINE 50 MG TABLET 100 MG PO (09:01)
[2023-04-23] MEDS: POTASSIUM CHLORIDE 20 MEQ TAB 40 MEQ PO (09:03)
[2023-04-23] MEDS: PANTOPRAZOLE DR 20 MG TABLET PO (09:03)
[2023-04-23] MEDS: GABAPENTIN 300 MG CAPSULE 600 MG PO ×2 (11:10→20:25)
[2023-04-23] MEDS: ACETAMINOPHEN 325 MG TABLET 650 MG PO ×2 (12:44→19:37)
--- NOTE | 2023-04-23 15:14 | OT.IPNOTE ---
Per medical chart, pt and possibly considering hospice at this time. Hold OT eval for today. Per nursing pt's has been assisting him today for all eating and grooming needs. To check on pt tomorrow.
--- NOTE | 2023-04-23 18:21 | PT-IP ANOTE ---
Per medical chart, pt and possibly considering hospice at this time. Hold PT eval for today. Per OT report from nursing, pt's has been assisting him today for all eating and grooming needs. To check on pt tomorrow.
[2023-04-23] MEDS: MELATONIN 3 MG TABLET 5 MG PO (20:25)
[2023-04-24] VITALS (30 sets, daily range): BP systolic 121–160; BP diastolic 65–90; PULSE 52–68; RESP 14–25; TEMP 36.1–37.3; O2SAT 94–97
[2023-04-24] MEDS: MEROPENEM 1 GM in SODIUM CHLORIDE 0.9% 100 ML IV ×3 (02:46→17:59)
[2023-04-24] MEDS: ACETAMINOPHEN 325 MG TABLET 650 MG PO ×3 (06:21→21:13)
[2023-04-24] MEDS: PANTOPRAZOLE DR 20 MG TABLET PO (06:21)
[2023-04-24 06:46] LABS: Add Manual Diff / Slide Review NO; Basophils Absolute Auto 0 /uL (0-100); Basophils Percent Auto 0.3 % (0-2); Eosinophils Absolute Auto 300 /uL (0-450); Hematocrit 36.4 % (41-53); Hemoglobin 12.5 g/dL (13.5-17.5); Lymphocytes Absolute Auto 500 /uL (1100-4500); Lymphocytes Percent Auto 6.1 % (25-40); Mean Corpuscular HGB Conc 34.4 % (30-36); Mean Corpuscular Hemoglobin 32.3 PG (26-34); Monocytes Absolute Auto 500 /uL (0-900); Monocytes Percent Auto 6.2 % (3-14); Neutrophils Absolute Auto 7400 /uL (1500-7000); Neutrophils Percent Auto 84.4 % (50-75); Platelet Count 183 X10^3/uL (150-400); Red Blood Cell Count 3.87 X10^6/uL (4.5-5.9); Red Cell Distribution Width 13.2 % (11.6-14.8); White Blood Cell Count 8.8 X10^3/uL (4.5-11.0)
[2023-04-24 06:51] LABS: Alanine Aminotransferase 42 IU/L (<50); Albumin 2.9 g/dL (3.5-5.0); Albumin Globulin Ratio 1.1 (1.0-2.8); Alkaline Phosphatase 91 U/L (38-126); Aspartate Aminotransferase 43 IU/L (17-59); BUN Creatinine Ratio 20.8 (6-22); Bilirubin Total 0.6 mg/dL (0.2-1.3); Blood Urea Nitrogen 15 mg/dL (9-20); Calcium 7.8 mg/dL (8.4-10.2); Carbon Dioxide 26 mmol/L (22-32); Chloride 102 mmol/L (98-107); Estimated Glomerular Filt Rate > 60 mL/min (>60); Globulin 2.7 g/dL (1.7-4.1); Glucose 104 mg/dL (80-110); HEMOLYSIS < 15 (0-50); Potassium 3.9 mmol/L (3.4-5.1); Sodium 134 mmol/L (137-145); Total Protein 5.6 g/dL (6.3-8.2)
[2023-04-24] MEDS: SODIUM CHLORIDE 0.9% 1,000 ML 125 ML IV (06:53)
--- NOTE | 2023-04-24 07:31 | P.PN_ITS ---
Subjective Subjective Date Patient Seen: 04/24/23 Time Patient Seen: 07:31 Interval history: patient appears to be approaching baseline. Again long discussion with patient's spouse yesterday regarding goals of care potential hospice etcetera. Urine culture did subsequently return a extended beta lactamase E coli although current antibiotic therapy appears to be appropriate. Lab work done this morning is essentially unremarkable No events in the last 24 hours Exam Vital Signs (past 8 hours): - 04/24/23 00:00 04/24/23 04:00 Temperature 97.0 F L 99.1 F Pulse Rate 62 66 Respiratory Rate 25 H 24 Blood Pressure 158/72 H 146/71 H Pulse Oximetry 97 94 Oxygen Delivery Method Room Air Oxygen Flow Rate 0 Objective Labs 04/24/23 05:49 04/24/23 05:49 Labs: Laboratory Results - last 24 hr 04/24/23 04/24/23 05:49 05:49 WBC 8.8 RBC 3.87 L Hgb 12.5 L Hct 36.4 L MCV 94.0 MCH 32.3 MCHC 34.4 RDW 13.2 Plt Count 183 Neut % (Auto) 84.4 H Lymph % (Auto) 6.1 L [place] % (Auto) 6.2 Eos % (Auto) 3.0 Baso % (Auto) 0.3 Neut # (Auto) 7400 H Lymph # (Auto) 500 L [place] # (Auto) 500 Eos # (Auto) 300 Baso # (Auto) 0 Sodium 134 L Potassium 3.9 Chloride 102 Carbon Dioxide 26 BUN 15 Creatinine 0.72 Estimated GFR > 60 BUN/Creatinine Ratio 20.8 Glucose 104 Calcium 7.8 L Total Bilirubin 0.6 AST 43 ALT 42 Alkaline Phosphatase 91 Total Protein 5.6 L Albumin 2.9 L Globulin 2.7 Albumin/Globulin Ratio 1.1 [facility] Medical History Alcohol abuse Balance problems (07/06/16) Benign prostatic hyperplasia (BPH) with urinary urge incontinence BPH w urinary obs/LUTS Cataracts, bilateral (2010) Coronary artery disease involving [place] coronary artery of [place] heart without angina pectoris (04/28/16) COVID-19 (~08/2022) Depression (2011) Dermatitis Diabetes Essential hypertension (04/28/16) Foot pain (2005) Hammertoes of both feet Hyperlipemia (Unknown) Incontinence without sensory awareness Kidney stones (2010) Knee pain (2006) Multiple sclerosis (~2014) Parkinson's disease (2014) Parkinsons disease Peripheral edema Peripheral neuropathy (2005) Peripheral vascular disease (09/27/17) Recurrent falls (07/06/16) Right leg pain Sciatica (2005) Sepsis Type 2 diabetes mellitus without complication, without long-term current use of insulin (04/28/16) Type 2 diabetes with nephropathy Urge incontinence Urinary incontinence, mixed Venous insufficiency Surgical History Chronic suprapubic catheter (~01/2023) History of coronary artery stent placement Hx of knee surgery (Unknown) Hx of lithotripsy (11/2015) S/P coronary artery stent placement (Unknown) S/P knee surgery S/P tonsillectomy and adenoidectomy Family History Father Diabetes mellitus Mother No problems noted. Brother Diabetes mellitus Social History household members: spouse Smoking Status: Never smoker alcohol intake: former Assessment & Plan Assessment & Plan narrative: 1. Complicated UTI-Patient growing quite resistant E coli. Continue current antibiotic therapy which is appropriate. Will need to continue with parental antibiotics assuming patient wants to continue treating infection 2. Flores catheter verses suprapubic catheter- patient had suprapubic catheter manipulated by Urology in the ER in [place]. They were unable to get it to drain which is why Flores catheter was placed. He will need cystoscopy to try and figure out what is going on with a suprapubic catheter. For now continue wi th Flores catheter etcetera.??Patient's?spouse?not?convinced?that?repeat?cystoscopy?or?further?eval uation?is?within?their?goals?of?care 3. Metabolic encephalopathy- Cleared/clearing. 4. Parkinson's/multiple sclerosis/progressive neurologic disorder-exact etiology of patient's progressive neurologic disorder is unclear certainly an element of both MS and parkinsonism based on evaluations via [facility] neurology. Patient has struggled at best at home recently. Continue patient's usual medications in the interval however 5. Diabetes type 2-patient should have insulin coverage and continue his usual home medications. He should be on a carbohydrate consistent diet which is been ordered 6. Coronary disease-not an active issue at this time. Continue with patient's home medications 7. Disposition - patient and spouse considering hospice and perhaps no further treatment of infectious etiologies etcetera. Looking for an informational visit with hospice prior to being discharged. Patient more likely however will continue with antibiotic therapy which will need to be parental given the organism identified and discharged to [facility]. Perhaps in the future no further treatment of infectious etiologies etcetera. That is yet to be determined.
[2023-04-24] MEDS: METFORMIN HCL 500 MG TABLET PO ×2 (08:59→17:59)
[2023-04-24] MEDS: ASPIRIN EC 325 MG TABLET PO (09:00)
[2023-04-24] MEDS: CLOPIDOGREL 75 MG TABLET PO (09:00)
[2023-04-24] MEDS: SERTRALINE 50 MG TABLET 100 MG PO (09:00)
[2023-04-24] MEDS: CARBIDOPA-LEVODOPA 25/100 TABLET 1 EACH PO ×2 (09:00→21:13)
[2023-04-24] MEDS: DONEPEZIL 5 MG TABLET 10 MG PO (09:00)
[2023-04-24] MEDS: GABAPENTIN 300 MG CAPSULE 600 MG PO ×2 (09:16→21:13)
--- NOTE | 2023-04-24 13:37 | CM.DPC ---
DCP Continued: QUOTE CLERK reviewed EMR. Per Joel over the phone and his PN, he reports that family is interested in going home on hospice. Joel reports that it is likely he would need to go home on IV antibiotics upon d/c with infusion solutions. Joel reports that family wants more caregivers for home. QUOTE CLERK called Moira to see when she would be here today to be part of the d/c plan discussion. Moira ([phone]) will be here in afternoon to discuss d/c plan. QUOTE CLERK entered room and introduced self and role. Patient was laying in bed and was minimally communicative, but appeared to be understanding and following the conversation. Patient was accompanied by spouse, who was the primary participant in the d/c plan. Patient does not wish to go to a SNF. Patient does not wish to start Hospice care at this time. Patient wants to go home. Spouse reports she is willing to care for him at home but she needs more assistance with care giving. Spouse reports patient has a social science analyst through the OR that is also assisting in the continuous churn buttermaker care giving plan. Spouse reports that if in the future a SNF is determined appropriate, that it would need to be a [facility] approved SNF. Spouse reports they are getting a new lift, bed, and wheelchair through the [facility] but were unsure the date that equipment would be delivered. QUOTE CLERK gave spouse information for [facility] per their request for [facility] and their collaboration with the [facility]. Spouse is worried about transporting patient safely from car to wheelchair and getting patient to his appointments. QUOTE CLERK acted within area of competency and referred patient and spouse to PT/OT for safe d/c transportation instructions. Spouse reports they have worked with [facility] in the past and they loved it. They would be open to HH for RN, MANAGER OF TIRES SALES, and medical transcriber. Spouse and patient open to working with infusion solutions at home if IV antibiotics are needed upon d/c. QUOTE CLERK provided spouse with [employer] booklet. QUOTE CLERK updated PT/OT on patient/spouses concerns with transportation safety. QUOTE CLERK updated Mar from [facility] office that patient no longer wishes to go home on hospice. Mar said she would pass along the information. Plan: patient will d/c home with spouse/caregivers/infusion solutions when medically stable. QUOTE CLERK will confirm with Joel that he supports home with [facility] for nursing/QUOTE CLERK/MANAGER OF TIRES SALES. Safe transportation pending PT/OT recommendation. CM team will continue to follow closely. JAMIE Eller
--- NOTE | 2023-04-24 15:53 | OT.IPNOTE ---
Pt not appropriate for OT eval and has been dependent for all needs for ADL's and mobility at this time. Discharge OT eval orders.
[2023-04-24] MEDS: SODIUM CHLORIDE 0.9% 1,000 ML 100 ML IV (15:59)
--- NOTE | 2023-04-24 16:23 | PC.NURSE ---
Day shift: Pt A&O to self and situation. Pt appears fatigued. Pt unable to move self or assist in ADLs. VSS, RA. Spouse at bedside during lunch, assisted pt to eat. Pt requires 1:1 assistance in eating food. Pt reports discomfort when elevating HOB and when being repositioned. Allyven placed on coccyx. Care ongoing.
--- NOTE | 2023-04-24 17:27 | PT-IP ANOTE ---
PT eval order received and EMR reviewed. checked with pt but pt refused PT.
[2023-04-24] MEDS: MELATONIN 3 MG TABLET 5 MG PO (21:13)
[2023-04-24] MEDS: HYDROCODONE/ACET 5/325 TABLET 1 TAB PO (22:48)
[2023-04-25] VITALS (32 sets, daily range): BP systolic 138–163; BP diastolic 65–92; PULSE 51–80; RESP 1–25; TEMP 36.2–37.1; O2SAT 93–97
[2023-04-25] MEDS: SODIUM CHLORIDE 0.9% 1,000 ML 100 ML IV (01:33)
[2023-04-25] MEDS: MEROPENEM 1 GM in SODIUM CHLORIDE 0.9% 100 ML IV ×3 (02:42→18:08)
[2023-04-25] MEDS: HYDROCODONE/ACET 5/325 TABLET 1 TAB PO ×2 (03:48→11:18)
[2023-04-25 04:46] LABS: Add Manual Diff / Slide Review NO; Basophils Absolute Auto 100 /uL (0-100); Basophils Percent Auto 0.7 % (0-2); Eosinophils Absolute Auto 600 /uL (0-450); Eosinophils Percent Auto 7.1 % (2-4); Hematocrit 38.7 % (41-53); Lymphocytes Absolute Auto 1000 /uL (1100-4500); Lymphocytes Percent Auto 11.8 % (25-40); Mean Corpuscular HGB Conc 33.6 % (30-36); Mean Corpuscular Hemoglobin 31.5 PG (26-34); Mean Corpuscular Volume 93.8 fL (80-100); Monocytes Absolute Auto 600 /uL (0-900); Monocytes Percent Auto 6.6 % (3-14); Neutrophils Absolute Auto 6500 /uL (1500-7000); Neutrophils Percent Auto 73.8 % (50-75); Platelet Count 185 X10^3/uL (150-400); Red Blood Cell Count 4.12 X10^6/uL (4.5-5.9); Red Cell Distribution Width 13.3 % (11.6-14.8); White Blood Cell Count 8.7 X10^3/uL (4.5-11.0)
[2023-04-25 04:50] LABS: Alanine Aminotransferase 26 IU/L (<50); Albumin 2.9 g/dL (3.5-5.0); Albumin Globulin Ratio 1.2 (1.0-2.8); Alkaline Phosphatase 87 U/L (38-126); Aspartate Aminotransferase 32 IU/L (17-59); BUN Creatinine Ratio 15.5 (6-22); Bilirubin Total 0.5 mg/dL (0.2-1.3); Blood Urea Nitrogen 11 mg/dL (9-20); Calcium 7.9 mg/dL (8.4-10.2); Carbon Dioxide 28 mmol/L (22-32); Chloride 103 mmol/L (98-107); Estimated Glomerular Filt Rate > 60 mL/min (>60); Globulin 2.5 g/dL (1.7-4.1); Glucose 96 mg/dL (80-110); HEMOLYSIS < 15 (0-50); Potassium 3.8 mmol/L (3.4-5.1); Sodium 136 mmol/L (137-145); Total Protein 5.4 g/dL (6.3-8.2)
[2023-04-25] MEDS: PANTOPRAZOLE DR 20 MG TABLET PO (06:18)
--- NOTE | 2023-04-25 06:50 | PM.PN.1 ---
Subjective Subjective Date Patient Seen: 04/25/23 Time Patient Seen: 06:50 Interval history: Patient says he feels about the same this morning. No particular complaints or issues. The Flores catheter is driving him crazy which is 1 of the reasons he went for suprapubic to begin with There were some discussion with spouse and then with patient then was spouse and patient yesterday about possibility of going home with hospice verses other alternatives including long-term placement etcetera. After all that discussion patient's spouse very much like him to go home and if they can arrange for additional assistance at home which seems possible based on input from discharge planning staff here than that is the best option by far. That is the current plan he will likely need some additional days of IV antibiotics, but I am not certain as to the exact duration as yet, and he is not ready for discharge as yet Exam Vital Signs (past 8 hours): - 04/25/23 00:00 04/25/23 04:00 Temperature 97.3 F L 97.1 F L Pulse Rate 59 L 59 L Respiratory Rate 16 20 Blood Pressure 138/65 141/73 H Pulse Oximetry 94 93 Oxygen Flow Rate 0 0 Oxygen Delivery Method Room Air Oxygen Flow Rate 0 Objective Labs 04/25/23 03:50 04/25/23 03:50 Labs: Laboratory Results - last 24 hr 04/24/23 04/25/23 04/25/23 05:49 03:50 03:50 WBC 8.7 RBC 4.12 L Hgb 13.0 L Hct 38.7 L MCV 93.8 MCH 31.5 MCHC 33.6 RDW 13.3 Plt Count 185 Neut % (Auto) 73.8 Lymph % (Auto) 11.8 L [place] % (Auto) 6.6 Eos % (Auto) 7.1 H Baso % (Auto) 0.7 Neut # (Auto) 6500 Lymph # (Auto) 1000 L [place] # (Auto) 600 Eos # (Auto) 600 H Baso # (Auto) 100 Sodium 134 L 136 L Potassium 3.9 3.8 Chloride 102 103 Carbon Dioxide 26 28 BUN 15 11 Creatinine 0.72 0.71 Estimated GFR > 60 > 60 BUN/Creatinine Ratio 20.8 15.5 Glucose 104 96 Calcium 7.8 L 7.9 L Total Bilirubin 0.6 0.5 AST 43 32 ALT 42 26 Alkaline Phosphatase 91 87 Total Protein 5.6 L 5.4 L Albumin 2.9 L 2.9 L Globulin 2.7 2.5 Albumin/Globulin Ratio 1.1 1.2 [facility] Medical History Alcohol abuse Balance problems (07/06/16) Benign prostatic hyperplasia (BPH) with urinary urge incontinence BPH w urinary obs/LUTS Cataracts, bilateral (2010) Coronary artery disease involving telida coronary artery of telida heart without angina pectoris (04/28/16) COVID-19 (~08/2022) Depression (2011) Dermatitis Diabetes Essential hypertension (04/28/16) Foot pain (2005) Hammertoes of both feet Hyperlipemia (Unknown) Incontinence without sensory awareness Kidney stones (2010) Knee pain (2005) Multiple sclerosis (~2014) Parkinson's disease (2014) Parkinsons disease Peripheral edema Peripheral neuropathy (2005) Peripheral vascular disease (09/27/17) Recurrent falls (07/06/16) Right leg pain Sciatica (2005) Sepsis Type 2 diabetes mellitus without complication, without long-term current use of insulin (04/28/16) Type 2 diabetes with nephropathy Urge incontinence Urinary incontinence, mixed Venous insufficiency Surgical History Chronic suprapubic catheter (~01/2023) History of coronary artery stent placement Hx of knee surgery (Unknown) Hx of lithotripsy (11/2015) S/P coronary artery stent placement (Unknown) S/P knee surgery S/P tonsillectomy and adenoidectomy Family History Father Diabetes mellitus Mother No problems noted. Brother Diabetes mellitus Social History household members: spouse Smoking Status: Never smoker alcohol intake: former Assessment & Plan Assessment & Plan narrative: 1. Complicated UTI-Patient growing quite resistant E coli. Continue current antibiotic therapy which is appropriate. Today is day 5 of antibiotic therapy. He needs least 7 days of parental antibiotics, in my opinion. 2. Flores catheter verses suprapubic catheter-patient with non functioning suprapubic catheter that can not be resolved without cystoscopy. Flores catheter needs to stay in place for now unfortunately despite the discomfort that is inducing inpatient. 3. Metabolic encephalopathy- Cleared. 4. Parkinson's/multiple sclerosis/progressive neurologic disorder-exact etiology of patient's progressive neurologic disorder is unclear certainly an element of both MS and parkinsonism based on evaluations via [facility] neurology. Patient has struggled at best at home recently. Continue patient's usual medications in the interval however 5. Diabetes type 2-patient should have insulin coverage and continue his usual home medications. Blood sugar numbers have been outstanding 6. Coronary disease-not an active issue at this time. Continue with patient's home medications. Not an active issue 7. Disposition -plan for discharge home with home health services and perhaps additional caregiver support at home. Spouse and discharge planning staff exploring other options including perhaps additional assistance from [place] etcetera. Not yet ready for discharge home unclear as to duration of needed IV antibiotics for his resistant E coli infection. He needs at least 7 days. He is on day 5 today. Not likely to be ready for discharge for another 48-72 hours so may actually not need any home parental antibiotics although that is yet to be determined.
[2023-04-25] MEDS: DONEPEZIL 5 MG TABLET 10 MG PO (09:14)
[2023-04-25] MEDS: SERTRALINE 50 MG TABLET 100 MG PO (09:14)
[2023-04-25] MEDS: METFORMIN HCL 500 MG TABLET PO ×2 (09:14→17:20)
[2023-04-25] MEDS: CARBIDOPA-LEVODOPA 25/100 TABLET 1 EACH PO ×2 (09:14→21:27)
[2023-04-25] MEDS: CLOPIDOGREL 75 MG TABLET PO (09:14)
[2023-04-25] MEDS: ENOXAPARIN 40 MG/0.4 ML SYRINGE SUBCUT (09:14)
[2023-04-25] MEDS: ASPIRIN EC 325 MG TABLET PO (09:14)
[2023-04-25] MEDS: GABAPENTIN 300 MG CAPSULE 600 MG PO ×2 (11:26→21:27)
[2023-04-25] MEDS: SODIUM CHLORIDE 0.9% 1,000 ML 125 ML IV ×2 (12:09→23:21)
--- NOTE | 2023-04-25 13:09 | PC.NURSE ---
Addendum entered by Mitch Cuevas R.N. 04/26/23 13:49: Large bowel movement. Coccyx wound cleaned and dressing changed. Barrier cream, padded Allevyn dressing, and Coversite applied. Original Note: Coccyx wound cleaned and dressing changed. Barrier cream, padded Allevyn dressing, and Coversite applied.
--- NOTE | 2023-04-25 16:11 | CM.DPC ---
DCP Continued: CONCRETE BUSTER OPERATOR reviewed EMR. From nursing staff, they highly recommended BLS transport home. From provider note, likely home with IV antibiotics but unsure as to exact duration/patient is not yet ready for discharge from this hospital. CONCRETE BUSTER OPERATOR entered room and reintroduced self and role. Patient resting and accompanied by spouse Liza ([phone]). CONCRETE BUSTER OPERATOR provided application for [employer] m[facility] caregivers to spouse. Liza reports they received lift today at the house through the [facility]. Spouse reports it is difficult for BLS to get into their house. Spouse reports verbal understanding that they may receive a bill if choose to transport with BLS. Patient and spouse continue to deny wanting hospice services. CONCRETE BUSTER OPERATOR faxed expedited request to [id number] for review to expedite application for access to [employer] extermination supervisor caregivers. Liza reports she is going to call caregiving companies in afternoon to inquire about more services they can offer in the home. Patient and spouse continues to be open to [facility] for CREATIVE ART DIRECTOR/Nursing/CONCRETE BUSTER OPERATOR for mcc planning. Patient still wants to go home and continues to deny a SNF. Plan: patient likely to d/c home when medically stable with spouse/private pay caregivers/[facility] for nursing/CONCRETE BUSTER OPERATOR/CREATIVE ART DIRECTOR. Transportation likely BLS. CM team will need to arrange home infusion when able. CM team will continue to follow closely. JAMIE Eller
[2023-04-26] MEDS: MEROPENEM 1 GM in SODIUM CHLORIDE 0.9% 100 ML IV ×3 (03:32→17:45)
[2023-04-26] MEDS: PANTOPRAZOLE DR 20 MG TABLET PO (06:43)
[2023-04-26 07:00] VITALS: O2SAT 96
[2023-04-26] MEDS: HYDROCODONE/ACET 5/325 TABLET 1 TAB PO ×2 (07:11→20:15)
--- NOTE | 2023-04-26 07:40 | P.PN_ITS ---
Subjective Subjective Date Patient Seen: 04/26/23 Time Patient Seen: 07:40 Interval history: Patient's?spouse?have?decided?to?put?the?idea?of?hospice?on?hold?for?th e?moment.??Planning?to?go?home?have?gathered?additional?resources?in?part?throug h?assistance?from?th e?VA?for?care?at?home.??Also?looking?for?additional?support?from?other?avenues?a s?per?care?management?notes? Patient?himself?had?some?relief?with?his?catheter?discomfort?when?blood?clots?we re?found?and?flushed? No?new?complaints?or?issues? Exam Vital Signs (past 8 hours): - 04/26/23 07:00 Pulse Oximetry 96 Oxygen Delivery Method Room Air Oxygen Delivery Method Room Air Oxygen Flow Rate 0 Objective Labs 04/25/23 03:50 04/25/23 03:50 PFSH Medical History Alcohol abuse Balance problems (07/06/16) Benign prostatic hyperplasia (BPH) with urinary urge incontinence BPH w urinary obs/LUTS Cataracts, bilateral (2010) Coronary artery disease involving [place] coronary artery of [place] heart without angina pectoris (04/28/16) COVID-19 (~08/2022) Depression (2011) Dermatitis Diabetes Essential hypertension (04/28/16) Foot pain (2005) Hammertoes of both feet Hyperlipemia (Unknown) Incontinence without sensory awareness Kidney stones (2010) Knee pain (2005) Multiple sclerosis (~2014) Parkinson's disease (2014) Parkinsons disease Peripheral edema Peripheral neuropathy (2005) Peripheral vascular disease (09/27/17) Recurrent falls (07/06/16) Right leg pain Sciatica (2005) Sepsis Type 2 diabetes mellitus without complication, without long-term current use of insulin (04/28/16) Type 2 diabetes with nephropathy Urge incontinence Urinary incontinence, mixed Venous insufficiency Surgical History Chronic suprapubic catheter (~01/2023) History of coronary artery stent placement Hx of knee surgery (Unknown) Hx of lithotripsy (11/2015) S/P coronary artery stent placement (Unknown) S/P knee surgery S/P tonsillectomy and adenoidectomy Family History Father Diabetes mellitus Mother No problems noted. Brother Diabetes mellitus Social History household members: spouse Smoking Status: Never smoker alcohol intake: former Assessment & Plan Assessment & Plan narrative: 1. Complicated UTI-Patient growing quite resistant E coli. Continue current antibiotic therapy which is appropriate. 1st?dose?of?meropenem?was?given?in ?the?ER?when?he?presented?late?on?April??so?probably?early?April?.??He?will? complete?7?days?of?t reatment?by?the?morning?of?the??of?April?or?Sunday.??I?think?that?will?be?joana ppropriate?time?to?s end?him?home?so?that?he?can?avoid?trying?to?do?home?antibiotics 2. Flores catheter verses suprapubic catheter-patient with non functioning suprapubic catheter that can not be resolved without cystoscopy. Flores catheter needs to stay in place for now unfortunately despite the discomfort,?although?we ?been?able?to?improve?that.??Patient's?complicated?UTI?above?due?at?least?in?par t?to?his?chronic?cat heterization?necessary?because?of?his?neurologic?disease?and?probably?to?some?de gree?with?a?recent?m anipulations?with?the?failure?of?the?suprapubic?catheter?placement?of?Flores?etce joni 3. Metabolic encephalopathy- Cleared. 4. Parkinson's/multiple sclerosis/progressive neurologic disorder-exact etiology of patient's progressive neurologic disorder is unclear certainly an element of both MS and parkinsonism based on evaluations via [facility] neurology. Patient has struggled at best at home recently. Continue patient's usual medications in the interval however 5. Diabetes type 2-patient should have insulin coverage and continue his usual home medications. Blood sugar numbers have been outstanding 6. Coronary disease-not an active issue at this time. Continue with patient's home medications. Not an active issue 7. Disposition -plan for discharge home with home health services and perhaps additional caregiver support at home. Spouse and discharge planning staff exploring other options including perhaps additional assistance from [place] etcetera. Not yet ready for discharge home unclear as to duration of needed IV antibiotics for his resistant E coli infection. He needs at least 7 days..??I?would?aim?for?discharge?on?the??of?April?and?he?can?be?off?antibi otics?at?that?point
[2023-04-26 08:00] VITALS: PULSE 62; RESP 18; TEMP 36.1; O2SAT 94
[2023-04-26] MEDS: ASPIRIN EC 325 MG TABLET PO (09:07)
[2023-04-26] MEDS: CARBIDOPA-LEVODOPA 25/100 TABLET 1 EACH PO ×2 (09:07→20:14)
[2023-04-26] MEDS: GABAPENTIN 300 MG CAPSULE 600 MG PO ×2 (09:08→20:24)
[2023-04-26] MEDS: CLOPIDOGREL 75 MG TABLET PO (09:08)
[2023-04-26] MEDS: DONEPEZIL 5 MG TABLET 10 MG PO (09:08)
[2023-04-26] MEDS: ENOXAPARIN 40 MG/0.4 ML SYRINGE SUBCUT (09:08)
[2023-04-26] MEDS: METFORMIN HCL 500 MG TABLET PO ×2 (09:08→17:18)
[2023-04-26] MEDS: SERTRALINE 50 MG TABLET 100 MG PO (09:08)
[2023-04-26] MEDS: SODIUM CHLORIDE 0.9% 1,000 ML 125 ML IV ×2 (09:37→17:45)
--- NOTE | 2023-04-26 11:17 | CM.DPNOTE ---
DCP Note Spoke w/Fay at [facility] [place], she confirms patient is current with their services and they will need a resumption of care order and DC Summary upon patient's discharge Plan: Discharge home w/spouse, who is working on arranging addtl in home care, [facility] [place] RN/HYDRAULIC BOOM OPERATOR/UMBRELLA TIPPER, continued support from OR social group worker re shelter care assistance CM team following closely for coordination of discharge plan once patient discharged JW
--- NOTE | 2023-04-26 13:44 | PC.NURSE ---
Addendum entered by Mitch Cuevas R.N. 04/26/23 17:35: Maceration on back much improved from earlier note. Original Note: Patient hot and sweating. Fan and cold wash clothes used to cool patient down. Upon turning, saw maceration on patient's upper back. Wiped down with cool wipes, applied barrier cream, and turned patient completely off of back onto right side, bed tilted at 6 degrees. Will continue to turn every 2 hours. Patient states they would prefer to stay on their back. Explained importance of continuing to Q2 turn, patient reluctantly agreed.
[2023-04-26 14:43] VITALS: BP 145/69
--- NOTE | 2023-04-26 15:21 | PT-IP ANOTE ---
talked with nurse and stated that pt is bed bound at prior level and already got his jacinta lift at home. Talked with bottle caser and agreed that there is no PT needs for pt at this time. will d/c PT eval order.
[2023-04-26] MEDS: ACETAMINOPHEN 325 MG TABLET 650 MG PO (17:18)
[2023-04-26 19:29] VITALS: O2SAT 96
[2023-04-26] MEDS: MELATONIN 3 MG TABLET 5 MG PO (20:13)
[2023-04-26 21:37] VITALS: BP 128/61; PULSE 64; RESP 16; TEMP 36.4; O2SAT 92
[2023-04-26] MEDS: OXYCODONE IR 10 MG TABLET PO (21:48)
[2023-04-27] VITALS (30 sets, daily range): BP systolic 147–179; BP diastolic 69–91; PULSE 60–83; RESP 16; TEMP 36.6–37.1; O2SAT 92–96
[2023-04-27] MEDS: OXYCODONE IR 10 MG TABLET PO ×3 (00:18→20:12)
[2023-04-27] MEDS: MEROPENEM 1 GM in SODIUM CHLORIDE 0.9% 100 ML IV ×3 (01:58→18:32)
[2023-04-27] MEDS: SODIUM CHLORIDE 0.9% 1,000 ML 125 ML IV ×2 (03:48→21:41)
[2023-04-27] MEDS: PANTOPRAZOLE DR 20 MG TABLET PO (06:16)
--- NOTE | 2023-04-27 07:35 | P.PN_ITS ---
Subjective Subjective Date Patient Seen: 04/27/23 Time Patient Seen: 07:36 Interval history: Patient?is?sleeping?this?morning.??I?minimally?disturbed?him? Really?no?change?overall.?? Continuing?on?IV?antibiotics?for?his?resistant?E?coli Exam Vital Signs (past 8 hours): - 04/27/23 03:57 04/27/23 07:00 Temperature 97.9 F Pulse Rate 61 Respiratory Rate 16 Blood Pressure 150/75 H Pulse Oximetry 93 96 Oxygen Delivery Method Room Air Oxygen Flow Rate 0 Oxygen Delivery Method Room Air Oxygen Flow Rate 0 Objective Labs 04/25/23 03:50 04/25/23 03:50 PFS Medical History Alcohol abuse Balance problems (07/06/16) Benign prostatic hyperplasia (BPH) with urinary urge incontinence BPH w urinary obs/LUTS Cataracts, bilateral (2010) Coronary artery disease involving robinson coronary artery of robinson heart without angina pectoris (04/28/16) COVID-19 (~08/2022) Depression (2011) Dermatitis Diabetes Essential hypertension (04/28/16) Foot pain (2005) Hammertoes of both feet Hyperlipemia (Unknown) Incontinence without sensory awareness Kidney stones (2010) Knee pain (2005) Multiple sclerosis (~2014) Parkinson's disease (2014) Parkinsons disease Peripheral edema Peripheral neuropathy (2005) Peripheral vascular disease (09/27/17) Recurrent falls (07/06/16) Right leg pain Sciatica (2005) Sepsis Type 2 diabetes mellitus without complication, without long-term current use of insulin (04/28/16) Type 2 diabetes with nephropathy Urge incontinence Urinary incontinence, mixed Venous insufficiency Surgical History Chronic suprapubic catheter (~01/2023) History of coronary artery stent placement Hx of knee surgery (Unknown) Hx of lithotripsy (11/2015) S/P coronary artery stent placement (Unknown) S/P knee surgery S/P tonsillectomy and adenoidectomy Family History Father Diabetes mellitus Mother No problems noted. Brother Diabetes mellitus Social History household members: spouse Smoking Status: Never smoker alcohol intake: former Assessment & Plan Assessment & Plan narrative: 1. Complicated UTI-Patient growing quite resistant E coli. Continue current antibiotic therapy which is appropriate. 1st?dose?of?meropenem?was?given?in?the?ER?when?he?presented?late?on?April?10 12?so?probably?early?April?.??He?will?complete?7?days?of?treatment?by?the?morn ing?of?the??of?J shanta?or?Sunday.??I?think?that?will?be?inappropriate?time?to?send?him?home?so?that ?he?can?avoid?trying?to?do?home?antibiotics 2. Flores catheter verses suprapubic catheter-patient with non functioning s uprapubic catheter that can not be resolved without cystoscopy. Flores catheter needs to stay in place for now unfortunately despite the discomfort,?although?we?been?able?to?improve?that.??Patient's?c omplicated?UTI?above?due?at?least?in?part?to?his?chronic?catheterization?necessa ry?because?of?his?ne urologic?disease?and?probably?to?some?degree?with?a?recent?manipulations?with?th e?failure?of?the?suprapubic?catheter?placement?of?Flores?etcetera 3. Metabolic encephalopathy- Cleared. 4. Parkinson's/multiple sclerosis/progressive neurologic disorder-exact etiology of patient's progressive neurologic disorder is unclear certainly an element of both MS and parkinsonism based on evaluations via [facility] neurology. Patient has struggled at best at home recently. Continue patient's usual medications in the interval however 5. Diabetes type 2-patient should have insulin coverage and continue his usual home medications. Blood sugar numbers have been outstanding 6. Coronary disease-not an active issue at this time. Continue with patient's home medications. Not an active issue 7. Disposition -plan for discharge home with home health services and perhaps additional caregiver support at home. Spouse and discharge planning staff exploring other options including perhaps additional assistance from [place] etcetera. Not yet ready for discharge home unclear as to duration of needed IV antibiotics for his resistant E coli infection. He needs at least 7 days..??I?would?ai m?for?discharge?on?the??of?April?and?he?can?be?off?antibiotics?at?that?point Overall,?basically ?no?change?in?patient's?the?last?24?hours.??Plan?is?for?discharge?home?off?of?IV ?antibiotics?with?ad ditional?assistance?at?home?and?to?resume?home?health?services.??At?some?point?h e?will?need?to?follo w-up?with?urology?over?at?[place],?to?re-evaluate?his?suprapubic?catheter?probabl y?going?to?require?c ystoscopy?etcetera.??For?now?however?he?will?continue?with?Flores?catheter?and?ma intain?the?suprapubic?catheter?in?place?to?maintain?the?tract.
[2023-04-27] MEDS: DONEPEZIL 5 MG TABLET 10 MG PO (09:22)
[2023-04-27] MEDS: METFORMIN HCL 500 MG TABLET PO ×2 (09:22→17:31)
[2023-04-27] MEDS: ASPIRIN EC 325 MG TABLET PO (09:22)
[2023-04-27] MEDS: SERTRALINE 50 MG TABLET 100 MG PO (09:22)
[2023-04-27] MEDS: CARBIDOPA-LEVODOPA 25/100 TABLET 1 EACH PO ×2 (09:23→20:12)
[2023-04-27] MEDS: CLOPIDOGREL 75 MG TABLET PO (09:23)
--- NOTE | 2023-04-27 12:50 | CM.DPNOTE ---
Called Ambulance at [facility]'s request for BLS transport on April 29 at noon. I spoke to Ashley at [facility] and she did say they could transport patient on Sunday at noon to patient's residence in [facility]. No POLST scanned in chart as of now. I did tell them pt. has 3-5 steps. Laura Ortega CM Barrel Reamer.
--- NOTE | 2023-04-27 14:14 | CM.DPNOTE ---
DCP Note Discharge anticipated Sunday according to Dr Maldonado's prog note Discussed DCP with spouse who asks why patient is not discharging today? Explained Dr Maldonado keeping patient admitted for IV abx and patient/spouse did not want patient to go to SNF and home infusion was not discussed Spouse informs this LACE AND TEXTILES RESTORER that cabulance [facility] will not be open Sunday. [facility] cabulance will also be closed Discussed BLS transport- as was originally planned- spouse states concern that BLS crew will not be able to get patient in their home r/t stairs and the configuration of their front porch and front door This LACE AND TEXTILES RESTORER certainly cannot guarantee that the BLS crew will get patient into their home however the likelihood is high as BLS crews are trained to get non-ambulatory people into their homes, one way or another. Explained there will likely be an out of pocket cost for this BLS transport and spouse agreeable Spouse states she would like to discuss POC w/Dr Maldonado (relayed this to RELL Meyer) Laura, clinical administrative coordinator, has secured BLS transport for Sunday, [facility] at [address] POLST NEEDS TO BE UPDATED/COMPLETED (for BLS transport) Plan: Discharge home w/spouse and [facility] via BLS expected Sunday JW
[2023-04-27] MEDS: MELATONIN 3 MG TABLET 5 MG PO (20:12)
[2023-04-27] MEDS: GABAPENTIN 300 MG CAPSULE 600 MG PO (20:12)
[2023-04-28] VITALS (56 sets, daily range): BP systolic 125–186; BP diastolic 66–100; PULSE 62–88; RESP 16–20; TEMP 36.2–36.9; O2SAT 92–96
[2023-04-28] MEDS: MEROPENEM 1 GM in SODIUM CHLORIDE 0.9% 100 ML IV ×3 (02:52→18:42)
[2023-04-28] MEDS: PANTOPRAZOLE DR 20 MG TABLET PO (05:56)
[2023-04-28] MEDS: SODIUM CHLORIDE 0.9% 1,000 ML 125 ML IV ×2 (06:51→15:04)
[2023-04-28] MEDS: METFORMIN HCL 500 MG TABLET PO ×2 (08:45→17:27)
[2023-04-28] MEDS: CLOPIDOGREL 75 MG TABLET PO (08:45)
[2023-04-28] MEDS: CARBIDOPA-LEVODOPA 25/100 TABLET 1 EACH PO ×2 (08:45→20:31)
[2023-04-28] MEDS: ASPIRIN EC 325 MG TABLET PO (08:45)
[2023-04-28] MEDS: DONEPEZIL 5 MG TABLET 10 MG PO (08:46)
[2023-04-28] MEDS: SERTRALINE 50 MG TABLET 100 MG PO (08:46)
[2023-04-28] MEDS: OXYCODONE IR 10 MG TABLET PO ×2 (09:10→17:46)
[2023-04-28] MEDS: MORPHINE 4 MG/ML INJ 3 MG IV (10:17)
--- NOTE | 2023-04-28 10:44 | P.PN_ITS ---
Subjective Subjective Date Patient Seen: 04/28/23 Interval history: The pt primarily reports pain around his penis at the site of the catheter this morning. He has no specific other concerns. As per nursing, no questions or concerns overnight. Exam Vital Signs (past 8 hours): - 04/28/23 06:02 04/28/23 07:00 04/28/23 07:00 Temperature Pulse Rate 72 Respiratory Rate 20 Blood Pressure 160/85 H Pulse Oximetry 94 94 Oxygen Delivery Method Room Air Room Air 04/28/23 03:00 04/28/23 03:30 04/28/23 04:00 Temperature Pulse Rate 76 65 75 Respiratory Rate Blood Pressure Pulse Oximetry 94 94 93 Oxygen Delivery Method 04/28/23 04:30 04/28/23 05:00 04/28/23 05:30 Temperature Pulse Rate 63 63 76 Respiratory Rate Blood Pressure Pulse Oximetry 93 93 94 Oxygen Delivery Method 04/28/23 06:00 04/28/23 06:00 04/28/23 06:30 Temperature Pulse Rate 72 62 Respiratory Rate Blood Pressure 160/85 H Pulse Oximetry 94 93 Oxygen Delivery Method 04/28/23 07:00 04/28/23 07:30 04/28/23 08:00 Temperature Pulse Rate 67 62 77 Respiratory Rate Blood Pressure Pulse Oximetry 95 94 94 Oxygen Delivery Method 04/28/23 08:15 04/28/23 08:15 04/28/23 08:30 Temperature 97.1 F L Pulse Rate 71 62 Respiratory Rate 16 Blood Pressure 129/76 Pulse Oximetry 94 94 Oxygen Delivery Method 04/28/23 09:00 04/28/23 09:30 Temperature Pulse Rate 85 65 Respiratory Rate Blood Pressure Pulse Oximetry 95 94 Oxygen Delivery Method Oxygen Delivery Method Room Air Oxygen Flow Rate 0 Narrative Exam Narrative: Gen: NAD, laying in bed with head rotated towards the left CV: RRR, no murmurs Resp: clear to auscultation bilaterally Abd: soft, nontender, nondistended, normoactive bowel sounds Ext: trace edema Objective Labs 04/25/23 03:50 04/25/23 03:50 [facility] Medical History Alcohol abuse Balance problems (07/06/16) Benign prostatic hyperplasia (BPH) with urinary urge incontinence BPH w urinary obs/LUTS Cataracts, bilateral (2010) Coronary artery disease involving [place] coronary artery of [place] heart without angina pectoris (04/28/16) COVID-19 (~08/2022) Depression (2011) Dermatitis Diabetes Essential hypertension (04/28/16) Foot pain (2005) Hammertoes of both feet Hyperlipemia (Unknown) Incontinence without sensory awareness Kidney stones (2010) Knee pain (2005) Multiple sclerosis (~2014) Parkinson's disease (2014) Parkinsons disease Peripheral edema Peripheral neuropathy (2005) Peripheral vascular disease (09/27/17) Recurrent falls (07/06/16) Right leg pain Sciatica (2005) Sepsis Type 2 diabetes mellitus without complication, without long-term current use of insulin (04/28/16) Type 2 diabetes with nephropathy Urge incontinence Urinary incontinence, mixed Venous insufficiency Surgical History Chronic suprapubic catheter (~01/2023) History of coronary artery stent placement Hx of knee surgery (Unknown) Hx of lithotripsy (11/2015) S/P coronary artery stent placement (Unknown) S/P knee surgery S/P tonsillectomy and adenoidectomy Family History Father Diabetes mellitus Mother No problems noted. Brother Diabetes mellitus Social History household members: spouse Smoking Status: Never smoker alcohol intake: former Assessment & Plan Assessment & Plan narrative: Pt is a 77yo man with CAD, progressive neurological disorder, DM type 2, hyperlipidemia, and BPH who presented with 1.? Complicated UTI: Growing E coli with many resistances. - Continue Meropenem, currently Day 6/7 (will finish 7 days tomorrow AM) 2. Clayton catheter verses suprapubic catheter: Nonfunctioning suprapubic catheter that unfortunately cannot be fixed without cystoscopy. Clayton must remain in place for now, although is causing some discomfort. - Continue with clayton catheter - Trial topical lidocaine gel to see if can help with discomfort 3. Metabolic encephalopathy: Improved, stable. 4. Parkinson's/multiple sclerosis/progressive neurologic disorder: Exact etiology unclear, has elements of both MS and Parkinsonism based on evaluations via [facility] neurology.? Patient has struggled at best at home recently.? - Continue home medications - Dr Maldonado has had multiple conversations recently with pt and his regarding goals of care, etc. Pt does not feel ready to enter hospice care yet. 5. Diabetes type 2: BS in good range - Continue ACHS blood sugar checks - Continue low dose insulin coverage - Continue home medications 6. Coronary disease: Stable - Continue home medications Code: DNR DVT ppx: Lovenox, although pt has been refusing Diet: Carb consistent Dispo: Plan for d/c home with home health at 12pm tomorrow via BLS ambulance. Care management engaged. He will have completed 7 days of antibiotics at that point.
[2023-04-28] MEDS: LIDOCAINE 5% OINT 35 GM 1 APPLIC TOP ×2 (11:11→15:03)
--- NOTE | 2023-04-28 14:53 | CM.DPNOTE ---
DCP Note Dr Jeff anticipates discharge home tomorrow w/spouse and HH. POLST updated and signed by Dr Jeff and spouse Liza DANIELS transport arranged for p/u at 1200 Sunday04.29.23, spouse aware and agreeable to plan CM team following for coordination of DCP Plan: DC home w/spouse via BLS, [facility] (need resumption order and DC Summary upon discharge) JW
--- NOTE | 2023-04-28 18:48 | PC.NURSE ---
1800--dressing changed around suprapubic cath as it was wet with urine; split abd pad and paper tape applied; LAC iv pink and leaking; site discontinued; 22g started to right wrist and ivf moved to that site brief and partial linen change also done; pt tolerated well
[2023-04-28] MEDS: GABAPENTIN 300 MG CAPSULE 600 MG PO (20:31)
[2023-04-28] MEDS: HYDROCODONE/ACET 5/325 TABLET 1 TAB PO (20:32)
[2023-04-28] MEDS: MELATONIN 3 MG TABLET 5 MG PO (20:32)
[2023-04-29] VITALS (23 sets, daily range): BP systolic 107–114; BP diastolic 55–65; PULSE 61–90; RESP 16–18; TEMP 36.6–36.8; O2SAT 92–95
[2023-04-29] MEDS: SODIUM CHLORIDE 0.9% 1,000 ML 125 ML IV (00:17)
[2023-04-29] MEDS: MEROPENEM 1 GM in SODIUM CHLORIDE 0.9% 100 ML IV ×2 (02:31→10:08)
[2023-04-29] MEDS: PANTOPRAZOLE DR 20 MG TABLET PO (07:00)
[2023-04-29] MEDS: SERTRALINE 50 MG TABLET 100 MG PO (08:29)
[2023-04-29] MEDS: DONEPEZIL 5 MG TABLET 10 MG PO (08:29)
[2023-04-29] MEDS: ASPIRIN EC 325 MG TABLET PO (08:29)
[2023-04-29] MEDS: CARBIDOPA-LEVODOPA 25/100 TABLET 1 EACH PO (08:29)
[2023-04-29] MEDS: CLOPIDOGREL 75 MG TABLET PO (08:29)
[2023-04-29] MEDS: METFORMIN HCL 500 MG TABLET PO (08:29)
[2023-04-29] MEDS: LIDOCAINE 5% OINT 35 GM 1 APPLIC TOP (08:46)
[2023-04-29] MEDS: OXYCODONE IR 10 MG TABLET PO (08:55)
--- NOTE | 2023-04-29 11:36 | P.DS_ITS ---
History of Present Illness History of Present Illness Date Patient Seen: 04/29/23 Chief complaint: AMS Narrative: Pt with hx of stents, diabetes, Parkinson's, and chronic urinary obstruction developed issues with his suprapubic catheter yesterday and went to the [facility] ER where urological consult was obtained.? His suprapubic catheter was clamped and a Clayton was placed and he was able to go home with good urine output.? However after returning home he developed altered mental status fever tachypnea and was brought in by EMS. Per ED note, noted he is usually very verbal but had been declining acutely in last 24-48 hours and lately is not able to feed himself.? On exam today he is verbally responsive but not markedly interactive.? Endorses hunger. reserved affect. Usually sees Dr. Maldonado. Discharge Providers Provider Date of admission: 04/22/23 00:27 Discharge Date: 04/29/23 Primary care physician: Mitch Maldonado MD Consults: 04/22/23 09:30 Consult to Occupational Therapy Evaluate & Treat Comment: Physician Instructions: Evaluate and treat Consult to Physical Therapy Evaluate & Treat Comment: Physician Instructions: Evaluate and Treat 04/22/23 09:49 Consult to Occupational Therapy Evaluate & Treat Comment: Physician Instructions: Evaluate and treat Consult to Physical Therapy Evaluate & Treat Comment: Physician Instructions: Evaluate and Treat 04/23/23 07:33 Consult to Discharge Planning Routine Comment: 04/23/23 10:05 Consult to Hospice Referral Routine Comment: informational visit for patient/spouse Discharge provider: Isabel Jeff MD Summary Hospital Course Discharge Diagnosis: Complicated UTI Metabolic encephalopathy Progressive neurological disorder DM type 2 CAD Hospital Course: The pt presented with altered mental status. He was found to have a UTI, and initiated on Meropenem. His urine grew extended?spectrum?beta?lactamase?E?coli. He was continued on Meropenem for a total of 7 days. His mental status returned to baseline. The pts suprapubic catheter was left in place to maintain the tract as it was not draining appropriately, and clayton remains in place at discharge. He will need close outpatient f/u with Urology. Hospice was considered, but ultimately the pt declined. At the time of discharge he had completed treatment of his UTI. He will discharge home with home health support. Exam Vital Signs (past 8 hours): - 04/29/23 04:28 04/29/23 04:00 04/29/23 04:26 Temperature 98.3 F Pulse Rate 66 69 67 Respiratory Rate 18 Blood Pressure 114/65 Pulse Oximetry 93 93 93 Oxygen Delivery Method 04/29/23 04:26 04/29/23 04:30 04/29/23 05:00 Temperature Pulse Rate 66 65 Respiratory Rate Blood Pressure 114/65 Pulse Oximetry 93 93 Oxygen Delivery Method 04/29/23 05:30 04/29/23 06:00 04/29/23 06:30 Temperature Pulse Rate 67 90 69 Respiratory Rate Blood Pressure Pulse Oximetry 94 95 93 Oxygen Delivery Method 04/29/23 07:00 04/29/23 07:30 04/29/23 07:53 Temperature Pulse Rate 77 65 64 Respiratory Rate Blood Pressure Pulse Oximetry 94 94 92 Oxygen Delivery Method 04/29/23 07:53 04/29/23 08:00 04/29/23 08:30 Temperature 97.8 F Pulse Rate 68 70 Respiratory Rate 16 Blood Pressure 107/55 L Pulse Oximetry 93 94 Oxygen Delivery Method 04/29/23 09:00 04/29/23 09:30 04/29/23 07:00 Temperature Pulse Rate 76 63 Respiratory Rate Blood Pressure Pulse Oximetry 95 94 Oxygen Delivery Method Room Air 04/29/23 07:00 Temperature Pulse Rate Respiratory Rate Blood Pressure Pulse Oximetry Oxygen Delivery Method Room Air Oxygen Delivery Method Room Air Oxygen Flow Rate 0 Narrative Exam Narrative: Gen:? NAD, laying in bed with head rotated towards the left CV:? RRR, no murmurs Resp:? clear to auscultation bilaterally Abd:? soft, nontender, nondistended, normoactive bowel sounds Ext:? trace edema Objective Labs 04/25/23 03:50 04/25/23 03:50 [facility] Medical History Alcohol abuse Balance problems (07/06/16) Benign prostatic hyperplasia (BPH) with urinary urge incontinence BPH w urinary obs/LUTS Cataracts, bilateral (2010) Coronary artery disease involving [place] coronary artery of [place] heart without angina pectoris (04/28/16) COVID-19 (~08/2022) Depression (2011) Dermatitis Diabetes Essential hypertension (04/28/16) Foot pain (2005) Hammertoes of both feet Hyperlipemia (Unknown) Incontinence without sensory awareness Kidney stones (2010) Knee pain (2006) Multiple sclerosis (~2014) Parkinson's disease (2014) Parkinsons disease Peripheral edema Peripheral neuropathy (2005) Peripheral vascular disease (09/27/17) Recurrent falls (07/06/16) Right leg pain Sciatica (2005) Sepsis Type 2 diabetes mellitus without complication, without long-term current use of insulin (04/28/16) Type 2 diabetes with nephropathy Urge incontinence Urinary incontinence, mixed Venous insufficiency Surgical History Chronic suprapubic catheter (~01/2023) History of coronary artery stent placement Hx of knee surgery (Unknown) Hx of lithotripsy (11/2015) S/P coronary artery stent placement (Unknown) S/P knee surgery S/P tonsillectomy and adenoidectomy Family History Father Diabetes mellitus Mother No problems noted. Brother Diabetes mellitus Social History household members: spouse Smoking Status: Never smoker alcohol intake: former Discharge Plan Discharge Plan Patient Disposition: Home Health Service Transfer to: [facility] Discharge orders & Medications Prescriptions: New lidocaine 5 % Ointment 1 applic topical QID PRN (Reason: Pain, Mild (1-3)) Qty: 30 0RF Continued aspirin 325 MG tablet 325 mg PO QDAY Qty: 0 clopidogrel 75 mg tablet 75 mg PO QDAY Qty: 90 3RF gabapentin 300 mg capsule 600 mg PO TID Qty: 540 3RF Rx Instructions: Supposed to take TID but afternoon dose is optional. atorvastatin [Lipitor] 10 mg tablet 5 mg PO EVERY OTHER DAY Qty: 45 3RF metformin 500 mg tablet 500 mg PO BIDCC Qty: 180 3RF carbidopa-levodopa 25-100 mg tablet 1 tab PO BID Qty: 60 3RF donepezil 10 mg tablet 10 mg PO DAILY (DME) Disabled Parking See Rx Instructions .ROUTE .MEDSUPPLY Qty: 1 0RF Rx Instructions: Patient qualifies for disabled parking as per the attached form. melatonin 5 mg Tablet 5 mg PO BEDTIME PRN (Reason: Sleep) sertraline 100 mg tablet 100 mg PO DAILY Follow up/Referrals: Mike Sotomayor MD [Non-Staff] - 2 Weeks (Urology should review ER note from [facility] 04/20/23) Mitch Maldonado MD [Primary Care Provider] - 2 Weeks (Video/Virtual Visit) Diet/Activity/Treatments Diet: Diet as Tolerated Catheter: 2-way Clayton Skin/Wound/Dressing Care Report to your healthcare provider any signs of infection, such as:: chills, fe helena Visit Report/Discharge Packet Stand Alone Forms: Patient Portal/API Discharge Data Primary Care Provider: Mitch Maldonado Discharges patient from system. Discharge Date/Time: 04/29/23 12:15
--- NOTE | 2023-04-29 12:15 | CM.DPC ---
Addendum entered by Christine Naylor R.N. 04/29/23 12:46: Tena from [facility] called back, and updated her on patient, and let her know that he was discharged today, and that a new referral was placed. Addendum entered by Christine Naylor R.N. 04/29/23 12:24: Just read notes, and indicates patient had [facility] in the past. Most likely will need a new face to face, and orders. Will order RN, P.T, O,T, GRILL ASSOCIATE, and bath aide. Completing face to face now, and orders. Original Note: DCP Cont: Patient is discharging home via BLS, was set up on Sunday. Had Dr. Jeff sign BLS form, and POLST form is attached, copied both forms for scanning. Attempted to call Tena Warner at [facility] to let her know that patient is discharging home today, but her voice mail box was full. Called the main number at [facility] and spoke to their answering service, gave patient's name, and they said that they would have someone call back. Will go ahead and fax over resumption orders, and DC Summary. P: Patient is discharging home today with the resumption of [facility]. Faxing orders, left message with answering service. Christine Naylor RN/Floor Plan Adjuster
== END 2023-04-29 12:15 | disposition home health service (06) | DRG 698 ==
LOC: ED 21:35 → AC 04-22 00:27 → ICU 04-22 00:59
PROVIDERS: Admitting Provider Family Medicine; Emergency Provider Emergency Medicine; Family Provider Internal Medicine; PCP Internal Medicine; Referring Provider Emergency Medicine; Visit Provider Internal Medicine
DX: T83.518A Infection and inflammatory reaction due to other urinary catheter, initial encounter (principal); G93.41 Metabolic encephalopathy; N39.0 Urinary tract infection, site not specified; Z16.11 Resistance to penicillins; N31.9 Neuromuscular dysfunction of bladder, unspecified; N13.9 Obstructive and reflux uropathy, unspecified; E11.42 Type 2 diabetes mellitus with diabetic polyneuropathy; G20 Parkinson's disease; F32.A Depression, unspecified; I25.10 Atherosclerotic heart disease of native coronary artery without angina pectoris; I73.9 Peripheral vascular disease, unspecified; I10 Essential (primary) hypertension; B96.20 Unspecified Escherichia coli [E. coli] as the cause of diseases classified elsewhere; G35 Multiple sclerosis; E78.5 Hyperlipidemia, unspecified; Z79.84 Long term (current) use of oral hypoglycemic drugs; Z66 Do not resuscitate; Z79.02 Long term (current) use of antithrombotics/antiplatelets; Z95.5 Presence of coronary angioplasty implant and graft
CPT/HCPCS: 36415; 70450; 71045; 80053; 81001; 82550; 82962; 83605; 83690; 83880; 84145; 84484; 85025; 85610; 85730; 87040; 87077; 87086; 87186; 87633; 87797; 93005; 96365; 99232; 99233; 99238; 99284; J1650; J2185; J2270